=== PATIENT | female | born 1985 | race Caucasian/White ===

== ENCOUNTER → 2016-04-29 | Outpatient (RCR) | payer BC ==
--- OUTSIDE RECORDS SUMMARY | 2016-01-30 08:51 | XMS REPORT | Continuity of Care Document ---
Author Author [facility] Organization [facility] Address Unknown Phone Unavailable Care Team Providers Care L[employer] Kil[employer] Operator Name Role Phone Viki Flores PCP [phone] Source Comments Some departments are not documenting in the electronic medical record. If you do not see the information that you expected, contact Release of Information in the Health Information Management department at [phone] for further assistance in locating additional records.[facility] Active Allergies and Adverse Reactions Allergen Noted Date Severity Reactions Comments Bactrim 10/14/2014 Low NAUSEA AND VOMITING Current Medications Prescription Sig. Disp. Refills Start End Date Status Date vitamins, w/iron Take 1 Tab by mouth Active & folate () daily. 28-0.8 mg tablet HYDROcodone/acetaminophen Take 1-2 Tabs by mouth 30 Tab 0 10/17/19 Active (NORCO; VICODIN) 5-325 mg every 4 hours as needed 15 tablet for Pain Earliest Fill Date: 10/16/14 senna/docusate Take 1 Tab by mouth twice 60 Tab 1 10/24/19 Active (SENOKOT-S) 8.6/50 mg daily. 15 tablet levETIRAcetam (KEPPRA) Take 1 Tab by mouth twice 30 Tab 1 10/24/19 Active 500 mg tablet daily. 15 dexamethasone (DECADRON) Please take 2 tablets 52 Tab 0 10/24/19 Active 2 mg tablet every 8 hours for 4 days. 15 Then take 2 tablets every 12 hours for 4 days. Then take 1 tablet every 12 hours for 4 days. Finally, take 1/2 a tablet every 12 hours for 4 days before stopping. 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 She had the numbness for awhile but as mother of 5 she did not think much of it. She had GTR here by Dr. Gloria. I have discussed her pathology with Dr. Prince. 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 We will treat aggressively with concurrent temodar and xrt followed by at least a year of temodar. She lives in [place] so I have contacted Dr. Oh office and they will contact her with an appointment manju. We discussed the toxicities of the treatment, the natural history and epidemiology of the disease, etiology. 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522 kg (120 lb 3.2 oz) 11/02/2014 3:25 PM CDT Body Mass Index 21.98 11/02/2014 3:25 PM CDT Oxygen Saturation 98% 11/02/2014 3:25 PM CDT Plan of Care Health Maintenance Due Date Last Done Comments Physical (Comprehensive) 1992 Exam Pertussis Vaccine 1996 Tetanus Vaccine 2002 Cervical Cancer Screening 2006 Influenza Vaccine 12/13/2015 Results from Last 3 Months Not on file
[2016-01-30 09:13] LABS: BASOPHILS % (AUTO) 0 % (0-10); EOSINOPHILS # (AUTO) 0.1 10^3/uL (0.0-0.3); EOSINOPHILS % (AUTO) 1 % (0-10); LYMPHOCYTES # (AUTO) 0.9 X 10^3 (1.0-4.0); LYMPHOCYTES % (AUTO) 20 % (12-44); MEAN CORPUSCULAR HEMOGLOBIN 33 PG (25-34); MEAN CORPUSCULAR HGB CONC 34 G/DL (32-36); MEAN CORPUSCULAR VOLUME 97 FL (80-99); MEAN PLATELET VOLUME 8.5 FL (7.4-10.4); MONOCYTES # (AUTO) 0.4 X 10^3 (0.0-1.0); MONOCYTES % (AUTO) 9 % (0-12); NEUTROPHILS # (AUTO) 3.2 X 10^3 (1.8-7.8); NEUTROPHILS % (AUTO) 69 % (42-75); PLATELET COUNT 161 10^3/uL (130-400); RED BLOOD COUNT 4.06 10^6/uL (4.35-5.85); RED CELL DISTRIBUTION WIDTH 12.8 % (10.0-14.5); WHITE BLOOD COUNT 4.6 10^3/uL (4.3-11.0)
[2016-01-30 09:55] LABS: ALANINE AMINOTRANSFERASE 21 U/L (0-55); ALBUMIN 4.5 G/DL (3.2-4.5); ANION GAP 4 MMOL/L (5-14); ASPARTATE AMINO TRANSFERASE 25 U/L (5-34); BILIRUBIN,TOTAL 0.4 MG/DL (0.1-1.0); BLOOD UREA NITROGEN 18 MG/DL (7-18); BUN/CREATININE RATIO 29; CALCIUM 8.9 MG/DL (8.5-10.1); CARBON DIOXIDE 25 MMOL/L (21-32); CHLORIDE 111 MMOL/L (98-107); CREATININE SERUM 0.63 MG/DL (0.60-1.30); GFR ESTIMATED > 60; GLUCOSE 91 MG/DL (70-105); POTASSIUM 3.6 MMOL/L (3.6-5.0); SODIUM 140 MMOL/L (135-145); TOTAL PROTEIN 6.8 G/DL (6.4-8.2)
[~2016-04-29] MED LIST: FRS325T PO; IBP800T PO; Ibuprofen PO; OXYC-12 PO; PREN1TAB39 PO
[2016-04-29 10:27] LABS: BASOPHILS % (AUTO) 0 % (0-10); EOSINOPHILS # (AUTO) 0.1 10^3/uL (0.0-0.3); EOSINOPHILS % (AUTO) 1 % (0-10); LYMPHOCYTES % (AUTO) 20 % (12-44); MEAN CORPUSCULAR HEMOGLOBIN 33 PG (25-34); MEAN CORPUSCULAR HGB CONC 34 G/DL (32-36); MEAN CORPUSCULAR VOLUME 97 FL (80-99); MEAN PLATELET VOLUME 8.4 FL (7.4-10.4); MONOCYTES # (AUTO) 0.7 X 10^3 (0.0-1.0); MONOCYTES % (AUTO) 13 % (0-12); NEUTROPHILS # (AUTO) 3.4 X 10^3 (1.8-7.8); NEUTROPHILS % (AUTO) 66 % (42-75); PLATELET COUNT 124 10^3/uL (130-400); RED BLOOD COUNT 4.31 10^6/uL (4.35-5.85); RED CELL DISTRIBUTION WIDTH 13.4 % (10.0-14.5); WHITE BLOOD COUNT 5.2 10^3/uL (4.3-11.0)
[2016-04-29 11:01] LABS: ALANINE AMINOTRANSFERASE 15 U/L (0-55); ALBUMIN 4.7 G/DL (3.2-4.5); ANION GAP 9 MMOL/L (5-14); ASPARTATE AMINO TRANSFERASE 17 U/L (5-34); BILIRUBIN,TOTAL 0.4 MG/DL (0.1-1.0); BLOOD UREA NITROGEN 16 MG/DL (7-18); BUN/CREATININE RATIO 23; CALCIUM 8.9 MG/DL (8.5-10.1); CARBON DIOXIDE 23 MMOL/L (21-32); CHLORIDE 110 MMOL/L (98-107); CREATININE SERUM 0.71 MG/DL (0.60-1.30); GFR ESTIMATED > 60; GLUCOSE 89 MG/DL (70-105); POTASSIUM 3.7 MMOL/L (3.6-5.0); SODIUM 142 MMOL/L (135-145); TOTAL PROTEIN 7.1 G/DL (6.4-8.2)
== END | disposition home or self-care (01) ==
LOC: ONC 01-30 08:48
PROVIDERS: ATTEND Internal Medicine Hematology & Oncology
DX: C71.3 Malignant neoplasm of parietal lobe (principal); Z79.899 Other long term (current) drug therapy
CPT/HCPCS: 36415; 80053; 85025; 99213

== ENCOUNTER → 2016-07-22 | Outpatient (CLI) | payer BC ==
[~2016-07-22] MED LIST changes: +GADOBUTROL 7.5 MMOL/7.5 ML (GADAVIST) VIAL IV ONE
--- NOTE | 2016-07-22 11:22 | Diagnostic Imaging Report ---
PROCEDURE: MR imaging of the brain with and without contrast. TECHNIQUE: Multiplanar, multisequence MR imaging of the brain was performed with and without contrast. INDICATION: History of oligodendroglioma. Resection performed in October 2015. 5 mL of Gadavist is administered intravenously. COMPARISON: MRI from 01/22/2016 is reviewed. FINDINGS: There is no diffusion restriction to suggest an acute infarct or other diffusion abnormality. There is a T2 hyperintense abnormality again seen in the brain parenchyma around the resection site in the right parietal region probably related to gliosis with stable appearance and no associated mass effect. There is no associated postcontrast enhancement. There is no hydrocephalus. The brainstem and the cerebellum appear unremarkable. The central vascular flow-voids appear unremarkable. The pituitary gland is normal in size. No hypothalamic or pineal region mass. There is thick mucosal thickening in the right maxillary sinus developed since the prior exam. Mild mucosal thickening in the ethmoidal air cells is also seen. IMPRESSION: 1. Stable right parietal resection cavity with no new mass effect or enhancing lesion identified. 2. Prominent right maxillary sinus mucosal thickening. Correlate for possible underlying sinusitis. Dictated by: Dictated on workstation # [id number]
== END ==
LOC: RAD 09:20
PROVIDERS: ATTEND Nurse Practitioner Adult Health
DX: C71.3 Malignant neoplasm of parietal lobe (principal)
CPT/HCPCS: 70553

== ENCOUNTER 2016-10-20 09:40 | Outpatient (RCR) | payer BC ==
[2016-07-28 11:30] LABS: BASOPHILS % (AUTO) 0 % (0-10); EOSINOPHILS # (AUTO) 0.1 10^3/uL (0.0-0.3); EOSINOPHILS % (AUTO) 1 % (0-10); LYMPHOCYTES # (AUTO) 1.2 X 10^3 (1.0-4.0); LYMPHOCYTES % (AUTO) 16 % (12-44); MEAN CORPUSCULAR HEMOGLOBIN 32 PG (25-34); MEAN CORPUSCULAR HGB CONC 33 G/DL (32-36); MEAN CORPUSCULAR VOLUME 97 FL (80-99); MEAN PLATELET VOLUME 8.4 FL (7.4-10.4); MONOCYTES # (AUTO) 0.5 X 10^3 (0.0-1.0); MONOCYTES % (AUTO) 6 % (0-12); NEUTROPHILS # (AUTO) 5.8 X 10^3 (1.8-7.8); NEUTROPHILS % (AUTO) 77 % (42-75); PLATELET COUNT 183 10^3/uL (130-400); RED BLOOD COUNT 4.12 10^6/uL (4.35-5.85); RED CELL DISTRIBUTION WIDTH 13.2 % (10.0-14.5); WHITE BLOOD COUNT 7.5 10^3/uL (4.3-11.0)
[2016-07-28 12:35] LABS: ALANINE AMINOTRANSFERASE 11 U/L (0-55); ALBUMIN 4.4 G/DL (3.2-4.5); ANION GAP 7 MMOL/L (5-14); ASPARTATE AMINO TRANSFERASE 17 U/L (5-34); BILIRUBIN,TOTAL 0.3 MG/DL (0.1-1.0); BLOOD UREA NITROGEN 16 MG/DL (7-18); BUN/CREATININE RATIO 23; CALCIUM 8.9 MG/DL (8.5-10.1); CARBON DIOXIDE 25 MMOL/L (21-32); CHLORIDE 108 MMOL/L (98-107); CREATININE SERUM 0.69 MG/DL (0.60-1.30); GFR ESTIMATED > 60; GLUCOSE 99 MG/DL (70-105); POTASSIUM 3.9 MMOL/L (3.6-5.0); SODIUM 140 MMOL/L (135-145); TOTAL PROTEIN 6.8 G/DL (6.4-8.2)
[~2016-10-20 09:40] MED LIST changes: -GADOBUTROL 7.5 MMOL/7.5 ML (GADAVIST) VIAL IV ONE
[2016-10-20 10:04] LABS: BASOPHILS % (AUTO) 0 % (0-10); EOSINOPHILS # (AUTO) 0.1 10^3/uL (0.0-0.3); EOSINOPHILS % (AUTO) 1 % (0-10); LYMPHOCYTES # (AUTO) 0.8 X 10^3 (1.0-4.0); LYMPHOCYTES % (AUTO) 21 % (12-44); MEAN CORPUSCULAR HEMOGLOBIN 33 PG (25-34); MEAN CORPUSCULAR HGB CONC 34 G/DL (32-36); MEAN CORPUSCULAR VOLUME 97 FL (80-99); MEAN PLATELET VOLUME 8.8 FL (7.4-10.4); MONOCYTES # (AUTO) 0.4 X 10^3 (0.0-1.0); MONOCYTES % (AUTO) 9 % (0-12); NEUTROPHILS # (AUTO) 2.7 X 10^3 (1.8-7.8); NEUTROPHILS % (AUTO) 68 % (42-75); PLATELET COUNT 131 10^3/uL (130-400); RED BLOOD COUNT 4.12 10^6/uL (4.35-5.85); RED CELL DISTRIBUTION WIDTH 13.2 % (10.0-14.5)
[2016-10-20 10:34] LABS: ALANINE AMINOTRANSFERASE 10 U/L (0-55); ALBUMIN 4.4 GM/DL (3.2-4.5); ANION GAP 7 MMOL/L (5-14); ASPARTATE AMINO TRANSFERASE 14 U/L (5-34); BILIRUBIN,TOTAL 0.5 MG/DL (0.1-1.0); BLOOD UREA NITROGEN 16 MG/DL (7-18); BUN/CREATININE RATIO 23; CARBON DIOXIDE 23 MMOL/L (21-32); CHLORIDE 110 MMOL/L (98-107); CREATININE SERUM 0.69 MG/DL (0.60-1.30); GFR ESTIMATED > 60; GLUCOSE 86 MG/DL (70-105); POTASSIUM 4.1 MMOL/L (3.6-5.0); SODIUM 140 MMOL/L (135-145); TOTAL PROTEIN 6.9 GM/DL (6.4-8.2)
== END 2016-10-26 | disposition home or self-care (01) ==
LOC: ONC 09:40
PROVIDERS: ATTEND Internal Medicine Hematology & Oncology
DX: C71.3 Malignant neoplasm of parietal lobe (principal); Z79.899 Other long term (current) drug therapy
CPT/HCPCS: 36415; 80053; 85025; 99213

== ENCOUNTER → 2017-01-06 | Outpatient (CLI) | payer BC ==
[~2017-01-06] MED LIST changes: +GADOBUTROL 7.5 MMOL/7.5 ML (GADAVIST) VIAL IV ONE
--- NOTE | 2017-01-06 11:15 | Diagnostic Imaging Report ---
PROCEDURE: MR imaging of the brain with and without contrast. TECHNIQUE: Multiplanar, multisequence MR imaging of the brain was performed with and without contrast. INDICATION: History of oligodendroglioma. 5 mL of Gadovist is administered intravenously. COMPARISON: 07/22/2016. FINDINGS: There is no diffusion restriction to suggest an acute infarct or other diffusion abnormality noted. There is a resection cavity seen in the right parietal region measuring 4.3 x 3.3 x 3.8 cm without change from the prior exam. Heterogeneous T2 and FLAIR signal abnormality in the brain parenchyma is seen. This is similar to 07/22/2016, exam. There is no enhancing nodular component seen. No hydrocephalus. The pituitary gland is normal in size. No hypothalamic or pineal region mass. The central vascular flow-voids appear grossly unremarkable. The internal auditory canals and inner ear structures appear unremarkable. There is generally clear appearance of the paranasal sinuses seen with resolution of previously seen mucosal thickening in the right maxillary sinus. IMPRESSION: Stable resection cavity in the right parietal region with adjacent parenchymal changes as described. No significant change or enhancing nodule seen to suggest tumor recurrence. Dictated by: Dictated on workstation # [id number]
== END ==
LOC: RAD 09:26
PROVIDERS: ATTEND Internal Medicine Hematology & Oncology
DX: C71.3 Malignant neoplasm of parietal lobe (principal); Z98.890 Other specified postprocedural states
CPT/HCPCS: 70553

== ENCOUNTER 2017-01-12 10:22 | Outpatient (RCR) | payer BC ==
[~2017-01-12 10:22] MED LIST changes: -GADOBUTROL 7.5 MMOL/7.5 ML (GADAVIST) VIAL IV ONE
[2017-01-12 10:33] LABS: BASOPHILS % (AUTO) 0 % (0-10); EOSINOPHILS # (AUTO) 0.1 10^3/uL (0.0-0.3); EOSINOPHILS % (AUTO) 1 % (0-10); HEMATOCRIT 39 % (35-52); LYMPHOCYTES # (AUTO) 1.4 X 10^3 (1.0-4.0); LYMPHOCYTES % (AUTO) 24 % (12-44); MEAN CORPUSCULAR HEMOGLOBIN 33 PG (25-34); MEAN CORPUSCULAR HGB CONC 33 G/DL (32-36); MEAN CORPUSCULAR VOLUME 99 FL (80-99); MEAN PLATELET VOLUME 8.9 FL (7.4-10.4); MONOCYTES # (AUTO) 0.3 X 10^3 (0.0-1.0); MONOCYTES % (AUTO) 6 % (0-12); NEUTROPHILS # (AUTO) 3.9 X 10^3 (1.8-7.8); NEUTROPHILS % (AUTO) 69 % (42-75); PLATELET COUNT 158 10^3/uL (130-400); RED BLOOD COUNT 3.95 10^6/uL (4.35-5.85); WHITE BLOOD COUNT 5.6 10^3/uL (4.3-11.0)
[2017-01-12 10:55] LABS: ALANINE AMINOTRANSFERASE 15 U/L (0-55); ALBUMIN 4.3 GM/DL (3.2-4.5); ALKALINE PHOSPHATASE 69 U/L (40-136); BILIRUBIN,TOTAL 0.3 MG/DL (0.1-1.0); BUN/CREATININE RATIO 17; CALCIUM 9.3 MG/DL (8.5-10.1); CARBON DIOXIDE 23 MMOL/L (21-32); CHLORIDE 108 MMOL/L (98-107); CREATININE SERUM 0.69 MG/DL (0.60-1.30); GFR ESTIMATED > 60; GLUCOSE 107 MG/DL (70-105); SODIUM 140 MMOL/L (135-145)
== END 2017-04-12 | disposition home or self-care (01) ==
LOC: ONC 10:22
PROVIDERS: ATTEND Internal Medicine Hematology & Oncology
DX: C71.3 Malignant neoplasm of parietal lobe (principal); Z79.899 Other long term (current) drug therapy
CPT/HCPCS: 36415; 80053; 85025; 99213

== ENCOUNTER 2017-04-21 08:56 | Outpatient (RCR) | payer BC ==
[2017-04-21 09:14] LABS: BASOPHILS % (AUTO) 0 % (0-10); EOSINOPHILS # (AUTO) 0.1 10^3/uL (0.0-0.3); EOSINOPHILS % (AUTO) 1 % (0-10); HEMATOCRIT 42 % (35-52); HEMOGLOBIN 14.5 G/DL (11.5-16.0); LYMPHOCYTES # (AUTO) 1.3 X 10^3 (1.0-4.0); LYMPHOCYTES % (AUTO) 20 % (12-44); MEAN CORPUSCULAR HEMOGLOBIN 33 PG (25-34); MEAN CORPUSCULAR HGB CONC 35 G/DL (32-36); MEAN CORPUSCULAR VOLUME 96 FL (80-99); MEAN PLATELET VOLUME 8.8 FL (7.4-10.4); MONOCYTES # (AUTO) 0.4 X 10^3 (0.0-1.0); MONOCYTES % (AUTO) 5 % (0-12); NEUTROPHILS # (AUTO) 4.9 X 10^3 (1.8-7.8); NEUTROPHILS % (AUTO) 74 % (42-75); PLATELET COUNT 174 10^3/uL (130-400); RED BLOOD COUNT 4.36 10^6/uL (4.35-5.85); RED CELL DISTRIBUTION WIDTH 12.4 % (10.0-14.5); WHITE BLOOD COUNT 6.6 10^3/uL (4.3-11.0)
[2017-04-21 09:31] LABS: ALANINE AMINOTRANSFERASE 18 U/L (0-55); ALBUMIN 4.7 GM/DL (3.2-4.5); ALKALINE PHOSPHATASE 67 U/L (40-136); BILIRUBIN,TOTAL 0.6 MG/DL (0.1-1.0); BUN/CREATININE RATIO 19; CALCIUM 9.5 MG/DL (8.5-10.1); CARBON DIOXIDE 26 MMOL/L (21-32); CHLORIDE 106 MMOL/L (98-107); GFR ESTIMATED > 60; GLUCOSE 129 MG/DL (70-105); POTASSIUM 3.6 MMOL/L (3.6-5.0); SODIUM 141 MMOL/L (135-145); TOTAL PROTEIN 7.5 GM/DL (6.4-8.2)
== END 2017-07-20 | disposition home or self-care (01) ==
LOC: ONC 08:56
PROVIDERS: ATTEND Internal Medicine Hematology & Oncology
DX: C71.3 Malignant neoplasm of parietal lobe (principal); R11.0 Nausea; Z79.899 Other long term (current) drug therapy
CPT/HCPCS: 36415; 80053; 85025; 99213

== ENCOUNTER → 2017-07-13 | Outpatient (CLI) | payer BC ==
[~2017-07-13] MED LIST changes: +GADOBUTROL 7.5 MMOL/7.5 ML (GADAVIST) VIAL IV ONE
--- NOTE | 2017-07-13 13:23 | Diagnostic Imaging Report ---
PROCEDURE: MR imaging of the brain with and without contrast. TECHNIQUE: Multiplanar, multisequence MR imaging of the brain was performed with and without contrast. INDICATION: Oligodendroglioma. COMPARISON: Comparison made with prior examination from 01/06/2017. FINDINGS: There is an unchanged fluid-filled resection cavity in the right parietal region. There is no surrounding contrast enhancement. There is no hydrocephalus. There is no midline shift. There is no hemorrhage. There is no extra-axial fluid collection. There are no areas of diffusion restriction appreciated to suggest an acute CVA. There are no other abnormal areas of contrast enhancement. The sinuses and mastoid air cells are clear. Globes and intraorbital structures are unremarkable. There is some minimal gliosis about the resection cavity, which is unchanged. IMPRESSION: Stable fluid-filled resection cavity in the right parietal region with some adjacent gliosis which is also unchanged. There is no evidence of enhancement to suggest tumor recurrence. Otherwise, unremarkable MRI brain. Dictated by: Dictated on workstation # [id number]
== END ==
LOC: RAD 10:09
PROVIDERS: ATTEND Nurse Practitioner Adult Health
DX: Z08 Encounter for follow-up examination after completed treatment for malignant neoplasm (principal); Z85.841 Personal history of malignant neoplasm of brain
CPT/HCPCS: 70553

== ENCOUNTER → 2017-10-20 | Outpatient (RCR) | payer BC ==
[2017-07-22 08:59] LABS: BASOPHILS % (AUTO) 0 % (0-10); EOSINOPHILS # (AUTO) 0.1 10^3/uL (0.0-0.3); EOSINOPHILS % (AUTO) 2 % (0-10); HEMATOCRIT 44 % (35-52); LYMPHOCYTES # (AUTO) 1.2 X 10^3 (1.0-4.0); LYMPHOCYTES % (AUTO) 23 % (12-44); MEAN CORPUSCULAR HEMOGLOBIN 33 PG (25-34); MEAN CORPUSCULAR HGB CONC 34 G/DL (32-36); MEAN CORPUSCULAR VOLUME 97 FL (80-99); MEAN PLATELET VOLUME 8.6 FL (7.4-10.4); MONOCYTES # (AUTO) 0.5 X 10^3 (0.0-1.0); MONOCYTES % (AUTO) 9 % (0-12); NEUTROPHILS # (AUTO) 3.4 X 10^3 (1.8-7.8); NEUTROPHILS % (AUTO) 66 % (42-75); PLATELET COUNT 152 10^3/uL (130-400); RED CELL DISTRIBUTION WIDTH 12.9 % (10.0-14.5); WHITE BLOOD COUNT 5.2 10^3/uL (4.3-11.0)
[2017-07-22 09:17] LABS: ALANINE AMINOTRANSFERASE 17 U/L (0-55); ALBUMIN 4.8 GM/DL (3.2-4.5); ALKALINE PHOSPHATASE 66 U/L (40-136); BILIRUBIN,TOTAL 0.6 MG/DL (0.1-1.0); BUN/CREATININE RATIO 25; CALCIUM 9.5 MG/DL (8.5-10.1); CARBON DIOXIDE 23 MMOL/L (21-32); CHLORIDE 107 MMOL/L (98-107); CREATININE SERUM 0.73 MG/DL (0.60-1.30); GFR ESTIMATED > 60; GLUCOSE 90 MG/DL (70-105); POTASSIUM 4.7 MMOL/L (3.6-5.0); SODIUM 140 MMOL/L (135-145); TOTAL PROTEIN 7.6 GM/DL (6.4-8.2)
[~2017-10-20] MED LIST changes: -GADOBUTROL 7.5 MMOL/7.5 ML (GADAVIST) VIAL IV ONE
[2017-10-20 09:17] LABS: BASOPHILS % (AUTO) 0 % (0-10); EOSINOPHILS # (AUTO) 0.1 10^3/uL (0.0-0.3); EOSINOPHILS % (AUTO) 2 % (0-10); HEMATOCRIT 41 % (35-52); HEMOGLOBIN 14.1 G/DL (11.5-16.0); LYMPHOCYTES # (AUTO) 1.4 X 10^3 (1.0-4.0); LYMPHOCYTES % (AUTO) 31 % (12-44); MEAN CORPUSCULAR HEMOGLOBIN 34 PG (25-34); MEAN CORPUSCULAR HGB CONC 35 G/DL (32-36); MEAN CORPUSCULAR VOLUME 97 FL (80-99); MEAN PLATELET VOLUME 8.8 FL (7.4-10.4); MONOCYTES # (AUTO) 0.4 X 10^3 (0.0-1.0); MONOCYTES % (AUTO) 8 % (0-12); NEUTROPHILS # (AUTO) 2.6 X 10^3 (1.8-7.8); NEUTROPHILS % (AUTO) 59 % (42-75); PLATELET COUNT 138 10^3/uL (130-400); RED BLOOD COUNT 4.19 10^6/uL (4.35-5.85); RED CELL DISTRIBUTION WIDTH 13.4 % (10.0-14.5); WHITE BLOOD COUNT 4.5 10^3/uL (4.3-11.0)
[2017-10-20 09:33] LABS: ALANINE AMINOTRANSFERASE 11 U/L (0-55); ALBUMIN 4.9 GM/DL (3.2-4.5); ALKALINE PHOSPHATASE 58 U/L (40-136); BILIRUBIN,TOTAL 0.5 MG/DL (0.1-1.0); BUN/CREATININE RATIO 18; CALCIUM 9.6 MG/DL (8.5-10.1); CARBON DIOXIDE 23 MMOL/L (21-32); CHLORIDE 111 MMOL/L (98-107); CREATININE SERUM 0.77 MG/DL (0.60-1.30); GFR ESTIMATED > 60; GLUCOSE 103 MG/DL (70-105); POTASSIUM 4.1 MMOL/L (3.6-5.0); SODIUM 140 MMOL/L (135-145); TOTAL PROTEIN 7.5 GM/DL (6.4-8.2)
== END | disposition home or self-care (01) ==
LOC: ONC 07-22 08:46
PROVIDERS: ATTEND Internal Medicine Hematology & Oncology
DX: Z08 Encounter for follow-up examination after completed treatment for malignant neoplasm (principal); Z85.841 Personal history of malignant neoplasm of brain
CPT/HCPCS: 36415; 80053; 85025; 99213

== ENCOUNTER 2020-11-20 23:43 | Emergency (ER) | payer SELFPAY ==
[~2020-11-20] VITALS: Ht 157.5 cm; Wt 49.9 kg
--- NOTE | 2020-11-21 00:10 | ED Abdominal Pain ---
General Chief Complaint: Abdominal/GI Problems Stated Complaint: UPPER ABD PAIN Source of Information: Patient Exam Limitations: No Limitations History of Present Illness Date Seen by Provider: Nov 21, 2020 Time Seen by Provider: 00:05 Initial Comments Patient is a 35-year-old female who presents to the emergency department today with a chief complaint of epigastric and right upper quadrant abdominal pain. Onset of pain about 2 weeks ago has happened sporadically since that time. She states it seems to be worse in the evenings and especially after she eats. Patient rated the pain at "11" last night after she tried to eat some pizza. She currently rates it at a "6". She states she has had some nausea and vo miting with the pain. No prior abdominal surgeries. Still has her gallbladder. Denies any fevers or chills. She has had intermittent diarrhea and constipation. No urinary complaints. Patient has a Mirena in place and does not believe she could be . Denies any abnormal vaginal discharge. All other review of systems reviewed and negative except as stated. Timing/Duration: Getting Worse, Intermittent Severity/Quality: Aching, Cramping Location: RUQ, Epigastric Radiation: Shoulder Modifying Factors: Improves With Analgesics; Worsens With Eating Associated Symptoms: Nausea/Vomiting Allergies and Home Medications Allergies Coded Allergies: sulfamethoxazole (Verified Allergy, Unknown, 10/17/06) trimethoprim (Verified Allergy, Unknown, 10/17/06) Home Medications Dicyclomine HCl 10 Mg Capsule, 10 MG PO Q6H PRN for abdominal pain Prescribed by: MYLA WATERS on 11/21/2027 Ondansetron 4 Mg Tab.rapdis, 4 MG PO Q8H PRN for nausea Prescribed by: MYLA WATERS on 11/21/2027 Patient Home Medication List Home Medication List Reviewed: Yes Review of Systems Review of Systems Constitutional: see HPI EENTM: No Symptoms Reported Respiratory: No Symptoms Reported Cardiovascular: No Symptoms Reported Gastrointestinal: Abdominal Pain, Constipated, Diarrhea, Nausea, Vomiting Genitourinary: No Symptoms Reported Musculoskeletal: no symptoms reported Skin: no symptoms reported Psychiatric/Neurological: No Symptoms Reported All Other Systems Reviewed Negative Unless Noted: Yes Past [id number]-Spukfz Hx Patient Social History Tobacco Use?: Yes Tobacco type used: Cigarettes Smoking Status: Current Everyday Smoker Substance use?: No Alcohol Use?: No Pt feels they are or have been: No Immunizations Up To Date Tetanus Booster (TDap): Less than 5yrs PED Vaccines UTD: Yes Past Medical History Surgery/Hospitalization HX: brain tumor removed. Reproductive Disorders: No Adverse Reaction/Blood Tranf: No Family Medical History Alcoholism 19 FATHER, Onset:20's - Drug abuse G8 BROTHER, Onset:'s - Hypercholesterolemia 19 FATHER, Onset:40's - 50 Hypertension 19 FATHER, Onset:40's - 50 No Family History of: AIDS Abdominal aortic aneurysm Long's disease Alzheimer's disease Aphasia Arthritis Asthma Cancer of mouth Cardiovascular disease Cataracts Colon cancer Completed stroke Congenital disease Congenital heart disease Coronary thrombosis Cystic fibrosis Deafness or hearing loss Dementia Diabetes mellitus Dysphasia Fibrocystic disease of breast Gastroenteritis Glaucoma Headache disorder Infertility Kidney disease Myocardial infarction Neoplasm Not obtainable due to adoption Osteoporosis Parkinson's disease Prostate cancer Psychosocial problem Respiratory disorder Seizure disorder Severe allergy Thyroid disease Tuberculosis Visual disorder Physical Exam Vital Signs Vital Signs - First Documented 11/20/20 23:50 Temp 36.2 Pulse 89 Resp 18 B/P (MAP) 128/92 (104) Pulse Ox 99 O2 Delivery Room Air Capillary Refill : Height/Weight/BMI Height: 5'5.00" Weight: 130lbs. oz. 58.073916iq; BMI Method: General Appearance: WD/WN, no apparent distress Respiratory: lungs clear, normal breath sounds, no respiratory distress, no accessory muscle use Cardiovascular: regular rate, rhythm Gastrointestinal: soft, abnormal bowel sounds (hyperactive), tenderness (mild epigastric tenderness and RUQ tenderness) Extremities: normal range of motion, non-tender, normal inspection Back: normal inspection Neurologic/Psychiatric: no motor/sensory deficits, alert, normal mood/affect, oriented x 3 Skin: normal color, warm/dry Progress/Results/Core Measures Results/Orders Lab Results Laboratory Tests Test 11/21/20 00:30 Range/Units White Blood Count 7.2 4.3-11.0 10^3/uL Red Blood Count 4.30 3.80-5.11 10^6/uL Hemoglobin 14.1 11.5-16.0 g/dL Hematocrit 42 35-52 % Mean Corpuscular Volume 97 80-99 fL Mean Corpuscular Hemoglobin 33 25-34 pg Mean Corpuscular Hemoglobin Concent 34 32-36 g/dL Red Cell Distribution Width 12.7 10.0-14.5 % Platelet Count 174 130-400 10^3/uL Mean Platelet Volume 8.9 L 9.0-12.2 fL Immature Granulocyte % (Auto) 0 % Neutrophils (%) (Auto) 66 42-75 % Lymphocytes (%) (Auto) 25 12-44 % Monocytes (%) (Auto) 6 0-12 % Eosinophils (%) (Auto) 2 0-10 % Basophils (%) (Auto) 0 0-10 % Neutrophils # (Auto) 4.8 1.8-7.8 10^3/uL Lymphocytes # (Auto) 1.8 1.0-4.0 10^3/uL Monocytes # (Auto) 0.5 0.0-1.0 10^3/uL Eosinophils # (Auto) 0.2 0.0-0.3 10^3/uL Basophils # (Auto) 0.0 0.0-0.1 10^3/uL Immature Granulocyte # (Auto) 0.0 0.0-0.1 10^3/uL Sodium Level 143 135-145 MMOL/L Potassium Level 3.2 L 3.6-5.0 MMOL/L Chloride Level 107 98-107 MMOL/L Carbon Dioxide Level 24 21-32 MMOL/L Anion Gap 12 5-14 MMOL/L Blood Urea Nitrogen 12 7-18 MG/DL Creatinine 0.80 0.60-1.30 MG/DL Estimat Glomerular Filtration Rate 82 BUN/Creatinine Ratio 15 Glucose Level 117 H 70-105 MG/DL Calcium Level 9.4 8.5-10.1 MG/DL Corrected Calcium 9.1 8.5-10.1 MG/DL Total Bilirubin 0.4 0.1-1.0 MG/DL Aspartate Amino Transf (AST/SGOT) 18 5-34 U/L Alanine Aminotransferase (ALT/SGPT) 15 0-55 U/L Alkaline Phosphatase 69 40-136 U/L Total Protein 7.3 6.4-8.2 GM/DL Albumin 4.4 3.2-4.5 GM/DL Lipase 18 8-78 U/L My Orders Orders - MYLA WATERS MD Ed Iv/Invasive Line Start (11/21/20 00:25) Cbc With Automated Diff (11/21/20 00:25) Comprehensive Metabolic Panel (11/21/20 00:25) Lipase (8/11/21 00:25) Urine Bedside (11/21/20 00:25) Ondansetron Injection (Zofran Injectio (11/21/20 00:30) Dicyclomine Injection (Bentyl Injection) (11/21/20 00:25) Medications Given in ED Current Medications Medications Dose Ordered Sig/Yanet Route Start Time Stop Time Status Last Admin Dose Admin Ondansetron HCl 4 mg ONCE ONCE IVP 11/21/20 00:30 11/21/20 00:31 DC 11/21/20 00:41 4 MG Vital Signs/I&O 11/20/20 23:50 Temp 36.2 Pulse 89 Resp 18 B/P (MAP) 128/92 (104) Pulse Ox 99 O2 Delivery Room Air Progress Progress Note : Time: 01:07 Progress Note Patient's labs have been reviewed and are all within normal limits. No elevated white blood cell count no abnormal liver function test. Patient is treated in the emergency department with Zofran, Bentyl and fluids. She will be sent home with an outpatient order for gallbladder ultrasound. Results to Dr. Soriano. Patient also recommended to follow-up with her primary care physician. She is given Bentyl as a prescription for home as well as nausea medication. Return precautions were given. All questions were sought and answered. Patient is stable for discharge. Departure Impression Primary Impression: Abdominal pain Qualified Codes: R10.13 - Epigastric pain Disposition: 01 HOME, SELF-CARE Condition: Stable Departure-Patient Inst. Decision time for Depature: 00:26 Referrals: [facility] [place] (PCP/Family) Primary Care Physician MONI SORIANO MD Patient Instructions: Gallbladder Diet Add. Discharge Instructions: Make sure that you follow a low-fat diet. Eating fatty foods such as hamburgers, pizza and fried foods may make your belly hurt worse. I have sent you with an outpatient order for gallbladder ultrasound. Please call first thing in the morning at 830 to schedule this for tomorrow. If you develop a fever, worse pain, vomiting please come back to the emergency department. I have given you follow-up information for Dr. Soriano who is the general surgeon on-call who takes care of gallbladders. You should also follow-up with your primary care doctor. Scripts Ondansetron (Ondansetron Odt) 4 Mg Tab.rapdis 4 MG PO Q8H PRN for nausea, #15 TAB Prov: MYLA WATERS MD 11/21/20 Dicyclomine HCl (Dicyclomine HCl) 10 Mg Capsule 10 MG PO Q6H PRN for abdominal pain, #30 CAP Prov: MYLA WATERS MD 11/21/20 MYLA WATERS MD Nov 21, 2020 00:09
[2020-11-21] MEDS ORDERED: DICYCLOMINE 10 MG/ML (BENTYL) 2 ML AMP IM STA (00:25)
[2020-11-21] MEDS ORDERED: DICY10CA12 PO (00:28)
[2020-11-21] MEDS ORDERED: ONDA4TAB11 PO (00:28)
[2020-11-21] MEDS ORDERED: ONDANSETRON 4 MG/2 ML (SDV) Z0FRAN IVP ONE (00:30)
[2020-11-21 00:46] LABS: BASOPHILS % (AUTO) 0 % (0-10); EOSINOPHILS # (AUTO) 0.2 10^3/uL (0.0-0.3); EOSINOPHILS % (AUTO) 2 % (0-10); HEMATOCRIT 42 % (35-52); HEMOGLOBIN 14.1 g/dL (11.5-16.0); LYMPHOCYTES # (AUTO) 1.8 10^3/uL (1.0-4.0); LYMPHOCYTES % (AUTO) 25 % (12-44); MEAN CORPUSCULAR HEMOGLOBIN 33 pg (25-34); MEAN CORPUSCULAR HGB CONC 34 g/dL (32-36); MEAN CORPUSCULAR VOLUME 97 fL (80-99); MEAN PLATELET VOLUME 8.9 fL (9.0-12.2); MONOCYTES # (AUTO) 0.5 10^3/uL (0.0-1.0); MONOCYTES % (AUTO) 6 % (0-12); NEUTROPHILS # (AUTO) 4.8 10^3/uL (1.8-7.8); NEUTROPHILS % (AUTO) 66 % (42-75); PLATELET COUNT 174 10^3/uL (130-400); WHITE BLOOD COUNT 7.2 10^3/uL (4.3-11.0)
[2020-11-21 00:57] LABS: ALBUMIN 4.4 GM/DL (3.2-4.5)
[2020-11-21 00:58] LABS: POTASSIUM 3.2 MMOL/L (3.6-5.0)
[2020-11-21 00:59] LABS: CALCIUM 9.4 MG/DL (8.5-10.1)
[2020-11-21 01:00] LABS: TOTAL PROTEIN 7.3 GM/DL (6.4-8.2)
[2020-11-21 01:02] LABS: BILIRUBIN,TOTAL 0.4 MG/DL (0.1-1.0)
[2020-11-21 01:04] LABS: CREATININE SERUM 0.8 MG/DL (0.60-1.30)
[2020-11-21 01:21] VITALS: BP 108/73
[2020-11-22] MEDS ORDERED: METR500T PO (10:05)
[2020-11-22] MEDS ORDERED: CIPR500T5 PO (10:05)
[2020-11-22] MEDS ORDERED: ACHD5005 PO (10:05)
== END 2020-11-21 01:26 | disposition home or self-care (01) ==
LOC: EDUNIT# 23:43 → ER 23:48
DX: R10.13 Epigastric pain (principal); R10.11 Right upper quadrant pain; F17.210 Nicotine dependence, cigarettes, uncomplicated; Z97.5 Presence of (intrauterine) contraceptive device
CPT/HCPCS: 36415; 80053; 83690; 84703; 85025

== ENCOUNTER → 2020-11-22 | Outpatient (CLI) | payer SELFPAY ==
[~2020-11-22] MED LIST changes: +ACHD5005 PO; +CIPR500T5 PO; +DICY10CA12 PO; +METR500T PO; +ONDA4TAB11 PO
--- NOTE | 2020-11-22 09:32 | Diagnostic Imaging Report ---
PROCEDURE: US Gallbladder. TECHNIQUE: Multiple real-time grayscale images were obtained over the right upper quadrant in various projections. INDICATION: Right upper quadrant abdominal pain COMPARISON: None. FINDINGS: The gallbladder is contracted and contains a large gallstone. There is a trace fluid in the pericholecystic region. Gallbladder wall thickening is present. This could represent acute cholecystitis with cholelithiasis. Recommend CT with contrast for further evaluation. Liver size and echogenicity is otherwise normal. Common bile duct is normal at 4 mm. Portal venous flow is normal. The visualized pancreas, aorta, IVC and right kidney normal. IMPRESSION: Cholelithiasis with features concerning for cholecystitis. CT with contrast recommended. Dictated by: Dictated on workstation # [id number]
== END ==
LOC: RAD 09:00
DX: K80.20 Calculus of gallbladder without cholecystitis without obstruction (principal)
CPT/HCPCS: 76705

== ENCOUNTER 2020-11-27 05:48 | Outpatient (CLI) | payer OTHER ==
[~2020-11-27] VITALS: Ht 157 cm; Wt 52.2 kg
== END 2020-11-27 10:48 | disposition home or self-care (01) ==
LOC: PREOP 05:48
PROVIDERS: ATTEND Surgery
DX: Z01.818 Encounter for other preprocedural examination (principal)

== ENCOUNTER 2020-11-29 12:03 | Day surgery (SDC) | payer OTHER ==
[~2020-11-29] VITALS: Ht 157 cm; Wt 52.2 kg
[2020-11-29] VITALS (9 sets, daily range): BP systolic 114–134; BP diastolic 72–88
[~2020-11-29 12:03] MED LIST changes: +ceFAZolin INJECTION 1,000 MG in WATER (STERILE) FOR INJECTION 10 ML IV ONE
--- NOTE | 2020-11-29 12:23 | Progress Note-Pre Operative ---
Pre-Operative Progress Note H&P Reviewed The H&P was reviewed, patient examined and no changes noted. Date Seen by Provider: Nov 29, 2020 Time Seen by Provider: 12:00 Date H&P Reviewed: Nov 29, 2020 Time H&P Reviewed: 12:00 Pre-Operative Diagnosis: chronic calculous cholecystitis MONI SORIANO MD Nov 29, 2020 12:23
[2020-11-29] MEDS ORDERED: HYDR-3817 PO (12:25)
--- NOTE | 2020-11-29 12:26 | Discharge Inst-Surgical ---
D/C Lap Instructions-BO New, Converted, or Re-Newed RX: RX on Chart Follow Up Appt in 2 weeks Activity as tolerated No driving for 24 hours No driving while on pain medications Incentive Spirometry use every 2 hours while awake Regular Diet Symptoms to Report: Fever over 101 degree F, Nausea/Vomiting Infection Signs and Symptoms to report: Increased redness, Foul odor of wound, Increased drainage Bathing instructions: May shower Operative Area Clean/Dry; Keep incision clean/dry If any problems/questions: Contact your physician or go to Emergency Room MONI SORIANO MD Nov 29, 2020 12:26
[2020-11-29] MEDS ORDERED: morphine INJ 10 MG/ML 1ML (SYR OR VIAL) IVP PRN ×2 (12:30)
[2020-11-29] MEDS ORDERED: ACETAMINOPHEN 325 MG TABLET PO PRN (12:30)
[2020-11-29] MEDS ORDERED: ONDANSETRON 4 MG/2 ML (SDV) Z0FRAN IVP PRN ×3 (12:30→16:00)
[2020-11-29] MEDS ORDERED: HYDROcodone/APAP 5 MG/325 MG (LORTAB) TAB PO ONE (12:30)
[2020-11-29] MEDS ORDERED: LIDOCAINE PF 2% 5 ML (XYLOCAINE) VIAL ONE ×2 (13:17→14:31)
[2020-11-29] MEDS ORDERED: proPOfol 200 MG/20 ML (DIPRIVAN) VIAL IV ONE ×2 (13:17→14:31)
[2020-11-29] MEDS ORDERED: SEVOFLURANE (ULTANE) 15 ML INHAL SOLN ONE ×2 (13:17→15:47)
[2020-11-29] MEDS ORDERED: ROCURONIUM 10 MG/ML 5 ML SYRINGE IV ONE ×2 (13:17→14:31)
[2020-11-29] MEDS ORDERED: LIDOCAINE/EPI 1%-1:200,000 (XYLOCAINE) 30 ML VIAL ONE (14:23)
[2020-11-29] MEDS ORDERED: ceFAZolin INJECTION 1,000 MG ONE (14:29)
[2020-11-29] MEDS ORDERED: WATER (STERILE) FOR INJECTION 10 ML ONE (14:29)
[2020-11-29] MEDS ORDERED: ONDANSETRON 4 MG/2 ML (SDV) Z0FRAN ONE ×2 (14:31→15:42)
[2020-11-29] MEDS ORDERED: fentaNYL INJ 100 MCG/2 ML AMP ONE (14:32)
[2020-11-29] MEDS ORDERED: MIDAZOLAM 2 MG/2 ML (VERSED) VIAL ONE (14:32)
[2020-11-29] MEDS: LACTATED RINGERS 1,000 ML IV PRN ×2 (15:00→17:15)
[2020-11-29] MEDS ORDERED: NEOSTIGMINE 3 MG/3 ML VIAL ONE (15:20)
[2020-11-29] MEDS ORDERED: GLYCOPYRROLATE 0.2 MG/ML (ROBINUL) 2 ML VIAL ONE (15:20)
--- NOTE | 2020-11-29 15:38 | Progress Note-Post Operative ---
Post-Operative Progess Note Surgeon (s)/Trackwalker (s) Surgeon MONI SORIANO MD Trackwalker: tristin donato DIE CUTTER APPRENTICE Pre-Operative Diagnosis CHRONIC CALCULOUS CHOLECYSTITIS Post-Operative Diagnosis same Procedure & Operative Findings Date of Procedure 11/29/20 Procedure Performed/Findings laparoscopic cholecystectomy Anesthesia Type get Estimated Blood Loss Estimated blood loss (mL): minimal Specimens/Packing Specimens Removed gallbladder MONI SORIANO MD Nov 29, 2020 15:38
[2020-11-29] MEDS ORDERED: MEPERIDINE (DEMEROL) INJ 50 MG/ML ONE (15:42)
[2020-11-29] MEDS ORDERED: MEPERIDINE (DEMEROL) INJ 50 MG/ML IVP ONE ×2 (16:00)
[2020-11-29] MEDS ORDERED: morphine INJ 10 MG/ML 1ML (SYR OR VIAL) IVP ONE (16:00)
[2020-11-29] MEDS ORDERED: HYDROcodone/APAP 5 MG/325 MG (LORTAB) TAB ONE ×2 (16:56→17:50)
[2020-11-29] MEDS ORDERED: ONDANSETRON 4 MG/2 ML (SDV) Z0FRAN IVP ONE (17:15)
--- NOTE | 2020-11-29 21:47 | OPERATIVE REPORT ---
DATE OF SERVICE: 11/29/2020 ATTENDING VARIETY SAW OPERATOR: [facility]. PREOPERATIVE DIAGNOSIS: Symptomatic chronic calculous cholecystitis. POSTOPERATIVE DIAGNOSIS: Symptomatic chronic calculous cholecystitis. PROCEDURE: Laparoscopic cholecystectomy. SURGEON: Moni Soriano MD ANESTHESIA: General endotracheal. ESTIMATED BLOOD LOSS: Minimal. FINDINGS: Large solitary gallstone. Gallbladder wall thickening. DISPOSITION: The patient tolerated the procedure well. INDICATIONS: The patient is a 35-year-old female who presented to the Emergency Department with a 2-day history of pain in the right upper abdominal quadrant with associated nausea and vomiting. She had reported that she first initially noted this one month prior. She did undergo an ultrasound, which did show gallstones. Upon further questioning, she reports that heavy or greasy foods tend to initiate worsening symptomatology. DESCRIPTION OF PROCEDURE: The patient was brought to the operating room, laid supine on the table. After adequate IV pain and sedative medications and general endotracheal intubation, the abdomen was prepped and draped in standard surgical fashion. A 0.5% Marcaine with epinephrine was used to anesthetize the overlying skin in the left upper abdominal quadrant and a transverse skin incision made using a 15 blade. An 0 silk suture was applied to the medial aspect incision for retraction and Veress needle inserted with low opening pressure of 0 mmHg and the abdomen was then insufflated to 15 mmHg pressure. The Veress needle removed and a 5 mm XL trocar placed followed by a 5 mm 45-degree angle laparoscope visualizing the peritoneal cavity. A 4-quadrant abdominal exploration was performed. There was a distended gallbladder with gallbladder wall thickening. Under direct visualization, we then proceeded to place a supraumbilical 10 mm port after the skin and peritoneal lining were anesthetized using 0.5% Marcaine with epinephrine and a transverse skin incision made using a 15 blade. In a similar manner, right upper abdominal quadrant 5 mm port was placed. The fundus of the gallbladder was then retracted anteriorly and superiorly. The hepatoduodenal ligament was then opened using blunt dissection as well as electrocautery on the hook instrument as well as a [place] dissector. The entire critical view of safety was identified including the triangle of Calot as well as the cystic duct and artery as only two structures going to gallbladder as well as the cystic plate behind the proximal gallbladder. A timeout was then taken, and the cystic duct and artery were then clipped proximally and distally and cut with EndoShears. The gallbladder was then dissected off the liver bed using electrocautery on hook instrument with visualization of good hemostasis as well as no leaking ducts of Luschka. The gallbladder was removed through the 10 mm port site using an EndoCatch bag. The fascia and peritoneum to the 10 mm port were then closed under direct visualization using a Trung-Cal device and 0 Vicryl suture. The abdomen was then desufflated and the remaining ports removed. All skin incisions were closed using 4-0 Monocryl running subcuticular sutures. Wounds were then cleaned and covered with Dermabond. The patient tolerated the procedure well. We will start IV normal pain medication as well as a clear liquid diet. When she is tolerating clears, has good pain control with oral pain medications, ambulating well, we will discharge her home and she will be instructed to do no heavy lifting or exertion for the next two weeks. Job ID: [id number] DocumentID: [id number] Dictated Date: 11/29/2020 15:26:26 Poultry Pathologist Date: 11/29/2020 21:46:54 Dictated By: MONI SORIANO MD
--- NOTE | 2020-11-29 23:42 | Anesthesia-General Post-Op ---
General Patient Condition Mental Status/LOC: Same as Preop Cardiovascular: Satisfactory Nausea/Vomiting: Absent Respiratory: Satisfactory Pain: Controlled Complications: Absent Post Op Complications Complications None Follow Up Care/Instructions Patient Instructions None needed. Anesthesia/Patient Condition Patient Condition Patient is doing well, no complaints, stable vital signs, no apparent adverse anesthesia problems. No complications reported per nursing. ARIK MEIER CRNA Nov 29, 2020 23:42
== END 2020-11-29 18:35 | disposition home or self-care (01) ==
LOC: SDC 12:03
PROVIDERS: ATTEND Surgery
DX: K80.12 Calculus of gallbladder with acute and chronic cholecystitis without obstruction (principal); F17.210 Nicotine dependence, cigarettes, uncomplicated; Z79.899 Other long term (current) drug therapy; Z79.891 Long term (current) use of opiate analgesic; Z82.49 Family history of ischemic heart disease and other diseases of the circulatory system; Z80.0 Family history of malignant neoplasm of digestive organs
CPT/HCPCS: 84703; 87081; 88304

== ENCOUNTER 2022-08-19 11:26 | Emergency (ER) | payer OTHER ==
[~2022-08-19] VITALS: Ht 157 cm; Wt 50.0 kg
[~2022-08-19 11:26] MED LIST changes: +HYDR-3817 PO; -ceFAZolin INJECTION 1,000 MG in WATER (STERILE) FOR INJECTION 10 ML IV ONE
--- NOTE | 2022-08-19 11:54 | ED Neurological Problem ---
General Chief Complaint: Neurological Problems Stated Complaint: LT SIDE WEAKNESS Nursing Triage Note: PT ARRIVED PER EMS FROM [facility], PT CO OF TINGLING ON L SIDE AND L LEG HAS BEEN GOING ON FOR APPROX 48 HOURS. PT HAS SL IN R AC #[id number] BY [facility]. PT STATES IS A LITTLE NERVOUS AND SCARED. PT HAS HX OF BRAIN TUMOR THAT WAS REMOVED IN 2014. PT STATES HAVING GAIT DISTURBANCES FROM NUMBNESS IN L LOWER EXT. PT DENEIS PAIN Source: patient, family (mother) Exam Limitations: no limitations History of Present Illness Date Seen by Provider: August 19, 2022 Time Seen by Provider: 11:44 Initial Comments Patient is a 37-year-old female who presents to the emergency room with a chief complaint of tingling/decreased sensation in her left arm and left leg going on for the last 4 weeks. She had told her mother only the last couple of days. Patient states she has been dropping things, unaware that she is holding them in her left hand. She has had several falls secondary to not feeling her left foot on the floor or being aware of her she was on. She has had mild headache. No visual disturbance or speech difficulty. Patient's medical history positive for diagnisis of brain tumor that was resected and treated with radiation and chemotherapy. She states that she was advised she was cancer free in 2017. Her lost medical insurance about that time and she was lost to follow-up. Patient denies any recent illnesses. At this time she has no significant complaints other than left arm and left leg paresthesia. Timing/Duration: other (2 weeks) Severity: moderate Associated Symptoms: numbness in legs/feet (Left side) Allergies and Home Medications Allergies Coded Allergies: sulfamethoxazole (Verified Allergy, Unknown, 11/27/20) trimethoprim (Verified Allergy, Unknown, 11/27/20) Patient Home Medication List Home Medication List Reviewed: Yes Ciprofloxacin HCl (Ciprofloxacin HCl) 500 Mg Tablet, 500 MG PO BID Prescribed by: SHARITA LAY on 11/22/20 1005 Dicyclomine HCl (Dicyclomine HCl) 10 Mg Capsule, 10 MG PO Q6H PRN for abdominal pain Prescribed by: MYLA WATERS on 11/21/20 0028 Hydrocodone Bit/Acetaminophen (HYDROcodone/APAP 5 MG/325 MG TAB) 1 Tab Tab, 1 TAB PO Q6H Prescribed by: SHARITA LAY on 11/22/20 1006 Hydrocodone/Acetaminophen (Hydrocodone-Acetamin 7.5-325) 1 Each Tablet, 1 EACH PO Q4H Prescribed by: MONI SORIANO on 11/29/20 1225 Metronidazole (Flagyl) 500 Mg Tablet, 500 MG PO BID Prescribed by: SHARITA LAY on 11/22/20 1005 Ondansetron (Ondansetron Odt) 4 Mg Tab.rapdis, 4 MG PO Q8H PRN for nausea Prescribed by: MYLA WATERS on 11/21/20 0028 Review of Systems Review of Systems Constitutional: see HPI Eyes: No Symptoms Reported Ears, Nose, Mouth, Throat: no symptoms reported Cardiovascular: no symptoms reported Gastrointestinal: no symptoms reported Genitourinary: no symptoms reported Musculoskeletal: no symptoms reported, joint pain Psychiatric/Neurological: Headache, Numbness (Left arm left leg) All Other Systems Reviewed Negative Unless Noted: Yes Past Niyhsmf-Hxsasq-Lqqaey Hx Patient Social History Tobacco Use?: Yes Tobacco type used: Cigarettes Smoking Status: Current Everyday Smoker Substance use?: No Alcohol Use?: No Pt feels they are or have been: No Immunizations Up To Date Tetanus Booster (TDap): Less than 5yrs PED Vaccines UTD: Yes Influenza Vaccine Up-to-Date: No; Not Current First/Initial COVID19 Vaccinat: PT REFUSED Second COVID19 Vaccination Armando: PT REFUSED Third COVID19 Vaccination Date: PT REFUSED Seasonal Allergies Seasonal Allergies: Yes Past Medical History Surgery/Hospitalization HX: brain tumor removed. GALL BLADDER Surgeries: Yes ([facility]U FOR A BRAIN TUMOR) Respiratory: No Cardiac: No Neurological: No (2014 BRAIN TUMOR REMOVED) Brain Tumor Reproductive Disorders: No Genitourinary: No Gastrointestinal: No Musculoskeletal: No Endocrine: No HEENT: No Cancer: Yes (2014, TUMOR WAS POSS FOR CANCER) Brain Did You Recieve Any Treatments: Yes What Type of Treatment Did You: Chemotherapy, Radiation, Surgical Intervention Psychosocial: No Integumentary: No Blood Disorders: No Adverse Reaction/Blood Tranf: No Family Medical History Alcoholism 19 FATHER, Onset:20's - Drug abuse G8 BROTHER, Onset:20's - Hypercholesterolemia 19 FATHER, Onset:40's - 50 Hypertension 19 FATHER, Onset:40's - 50 No Family History of: AIDS Abdominal aortic aneurysm Long's disease Alzheimer's disease Aphasia Arthritis Asthma Cancer of mouth Cardiovascular disease Cataracts Colon cancer Completed stroke Congenital disease Congenital heart disease Coronary thrombosis Cystic fibrosis Deafness or hearing loss Dementia Diabetes mellitus Dysphasia Fibrocystic disease of breast Gastroenteritis Glaucoma Headache disorder Infertility Kidney disease Myocardial infarction Neoplasm Not obtainable due to adoption Osteoporosis Parkinson's disease Prostate cancer Psychosocial problem Respiratory disorder Seizure disorder Severe allergy Thyroid disease Tuberculosis Visual disorder Physical Exam Vital Signs Vital Signs - First Documented 08/19/22 08/19/22 11:29 16:57 Temp 37.0 Pulse 85 Resp 14 B/P (MAP) 102/71 Pulse Ox 100 Capillary Refill : Less Than 3 Seconds Height, Weight, BMI Height: 5'5.00" Weight: 130lbs. oz. 58.649933jl; 20.00 BMI Method: General Appearance: WD/WN, no apparent distress, thin HEENT: PERRL/EOMI, normal ENT inspection, TMs normal, pharynx normal Neck: non-tender, full range of motion, normal inspection Respiratory: lungs clear, normal breath sounds, no respiratory distress, no accessory muscle use Cardiovascular: regular rate, rhythm Gastrointestinal: normal bowel sounds, non tender, soft Back: normal inspection Extremities: normal range of motion, normal inspection, no pedal edema Neurologic/Psychiatric: alert, normal mood/affect, oriented x 3 Crainal Nerves: normal hearing, normal speech, PERRL; No abnormal eye position, No abnormal pupil position, No abnormal speech, No facial asymmetry, No facial paresthesias, No facial weakness, No gaze palsy, No tongue deviation to R, No tongue deviation to L; other (?left arm drift? mild) Coordination/Gait: normal finger to nose Motor/Sensory: no motor deficit, sensory deficit (LUE and LLE) Skin: normal color, warm/dry Progress/Results/Core Measures Results/Orders Lab Results Laboratory Tests Test 08/19/22 11:30 Range/Units White Blood Count 6.2 4.3-11.0 10^3/uL Red Blood Count 4.15 3.80-5.11 10^6/uL Hemoglobin 13.8 11.5-16.0 g/dL Hematocrit 40 35-52 % Mean Corpuscular Volume 96 80-99 fL Mean Corpuscular Hemoglobin 33 25-34 pg Mean Corpuscular Hemoglobin Concent 35 32-36 g/dL Red Cell Distribution Width 12.7 10.0-14.5 % Platelet Count 146 130-400 10^3/uL Mean Platelet Volume 9.3 9.0-12.2 fL Immature Granulocyte % (Auto) 0 % Neutrophils (%) (Auto) 60 42-75 % Lymphocytes (%) (Auto) 31 12-44 % Monocytes (%) (Auto) 6 0-12 % Eosinophils (%) (Auto) 2 0-10 % Basophils (%) (Auto) 0 0-10 % Neutrophils # (Auto) 3.8 1.8-7.8 10^3/uL Lymphocytes # (Auto) 2.0 1.0-4.0 10^3/uL Monocytes # (Auto) 0.4 0.0-1.0 10^3/uL Eosinophils # (Auto) 0.1 0.0-0.3 10^3/uL Basophils # (Auto) 0.0 0.0-0.1 10^3/uL Immature Granulocyte # (Auto) 0.0 0.0-0.1 10^3/uL Sodium Level 140 135-145 MMOL/L Potassium Level 3.4 L 3.6-5.0 MMOL/L Chloride Level 110 H 98-107 MMOL/L Carbon Dioxide Level 24 21-32 MMOL/L Anion Gap 6 5-14 MMOL/L Blood Urea Nitrogen 15 7-18 MG/DL Creatinine 0.68 0.60-1.30 MG/DL Estimat Glomerular Filtration Rate 115 BUN/Creatinine Ratio 22 Glucose Level 95 70-105 MG/DL Calcium Level 8.7 8.5-10.1 MG/DL My Orders Orders - MYLA WATERS MD Ed Iv/Invasive Line Start (08/19/22 11:54) Cbc With Automated Diff (08/19/22 11:54) Basic Metabolic Panel (08/19/22 11:54) Ct Head W Wo (08/19/22 12:01) Iohexol Injection (Omnipaque 350 Mg/Ml 1 (08/19/22 13:00) Received Contrast (Hold Metformin- Contr (08/19/22 13:00) Ns (Ivpb) (Sodium Chloride 0.9% Ivpb Bag (08/19/22 13:00) Dexamethasone Injection (Decadron Injec (08/19/22 13:45) Nicotine Patch (Nicoderm Patch) (08/19/22 17:00) Nicotine Patch (Nicoderm Patch) (08/19/22 17:02) Vital Signs/I&O 08/19/22 08/19/22 11:29 16:57 Temp 37.0 Pulse 85 75 Resp 14 16 B/P (MAP) 102/71 Pulse Ox 100 99 Progress Progress Note : Progress Note Patient seen and evaluated by me. Evaluation today includes physical exam, CBC, basic metabolic panel and CT head with IV contrast. Patient's physical exam is pertinent for thin appearing however well-developed well-nourished female in no acute distress. She has some alopecia noted on the right side of her scalp secondary to prior craniotomy. She is awake, alert and oriented. Vital signs are stable. Heart is regular, lungs are clear, she is afebrile. Room air sats 99%. Abdomen is benign, no lower extremity edema. Neurologically the patient has no cerebellar findings, normal strength in all extremities. Subjective decrease sensation in the left arm and left leg. Gait is not tested. Differential diagnosis based on history and physical exam brain tumor recurrence. Labs reviewed and interpreted by me, CBC is completely within normal limits. Chemistry shows a sodium of 140, potassium of 3.4 chloride of 110 CO2 of 24 BUN of 15, creatinine of 0.68 serum glucose of 95. CT head with IV contrast shows a large mass just adjacent to prior craniotomy site. Significant midline shift leftward of 11 mm. Radiologist concern for an "impending herniation". Patient was treated in the emergency department with 8 mg of Decadron IV. I discussed findings with the patient and her mother who is at the bedside. Recommend transfer to for further evaluation and management of her recurrence. Patient is agreeable. Diagnostic Imaging Diagonstic Imaging: CT Comments [facility], [place] NAME: MELYSSAANTONIOZORA Tigre MED REC#: [id number] PT STATUS: REG ER : 1985 PHYSICIAN: MYLA WATERS MD ADMIT DATE: 08/19/22/ER Signed Date of Exam:08/19/22 CT HEAD W WO PROCEDURE: CT head with and without contrast. TECHNIQUE: Multiple contiguous axial images were obtained through the brain before and after the administration of intravenous contrast. Auto Exposure Controls were utilized during the CT exam to meet ALARA standards for radiation dose reduction. INDICATION: Gauge disturbance with left weakness. COMPARISON: 10/14/2014 FINDINGS: There has been right frontal parietal craniotomy with resection of the previously identified densely calcified peripheral right cerebral mass. At the site of previous mass, there is an approximately 4 x 3 cm peripheral cystic structure which likely represents the operative bed. Just deep to this region, however, there is an approximately 4.1 x 3.1 x 3.9 cm heterogeneous solid ring enhancing mass with extensive surrounding vasogenic edema. This results in approximately 1.3 cm leftward shift of midline and possible impending subtentorial herniation with uncal protrusion at the tentorium as well. There is no territorial infarct or evidence of hemorrhage outside this lesion. IMPRESSION: Development of solid heterogeneous hyperdense mass with predominantly peripheral enhancement which exhibits large amount of mass effect and vasogenic edema with possible impending herniation. Findings are most compatible with recurrent neoplasm just deep to previous operative bed. These findings were telephoned directly to the emergency room provider prior to dictation. Dictated by: Dictated on workstation # [id number] Dict: 08/19/22 1248 Trans: 08/19/22 1547 [id number] Interpreted by: JENNIFER SANTANA MD Electronically signed by: JENNIFER SANTANA MD 08/19/22 1547 Departure Impression Primary Impression: Brain tumor Disposition: 02 XFER SHT-TRM HOSP Condition: Stable Transfer Transfer Reason: Exceeds level of care Time Spoke to Accepting Phy: 14:31 Transfer Progress Notes Accepted throught the transfer line by Dr Riggs Transfer Time: 17:30 Transfer Facility: Method of Transfer: Air (fixed wing) Departure-Patient Inst. Referrals: [facility] (PCP/Family) Primary Care Physician MYLA WATERS MD August 19, 2022 11:54
[2022-08-19 11:59] LABS: BASOPHILS % (AUTO) 0 % (0-10); EOSINOPHILS # (AUTO) 0.1 10^3/uL (0.0-0.3); EOSINOPHILS % (AUTO) 2 % (0-10); HEMATOCRIT 40 % (35-52); HEMOGLOBIN 13.8 g/dL (11.5-16.0); LYMPHOCYTES % (AUTO) 31 % (12-44); MEAN CORPUSCULAR HEMOGLOBIN 33 pg (25-34); MEAN CORPUSCULAR HGB CONC 35 g/dL (32-36); MEAN CORPUSCULAR VOLUME 96 fL (80-99); MEAN PLATELET VOLUME 9.3 fL (9.0-12.2); MONOCYTES # (AUTO) 0.4 10^3/uL (0.0-1.0); MONOCYTES % (AUTO) 6 % (0-12); NEUTROPHILS # (AUTO) 3.8 10^3/uL (1.8-7.8); NEUTROPHILS % (AUTO) 60 % (42-75); PLATELET COUNT 146 10^3/uL (130-400); WHITE BLOOD COUNT 6.2 10^3/uL (4.3-11.0)
[2022-08-19 12:09] LABS: CALCIUM 8.7 MG/DL (8.5-10.1); CREATININE SERUM 0.68 MG/DL (0.60-1.30); POTASSIUM 3.4 MMOL/L (3.6-5.0)
[2022-08-19] MEDS ORDERED: HOLD METFORMIN - RECEIVED CONTRAST 20 ML VIAL IV SCH (13:00)
[2022-08-19] MEDS ORDERED: NS 100 ML (IVPB) BAG IV ONE (13:00)
[2022-08-19] MEDS ORDERED: IOHEXOL 350 MG/ML 100 ML (OMNIPAQUE 350) VIAL IV ONE (13:00)
--- NOTE | 2022-08-19 13:06 | Diagnostic Imaging Report ---
PROCEDURE: CT head with and without contrast. TECHNIQUE: Multiple contiguous axial images were obtained through the brain before and after the administration of intravenous contrast. Auto Exposure Controls were utilized during the CT exam to meet ALARA standards for radiation dose reduction. INDICATION: Gauge disturbance with left weakness. COMPARISON: 10/14/2014 FINDINGS: There has been right frontal parietal craniotomy with resection of the previously identified densely calcified peripheral right cerebral mass. At the site of previous mass, there is an approximately 4 x 3 cm peripheral cystic structure which likely represents the operative bed. Just deep to this region, however, there is an approximately 4.1 x 3.1 x 3.9 cm heterogeneous solid ring enhancing mass with extensive surrounding vasogenic edema. This results in approximately 1.3 cm leftward shift of midline and possible impending subtentorial herniation with uncal protrusion at the tentorium as well. There is no territorial infarct or evidence of hemorrhage outside this lesion. IMPRESSION: Development of solid heterogeneous hyperdense mass with predominantly peripheral enhancement which exhibits large amount of mass effect and vasogenic edema with possible impending herniation. Findings are most compatible with recurrent neoplasm just deep to previous operative bed. These findings were telephoned directly to the emergency room provider prior to dictation. Dictated by: Dictated on workstation # [id number]
[2022-08-19 16:57] VITALS: BP 102/71
[2022-08-19] MEDS ORDERED: NICOTINE 14 MG (NICODERM) PATCH TD ONE (17:00)
[2022-08-19] MEDS ORDERED: NICOTINE 21 MG (NICODERM) PATCH ONE (17:02)
[2022-09-04] MEDS ORDERED: LEVE500T6 PO (08:10)
[2022-09-04] MEDS ORDERED: DEXA4TAB PO (08:10)
== END 2022-08-19 17:46 | disposition short-term general hospital (02) ==
LOC: EDUNIT# 11:26 → ER 11:27
DX: D49.6 Neoplasm of unspecified behavior of brain (principal); F17.210 Nicotine dependence, cigarettes, uncomplicated; Z28.310 Unvaccinated for COVID-19; Z92.21 Personal history of antineoplastic chemotherapy; Z92.3 Personal history of irradiation
CPT/HCPCS: 36415; 70470; 80048; 85025; 96374

== ENCOUNTER 2022-08-29 08:33 | Inpatient (IN) | payer OTHER ==
[~2022-08-29] VITALS: Ht 157.5 cm; Wt 52.0 kg
[2022-08-29] MEDS ORDERED: SENN-259 PO (10:53)
[2022-08-29] MEDS ORDERED: NICO-587 TD (10:53)
[2022-08-29] MEDS ORDERED: DEXA2TAB PO (10:53)
[2022-08-29] MEDS ORDERED: ACET325T38 PO (10:53)
[2022-08-29] MEDS ORDERED: HEPA500055 SQ (10:53)
[2022-08-29] MEDS ORDERED: OXYC5TAB PO (10:53)
[2022-08-29] MEDS ORDERED: LEVE500T6 PO (10:53)
[2022-08-29] MEDS ORDERED: FAMO20TA5 PO (10:53)
[2022-08-29] MEDS ORDERED: PHEN20SP2 MM (10:53)
[2022-08-29] MEDS ORDERED: LOPERAMIDE 2 MG (IMODIUM) TABLET PO PRN (12:00)
[2022-08-29] MEDS ORDERED: FLEET ENEMA ADULT 1 EA BTL PR PRN (12:00)
[2022-08-29] MEDS ORDERED: ACETAMINOPHEN 325 MG TABLET PO PRN (12:00)
[2022-08-29] MEDS ORDERED: DOCUSATE SODIUM 100 MG (COLACE) CAP PO PRN (12:00)
[2022-08-29] MEDS ORDERED: MELATONIN 3 MG TABLET PO PRN (12:00)
[2022-08-29] MEDS ORDERED: BISACODYL 10 MG SUPP (DULCOLAX) PR PRN (12:00)
[2022-08-29] MEDS ORDERED: diphenhydrAMINE 25 MG TAB (BENADRYL) PO PRN (12:00)
[2022-08-29] MEDS ORDERED: ONDANSETRON 4 MG (ZOFRAN) ORAL DISSOLVE TAB PO PRN (12:00)
[2022-08-29] MEDS ORDERED: guaiFENesin/CODEINE (ROBITUSSIN AC) 10ML UDC PO PRN (12:00)
[2022-08-29] MEDS ORDERED: LACTULOSE SYRUP 10GM/15ML (ENULOSE) 30ML UDC PO PRN (12:00)
[2022-08-29] MEDS ORDERED: ALPRAZolam 0.25 MG (XANAX) TAB PO PRN (12:00)
[2022-08-29] MEDS ORDERED: CALCIUM CARBONATE 500 MG (TUMS) TAB.CHEW PO PRN (12:00)
--- NOTE | 2022-08-29 12:03 | PM&R Post Admission Assessment ---
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 She has no difficulty with swallowing and her bowels are moving well. Left sided weakness noted. Family at bedside. I have reviewed records. Past Nrrcvdp-Opcqfq-Ydhwtb Hx Past Med/Social Hx: Reviewed Nursing Past Med/Soc Hx, Reviewed and Corrections made Patient Social History Marrital Status: single Employed/Student: unemployed Alcohol Use: Denies Use Alcohol Beverage of Choice: Wine Smoking Status: Former Smoker Type Used: Cigarettes 2nd Hand Smoke Exposure: Yes Recent Hopitalizations: No Immunizations Up To Date Tetanus Booster (TDap): Less than 5yrs Pediatric: Yes Date of Influenza Vaccine: Mar 13, 2020 Seasonal Allergies Seasonal Allergies: Yes Past Medical History brain Neurological: Brain Tumor Reproductive: No Cancer: Brain Did You Recieve Any Treatments: Yes What Type of Treatment Did You: Chemotherapy, Radiation, Surgical Intervention History of Blood Disorders: No Adverse Reaction to Blood Martinez: No Family History Alcoholism 19 FATHER, Onset:20's - 25 Drug abuse G8 BROTHER, Onset:20's - 25 Hypercholesterolemia 19 FATHER, Onset:40's - 50 Hypertension 19 FATHER, Onset:40's - 50 No Family History of: AIDS Abdominal aortic aneurysm Long's disease Alzheimer's disease Aphasia Arthritis Asthma Cancer of mouth Cardiovascular disease Cataracts Colon cancer Completed stroke Congenital disease Congenital heart disease Coronary thrombosis Cystic fibrosis Deafness or hearing loss Dementia Diabetes mellitus Dysphasia Fibrocystic disease of breast Gastroenteritis Glaucoma Headache disorder Infertility Kidney disease Myocardial infarction Neoplasm Not obtainable due to adoption Osteoporosis Parkinson's disease Prostate cancer Psychosocial problem Respiratory disorder Seizure disorder Severe allergy Thyroid disease Tuberculosis Visual disorder PM&R Allergy/Meds/Data Review Allergies Coded Allergies: sulfamethoxazole (Verified Allergy, Unknown, 11/27/20) trimethoprim (Verified Allergy, Unknown, 11/27/20) Home Medications Scheduled Dexamethasone (Dexamethasone), 0 PO UD, (Reported) Heparin Sodium,Porcine/Pf (Heparin Sod 5,000 Unit/0.5 ml), 0.5 ML SQ Q8H, (Reported) Levetiracetam (Levetiracetam), 500 MG PO BID, (Reported) Nicotine (Nicotine Patch), 14 MG TD DAILY, (Reported) Sennosides/Docusate Sodium (Senna Plus 8.6-50 mg Tablet), 1 EACH PO BID, ( Reported) Scheduled PRN Acetaminophen (Tylenol), 650 MG PO Q4H PRN for PAIN-MILD (1-4), (Reported) Famotidine (Famotidine), 20 MG PO BID PRN for HEARTBURN, (Reported) Oxycodone HCl (Oxycodone HCl), 5-10 MG PO Q4H PRN for PAIN-SEVERE (8-10), (Reported) Phenol (Chloraseptic), 2 SPRAYS MM UD PRN for SORE THROAT, (Reported) Discontinued Medications Ciprofloxacin HCl (Ciprofloxacin HCl), 500 MG PO BID Discontinued Reason: No Longer Taking Dicyclomine HCl (Dicyclomine HCl), 10 MG PO Q6H PRN for abdominal pain Discontinued Reason: No Longer Taking Hydrocodone Bit/Acetaminophen (HYDROcodone/APAP 5 MG/325 MG TAB), 1 TAB PO Q6H Discontinued Reason: No Longer Taking Hydrocodone/Acetaminophen (Hydrocodone-Acetamin 7.5-325), 1 EACH PO Q4H Discontinued Reason: No Longer Taking Metronidazole (Flagyl), 500 MG PO BID Discontinued Reason: No Longer Taking Ondansetron (Ondansetron Odt), 4 MG PO Q8H PRN for nausea Discontinued Reason: No Longer Taking Current Medications Current Medications Reviewed Review of Systems Constitutional: see HPI, malaise, weakness EENTM: no symptoms reported Respiratory: no symptoms reported Cardiovascular: no symptoms reported Gastrointestinal: no symptoms reported Genitourinary: no symptoms reported Musculoskeletal: no symptoms reported Skin: no symptoms reported Psychiatric/Neurological: Anxiety, Depressed, Numbness, Tremors, Weakness Physical Exam Physical Exam Vital Signs Capillary Refill : Height, Weight, BMI Height: 5'5.00" Weight: 130lbs. oz. 58.502039et; 20.00 BMI Method: General Appearance: No Apparent Distress, WD/WN, Chronically ill, Thin Eyes: Bilateral Eye Normal Inspection, Bilateral Eye PERRL HEENT: PERRL/EOMI, Normal ENT Inspection, Pharynx Normal, Other (right sided skull deficit) Neck: Full Range of Motion, Normal Inspection, Non Tender, Supple, Carotid Bruit Respiratory: Chest Non Tender, Lungs Clear, Normal Breath Sounds, No Accessory Muscle Use, No Respiratory Distress Cardiovascular: Regular Rate, Rhythm, No Edema, No Gallop, No JVD, No Murmur, Normal Peripheral Pulses Gastrointestinal: Normal Bowel Sounds, No Organomegaly, No Pulsatile Mass, Non Tender, Soft Back: Normal Inspection, No CVA Tenderness, No Vertebral Tenderness Extremity: Normal Capillary Refill, Normal Inspection, Normal Range of Motion, Non Tender, No Calf Tenderness, No Pedal Edema Neurologic/Psychiatric: Alert, Oriented x3, Normal Mood/Affect, boxer operator II-XII Norm as Tested, Abnormal Gait, Depressed Affect, Motor Weakness (left sided weakness) Skin: Normal Color, Warm/Dry Lymphatic: No Adenopathy PM&R Medical Assessment & Plan REHAB/MEDICAL ASSESSMENT AND PLAN: REHAB IMPAIRMENT GROUP: 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 ETIOLOGIC DIAGNOSIS: 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 The comorbidities that impact the patients function and/or functional outcome by: left sided weakness, recurrent benign brain tumor, hyponatremia, thin habitus REHAB PLAN: The patient is being admitted to our comprehensive inpatient rehabilitation facility and can tolerate the intensity of service consisting of at least: 180 minutes of therapy a day, 5 out of 7 days a week Rehab treatment will consist of: PT OT will focus on regaining function with use of AD in order to regain independence in ADL's in order to return to her family The patient/family has a good understanding of our discharge process and will benefit from an interdisciplinary inpatient rehabilitation program. The patient has potential to make improvement and is in need of at least two of the following multidisciplinary therapies including but not limited to physical, occupational, speech, and prosthetics and orthotics. Additionally the patient will need services from respiratory, nutritional services, wound care, psychology, etc. (Customize this to each patient). Given the patients complex condition and risk of further medical complications, rehabilitation services cannot be safely or effectively provided at a lower level of care such as a jail facility. BARRIERS TO DISCHARGE: Left sided weakness ESTIMATED LOS: 7 days DISPOSITION: Home RELEVANT CHANGES SINCE PREADMISSION SCREENING: I have compared the patients medical and functional status at the time of the preadmission screening and there are: no changes PROGNOSIS: Fair REHABILITATION GOALS: 1. PT OT will focus on regaining function with use of AD in order to regain independence in ADL's in order to return to her family All the above goals were reviewed with the patient and he/she is in agreement. By signing this document, I acknowledge that I have personally performed a full physical examination on this patient within 24 hours of admission to this inpatient rehabilitation facility and have determined the patient to be able to tolerate the above course of treatment at an intensive level for a reasonable period of time. I will be completing a detailed individualized Plan of Care for this patient by day #4 of the patients stay based upon the Preadmission Screen, the Post-Admission Evaluation, and the therapy evaluations. Admission Dx/Comorbidities: (1) Brain tumor Status: Acute ICD Codes: D49.6 - Neoplasm of unspecified behavior of brain Assessment/Plan Assessment and Plan Assess & Plan/Chief Complaint Assessment: Craniotomy due to brain tumor Hyponatremia Frail status Plan: Monitor closely PT OT Fall risk ISMAEL NGUYEN DO August 29, 2022 12:03
[2022-08-29 13:30] VITALS: BP 111/76
--- OUTSIDE RECORDS SUMMARY | 2022-08-29 13:53 | XMS REPORT | Encounter Summary ---
Author Author [facility] Organization [facility] Address Unknown Phone Unavailable Care Team Providers Care Senior Net Architect Name Role Phone Viki Flores DO PCP Saumya Veliz RN Unavailable Unavailable Corrie Kraft RN Unavailable Unavailable Nida Patel FIRST SAMPLER-INDUSTRIAL ENGINEERING DIRECTOR Unavailable Self, Referral Unavailable Unavailable Erika Wang MD Unavailable Unavailable Tammy Ruiz MD Unavailable Kevin Gloria MD Unavailable Encounter Details Care Team Description Date Type Department Jimmy Torres MD [address] [place] [address] 08/29/2022 Documentation Oncology: [address] [place] [address] Social History Date Tobacco Use Types Packs/Day Years Used Smoking Tobacco: Every Cigarettes 0.5 10 Day Comments Alcohol Use Standard Drinks/Week No 0 (1 standard drink = 0.6 o z pure alcohol) Date Recorded Alcohol Use Answer Alcohol Use No Male: 9+ ounces (15+ Standard Drinks) per week Not o n file Threshold Female: 4.8+ ounces (8+ Standard Drinks) per week No t on file Threshold Date Recorded Sex and Gender Information Value Sex Assigned at Not on file Gender Identity Not on file Sexual Orientation Not on file documented as of this encounter Functional Status Date of Assessment Functional Status Response 08/20/2022 Does the patient have a hearing impairment: No 10/23/2014 Does the patient have a visual impairment: No 10/23/2014 Does the patient have impaired ambulation: No 10/23/2014 Does the patient have an activity of daily living No (ADL) impairment: 10/23/2014 Does the patient have an instrumental activity of No daily living (IADL) impairment: Date of Assessment Cognitive Status Response 10/23/2014 Does the patient have a cognitive impairment: No documented as of this encounter Plan of Treatment Not on filedocumented as of this encounter Goals Goal Patient Associated Recent Progress Patient-Stat Aut hor Goal Type Problems ed? GOAL General On track (08/20/2022 Yes Eyal Srinivasan, 11:22 AM CDT) RN Note: Quit smoking documented as of this encounter Visit Diagnoses Not on filedocumented in this encounter Additional Health Concerns Noted Time Assessment 08/29/2022 8:00 AM CDT A fall risk assessment has been complet ed for the patient documented as of this encounter Care Teams Start Date End Date Senior Net Architect Relationship Specialty 10/14/14 Viki Flores DO PCP - General Family Medicine [address] [place] [address] 10/14/14 Saumya Veliz, [place] 11/01/14 Corrie Kraft, [place] 11/02/14 Nida Patel APRN-INDUSTRIAL ENGINEERING DIRECTOR Neurological Surgery [address] [facility] [address] [place] [address] 11/02/14 Self, Referral 11/02/14 Erika Wang MD Hematology & Oncology RETIRED 11/10/2016 11/03/14 Tammy Ruiz MD Hematology & Oncology RETIRED 11/10/2016 11/20/14 Kevin Gloria MD Neurological Surgery [address] [facility] [address] [place] [address] documented as of this encounter
--- OUTSIDE RECORDS SUMMARY | 2022-08-29 13:53 | XMS REPORT | Encounter Summary ---
Author Author [facility] Organization [facility] Address Unknown Phone Unavailable Care Team Providers Care Burning Plant Operator Name Role Phone Viki Flores PCP Saumya Veliz RN Unavailable Unavailable Corrie Kraft RN Unavailable Unavailable Nida Patel PHARMACEUTICAL ENGINEER-TECHNICAL SALES SUPPORT SPECIALIST Unavailable Self, Referral Unavailable Unavailable Erika Wang MD Unavailable Unavailable Tammy Ruiz MD Unavailable Kevin Gloria MD Unavailable Reason for Referral * Consult, Test & Treat (Discharge Pending) - Pending Review Diagnoses / Procedures Referred By Contact Referred To [facility] Specialty Procedures APPOINTMENT REQUEST: [facility] Kevin Gloria MD [address] [facility] [place] [address] [facility] [address] [place] [address] Oncology Referral ID Status Reason Start Date Expiration Visits Vi sits Date Requested Authorized [id number] Pending 08/27/2022 08/27/2023 1 1 Review * Consult, Test & Treat (Discharge Pending) - Pending Review Diagnoses / Procedures Referred By Contact Referred To [facility] Specialty Procedures APPOINTMENT REQUEST: NEUROSURGERY Kevin Gloria MD [address] [facility] [address] [place] [address] [facility] [address] [place] [address] Neurosurgery Referral ID Status Reason Start Date Expiration Visits Vi sits Date Requested Authorized [id number] Pending 08/21/2022 08/21/2023 1 1 Review Reason for Visit * Auth/Cert (Routine) Diagnoses / Procedures Referred By Contact Referred To [facility] Specialty Diagnoses Brain mass Brain Mass Referral ID Status Reason Start Date Expiration Visits Vi sits Date Requested Authorized [id number] 1 1 Encounter Details Care Team Description Date Type Department Tej Riggs MD [address] [place] [address] Kevin Gloria MD [address] [facility] [address] [place] [address] Brain mass Discharge Disposition: Rehab Facility (Not [facility]) 08/19/2022 Hospital Intensive Care Unit CA5: 8:11 PM Encounter [facility] CDT - [address] [facility] 08/29/2022 Level 5 9:40 AM [place], [place] CDT [id number] Social History Date Tobacco Use Types Packs/Day [...] on file documented as of this encounter Last Filed Vital Signs Reading Time Taken Comments Vital Sign 111/76 08/29/2022 8:00 AM CDT Blood Pressure 67 08/29/2022 8:00 AM CDT Pulse 36.9 C (98.4 F) 08/29/2022 8:00 AM CDT Temperature - - Respiratory Rate 100% 08/29/2022 8:00 AM CDT Oxygen Saturation - - Inhaled Oxygen Concentration 50.1 kg (110 lb 7.2 oz) 08/22/2022 9:33 AM CDT Weight 157.5 cm (5' 2") 08/19/2022 8:14 PM CDT Height 20.2 08/19/2022 8:14 PM CDT Body Mass Index documented in this encounter Functional Status Date of Assessment [...] impairment: No documented as of this encounter Discharge Summaries * Yolande Mcnamara - 08/29/2022 9:26 AM CDT FIELD SERVICE COORDINATOR Note: Faxed d/c orders to [facility] per request of DESTINY Kowalski. Yolande Mcnamara Oracle Database Manager For additional assistance please contact DESTINY * Janine Aguilar LMSW - 08/29/2022 8:38 AM CDT Case Management Progress Note NAME:Joan Trevino :1985 AGE: 37 y.o. ADMISSION DATE: 08/19/2022 DAYS ADMITTED: LOS: 10 days Today's Date: 08/29/2022 PLAN: Pt will dc to [facility] today around 10am via [employer]. Expected Discharge Date: 08/29/2022 12:00 PM Is Patient Medically Stable: Yes Are there Barriers to Discharge? no INTERVENTION/DISPOSITION: Discharge Planning SW confirmed with provider pt can leave for rehab. Will try leaving around 1 0am this morning. DEMIAN notified provider [place] of dc today at 10am SW notified bedside nurse of dc today at 10am and provided number for report. sw delivered transfer packet to bedside late yesterday afternon. SW tasked FIELD SERVICE COORDINATOR to fax dc orders once entered. REPORT [phone] Transportation Will the Patient Use Family Transport?: Yes Transportation Name, Phone and Availability #1: pt's mother will transport Support Info or Referral Positive SDOH Domains and Potential Barriers Medication Needs Financial Legal Other Discharge Disposition Selected Continued Care - Admitted Since 08/19/2022 No services have been selected for the patient. JC Kowalski LMSW Social Work Case Management Available on [employer] * Janine Aguilar LMSW - 08/28/2022 4:14 PM CDT Case Management Progress Note NAME:Joan Trevino :1985 AGE: 37 y.o. ADMISSION DATE: 08/19/2022 DAYS ADMITTED: LOS: 9 days Today's Date: 08/28/2022 PLAN: Anticipate dc to [facility] Thursday around 10am via transport. Expected Discharge Date: 08/29/2022 12:00 PM Is Patient Medically Stable: Yes Are there Barriers to Discharge? no INTERVENTION/DISPOSITION: Discharge Planning DEMIAN emailed [employer] to see if the Medicaid application had been submitted. They were trying to get confirmation of employment and dates of employment. It appears this was all obtained today and the worker will send SW the medicaid laquita lication. DEMIAN met with pt and at bedside and let them know pt should be able to go to rehab tomorrow. Waiting on the medicaid application to be able to send to [facility] facility. is okay with transporting pt to the facility. DEMIAN received the medicaid application from [facility] and forwarded it to [facility]. Plan on family leaving around 10am tomorrow. SW delivered transfer packet to pt bedside. Notified pt they should be able to leave tomorrow morning around 10am. Transportation Will the Patient Use Family Transport?: Yes Transportation Name, Phone and Availability #1: pt's mother will transport Support Info or Referral Positive SDOH Domains and Potential Barriers Medication Needs Financial Legal Other Discharge Disposition Selected Continued Care - Admitted Since 08/19/2022 No services have been selected for the patient. Janine Aguilar LMSW Social Work Case Management Available on [employer] * Lilly Topete RN - 08/28/2022 8:27 AM CDT Notified by Janine Burns (DEMIAN) that the patient is would prefer to stay at 's IP re hab unit. Per SW, patient will have consistent support from her spouse and 2 chi ldren. Rehab will add for review and await SW to clarify NATY in order to allo w f/u re; bed availability. 0835 - Per Janine (DEMIAN), patietn would really prefer to get closer to home and SW is checking with [facility] facility [place] to see if they will acept Medicaid pending patient. DEMIAN to provide update to Rehab admission liaisons re: altern ate perferred facility acceptance. Jocelyn, Inpatient Admissions Nurse/Rehab. (office# [phone] or voalte# [phone]). * Janine Aguilar LMSW - 08/28/2022 7:49 AM CDT Case Management Progress Note NAME:Joan Trevino :1985 AGE: 37 y.o. ADMISSION DATE: 08/19/2022 DAYS ADMITTED: LOS: 9 days Today's Date: 08/28/2022 PLAN: Anticipate dc to IPR setting pending medical stability and facility accept ance. Expected Discharge Date: 08/28/2022 12:00 PM Is Patient Medically Stable: Yes Are there Barriers to Discharge? no INTERVENTION/DISPOSITION: Discharge Planning DEMIAN reviewed EMR. Pt will be medicaid pending and may only be able to go to [facility] for rehab. DEMIAN sent a referral to [facility] to review. SW left a message for [facility] to see if they ever take medicaid pending or any type of navjot rehab. July with [facility] said they do consider these at times since pt lives the re. She will need a copy of the completed medicaid application once it is done . DEMIAN emailed [employer] worker to see if they could send SW the completed Medicaid ap plication once it was done. Transportation Will the Patient Use Family Transport?: Yes Transportation Name, Phone and Availability #1: pt's mother will transport Support Info or Referral Positive SDOH Domains and Potential Barriers Medication Needs Financial Legal Other Discharge Disposition Selected Continued Care - Admitted Since 08/19/2022 No services have been selected for the patient. JC Kowalski LMSW Social Work Case Management Available on [employer] * Janine Aguilar LMSW - 08/27/2022 2:40 PM CDT Case Management Progress Note NAME:Joan Trevino :1985 AGE: 37 y.o. ADMISSION DATE: 08/19/2022 DAYS ADMITTED: LOS: 8 days Today's Date: 08/27/2022 PLAN: Anticipate dc to [facility] pending medical stability, facility accepta nce and insurance auth. Expected Discharge Date: 08/28/2022 12:00 PM Is Patient Medically Stable: No, Please explain: post op day 1 possibly ready vs Thursday Are there Barriers to Discharge? no INTERVENTION/DISPOSITION: Discharge Planning SW reviewed EMR and pt has inpatient setting recs. DEMIAN talked with pt's Roxana and they would like to do rehab as close to h ome as possible so she can see her kids. DEMIAN will send a referral to [facility] [place]. Sent a referral to [facility]. Transportation Will the Patient Use Family Transport?: Yes Transportation Name, Phone and Availability #1: pt's mother will transport Support Info or Referral Positive SDOH Domains and Potential Barriers Medication Needs Financial Legal Other Discharge Disposition Selected Continued Care - Admitted Since 08/19/2022 No services have been selected for the patient. JC Kowalski LMSW Social Work Case Management Available on [employer] * Janine Aguilar LMSW - 08/21/2022 8:29 AM CDT Case Management Admission Assessment NAME:Joan Trevino : [birth year] AGE: 37 y.o. ADMISSION DATE: 08/19/2022 DAYS ADMITTED: LOS: 2 days Todays Date: 08/21/2022 Source of Information: Patient Plan Plan: Case Management Assessment, Psychosocial Assessment, Assist PRN with /[facility] Services Patient Address/Phone [address] [place] [phone] (home) Emergency Contact Extended Emergency Contact Information Primary Emergency Contact: Roxana Trevino [facility] Mobile Relation: Spouse Secondary Emergency Contact: Loida Solano [facility] RFIDeas Relation: Mother Healthcare Directive Healthcare Directive: No, patient does not have a healthcare directive Would patient like to fill out a (a new) Healthcare Directive?: No, patient decl ined Psych Advance Directive (Psych unit only): No, patient does not have a Psych Adv ance Directive Transportation Will the Patient Use Family Transport?: Yes Transportation Name, Phone and Availability #1: pt's mother will transport Expected Discharge Date 08/27/2022 Living Situation Prior to Admission Living Arrangements Type of Residence: (P) Home, independent Living Arrangements: (P) Spouse/significant other, Children (lives with and 5 kids ages 18, 16, 13, 11 and 9) Bathroom Shower / Tub: Tub/Shower Unit How many levels in the residence?: 2 Can patient live on one level if needed?: Yes Does residence have entry and/or inside stairs?: Yes (3-4 SABINA) Assistance needed prior to admit or anticipated on discharge: Yes Who provides assistance or could if needed?: pt's , and older 2 kids can assist Are they in good health?: Yes Can support system provide 24/7 care if needed?: Maybe Level of Function Prior level of function: Independent Cognitive Abilities Cognitive Abilities: Alert and Oriented, Engages in problem solving and planning , Participates in decision making Financial Resources Coverage Primary Insurance: No insurance Source of Income Source Of Income: Unemployed Financial Assistance Needed? Referral to [facility] to apply for Medicaid and disability. Psychosocial Needs Mental Health Mental Health History: No Substance Use History Substance Use History Screen: No Other NA Current/Previous Services PCP Viki Flores, , Pharmacy [facility] [address] [place] [address] [address] [id number] [facility] [address] [address] Durable Medical Equipment Durable Medical Equipment at home: None Home Health Receiving home health: No Hemodialysis or Peritoneal Dialysis Undergoing hemodialysis or peritoneal dialysis: No Tube/Enteral Feeds Receive tube/enteral feeds: No Infusion Receive infusions: No Private Duty Private duty help used: No Home and Community Based Services Home and community based services: No [place] White: N/A Hospice Hospice: No Outpatient Therapy PT: In the past OT: No TAILOR HELPER: No Mcfp Facility/Fci SNF: No NH: No Inpatient Rehab IPR: No Long-Term Acute [facility] Hospital LTACH: No Acute Hospital Stay Acute Hospital Stay: No Janine Aguilar LMSW Social Work Case Management Available on [employer] documented in this encounter Discharge Instructions * Discharge Instr - Diet* Theresa Greenberg RD - 08/27/2022 3:25 PM CDT Please don't hesitate to contact a registered dietitian if needed: Contact information: Theresa Greenberg, MS, RD, LD, CNSC [email or web address] While on steroids, consider 1000 units Vit D3 if approved by doctor/PCP * Additional Instructions* Erika Kaiser RN - 08/28/2022 9:17 AM CDT Joan Trevino Right Parietal Craniotomy for Resection of Brain Tumor on 08/26/2022 with Kevin Gloria MD Neurosurgery Discharge Instructions Contact information: Call the Neurosurgery clinic if you have questions or are experiencing problems at [phone]. After 5 PM, weekends, holidays please call [phone] to reach Neurosurgery workers compensation consultant. Post-operative wound care: Your incision has sutures/dissolving sutures in place. Your incision may be ope n to air. Keep your incision dry for 5 days. Shower neck down until 08/30/22. Starting use non-medicated soap to wash incision daily, pat dry and leave open to air. Avoid heavy water pressure over incision site. Only touch your incision with clean hands. Do not apply lotion, cream, or ointme nts to incision. Do not submerge (pool/tub) incision under water at all for 4 weeks. Have someone look at your incision every day. It should look the same or better each day. Activity restrictions: Avoid pushing, pulling, or lifting more than 10 pounds (about a gallon of milk). If you hold children, they should be placed in your lap or crawl into lap if old enough. Do NOT drive until you are cleared by your physician. Avoid bearing down or straining to have bowel movements. You must be off all pain medication before driving restriction is released. Post-operative pain and medications: Please use your pain medications and muscle relaxers as prescribed. Do not take NSAIDS (Ibuprofen, Advil, Aleve, Motrin, Naproxen) until Doctor appr humza. Pain medications can make you constipated. Please take stool softeners to aid t his process. Tylenol is approved for pain control. This is available over the counter. Follow up appointment: 09/09/2022 Rehab Physician to remove sutures. Please call [phone] with wou nd concerns. Future Appointments Date Time Provider Department Center 09/09/2022 12:30 PM Sofia Gonzalez APRN-NP [facility] Neuro[facility] 09/29/2022 1:00 PM Kevin Gloria MD [facility] Reasons to call the Neurosurgery Clinic ([phone]): Concerning lethargy (sleepiness), decreased level of consciousness, new confusio n. Worsening vision, facial weakness, tongue weakness, new hearing, or balance diff iculties. Fever 101 or greater. Redness or swelling of incision. Continuous oozing or persistent clear fluid coming from incision. Headaches increasing in severity and occurrences. A noticeable and increasing fluid collection developing under the skin, around y our incision. Intense pain that is getting worse or unrelieved by pain medications or muscle r elaxers. documented in this encounter Medications at Time of Discharge Start Date End Date Medication Sig Dispensed Refills 08/29/2022 acetaminophen (TYLENOL) Take two 0 325 mg tablet tablets by mouth every 4 hours as needed. 08/29/2022 dexAMETHasone (DECADRON) Taper 0 4 mg tablet schedule: 4 mg every 8 hours for 2 days, then 4 mg every 12 hours for 2 days, then 2 mg every 12 hours for 2 days, then 2 mg every day for 2 days, then stop Take with food. 08/29/2022 famotidine (PEPCID) 20 mg Take one 180 tablet 0 tablet tablet by mouth twice daily as needed. 08/29/2022 heparin (porcine) PF Inject 0.5 mL 0 5,000units/0.5mL under the injection syringe skin every 8 hours. Dvt ppx 08/29/2022 09/10/2022 levETIRAcetam (KEPPRA) Take one 180 tablet 0 500 mg tablet tablet by mouth twice daily for 12 days. 08/30/2022 nicotine (NICODERM CQ) 14 Apply one 28 patch 0 mg/day patchIndications: patch to top smoking cessation of skin as directed daily. Rotate patch location. Indications: stop smoking 08/29/2022 oxyCODONE (ROXICODONE) 5 Take one 0 mg tablet tablet to two tablets by mouth every 4 hours as needed. 08/29/2022 phenoL (CHLORASEPTIC) 1.4 Take two 180 mL 0 % mouth spray sprays by mouth or throat as directed as Needed. 08/29/2022 senna/docusate Take one 90 tablet 0 (SENOKOT-S) 8.6/50 mg tablet by tablet mouth twice daily. documented as of this encounter Ordered Prescriptions Start Date End Date Prescription Sig Dispensed Refills 08/29/2022 senna/docusate Take one 90 tablet 0 (SENOKOT-S) 8.6/50 mg tablet by tablet mouth twice daily. 08/29/2022 phenoL (CHLORASEPTIC) 1.4 Take two 180 mL 0 % mouth spray sprays by mouth or throat as directed as Needed. 08/29/2022 oxyCODONE (ROXICODONE) 5 Take one 0 mg tablet tablet to two tablets by mouth every 4 hours as needed. 08/30/2022 nicotine (NICODERM CQ) 14 Apply one 28 patch 0 mg/day patchIndications: patch to top smoking cessation of skin as directed daily. Rotate patch location. Indications: stop smoking 08/29/2022 09/10/2022 levETIRAcetam (KEPPRA) Take one 180 tablet 0 500 mg tablet tablet by mouth twice daily for 12 days. 08/29/2022 heparin (porcine) PF Inject 0.5 mL 0 5,000units/0.5mL under the injection syringe skin every 8 hours. Dvt ppx 08/29/2022 famotidine (PEPCID) 20 mg Take one 180 tablet 0 tablet tablet by mouth twice daily as needed. 08/29/2022 dexAMETHasone (DECADRON) Taper 0 4 mg tablet schedule: 4 mg every 8 hours for 2 days, then 4 mg every 12 hours for 2 days, then 2 mg every 12 hours for 2 days, then 2 mg every day for 2 days, then stop Take with food. 08/29/2022 acetaminophen (TYLENOL) Take two 0 325 mg tablet tablets by mouth every 4 hours as needed. documented in this encounter Discharge Disposition Code Departure Means Destination Disposition Wheelchair Rehab Facility (Not [facility]) documented in this encounter Progress Notes * Bernie Tejada, KAMALA-TECHNICAL SALES SUPPORT SPECIALIST - 08/29/2022 9:27 AM CDT Neurosurgery Progress Note Admission Date: 08/19/2022 LOS: 10 days S: Ready for Rehab, family at bedside getting packed up. No new concerns. O: Vital Signs: 24 Hour Range BP: (105-125)/(71-90) Temp: [36.3 C (97.4 F)-37 C (98.6 F)] Pulse: [67-82] Respirations: [16 PER MINUTE-18 PER MINUTE] SpO2: [95 %-100 %] O2 Device: None (Room air) Physical Exam: Alert and engaged in exam Oriented x4; appropriate conversation Face symmetric SIMON, follows commands Incision C/D/I noted there are a few nylon suture at end closest to ear/forrehea d, rest closed with Rapide. A/P: 37 y.o. female Principal Problem: Brain mass Active Problems: Vasogenic brain edema (HCC) Brain compression (HCC) Steroid-induced hyperglycemia Hemiparesis of left nondominant side (HCC) Impaired proprioception Hyponatremia OR 08/27/22 Right parietal craniotomy for resection of brain tumor Med/surg Neurologically stable- Continue Dexamethasone 4 mg every 8 hours, plan to taper to off on discharge. Neuro onc consult completed 08/25-planning outpatient follow up, [facility] appointme nt requested. Regular diet Labs every other day: 08/27 Na 134 noted hyponatremia,stable to improved 135 . PRN pain control, ice packs PRN PT/OT--Left hemiparesis, and decrease proprioception, current recommendations fo r home/prior living situation. Functional ability worse after OR, Rehab recommen ded, Rehab consult completed, SW assisting family with placement-hopeful for [facility] [place] closer to home. Medically ready for discharge. Prophylaxis: A) GI: H2 bello B) Lines: No C) Urinary Catheter: No D) Antibiotic Usage: No E) VTE: Mechanical prophylaxis; Sequential compression device ; sq heparin F) Restraints: Patient assessed for need for restraints. Please page [phone] with any questions. ANETA Pratt Voalte ma * Kathleen Anderson RN - 08/29/2022 9:05 AM CDT 0906: Report called to CHARLOTTE Sheriff at [facility]. 0936: Discharge instructions reviewed with the patient and her family, who are a t bedside. Both the patient and her family express understanding regarding these instructions. IV access removed. All belonging returned to the patient at this time. Patient assisted by aide to her personal vehicle for transfer to [facility]. * Janeen Sorto PT - 08/28/2022 1:52 PM CDT PHYSICAL THERAPY PROGRESS NOTE Name: Joan Trevino : 1985 Age: 37 y.o. Admission Date: 08/19/2022 LOS: 9 days Date of Service: 08/28/2022 Mobility Patient Turn/Position: Self;Weight shifted (Bed) Progressive Mobility Level: Walk laps Distance Walked (feet): 620 ft Level of Assistance: Assist X1 Assistive Device: None Activity Limited By: No limitations Subjective Significant hospital events: 37 y.o. 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 She represented to [facility] with complaints of decreased left-side sensation, inco ordination and headaches. HCT demonstrated reoccurrence of the oligodendroglioma and she presents to [facility] s/p repeat right parietal craniotomy 08/26 Mental / Cognitive Status: Alert;Cooperative;Follows Commands Persons Present: Family Pain: Patient has no complaint of pain Ambulation Assist: Independent Mobility in Community without Device Patient Owned Equipment: None Home Situation: Lives with Family Type of Home: House Entry Stairs: 3-5 Stairs;Rail on 1 Side In-Home Stairs: 1-2 Flights of Stairs;Rail on 1 Side Comments: Patient lives in a house with spouse and 5 kids 8-18yo, 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 Endorses no baseline d eficits from recent resection in 2015. Can stay on main level upon entry but has basement with laundry. Talking with spouse about adding 2nd railing to all step s. Bed Mobility/Transfer Bed Mobility: Supine to Sit: Minimal Assist;Assist with Trunk;Bed Flat;No Rail Bed Mobility: Sit to Supine: Standby Assist Transfer Type: Sit to/from Stand Transfer: Assistance Level: To/From;Bed;Toilet;Standby Assist Transfer: Assistive Device: None Transfers: Type Of Assistance: For Balance;For Safety Considerations End Of Activity Status: In Bed;Nursing Notified;Instructed Patient to Request As sist with Mobility;Instructed Patient to Use Call Light (bed alarm activated) Balance Functional Gait Assessment: Assessed Gait level surface: Normal Change in gait speed: Normal Gait with horizontal head turns: Normal Gait with vertical head turns: Mild Impairment Gait and pivot turn: Mild Impairment Step over obstacle: Moderate Impairment Gait with narrow base of support: Severe Impairment Gait with eyes closed: Moderate Impairment Ambulating backwards: Mild Impairment Steps: Mild Impairment Functional Gait Assessment Score:: 19/30 For adults less than 65 years of age, a score less than or equal to 22/30, were found to be at a higher risk of falling. Gait Gait Distance: 1200 feet Gait: Assistance Level: Minimal Assist Gait: Assistive Device: None Gait: Descriptors: Pace: Normal;Normal step length;Loss of balance (cues require d to attend to left environment) Stairs: Number Climbed: 3 Stairs: Descriptors: Ascend;Descend Stairs: Assistance Level: Standby Assist Stairs: Assistive Device: One Rail Education Persons Educated: Patient Patient Barriers To Learning: None Noted Teaching Methods: Verbal Instruction Patient Response: Verbalized Understanding Topics: Plan/Goals of PT Interventions;Mobility Progression;Importance of Increa sing Activity;Recommend Continued Therapy Assessment/Progress Impaired Mobility Due To: Impaired Balance;Medical Status Limitation;Post Surgic al Changes Assessment/Progress: Should Improve w/ Continued PT AM-PAC 6 Clicks Basic Mobility Inpatient Turning from your back to your side while in a flat bed without using bed rails: None Moving from lying on your back to sitting on the side of a flat bed without usin g bedrails : A Little Moving to and from a bed to a chair (including a wheelchair): A Little Standing up from a chair using your arms (e.g. wheelchair, or bedside chair): A Little To walk in hospital room: A Little Climbing 3-5 steps with a railing: A Little Basic Mobility Inpatient Raw Score: 19 Standardized (T-scale) Score: 42.48 Goals Goal Formulation: With Patient/Family Time For Goal Achievement: 5 days, To, 7 days Patient Will Go Supine To/From Sit: w/ Stand By Assist Patient Will Transfer Sit to Stand: w/ Stand By Assist Patient Will Ambulate: 151-200 Feet, w/ No Device, w/ Stand By Assist Patient Will Go Up / Down Stairs: 1-2 Flights, w/ Stand By Assist Plan Treatment Interventions: Balance Activities;Neuromuscular Reeducation;Mobility T raining;Coordination Training Plan Frequency: 5-7 Days per Week PT Plan for Next Visit: Work on dynamic standing balance. Attention to left. PT Discharge Recommendations Recommendation: Inpatient setting;Recommend rehab medicine consult Therapist: Janeen Sorto, PT Date: 08/28/2022 T * Bernie Tejada APRN-TECHNICAL SALES SUPPORT SPECIALIST - 08/28/2022 11:06 AM CDT Neurosurgery Progress Note Admission Date: 08/19/2022 LOS: 9 days S: Discussed plan for rehab, she is anxious to get to the next level of care and then get home. Overall doing better today, pain controlled. No new concerns. Se en with Dr. Gloria. O: Vital Signs: 24 Hour Range BP: (92-127)/(60-84) Temp: [36.7 C (98.1 F)-36.8 C (98.2 F)] Pulse: [52-75] Respirations: [12 PER MINUTE-24 PER MINUTE] SpO2: [96 %-98 %] O2 Device: None (Room air) Physical Exam: Alert and engaged in exam Oriented x4; appropriate conversation Face symmetric SIMON, follows commands Dressing removed this AM, incision C/D/I noted there are a few nylon suture at e nd closest to ear/forrehead, rest closed with Rapide. A/P: 37 y.o. female Principal Problem: Brain mass Active Problems: Vasogenic brain edema (HCC) Brain compression (HCC) Steroid-induced hyperglycemia Hemiparesis of left nondominant side (HCC) Impaired proprioception Hyponatremia OR 08/27/22 Right parietal craniotomy for resection of brain tumor Med/surg Neurologically stable- Continue Dexamethasone 4 mg every 6 hours, plan to taper to off on discharge. Neuro onc consult completed 08/25-planning outpatient follow up, [facility] appointme nt requested. Regular diet Labs every other day: 08/27 Na 134 noted hyponatremia, BMP pending. . PRN pain control, ice packs PRN PT/OT--Left hemiparesis, and decrease proprioception, current recommendations fo r home/prior living situation. Functional ability worse after OR, Rehab recommen ded, Rehab consult completed, SW assisting family with placement-hopeful for [facility] [place] closer to home. Medically ready for discharge. Prophylaxis: A) GI: H2 bello B) Lines: No C) Urinary Catheter: No D) Antibiotic Usage: No E) VTE: Mechanical prophylaxis; Sequential compression device ; sq heparin F) Restraints: Patient assessed for need for restraints. Please page [phone] with any questions. ANETA Pratt Voalte me * Capri Harrington OT - 08/28/2022 9:43 AM CDT OCCUPATIONAL THERAPY PROGRESS NOTE Name: Joan Trevino : 1985 Age: 37 y.o. Admission Date: 08/19/2022 LOS: 9 days Date of Service: 08/28/2022 Mobility Patient Turn/Position: Supine Progressive Mobility Level: Walk in hallway Distance Walked (feet): 400 ft Level of Assistance: Assist X1 Assistive Device: None Activity Limited By: Fatigue Subjective Pertinent Dx per Physician: 37 y.o. 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 s/p R parietal crani for mass resection 08/26. Precautions: Falls (SBP < 150) Pain / Complaints: Patient agrees to participate in therapy;Patient demonstrates nonverbal signs of pain Pain Location: Head Pain Level Current: (does not rate) Comments: Patient supine in bed upon OT arrival. Agreeable to therapy session. R eports feeling much better today. Objective Psychosocial Status: Willing and Cooperative to Participate Persons Present: Mother;Son;Spouse Home Living Type of Home: House Bathroom Shower / Tub: Tub/Shower Unit Prior Function Level Of Scurry: Independent with ADLs and functional transfers;Independen t with homemaking w/ ambulation Lives With: Family Receives Help From: None Needed Other Function Comments: pt lives with spouse and 5 children. very active and in dependent Vision Ocular Range Of Motion: Within Normal Limits Head Position: Head Turned (to R) Tracking: Within Functional Limits Visual Moreau: Difficulty Detecting Stimulus in Left Upper Quadrant;Difficulty D etecting Stimulus in Left Lateral Quadrant;Difficulty Detecting Stimulus in Left Lower Quadrant (Increased time) Visual Screen Results: Left Sided Emeterio-Inattention Comment: R gaze preference with head turned toward R. Improved visual attention L; continues with decreased attention to L side of body. ADL's Where Assessed: In Bathroom;Standing at Sink;Edge of Bed Eating Assist: Stand By Assist Eating Deficits: Setup;Increased Time to Complete Grooming Assist: Minimal Assist Grooming Deficits: Steadying;Verbal Cueing;Wash/Dry Hands (min A for balance, im proved attention to L) Toileting Assist: Minimal Assist Toileting Deficits: Steadying;Verbal Cueing;Increased Time To Complete Comment: Able to grasp toilet paper with L hand this date. Min cueing to attend to L hand once holding toilet paper as patient with 2 episodes of near-dropping toilet paper prior to hygiene. ADL Mobility Bed Mobility: Supine to Sit: Standby assist (to L side of bed) Transfer Type: Sit to/from stand Transfer: Assistance Level: To/from;Bed;Toilet;Minimal assist Transfer: Assistive Device: None Transfer: Type of Assistance: For balance;For safety considerations;For strength deficit End of Activity Status: In bed;Instructed patient to request assist with mobilit y;Instructed patient to use call light;Nursing notified (bed alarm activated) Transfer Comments: Verbal cueing for placement of LUE/LLE with transfers due to inattention Sitting Balance: Static sitting balance;No UE support;Standby assist Standing Balance: Dynamic standing balance;No UE support;Minimal assist Gait Distance: 400 feet Gait: Assistance Level: Minimal assist Gait: Assistive Device: None Gait Comments: Min A for balance throughout. Continues with inattention to L of body with mobility, but improved visual attention to L. One episode of nearly ru nning into an object in the hallway; able to maneuver with cueing from OT. Kunal cast see note for 4-item DGI. Balance Gait Level Surface 2: Mild Impairment -Walks 20', uses assistive devices, slowe r speed, mild gait deviations Change in Gait Speed 1: Moderate Impairment -Makes minor adjustments to walking speed, or accomplishes change in speed with significant gait deviations, or kathy nges speed but loses balance but can recover and continue walking Gait with Horizontal Head Turns 1: Moderate Impairment: Performs head turns wit h moderate change in gait velocity, slows down, staggers but recovers, can bing nue to walk Gait with Vertical Head Turns 1: Moderate Impairment: Performs head turns with moderate change in gait velocity, slows down, staggers but recovers, can continu e to walk 4 Dynamic Gait Index Total 5 out of 12 Score of less than 10 indicates patient is at an increased risk of falls. Activity Tolerance Endurance: 3/5 Tolerates 25-30 Minutes Exercise w/Multiple Rests Comment: Limited by headache Cognition Comprehension: (Increased time) Expression: Distractable Social Interaction: Interacts in a Spontaneous,Cooperative Manner Problem Solving: Decreased Judgment/Safety;Cueing to Sequence Task Memory: WFL Adequate to Recall Day to Day Activities Orientation: Alert & Oriented x4 Attention: Awake/Alert ROM R UE ROM: WFL R UE ROM Method: Active L UE ROM: WFL L UE ROM Method: Active Thumb/Finger ROM: WFL Coordination: Severe Delay (LUE) Grasp: L Weakened ROM Comments: see note from 08/27 for outcome measures Sensory Comment: Will assess at next visit; reports sensation is "better" UE Strength / Tone Strength Position Assessed: Seated R UE Strength: WFL L UE Strength: WFL (generalized weakness, grossly 3/5) Education Persons Educated: Patient/Family Barriers To Learning: Cognitive Deficits Interventions: Repetition of Instructions Teaching Methods: Verbal Instruction Patient Response: Verbalized Understanding;More Instruction Required Topics: Role of OT, Goals for Therapy Goal Formulation: With Patient/Family Assessment Assessment: Decreased ADL Status;Decreased UE Strength;Decreased Safe/Judg durin g ADL;Decreased Cognition;Decreased Endurance;Decreased Sensation;Visual Deficit ;Decreased Fine Motor Coordination;Decreased Self-Care Trans Prognosis: Good;w/Cont OT s/p Acute Discharge Goal Formulation: Pt/family Comments: Patient has demonstrated improvements in ADLs and functional mobility; however, patient continues to present with decreased LUE strength, impaired sta nding balance, decreased LUE coordination, R gaze preference and L inattention. Patient will continue to benefit from skilled OT to maximize independence and re duce caregiver burden at discharge. AM-PAC 6 Clicks Daily Activity Inpatient Putting on and taking off regular lower body clothes: A Lot Bathing (Including washing, rinsing, drying): A Lot Toileting, which includes using toilet, bedpan, or urinal: A Little Putting on and taking off regular upper body clothing: A Little Taking care of personal grooming such as brushing teeth: A Little Eating meals: A Little Daily Activity Raw Score: 16 Standardized (T-scale) Score: 35.96 Plan OT Frequency: 5x/week OT Plan for Next Visit: sensation, vision, 9HPT (if time), ADLs standing at sink ADL Goals Patient Will Perform Grooming: w/ Stand By Assist Patient Will Perform Toileting: w/ Stand By Assist Functional Transfer Goals Pt Will Perform All Functional Transfers: w/ Stand By Assist Vision Goals Pt Will Attend To L Of Body / Environment: 100% of the time, w/ Minimal Cues OT Discharge Recommendations Recommendation: Inpatient setting;Recommend rehab medicine consult Patient Currently Requires Physical Assist With: All personal care ADLs;All mobi lity;All home functioning ADLs Therapist: QIANA Christian, MARLON/Ember, CSRS [id number] Date: 08/28/2022 * Vickie Mcgarry, RT - 08/27/2022 1:58 PM CDT RT Adult Assessment Note NAME:Joan Trevino :1985 AGE: 37 y.o. ADMISSION DATE: 08/19/2022 DAYS ADMITTED: LOS: 8 days RT Treatment Plan: Criteria Not Met Additional Comments: Impressions of the patient: pt resting in bed, NAD Intervention(s)/outcome(s): RT assessment Patient education that was completed: none Recommendations to the care team: none Vital Signs: Pulse: 54 RR: 24 PER MINUTE SpO2: O2 Device: None (Room air) Liter Flow: O2%: Breath Sounds: Respiratory Effort: * Bernie Tejada APRN-TECHNICAL SALES SUPPORT SPECIALIST - 08/27/2022 10:08 AM CDT Neurosurgery Progress Note Admission Date: 08/19/2022 LOS: 8 days S: Having incisional pain this AM, discussed pain control measures. Patient thin ks the sensation to her left side is a little better this AM. Discussed plan for the day, seen again later with Dr. Gloria. O: Vital Signs: 24 Hour Range BP: (94-128)/(52-89) ABP: (155)/(75) Temp: [36.7 C (98 F)-37.3 C (99.2 F)] Pulse: [52-80] Respirations: [12 PER MINUTE-18 PER MINUTE] SpO2: [93 %-98 %] O2 Device: None (Room air) Physical Exam: Alert and engaged in exam Oriented x4; appropriate conversation Face symmetric SIMON, follows commands A/P: 37 y.o. female Principal Problem: Brain mass Active Problems: Vasogenic brain edema (HCC) Brain compression (HCC) Steroid-induced hyperglycemia Hemiparesis of left nondominant side (HCC) Impaired proprioception OR 08/27/22 Right parietal craniotomy for resection of brain tumor Progress to Med/surg Neurologically stable- Continue Dexamethasone 4 mg every 6 hours, plan to taper to off on discharge. Neuro onc consult completed 08/25-planning outpatient follow up, [facility] appointme nt requested. Regular diet Labs every other day: 08/27 Na 134 noted hyponatremia, anticipate related to NPO status for OR, monitor on next lab. PRN pain control, ice packs PRN PT/OT--Left hemiparesis, and decrease proprioception, current recommendations fo r home/prior living situation. Will re-eval postoperative- await evals anticipat e home reqs. Discharge planning ongoing--should be discharge ready in the next day or two. Prophylaxis: A) GI: H2 bello B) Lines: No C) Urinary Catheter: No D) Antibiotic Usage: No E) VTE: Mechanical prophylaxis; Sequential compression device ; No anticoagulat ion until 48 hours post operative; contraindication due to bleeding risk F) Restraints: Patient assessed for need for restraints. Please page [phone] with any questions. ANETA Pratt Voalte me * Capri Harrington OT - 08/27/2022 9:58 AM CDT OCCUPATIONAL THERAPY ASSESSMENT NOTE Name: Joan Trevino : 1985 Age: 37 y.o. Admission Date: 08/19/2022 LOS: 8 days Date of Service: 08/27/2022 Mobility Progressive Mobility Level: Walk in hallway Distance Walked (feet): 200 ft Level of Assistance: Assist X1 Assistive Device: Hand Held Activity Limited By: Dizziness;Fatigue Subjective Pertinent Dx per Physician: 37 y.o. 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 s/p R parietal crani for mass resection 08/26. Precautions: Falls (SBP < 150) Pain / Complaints: Patient agrees to participate in therapy;Patient demonstrates nonverbal signs of pain Pain Location: Head Pain Level Current: 6 Severe pain Comments: Patient supine in bed upon OT/PT arrival. Agreeable to therapy evaluat ions, asking to use the bathroom. Objective Psychosocial Status: Willing and Cooperative to Participate Persons Present: Mother;Son;Spouse;Physical Therapist Home Living Type of Home: House Bathroom Shower / Tub: Tub/Shower Unit Prior Function Level Of Scurry: Independent with ADLs and functional transfers;Independen t with homemaking w/ ambulation Lives With: Family Receives Help From: None Needed Other Function Comments: pt lives with spouse and 5 children. very active and in dependent Vision Ocular Range Of Motion: Within Normal Limits Head Position: Head Turned (to R) Tracking: Within Functional Limits Visual Moreau: Difficulty Detecting Stimulus in Left Upper Quadrant;Difficulty D etecting Stimulus in Left Lateral Quadrant;Difficulty Detecting Stimulus in Left Lower Quadrant (Increased time) Visual Screen Results: Left Sided Emeterio-Inattention Comment: R gaze preference with head turned toward R. Max cueing to attend to L. Multiple instances of near-running into objects/people on L. ADL's Where Assessed: In Bathroom;Standing at Sink Grooming Assist: Minimal Assist Grooming Deficits: Steadying;Verbal Cueing;Wash/Dry Hands (max verbal cueing to locate papertowels to L) Toileting Assist: Minimal Assist Toileting Deficits: Steadying;Verbal Cueing;Increased Time To Complete Comment: Increased assist required to grasp/tear toilet paper as patient repeate dly attempting to grab with L hand but then losing grasp and dropping toilet pap er onto floor. Poor attention to L throughout task. ADL Mobility Bed Mobility: Supine to Sit: Minimal assist (for LLE) Bed Mobility: Sit to Supine: Standby assist Transfer Type: Sit to/from stand Transfer: Assistance Level: From;Bed;Minimal assist;of 1st person;Standby assist ;of 2nd person Transfer: Assistive Device: Hand hold assist Transfer: Type of Assistance: For balance;For safety considerations;For strength deficit Other Transfer Type: Sit to/from stand Other Transfer: Assistance Level: To/from;Toilet;Minimal assist Other Transfer: Assistive Device: Hand hold assist Other Transfer: Type of Assistance: For balance;For safety considerations;For st rength deficit End of Activity Status: In bed;Instructed patient to request assist with mobilit y;Instructed patient to use call light;Nursing notified (bed alarm activated) Transfer Comments: Verbal cueing for placement of LUE/LLE with transfers due to inattention Sitting Balance: Static sitting balance;No UE support;Standby assist (on toilet) Standing Balance: Dynamic standing balance;No UE support;Minimal assist Gait Distance: 200 feet Gait: Assistance Level: Moderate assist;of 1st person;Standby assist;of 2nd pers on Gait: Assistive Device: Hand hold assist;None Gait Comments: Hand hold on L wiht moderate assist for balance. Poor L attention and multiple episodes of near running into people/objects on L despite max cuei ng. Numerous LOB requiring mod A to correct. Activity Tolerance Endurance: 3/5 Tolerates 25-30 Minutes Exercise w/Multiple Rests Comment: Limited by headache Cognition Comprehension: (Increased time) Expression: Distractable Social Interaction: Interacts in a Spontaneous,Cooperative Manner Problem Solving: Decreased Judgment/Safety;Cueing to Sequence Task Memory: WFL Adequate to Recall Day to Day Activities Orientation: Alert & Oriented x4 Attention: Awake/Alert ROM R UE ROM: WFL R UE ROM Method: Active L UE ROM: WFL L UE ROM Method: Active Thumb/Finger ROM: WFL Coordination: Severe Delay (LUE) Grasp: L Weakened ROM Comments: see note from 08/27 for outcome measures Dynamometer Type Soldering Machine Tender Assessment: 3 Trial Average L Hand (lbs) R Hand (lbs) Trial 1 15 75 Trial 2 25 74 Trial 3 29 60 Average 23 69.7 Type Soldering Machine Tender Assessment norms according to age grouping: Female: 35-39 R AV.1; SD: 10.8 -- L AV.3; SD: 11.7 Type Soldering Machine Tender strength testing is the one of the most sensitive assessments of the upper extremity and can be a good prognostic factor for recovery in acute stroke. Sensory Comment: Will assess at next visit; reports sensation is "better" UE Strength / Tone R UE Strength: WFL L UE Strength: WFL (generalized weakness, grossly 3/5) Education Persons Educated: Patient/Family Barriers To Learning: Cognitive Deficits Interventions: Repetition of Instructions Teaching Methods: Verbal Instruction Patient Response: Verbalized Understanding;More Instruction Required Topics: Role of OT, Goals for Therapy Goal Formulation: With Patient/Family Assessment Assessment: Decreased ADL Status;Decreased UE Strength;Decreased Safe/Judg durin g ADL;Decreased Cognition;Decreased Endurance;Decreased Sensation;Visual Deficit ;Decreased Fine Motor Coordination;Decreased Self-Care Trans Prognosis: Good;w/Cont OT s/p Acute Discharge Goal Formulation: Pt/family AM-PAC 6 Clicks Daily Activity Inpatient Putting on and taking off regular lower body clothes: A Lot Bathing (Including washing, rinsing, drying): A Lot Toileting, which includes using toilet, bedpan, or urinal: A Lot Putting on and taking off regular upper body clothing: A Little Taking care of personal grooming such as brushing teeth: A Little Eating meals: A Little Daily Activity Raw Score: 15 Standardized (T-scale) Score: 34.69 Plan OT Frequency: 5x/week OT Plan for Next Visit: sensation, vision, 9HPT (if time), ADLs standing at sink ADL Goals Patient Will Perform Grooming: w/ Stand By Assist Patient Will Perform Toileting: w/ Stand By Assist Functional Transfer Goals Pt Will Perform All Functional Transfers: w/ Stand By Assist Vision Goals Pt Will Attend To L Of Body / Environment: 100% of the time, w/ Minimal Cues OT Discharge Recommendations Recommendation: Inpatient setting;Recommend rehab medicine consult Patient Currently Requires Physical Assist With: All personal care ADLs;All mobi lity;All home functioning ADLs Therapist: QIANA Christian OTR/Ember, CSRS [id number] Date: 08/27/2022 * Siobhan Avila, PT - 08/27/2022 9:30 AM CDT PHYSICAL THERAPY RE-ASSESSMENT Name: Joan Trevino : 1985 Age: 37 y.o. Admission Date: 08/19/2022 LOS: 8 days Date of Service: 08/27/2022 Mobility Progressive Mobility Level: Walk in hallway Distance Walked (feet): 200 ft Level of Assistance: Assist X1 Assistive Device: Hand Held Activity Limited By: Dizziness;Fatigue Subjective Significant hospital events: 37 y.o. 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 She represented to [facility] with complaints of decreased left-side sensation, inco ordination and headaches. HCT demonstrated reoccurrence of the oligodendroglioma and she presents to [facility] s/p repeat right parietal craniotomy 08/26 Mental / Cognitive Status: Lethargic;Arousable;Cooperative;Follows Commands Persons Present: Mother;Son;Spouse Pain: Patient complains of pain;Patient does not rate pain Pain Location: Headache;Post-surgical Pain Description: Aching Pain Interventions: Patient pre-medicated;Patient agrees to participate in thera py Ambulation Assist: Independent Mobility in Community without Device Patient Owned Equipment: None Home Situation: Lives with Family Type of Home: House Entry Stairs: 3-5 Stairs;Rail on 1 Side In-Home Stairs: 1-2 Flights of Stairs;Rail on 1 Side Comments: Patient lives in a house with spouse and 5 kids 8-18yo, 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 Endorses no baseline d eficits from recent resection in 2014. Can stay on main level upon entry but has basement with laundry. Talking with spouse about adding 2nd railing to all step s. ROM R LE ROM: WFL L LE ROM: WFL Strength R LE Strength: WFL L LE Strength: Not WFL (Strength grossly 4/5 but unable to formally test due to inattention) Posture/Neurological Head Control: Independent Posture: No postural deviations Bed Mobility/Transfer Bed Mobility: Supine to Sit: Minimal Assist;Assist with L LE (for safety) Bed Mobility: Sit to Supine: Standby Assist Transfer Type: Sit to Stand Transfer: Assistance Level: To/From;Bed;Minimal Assist;of 1st person;Standby Ass ist;of 2nd person Transfer: Assistive Device: Hand Hold Assist Transfers: Type Of Assistance: For Balance;For Strength Deficit;For Safety Consi derations Other Transfer Type: Sit to Stand Other Transfer: Assistance Level: To/From;Toilet;Minimal Assist (cues to take L hand off grab bar) Other Transfer: Assistive Device: Hand Hold Assist End Of Activity Status: In Bed;Nursing Notified;Instructed Patient to Request As sist with Mobility;Instructed Patient to Use Call Light (bed alarm activated) Comments: Verbal and tactile cues for placement on L UE and LE for transfers Balance Sitting Balance: Static Sitting Balance;Dynamic Sitting Balance;1 UE Support;Sta ndby Assist Standing Balance: Static Standing Balance;Dynamic Standing Balance;1 UE support; Minimal Assist 4 Item Dynamic Gait Index: Assessed Gait Level Surface: 1 - Moderate Impairment: Walks 20', slow speed, abnormal gai l pattern, evidence for imbalance Change in Gait Speed: 1 - Moderate Impairment: Makes minor adjustments to walkin g speed, or accomplishes change in speed with significant gait deviations, or ch anges speed but significant gait deviations, or changes speed but loses balance can recover and continue walking. Gait with Horizontal Head Turns: 0 - Severe Impairment: Performs task with sever e disruption of gait, ie., staggers outside a 15 inch path, loses balance, stops , reaches for wall. Gait with Vertical Head Turns: 0 - Severe Impairment: Performs task with severe disruption of gait, ie., staggers outside a 15 inch path, loses balance, stops, reaches for wall. 4 Dynamic Gait Index Total : 2 out of 12 4 Dynamic Gait Index Fall Risk: Less than 10 - Increased Risk for Falls Gait Gait Distance: 200 feet Gait: Assistance Level: Moderate Assist;of 1st person;Standby Assist;of 2nd pers on Gait: Assistive Device: Hand Hold Assist Gait: Descriptors: Pace: Normal;Decreased knee extension in stance phase LLE;Dec reased heel strike LLE Comments: Patient ambulated 200 feet with hand hold on left and moderate assist. L inattention and impaired proprioception L LE. Cues for L head turns and L knee extension in stance phase. Multiple losses of balance that required assist to correct Activity Limited By: Complaint of Fatigue;Weakness Education Persons Educated: Patient Patient Barriers To Learning: None Noted Teaching Methods: Verbal Instruction Patient Response: Verbalized Understanding Topics: Plan/Goals of PT Interventions;Mobility Progression;Importance of Increa sing Activity;Recommend Continued Therapy Assessment/Progress Impaired Mobility Due To: Impaired Balance;Medical Status Limitation;Post Surgic al Changes Assessment/Progress: Should Improve w/ Continued PT AM-PAC 6 Clicks Basic Mobility Inpatient Turning from your back to your side while in a flat bed without using bed rails: A Little Moving from lying on your back to sitting on the side of a flat bed without usin g bedrails : A Little Moving to and from a bed to a chair (including a wheelchair): A Little Standing up from a chair using your arms (e.g. wheelchair, or bedside chair): A Lot To walk in hospital room: A Lot Climbing 3-5 steps with a railing: A Lot Basic Mobility Inpatient Raw Score: 15 Standardized (T-scale) Score: 36.97 Goals Goal Formulation: With Patient Time For Goal Achievement: 5 days, To, 7 days Patient Will Go Supine To/From Sit: w/ Stand By Assist Patient Will Transfer Sit to Stand: w/ Stand By Assist Patient Will Ambulate: 151-200 Feet, w/ No Device, w/ Stand By Assist Patient Will Go Up / Down Stairs: 1-2 Flights, w/ Stand By Assist Plan Treatment Interventions: Balance Activities;Neuromuscular Reeducation;Mobility T raining;Coordination Training Plan Frequency: 5-7 Days per Week PT Plan for Next Visit: Work on static and dynamic standing balance. Increase am bulation distance. Step taps L LE PT Discharge Recommendations Recommendation: Inpatient setting;Recommend rehab medicine consult Patient Currently Requires Physical Assist With: Ambulation;Stairs Therapist Siobhan Avila, PT Date 08/27/2022 * Stefania Beavers, DO - 08/27/2022 9:10 AM CDT Neuro Critical Care Progress Joan Trevino Admission Date: 08/19/2022 LOS: 8 days Full Code ASSESSMENT/PLAN Patient Active Problem List Diagnosis Date Noted Vasogenic brain edema (HCC) 08/20/2022 Brain compression (HCC) 08/20/2022 Steroid-induced hyperglycemia 08/20/2022 Hemiparesis of left nondominant side (HCC) 08/20/2022 Impaired proprioception 08/20/2022 Brain mass 08/19/2022 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 She had the numbness for awhile bu t as mother of 5 she did not think much of it. She had GTR here by Dr. Gloria. I have discussed her pathology with Dr. Prince. She has a grade III oligodendrog lioma. She has 1p deletion but Dr. 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 We will treat aggressively with c oncurrent temodar and xrt followed by at least a year of temodar. She lives in [facility] so I have contacted Dr. Oh office and they will contact her with an appointment manju. We discussed the toxicities of the treatment, the natural h istory and epidemiology of the disease, etiology. 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 Seizure (HCC) 10/20/2014 Joan Trevino is a 37 y.o. 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 She represe nted to [facility] with complaints of decreased left-side sensation, incoordinati on and headaches. HCT demonstrated reoccurrence of the oligodendroglioma and she presents to [facility] s/p repeat right parietal craniotomy. Hospital and ICU course: 08/26: Admitted to NEICU 08/27: Transfer out of ICU Neuro: S/P Repeat Right Parietal Craniotomy Right Parietal Grade 3 Oligodendroglioma s/p Right Parietal Craniotomy (2014) - Keppra for secondary seizure prevention > was d/c on last post-operative stay, but stopped taking in 2020? D/t drowsiness > no seizure history - Ancef x 3 doses - MRI w w/o - Dexamethazone Sedation/Pain Management: - PRN fentanyl, oxycodone, and tylenol - Assess for delirium daily Cardiac: - SBP goal: <150 - MAP goal > 65 - PRN labetalol and hydralazine available Respiratory: Tobacco Abuse Sating well on room air - PaO2 goal >100, Spo2 goal >95% GI: - Feeding: regular diet - pepcid - continue while on steroids - neurosurgery bowel regimen, ensure daily BM Heme: Hgb: 14.1 Plt: 167 No acute issues - Daily CBC - assess for coagulopathy, maintain platelets above 100k, INR <1.5 ID: Leukocytosis (likely 2/2 steroids) WBC: 25.5 - Tmax afebrile - aim for normothermia, Temp <38.3 celsius, normothermia protocol if febrile Renal: BUN: 18 Creat: 0.56 - maintain strict I&O monitoring - Daily BMP - Aim for normovolemia Intake/Output Summary (Last 24 hours) at 08/27/2022 0910 Last data filed at 08/27/2022 0600 Gross per 24 hour Intake 1330 ml Output 1230 ml Net 100 ml Endocrine: SB - monitor glucose on chemistry - Blood glucose goal 100-180mg/dl FEN: - IVF: SL - electrolyte replacement protocol in place - Magnesium goal >2.0, i-Tye goal > 1.0, Potassium goal >4.0 mEq/L Prophylaxis Review: A)GI: H2 Bello B) Lines: Yes; Arterial Line; Indication: Continuous BP monitoring; Location: Radial C) Urinary Catheter: Yes; Retain [place] due to: Need for accurate Intake and Ou tput D) Antibiotic Usage: Yes; Infection present or suspected: post op ancef E) VTE: Pharmacological prophylaxis; Contraindication: Bleeding risk; Greater than usual risk associated with surgery and Mechanical prophylaxis; Sequential c ompression device F) Isolation: Not indicated. G)Seizures: Keppra I) Restraints: Patient assessed for need for restraints. Disposition/Family: Transfer to the floor Primary service: [facility] Consults: [facility] SUBJECTIVE Chief Complaint: S/P Craniotomy History of Present Illness: Joan Trevino is a 37 y.o. 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 She represe nted to [facility] with complaints of decreased left-side sensation, incoordinati on and headaches. HCT demonstrated reoccurrence of the oligodendroglioma and she presents to [facility] s/p repeat right parietal craniotomy. 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 Code Status: Full Code Decision Maker: Roxanaantoinette Trevino - Spouse Immunizations (includes history and patient reported): Immunization History Administered Date(s) Administered Pneumococcal Vaccine (23-Veronique Adult) 10/15/2014 Allergies: Bactrim [sulfamethoxazole-trimethoprim] No medications prior to admission. Review of Systems: A 14 point review of systems was negative except for: Neurological: positive for headaches OBJECTIVE Vital Signs: Last Filed Vital Signs: 24 Hour Ra nge BP: 106/81 (08/27 699) ABP: 155/75 (08/27 1999) Temp: 37.3 C (99.1 F) (08/28 799) Pulse: 68 (08/27 699) Respirations: 15 PER MINUTE (08/27 699) SpO2: 96 % (08/27 699) O2 Device: None (Room air) (08/27 599) BP: (94-128)/(52-89) ABP: (155)/(75) Temp: [36.7 C (98 F)-37.3 C (99.2 F)] Pulse: [52-80] Respirations: [12 PER MINUTE-18 PER MINUTE] SpO2: [93 %-98 %] O2 Device: None (Room air) Intensity Pain Scale (Self Report): (not recorded) Vitals: 08/20/22 0636 08/21/22 0137 08/22/22 0933 Weight: 49.8 kg (109 lb 12.8 oz) 50.7 kg (111 lb 12.4 oz) 50.1 kg (110 lb 7.2 oz ) Lines: Peripheral Line Drains: None Intake/Output Summary: (Last 24 hours) Intake/Output Summary (Last 24 hours) at 08/27/2022 0910 Last data filed at 08/27/2022 0600 Gross per 24 hour Intake 1330 ml Output 1230 ml Net 100 ml Stool Occurrence: 1 Physical Exam: Blood pressure 106/81, pulse 68, temperature 37.3 C (99.1 F), height 157.5 c m (5' 2"), weight 50.1 kg (110 lb 7.2 oz), SpO2 96 %. Michael coma score: 14 E: 4 - Opens eyes on own M: 6 - Follows simple motor commands V: 4 - Seems confused, disoriented Neuro: Exam completed with Dr. Bartholomew and Dr. Martinez at bedside. Expected exam findings include: decreased sensation on the left upper and lower as it was pres ent pre-operatively and slow to move her left side. Mental Status: Drowsy Cranial Nerves: Cranial nerves 2-12 INTACT by inspection. - Pupil exam: Size: 3 Reactivity: Brisk - EOM: Intact by inspection. Motor: RUE/LE: 4/5 Follows commands briskly LUE: Strength: 4/5 LLE: 4/5 Sensory: decreased sensation on the LUE/LLE (was present pre-op) Coordination: ataxia, left (present pre-op) Lungs: clear to auscultation bilaterally Pulmonary: Respiratory status: Stable Heart: regular rate and rhythm, S1, S2 normal, no murmur, click, rub or gallop Abdomen: soft, non-tender. Bowel sounds normal. No masses, no organomegaly Extremities: extremities normal, atraumatic, no cyanosis or edema Skin: Skin color, texture, turgor normal. No rashes or lesions Glucose: (!) 108 (08/27/22223) POC Glucose (Download): (!) 124 (08/26/222123) Lab Review: Pertinent labs reviewed Radiology and Other Diagnostic Procedures Review: Pertinent radiologic and diag nostic procedures reviewed. Stefania Beavers, Date: 08/27/[phone] Associated attestation - Sarmad Ferrell MD - 08/27/2022 9:56 AM CDT ATTESTATION I have seen, personally fully evaluated, and discussed patient with the ICU team . I reviewed the chart for all pertinent data, including labs, radiology, vital signs, nursing notes, and individual pension consultant notes. [facility] above information. I agree with the objective findings and a gree with the plan of care as documented by the resident (Dr. Stefania Beavers) wit h the exceptions noted. Brief Patient Summary: 37 yo F with tobacco abuse, previous right parietal crani otomy for grade III oligodendroglioma who was found to have recurrance of the ol igodendroglioma after she experienced decreased left sided sensation, incoordina tion, and headaches. Now s/p right parietal craniotomy for resection of recurren t oligodendroglioma with Dr. Gloria on 08/26/22. Assessment & Plan: Neuro: Keppra prophylaxis, q1h NC checks overnight, q4h neurochecks today. Damion garcia, MRI overnight. Multimodal pain control with fentanyl, oxycodone, tyle nol. CV: SBP <150, MAP > 65 Pulmonary: On room air, IS/pulm hygiene Renal: Daily BMP, Cr 0.6 ID: WBC 25.5 likely stress response/steroid, periop ABX with ancef GI: ADAT, bowel reg Heme: Daily CBC, Hgb stable at 14, Plts 167 Endo: glucose checks Staff name: Sarmad Ferrell MD Date: 08/27/2022 * Joaquin Angeles SRNA - 08/27/2022 8:38 AM CDT Anesthesia Follow-Up Evaluation: Post-Procedure Day One Name: Joan Trevino : 1985 Age: 37 y.o. Se x: female Procedure Date: 08/26/2022 Procedure: Procedure(s) with comments: Right parietal craniotomy for resection of brain tumor - Navigation, 4 hours, cristina sellers, cortical and subcortical mapping. STEREOTACTIC COMPUTER-ASSISTED CRANIAL PROCEDURE - INTRADURAL FUNCTIONAL CORTICAL AND SUBCORTICAL MAPPING BY STIMULATION AND/ OR RECORDING OF ELECTRODES ON BRAIN SURFACE TO IDENTIFY VITAL BRAIN STRUCTURES - INITIAL HOUR Physical Assessment Height: 157.5 cm (5' 2") Weight: 50.1 kg (110 lb 7.2 oz) Vital Signs (Last Filed in 24 hours) BP: 106/81 (08/27 0700) Temp: 37.3 C (99.1 F) (08/27 0800) Pulse: 68 (08/27 0600) Respirations: 15 PER MINUTE (08/27 0600) SpO2: 96 % (05/17 0700) O2 Device: None (Room air) (08/27 0600) Patient History Allergies Allergies Allergen Reactions Bactrim [Sulfamethoxazole-Trimethoprim] NAUSEA AND VOMITING Medications Scheduled Meds:dexAMETHasone (DECADRON) tablet 4 mg, 4 mg, Oral, Q6H docusate (COLACE) capsule 100 mg, 100 mg, Oral, BID levETIRAcetam (KEPPRA) tablet 500 mg, 500 mg, Oral, BID nicotine (NICODERM CQ) 14 mg/day patch 1 patch, 1 patch, Transdermal, QDAY senna/docusate (SENOKOT-S) tablet 1 tablet, 1 tablet, Oral, BID Continuous Infusions: PRN and Respiratory Meds:acetaminophen Q4H PRN, famotidine BID PRN, milk of magn esium QDAY PRN, ondansetron (ZOFRAN) IV Q6H PRN, oxyCODONE Q4H PRN Diagnostic Tests Hematology: Lab Results Component Value Date HGB 14.1 08/27/2022 HCT 41.9 08/27/2022 PLTCT 167 08/27/2022 WBC 25.5 08/27/2022 NEUT 89 08/27/2022 ANC 22.70 08/27/2022 ALC 0.79 08/27/2022 ORTIZ 8 08/27/2022 AMC 1.96 08/27/2022 EOSA 0 08/27/2022 ABC 0.06 08/27/2022 MCV 96.3 08/27/2022 MCH 32.4 08/27/2022 MCHC 33.6 08/27/2022 MPV 7.1 08/27/2022 RDW 13.8 08/27/2022 General Chemistry: Lab Results Component Value Date NA 134 08/27/2022 K 4.3 08/27/2022 CL 99 08/27/2022 CO2 26 08/27/2022 GAP 9 08/27/2022 BUN 18 08/27/2022 CR 0.56 08/27/2022 GLU 108 08/27/2022 CA 8.8 08/27/2022 ALBUMIN 4.6 08/19/2022 OBSCA 1.13 08/27/2022 MG 2.0 08/27/2022 TOTBILI 0.5 08/19/2022 PO4 5.7 08/27/2022 Coagulation: Lab Results Component Value Date PT 12.6 08/19/2022 PTT 32.1 08/19/2022 INR 1.1 08/19/2022 Follow-Up Assessment Patient location during evaluation: ICU Anesthetic Complications: Anesthetic complications: The patient did not experience any anesthestic complic ations. Pain: Score: 3 Management:adequate Level of Consciousness: awake and alert Hydration:acceptable Airway Patency: patent Respiratory Status: acceptable Cardiovascular Status:acceptable Regional/Neuroaxial: * Isabel Evans, PHARMACEUTICAL ENGINEER-TECHNICAL SALES SUPPORT SPECIALIST - 08/26/2022 10:25 AM CDT Neurosurgery Progress Note Admission Date: 08/19/2022 LOS: 7 days S: Seen this morning. Family at bedside. Patient is aware of surgery plans for t robby and ready to proceed. Denies new questions or concerns. O: Vital Signs: 24 Hour Range BP: (92-110)/(45-74) Temp: [36.6 C (97.8 F)-37.2 C (98.9 F)] Pulse: [68-77] Respirations: [16 PER MINUTE-18 PER MINUTE] SpO2: [96 %-100 %] O2 Device: None (Room air) Physical Exam: Alert and engaged in exam Oriented x4; appropriate conversation Face symmetric SIMON, follows commands Decrease sensation to light touch throughout left side A/P: 37 y.o. female Principal Problem: Brain mass Active Problems: Vasogenic brain edema (HCC) Brain compression (HCC) Steroid-induced hyperglycemia Hemiparesis of left nondominant side (HCC) Impaired proprioception Neurologically stable- >MRI head reviewed, noted re-current brain mass, vasogenic edema and compression >OR today, 08/26 Right parietal crani for brain tumor [id number] >Continue Dexamethasone 4 mg every 6 hours. Neuro onc consult completed 08/25 NPO for OR Labs every other day, next due 08/27 PRN pain control PT/OT--Left hemiparesis, and decrease proprioception, current recommendations fo r home/prior living situation. Will re-eval postoperative and update recs as ind icated Discharge planning ongoing--CM/SW following for assistance with discharge needs. Prophylaxis: A) GI: H2 bello B) Lines: No C) Urinary Catheter: No D) Antibiotic Usage: No E) VTE: Mechanical prophylaxis; Sequential compression device ; No anticoagulat ion until 48 hours post operative; contraindication due to bleeding risk F) Restraints: Patient assessed for need for restraints. Please page [phone] with any questions. ANETA Freeman Voalte me * Bernie Tejada APRN-NP - 08/25/2022 8:52 AM CDT Neurosurgery Progress Note Admission Date: 08/19/2022 LOS: 6 days S: Seen with Dr. Gloria, patient feels ready as she can be for surgery tomorrow . Family at bedside. No new concerns. O: Vital Signs: 24 Hour Range BP: (106-125)/(61-82) Temp: [36.3 C (97.4 F)-37.4 C (99.3 F)] Pulse: [58-74] Respirations: [14 PER MINUTE-18 PER MINUTE] SpO2: [96 %-99 %] O2 Device: None (Room air) Physical Exam: Alert and engaged in exam Oriented x 4 Face symmetric SIMON, follows commands Strength at bed level full Decrease sensation to light touch throughout left side A/P: 37 y.o. female Principal Problem: Brain mass Active Problems: Vasogenic brain edema (HCC) Brain compression (HCC) Steroid-induced hyperglycemia Hemiparesis of left nondominant side (HCC) Impaired proprioception MRI head reviewed, noted re-current brain mass, vasogenic edema and compression OR 08/26 Right parietal crani for brain tumor [id number] Continue Dexamethasone 4 mg every 6 hours. Noted hyperglycemia, blood glucose [phone] induced hyerpglycemia PT/OTl, Left hemiparesis, and decrease proprioception. Assist of 1. Patient with good insight of need for assist with mobility. Labs planned every other day-Na 135 Sq heparin hold after 2200 dose Prophylaxis: A) GI: H2 bello B) Lines: No C) Urinary Catheter: No D) Antibiotic Usage: No E) VTE: Mechanical prophylaxis; Sequential compression device sq heparin F) Restraints: Patient assessed for need for restraints. Please page [phone] with any questions. ANETA Pratt Voalte me * Carole Dhillon MD - 08/24/2022 8:14 AM CDT Neurosurgery Progress Note Admission Date: 08/19/2022 LOS: 5 days S: Doing well. She is happy O: Vital Signs: 24 Hour Range BP: (93-121)/(43-84) Temp: [36.7 C (98 F)-37.1 C (98.7 F)] Pulse: [54-71] Respirations: [17 PER MINUTE-18 PER MINUTE] SpO2: [98 %-100 %] O2 Device: None (Room air) Physical Exam: Alert and engaged in exam Oriented x 4 Face symmetric SIMON, follows commands Strength at bed level full Decrease sensation to light touch throughout left side A/P: 37 y.o. female Principal Problem: Brain mass Active Problems: Vasogenic brain edema (HCC) Brain compression (HCC) Steroid-induced hyperglycemia Hemiparesis of left nondominant side (HCC) Impaired proprioception MRI head reviewed, noted re-current brain mass, vasogenic edema and compression Plan for OR 08/26 Right parietal crani for brain tumor resection Continue Dexamethasone 4 mg every 6 hours. Noted hyperglycemia, blood glucose [phone] induced hyerpglycemia PT/OTl, Left hemiparesis, and decrease proprioception. Assist of 1. Patient with good insight of need for assist with mobility. Labs planned qod Sq heparin. Prophylaxis: A) GI: H2 bello B) Lines: No C) Urinary Catheter: No D) Antibiotic Usage: No E) VTE: Mechanical prophylaxis; Sequential compression device sq heparin F) Restraints: Patient assessed for need for restraints. Please page [phone] with any questions. Carole Dhillon MD Voalte me * Carole Dhillon MD - 08/23/2022 7:21 AM CDT Neurosurgery Progress Note Admission Date: 08/19/2022 LOS: 4 days S: Doing well. She is happy O: Vital Signs: 24 Hour Range BP: (100-112)/(56-75) Temp: [36.6 C (97.9 F)-36.8 C (98.3 F)] Pulse: [54-65] Respirations: [16 PER MINUTE-18 PER MINUTE] SpO2: [96 %-100 %] O2 Device: None (Room air) Physical Exam: Alert and engaged in exam Oriented x 4 Face symmetric SIMON, follows commands Strength at bed level full Decrease sensation to light touch throughout left side A/P: 37 y.o. female Principal Problem: Brain mass Active Problems: Vasogenic brain edema (HCC) Brain compression (HCC) Steroid-induced hyperglycemia Hemiparesis of left nondominant side (HCC) Impaired proprioception MRI head reviewed, noted re-current brain mass, vasogenic edema and compression Plan for OR 08/26 Right parietal crani for brain tumor resection Continue Dexamethasone 4 mg every 6 hours. Noted hyperglycemia, blood glucose [phone] induced hyerpglycemia PT/OTl, Left hemiparesis, and decrease proprioception. Assist of 1. Patient with good insight of need for assist with mobility. Labs planned qod Sq heparin. Prophylaxis: A) GI: H2 bello B) Lines: No C) Urinary Catheter: No D) Antibiotic Usage: No E) VTE: Mechanical prophylaxis; Sequential compression device sq heparin F) Restraints: Patient assessed for need for restraints. Please page [phone] with any questions. Carole Dhillon MD Voalte me * Bernie Tejada APRN-TECHNICAL SALES SUPPORT SPECIALIST - 08/22/2022 10:21 AM CDT Neurosurgery Progress Note Admission Date: 08/19/2022 LOS: 3 days S: Without new complaints today, appreciated getting to work with PT/OT yesterda y. Enjoying her breakfast at time of visit. O: Vital Signs: 24 Hour Range BP: (99-113)/(52-82) Temp: [36.6 C (97.8 F)-36.7 C (98.1 F)] Pulse: [50-75] Respirations: [16 PER MINUTE-18 PER MINUTE] SpO2: [95 %-100 %] O2 Device: None (Room air) Physical Exam: Alert and engaged in exam Oriented x 4 Face symmetric SIMON, follows commands Strength at bed level full Decrease sensation to light touch throughout left side A/P: 37 y.o. female Principal Problem: Brain mass Active Problems: Vasogenic brain edema (HCC) Brain compression (HCC) Steroid-induced hyperglycemia Hemiparesis of left nondominant side (HCC) Impaired proprioception MRI head reviewed, noted re-current brain mass, vasogenic edema and compression Plan for OR 08/26 Right parietal crani for brain tumor resection Continue Dexamethasone 4 mg every 6 hours. Noted hyperglycemia, blood glucose [phone] induced hyerpglycemia PT/OTl, Left hemiparesis, and decrease proprioception. Assist of 1. Patient with good insight of need for assist with mobility. Labs planned qod Sq heparin. Prophylaxis: A) GI: H2 bello B) Lines: No C) Urinary Catheter: No D) Antibiotic Usage: No E) VTE: Mechanical prophylaxis; Sequential compression device sq heparin F) Restraints: Patient assessed for need for restraints. Please page [phone] with any questions. ANETA Pratt Voalte me * Suzette Godoy OT - 08/21/2022 11:12 AM CDT OCCUPATIONAL THERAPY ASSESSMENT NOTE Name: Joan Trevino : 1985 Age: 37 y.o. Admission Date: 08/19/2022 LOS: 2 days Date of Service: 08/21/2022 Mobility Progressive Mobility Level: Walk laps Distance Walked (feet): 1200 ft Level of Assistance: Assist X1 Assistive Device: None Activity Limited By: No limitations Subjective Pertinent Dx per Physician: 37 y.o. female with pmhx of R parietal crani with Dr Wei Gloria in 2014 who presents in transfer for evaluation of possible recurrent grade 3 oligodendroglioma Precautions: Falls Pain / Complaints: Patient agrees to participate in therapy Objective Psychosocial Status: Willing and Cooperative to Participate Home Living Type of Home: House Bathroom Shower / Tub: Tub/Shower Unit Prior Function Level Of Scurry: Independent with ADLs and functional transfers;Independen t with homemaking w/ ambulation Lives With: Family Receives Help From: None Needed Other Function Comments: pt lives with spouse and 5 children. very active and in dependent ADL's Toileting Assist: Stand By Assist Toileting Deficits: Supervision/Safety Comment: toileting in bathroom with SBA ADL Mobility Transfer Type: Sit to/from stand Transfer: Assistance Level: From;Bed;Toilet;Standby assist Transfer: Assistive Device: None End of Activity Status: In bed;Instructed patient to request assist with mobilit y;Instructed patient to use call light;Nursing notified Gait Distance: 2500 feet Gait: Assistance Level: Standby assist Gait: Assistive Device: None Gait Comments: pt received from PT after ambulating 2 laps, ambulates an additio nal 2 laps with OT with SBA. no losses of balance, mild pathway deviations Activity Tolerance Endurance: 5/5 Endurance Does Not Limit Participation in Activity ROM L UE ROM: WFL Coordination: Adequate to Complete ADLs Grasp: Bilateral Grasp Functional for Activity ROM Comments: pt endorses some lingering numbness in L pinky. reports global LUE numbness that has improved since starting steroids Education Persons Educated: Patient Teaching Methods: Verbal Instruction Patient Response: Verbalized Understanding Topics: Role of OT, Goals for Therapy Goal Formulation: With Patient Assessment Comments: pt is currently completing ADL and functional mobility without assista nce. will benefit from continued therapy follow up after planned surgery. will u pdate recommendations as appropriate at this time AM-PAC 6 Clicks Daily Activity Inpatient Putting on and taking off regular lower body clothes: None Bathing (Including washing, rinsing, drying): None Toileting, which includes using toilet, bedpan, or urinal: None Putting on and taking off regular upper body clothing: None Taking care of personal grooming such as brushing teeth: None Eating meals: None Daily Activity Raw Score: 24 Standardized (T-scale) Score: 57.54 Plan OT Frequency: Monitor Status OT Plan for Next Visit: f/u for re evaluation post ope ADL Goals Patient Will Perform All ADL's: Independently Functional Transfer Goals Pt Will Perform All Functional Transfers: Independent OT Discharge Recommendations Recommendation: Home/prior living situation (will update after surgery) Therapist: MARLON Casillas/Ember [id number] Date: 08/21/2022 * Flori Lira, PT - 08/21/2022 10:46 AM CDT PHYSICAL THERAPY ASSESSMENT Name: Joan Trevino : 1985 Age: 37 y.o. Admission Date: 08/19/2022 LOS: 2 days Date of Service: 08/21/2022 Mobility Progressive Mobility Level: Walk laps Distance Walked (feet): 1200 ft + additional laps following session with OT Level of Assistance: Assist X1 Assistive Device: None Activity Limited By: No limitations Subjective Significant hospital events: 37 y.o. 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 OSH CTH w/wo 08/19 demonstrates a ring-enhancing mass in the area of the prior R parietal surgical site with surrounding edema. Plan f or OR 08/26 for resection. 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 Endorses no baseline d eficits from recent resection in 2014. Can stay on main level upon entry but has basement with laundry. Talking with spouse about adding 2nd railing to all step s. ROM ROM Position Assessed: Seated R UE ROM: WFL L UE ROM: WFL R LE ROM: WFL L LE ROM: WFL ROM Comments: pt endorses some lingering numbness in L pinky. reports global LUE numbness that has improved since starting steroids Strength Strength Position Assessed: Seated R Hip Flexion: 5 R Knee Flexion: 5 R Knee Extension: 5 R Ankle Dorsiflexion: 5 L Hip Flexion: 5 L Knee Flexion: 5 L Knee Extension: 5 L Ankle Dorsiflexion: 5 Strength Comments: strength 5/5, deficits largely in coordination Posture/Neurological Clonus L Ankle: None Clonus R Ankle: None LUE Sensation/Proprioception: Impaired Light Touch (able to feel accurately but diminshed compared to right side) LLE Sensation/Proprioception: Impaired Light Touch;Impaired Proprioception (able to feel accurately but diminshed compared to right side) Coordination: Apraxia of LLE;Apraxia of RLE;Intact Heel to Moran LLE;Intact Heel to Moran RLE;Impaired Rapid Alternating Movement LLE;Intact Rapid Alternating Mov ement RLE Bed Mobility/Transfer Bed Mobility: Supine to Sit: Independent Bed Mobility: Sit to Supine: Independent Transfer Type: Sit to/from Stand Transfer: Assistance Level: To/From;Bed;Standby Assist Transfer: Assistive Device: None Transfers: Type Of Assistance: For Safety Considerations End Of Activity Status: (with OT) Balance Orr Balance Scale: Assessed Sit to Stand: Able to stand without using hands and stabilize independently Standing Unsupported: Able to stand safely for 2 minutes Sitting w/o Back Support, Feet Supported: Able to sit safely and securely 2 min utes Stand to Sit: Sits safely with minimal use of hands Transfers: Able to transfer safely with minor use of hands Standing Unsupported Eyes Closed: Able to stand 10 seconds with supervision Standing Unsupported Feet Together: Able to place feet together independently an d stand 1 minute with supervision Reaching Forward While Standing: Can reach forward 12 cm (5 inches) [employer] Object From Floor While Standing: Able to seed cone picker slipper but needs supe rvision Standing, Looking Over L/R Shoulders: Looks behind one side only other side show s less weight shift Turn 360 Degrees: Able to turn 360 degrees safely but slowly Alternate Foot on Step, Standing Unsuppo: Able to stand independently and comple te 8 steps in >20 seconds Tandem Standing: Able to place foot ahead independently and hold 30 seconds Single Leg Stance: Able to lift leg independently and hold 5-10 seconds Orr Balance Score: 46 out of 56 Orr Fall Risk: Low Risk of Falls 5x Sit to Stand Result (seconds): 13.46 5X Sit to Stand Comment:: Close standby assist without use of UEs, patient does not classify as fall risk with time < 15 seconds. Gait Gait Distance: 1200 feet Gait: Assistance Level: Standby Assist Gait: Assistive Device: None Gait: Descriptors: Pathway deviations;Decreased heel strike RLE;Decreased heel s trike LLE;Decreased knee flexion in pre-swing LLE (left inattention) Education Persons Educated: Patient Topics: Plan/Goals of PT Interventions;Mobility Progression;Importance of Increa sing Activity;Recommend Continued Therapy Assessment/Progress Impaired Mobility Due To: Impaired Balance;Medical Status Limitation Assessment/Progress: Expect Good Progress;Should Improve w/ Continued PT Comments: Patient currently ambulating community distances with little physical assist. Does not classify as a fall risk on orr balance assessment or 5 times s it to stand. Patient primarily with deficits in coordination and sensation. Will benefit from skilled therapy to maximize neuro recovery and attention to left s ided deficits. Will continue to monitor leading up to surgery and reassess follo wing planned resection. clinical technician to assist with ongoing mobilization, ADLs and/or exerc ise per instructions of licensed therapy staff. AM-PAC 6 Clicks Basic Mobility Inpatient Turning from your back to your side while in a flat bed without using bed rails: None Moving from lying on your back to sitting on the side of a flat bed without usin g bedrails : None Moving to and from a bed to a chair (including a wheelchair): None Standing up from a chair using your arms (e.g. wheelchair, or bedside chair): No ne To walk in hospital room: A Little Climbing 3-5 steps with a railing: A Little Basic Mobility Inpatient Raw Score: 22 Standardized (T-scale) Score: 47.4 Goals Goal Formulation: With Patient Time For Goal Achievement: 6 days Patient Will Transfer Sit to Stand: Independently Patient Will Ambulate: Greater than 200 Feet, w/ No Device, Independently Patient Will Go Up / Down Stairs: 1-2 Flights, Independently Plan Treatment Interventions: Balance Activities;Neuromuscular Reeducation Plan Frequency: 1-2 Days per Week PT Plan for Next Visit: Re-assess post-op PT Discharge Recommendations Recommendation: Home/prior living situation (will update recommendations if annie cated post-operatively) Therapist Flori Lira, PT, DPT [id number] Date 08/21/2022 * Bernie Tejada APRN-TECHNICAL SALES SUPPORT SPECIALIST - 08/21/2022 10:29 AM CDT Neurosurgery Progress Note Admission Date: 08/19/2022 LOS: 2 days S: Seen with Dr. Gloria. Family at bedside. All in agreement with plan for OR . No new complaints today, anxious to work with PT/OT. O: Vital Signs: 24 Hour Range BP: (94-126)/(54-70) Temp: [36.6 C (97.8 F)-36.8 C (98.3 F)] Pulse: [52-78] Respirations: [16 PER MINUTE-18 PER MINUTE] SpO2: [96 %-99 %] O2 Device: None (Room air) Physical Exam: Alert and engaged in exam Oriented x 4 Face symmetric SIMON, follows commands Strength at bed level full Decrease sensation to light touch A/P: 37 y.o. female Principal Problem: Brain mass Active Problems: Vasogenic brain edema (HCC) Brain compression (HCC) Steroid-induced hyperglycemia Hemiparesis of left nondominant side (HCC) Impaired proprioception MRI head reviewed, noted re-current brain mass, vasogenic edema and compression Plan for OR 08/26 Right parietal crani for brain tumor resection Continue Dexamethasone 4 mg every 6 hours. Noted hyperglycemia, blood glucose [phone] induced hyerpglycemia PT/OT to eval, Left hemiparesis, and decrease proprioception. Ordered Na 140 Labs planned qod Sq heparin. Prophylaxis: A) GI: H2 bello B) Lines: No C) Urinary Catheter: No D) Antibiotic Usage: No E) VTE: Mechanical prophylaxis; Sequential compression device F) Restraints: Patient assessed for need for restraints. Please page [phone] with any questions. ANETA Pratt Voalte me * Bernie Tejada APRN-NP - 08/20/2022 7:45 AM CDT Neurosurgery Progress Note Admission Date: 08/19/2022 LOS: 1 day S: Seen with Dr. Gloria. Patient updated to MRI findings, and recommendation fo r resection, she is in agreement. Discussed that unfortunately the sensory major es will not improve, and with surgery this is risk of weakness to the left side, but without surgery the left sided strength will be affected next. Discussed cristina scott will need to be followed by Chemotherapy, unsure if she will be able to german ve further Radiation. She was encouraged to contact the Oncologist she worked wi th closer to home last time, and update them and arrange follow up. O: Vital Signs: 24 Hour Range BP: (101-117)/(59-84) Temp: [36.4 C (97.5 F)-36.7 C (98.1 F)] Pulse: [69-85] Respirations: [16 PER MINUTE-19 PER MINUTE] SpO2: [96 %-100 %] O2 Device: None (Room air) Physical Exam: Alert and engaged in exam Oriented x 4 Face symmetric SIMON, follows commands Strength at bed level full Decrease sensation to light touch A/P: 37 y.o. female Principal Problem: Brain mass Active Problems: Vasogenic brain edema (HCC) Brain compression (HCC) Steroid-induced hyperglycemia Hemiparesis of left nondominant side (HCC) Impaired proprioception MRI head reviewed, noted re-current brain mass, vasogenic edema and compression Plan for OR 08/26 Right parietal crani for brain tumor resection Patient encouraged to notify her Oncologist of surgery plan, and establish follo w up Dexamethasone 4 mg every 6 hours. Noted hyperglycemia, blood glucose [phone] induced hyerpglycemia PT/OT to eval, Left hemiparesis, and decrease proprioception. Ordered Na 138 Sq heparin added. Prophylaxis: A) GI: H2 bello B) Lines: No C) Urinary Catheter: No D) Antibiotic Usage: No E) VTE: Mechanical prophylaxis; Sequential compression device F) Restraints: Patient assessed for need for restraints. Please page [phone] with any questions. ANETA Pratt Voalte me * Solange Marcum, RT - 08/19/2022 10:09 PM CDT RT Adult Assessment Note NAME:Joan Trevino :1985 AGE: 37 y.o. ADMISSION DATE: 08/19/2022 DAYS ADMITTED: LOS: 0 days RT Treatment Plan: Criteria not met Additional Comments: Impressions of the patient: Patient in no respiratory distress, able to answer a ll questions, very pleasant. Intervention(s)/outcome(s): Criteria not met Patient education that was completed: None Recommendations to the care team: None Vital Signs: Pulse: 78 RR: 16 PER MINUTE SpO2: 98 % O2 Device: None (Room air) Liter Flow: O2%: Breath Sounds: Clear (Implies normal) Respiratory Effort: Non-Labored * Honey Moses RN - 08/19/2022 8:43 PM CDT Patient arrived on unit via cart accompanied by transport. Patient transferred t o the bed with assistance. Assessment completed, refer to flowsheet for details. Orders released, reviewed, and implemented as appropriate. Oriented to surround ings, call light within reach. Plan of care reviewed. Will continue to monitor and assess. documented in this encounter H&P Notes * Kevin Gloria MD - 08/19/2022 6:14 PM CDT Neurosurgery History and Physical Examination Joan Trevino Admission Date: (Not on file) Assessment/Plan: Joan Trevino is a 37 y.o. female with pmhx of R parietal crani with Dr. 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 Pt states that she was doing well in the interval until she started to develop decreased sensation and incoordination in the L arm and L leg over the past few weeks. This continued to progress which prompted further eval uation. She states that over the past few days she has also noticed worsening he adache. She notes some difficulty with walking due to decreased sensation in the left leg/foot. She denies any other new neurologic sx. She denies any seizures and states that she stopped taking her keppra approximately 2 years ago as she f elt groggy. No FAMILY SUPPORT WORKER AC/AP agents. On exam, pt has decreased sensation to light touch in the LUE/LLE but otherwise does not have any focal neurologic deficits. OSH CTH w/wo 08/19 demonstrates a ring-enhancing mass in the area of the prior R p arietal surgical site with surrounding edema. - MRI w/wo tumor protocol - dex for cerebral edema - PRNs available for pain/nausea - regular diet - admission labs __ Chief Complaint: ?recurrent R parietal glioma History of Present Illness: Joan Trevino is a 37 y.o. female with pmhx of R parietal crani with Dr. 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 Pt states that she was doing well in the interval until she started to develop decreased sensation and incoordination in the L arm and L leg over the past few weeks. This continued to progress which prompted further eval uation. She states that over the past few days she has also noticed worsening he adache. She notes some difficulty with walking due to decreased sensation in the left leg/foot. She denies any other new neurologic sx. She denies any seizures and states that she stopped taking her keppra approximately 2 years ago as she f elt groggy. 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 Seizure disorder (HCC) 10/2014 Smoking 1/2 pack a day or less [id number] On and off for the past 10 years Past Surgical History: Surgical History: Procedure Laterality Date HX CRANIOTOMY Social History: Social History Tobacco Use Smoking status: Every Day Packs/day: 0.50 Years: 10.00 Pack years: 5.00 Types: Cigarettes Substance Use Topics Alcohol use: No Alcohol/week: 0.0 standard drinks Drug use: Yes Comment: pot, drug screen positive Family History: Family History Problem Relation Age of Onset Cancer Mother Cancer Father Hypertension Father Allergies: Bactrim [sulfamethoxazole-trimethoprim] Medications: No medications prior to admission. Review of Systems: Full 10 point review of systems negative except for HPI Physical Exam: Vital Signs: Last Filed In 24 Hours Vital Signs: 24 Hour Range BP: ()/() ABP: ()/() General appearance: No acute distress Neurologic Exam: Mental Status: Awake, alert and oriented x 3, fluent speech, normal cognition, 3 /3 5 min recall Pupils: Pupils equal round and reactive to light Cranial Nerves: CN II-XII individually tested and found to be intact, gag not te sted Motor: AA EF EE WF WE FF FE FA G HF KF KE DF PF EHL Left 5 5 5 5 5 5 Right 5 5 5 5 5 5 Normal muscle bulk and tone No pronator drift Sensation: Sensation intact to light touch decreased in the LUE and LLE. WNL els ewhere. Deep Tendon Reflexes: Tr Bi Br Pa Ac Left 2 Right 2 Plantar responses toes downgoing bilaterally No clonus bilaterally Lab Tests: Hematology: Lab Results Component Value Date HGB 12.1 10/21/2014 HCT 35.9 10/21/2014 PLTCT 197 10/21/2014 WBC 16.5 10/21/2014 NEUT 90 10/21/2014 ANC 15.00 10/21/2014 ALC 0.80 10/21/2014 ORTIZ 3 10/21/2014 AMC 0.50 10/21/2014 ABC 0.10 10/21/2014 MCV 92.1 10/21/2014 MCHC 33.8 10/21/2014 MPV 8.1 10/21/2014 RDW 13.0 10/21/2014 General Chemistry: Lab Results Component Value Date NA 141 10/21/2014 K 3.8 10/21/2014 CL 114 10/21/2014 CO2 21 10/21/2014 BUN 10 10/21/2014 CR 0.44 10/21/2014 GLU 135 10/21/2014 CA 8.3 10/21/2014 MG 1.6 10/21/2014 PO4 2.6 10/21/2014 General Chemistry: Lab Results Component Value Date GAP 6 10/21/2014 Radiology and other Diagnostics Review: Pertinent imaging reviewed. Cecily Bartholomew MD ATTESTATION I personally performed the foreman portions of the E/M visit, discussed case with re sident and concur with resident documentation of history, physical exam, assessm ent, and treatment plan unless otherwise noted. Patient examined. Imaging reviewed including old MRIs and current CT scan and MRI Patient has recurrent glioma. At this point, imaging is suspicious for Glioblast darrell I discussed the condition with the patient I recommend surgery Risks and benefits of surgery clearly discussed Staff name: Kevin Gloria MD Date: 08/21/2022 documented in this encounter Procedure Notes * Cecily Bartholomew MD - 08/26/2022 7:56 PM CDT Brief Operative Note Name: Joan Trevino is a 37 y.o. female : 1985 MRN#: [id number] DATE OF OPERATION: 08/26/2022 Date: 08/26/2022 Preoperative Dx: Recurrent brain tumor (HCC) [D49.6] Post-op Diagnosis * Recurrent brain tumor (HCC) [D49.6] Procedure(s) (LRB): Right parietal craniotomy for resection of brain tumor (Right) STEREOTACTIC COMPUTER-ASSISTED CRANIAL PROCEDURE - INTRADURAL (Right) FUNCTIONAL CORTICAL AND SUBCORTICAL MAPPING BY STIMULATION AND/ OR RECORDING OF ELECTRODES ON BRAIN SURFACE TO IDENTIFY VITAL BRAIN STRUCTURES - INITIAL HOUR (R ight) Surgeon(s) and Role: * Kevin Gloria MD - Primary * Jaime Martinez MD - Resident - Assisting * Cecily Bartholomew MD - Resident - Assisting Findings: Resection of recurrent R parietal tumor Estimated Blood Loss: 100 ml Specimen(s) Removed/Disposition: ID Type Source Tests Collected by Time Destination 1 : brain tumor Tissue Brain SURGICAL PATHOLOGY Kevin Gloria MD [id number] Complications: None Implants: Implant Name Serial No. Piping Design Specialist Lot No. LRB No. Used Action SCREWS N/A N/A Right 13 Explanted LISETTE HOLE COVER N/A N/A Right 3 Explanted SUBSTITUTE TISSUE 5X4IN LYOPLANT DURA ONLAY ABSORBABLE - [id number] [employer]ap[employer] [id number] Right 1 Implanted 4MM SCREW [id number] 10 Implanted LISETTE HOLE COVER PLATE [id number] Implanted Drains: None Disposition: ICU - stable Cecily Bartholomew MD Pager * Jose L Watson MD - 08/26/2022 5:24 PM CDT Neurology intra-Operating Monitoring report (IOM) Date of procedure: 08/26/22 Diagnosis: Brain tumor Procedure: Resection of brain tumor Surgeon: Faizan Adams acquisition time: 5:14 pm Monitoring start time: 5:14 pm Incision time: 5:27 pm Closing started at: Closing had not started when monitoring was stopped. Monitoring stop time: 6:20 pm TcMEP: Trancranial Motor Evoked Potential: Post induction baseline transcranial motor evoked potentials from left trapezius , deltoid, biceps, flexor carpi radialis, extensor digitorum communis, triceps, abductor digiti minimi, abductor pollicis brevis, biceps femoris, vastus lateral is, tibialis anterior, gastrocnemius, tibialis anterior, extensor digitorum brev is, abductor hallucis; and right abductor digiti minimi, abductor pollicis brevi s, gastrocnemius, tibialis anterior, extensor digitorum brevis, abductor halluci s muscles and were reproducible with normal latencies and morphology. The compou nd muscle action potential data showed no evidence to suggest change in the late ral cortico-spinal pathways as a consequence of this surgery. Facial MEP: Post induction baseline facial nerve motor evoked potentials from left orbicular is elsie, and mentalis muscles and were reproducible with normal latencies and mo rphology. The compound muscle action potential data showed no evidence to sugges t change in the lateral cortico-spinal pathways as a consequence of this surgery . SSEP: Somatosensory Evoked Potentials: Post induction baseline somatosensory evoked potentials from bilateral median an d posterior tibial nerves were obtained and were reproducible with normal latenc ies and morphology. The data from neurophysiological monitoring of somatosensory evoked potentials showed no evidence to suggest change in the posterior column- medial lemniscus cortical pathways as a consequence of this surgery. EMG: Electromyography: EMG from left trapezius, deltoid, biceps, flexor carpi radialis, extensor digito rum communis, triceps, abductor digiti minimi, abductor pollicis brevis, biceps femoris, vastus lateralis, tibialis anterior, gastrocnemius, tibialis anterior, extensor digitorum brevis, abductor hallucis; and right abductor digiti minimi, abductor pollicis brevis, gastrocnemius, tibialis anterior, extensor digitorum b yuan, abductor hallucis muscles were obtained and monitored throughout the proc edure. There was no sustained baseline EMG activity. Repetitive Nerve Stimulation: TO4 (train of 4) was frequently run throughout the procedure to monitor for neur omuscular blockade. A nerve was repetitively stimulation and the compound motor action potentials (CMAPs) recorded from a distal motor group. TO4 was assessed d uring critical periods of surgery and demonstrated that neuromuscular blockade w as not present while monitoring EMGs and TcMEP. Electrocorticography and Brain Mapping: Electrocorticography was monitored continuously from 1X6 strip placed at right m esial frontoparietal region in AP fashion with contact #1 being posterior lobe t o tailor the resection. The preresection recording showed no spike wave discharg es. There was no seizrue or afterdischarge induced by the stimulation. Motor cor tical and subcortical mapping was performed. Findings were communicated to the s urgeon instantly to tailor the resection. I personally monitored and supervised this case I remotely monitored and supervised this case in real-time, online via a secure HIPAA-compliant network between 5:20 pm and 5:53 pm and in the OR between 5:53 p m and 6:21 pm. Jose L Watson MD Supervisor Of Guidance And Testing [facility] Department of Neurology documented in this encounter Consult Notes * Tanvir Lane MD - 08/27/2022 12:59 PM CDTAssociated Order(s): CONSULT REHABILITATION MEDICINE PHYSICIAN Physical Medicine & Rehabilitation Consult Service Name: Joan Trevino : 1985 Age: 37 y.o. Admission Date: 08/19/2022 LOS: 8 days Date of Service: 08/27/2022 Date of Service: 08/27/2022 Financial Class: Payor: / Referring Physician: Kevin Gloria MD Reason for Consult: evaluate for Post-Acute Rehab/Placement Precautions: Fall, seizure Weight Bearing Precautions: WBAT Assessment & Plan: Principal Problem: Brain mass Active Problems: Vasogenic brain edema (HCC) Brain compression (HCC) Steroid-induced hyperglycemia Hemiparesis of left nondominant side (HCC) Impaired proprioception Hyponatremia Gait abnormality Impaired mobility/ADLs Impaired transfers Cognitive Deficits Joan Trevino is a 37 y.o. year old female admitted to [facility] on 08/19/2022 with the following issues: non-traumatic brain injury - s/p right parietal craniotomy (2014) for a grade 3 oligodendroglioma, recurrence s/p right parietal craniotomy 08/26 Impairments: loss of coordination, pain, poor activity tolerance and weakness Activity Limitations: bathing, dressing - upper, dressing - lower, toileting, t ransfers, ambulation, stairs and problem solving Participation Restrictions: unable to return home safely Family / Patient Dispositional Goals: return home to previous level of function Overall Functional Goals Gait and mobility SBA Transfers SBA Upper body dressing SBA Lower body dressing SBA Toileting SBA Bathing SBA Cognition / Communication Speech therapy will evaluate and treat cognition and c ommunication deficits and assess for safe swallow Recommendations: Post-acute care rehabilitation needs: - Based on the patient's current functional status and the patient's previous le nikos of function, there are certainly therapeutic goals and rehabilitation needs for acute IPR. Additionally, the patient does have appropriate medical complexit y that warrants physician oversight and the patient seems to be tolerating thera pies appropriately and anticipate reasonable endurance to the intensity of acute IPR, however prior to IPR admission the following barriers must be addressed an d the patient must be medically optimized with appropriate pain control, transit ion of IV medications to oral equivalents and medical stable w/o symptoms that i nterfer with therapy and endurance. Barriers/Facilitators: Barriers: Multi-level home Facilitators: good family / social support, patient motivation, improving streng th / endurance and improving medical condition Rehabilitation Prognosis: Fair Tolerance for three hours of therapy a day: Fair Prior to the inpatient rehabilitation admission complete the following: *Antibiotics The patient will need a plan/endpoint/follow-up delineated for IV a ntibiotics and surgical drains, and potential plans for ongoing antibiotics afte r discharge. *Endurance The patient will need to be clearly able to or reasonably expected to be able to endure 3 hours of constructive therapy per day. This will need to b e determined prior to considering admission to acute inpatient rehabilitation. *Therapeutic goals The patient will need to have clear therapeutic goals with at least 2 out of 3 therapeutic disciplines, including PT, OT, and TAILOR HELPER. This will need to be determined prior to considering admission to acute inpatient rehabil itation. Impaired gait/mobility/transfers: The patient will benefit from continued work with PT to address mobility deficit s Impaired ADLs: The patient will benefit from ongoing OT to address functional deficits Thank you for this consultation. Please call our consult pager with questions o r concerns. Keven Varela MD Resident Physician [facility] History of Present Illness: 37-year-old female admitted on 08/26/2022 for a chief complaint of decreased left -sided sensation, incoordination, weakness, frequent headaches. Patient present ed to the [facility] and diagnostic imaging of the head revea led a oligodendroglioma. 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 She is now status post right parietal craniotomy on 08/26 . She does has a past medical history of tobacco abuse, previous oligodendrogli darrell and seizure disorder. Hospitalization has been complicated by leukocytosis, hyponatremia, hyperglycemia. Along her hospitalization the patient has been working with physical therapy and Occupational Therapy to address functional mob ility deficits. 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 Patient/family member reports that They can leave on up on 1 level, there is a basement with laundry. Prior level of functi on was independent. Current level of function is ambulatory 200 feet moderate a ssistance with physical therapy. Demonstrated left inattention and impaired pro prioception. Appropriate endurance, good participation. Physical medicine and h e rehabitation physician consulted for postacute care recommendations. 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 Family History Problem Relation Age of Onset Cancer Mother Cancer Father Hypertension Father Scheduled Meds:dexAMETHasone (DECADRON) tablet 4 mg, 4 mg, Oral, Q6H docusate (COLACE) capsule 100 mg, 100 mg, Oral, BID levETIRAcetam (KEPPRA) tablet 500 mg, 500 mg, Oral, BID nicotine (NICODERM CQ) 14 mg/day patch 1 patch, 1 patch, Transdermal, QDAY senna/docusate (SENOKOT-S) tablet 1 tablet, 1 tablet, Oral, BID Continuous Infusions: PRN and Respiratory Meds:acetaminophen Q4H PRN, famotidine BID PRN, milk of magn esium QDAY PRN, ondansetron (ZOFRAN) IV Q6H PRN, oxyCODONE Q4H PRN Allergies Allergen Reactions Bactrim [Sulfamethoxazole-Trimethoprim] NAUSEA AND VOMITING Prior Level of Function: Comments: Patient lives in a house with spouse and 5 kids 8-18yo, works at a [employer] stocking [employer], 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 Endorses no baseline d eficits from recent resection in 2014. Can stay on main level upon entry but has basement with laundry. Talking with spouse about adding 2nd railing to all step s. (08/27/2022 10:11 AM) Home Environment: Home Situation: Lives with Family (08/27/2022 10:11 AM) Patient Owned Equipment: None (08/27/2022 10:11 AM) Type of Home: House (08/27/2022 1:38 PM) Entry Stairs: 3-5 Stairs; Rail on 1 Side (08/27/2022 10:11 AM) In-Home Stairs: 1-2 Flights of Stairs; Rail on 1 Side (08/27/2022 10:11 AM) No data recorded Current Level Of Function: PT Gait:Gait Distance: 200 feet Gait: Assistance Level: Moderate Assist, of 1st person, Standby Assist, of 2nd person Gait: Assistive Device: Hand Hold Assist Bed Mobility/Transfers Bed Mobility: Supine to Sit: Minimal Assist, Assist with L LE (for safety) Bed Mobility: Sit to Supine: Standby Assist Transfer Type: Sit to Stand Transfer: Assistance Level: To/From, Bed, Minimal Assist, of 1st person, Standby Assist, of 2nd person Transfer: Assistive Device: Hand Hold Assist Transfers: Type Of Assistance: For Balance, For Strength Deficit, For Safety Con siderations Other Transfer Type: Sit to Stand Other Transfer: Assistance Level: To/From, Toilet, Minimal Assist (cues to take L hand off grab bar) Other Transfer: Assistive Device: Hand Hold Assist End Of Activity Status: In Bed, Nursing Notified, Instructed Patient to Request Assist with Mobility, Instructed Patient to Use Call Light (bed alarm activated) Comments: Verbal and tactile cues for placement on L UE and LE for transfers OT ADL's Where Assessed: In Bathroom, Standing at Sink Grooming Assist: Minimal Assist Grooming Deficits: Steadying, Verbal Cueing, Wash/Dry Hands (max verbal cueing t o locate papertowels to L) Toileting Assist: Minimal Assist Toileting Deficits: Steadying, Verbal Cueing, Increased Time To Complete Comment: Increased assist required to grasp/tear toilet paper as patient repeate dly attempting to grab with L hand but then losing grasp and dropping toilet pap er onto floor. Poor attention to L throughout task. TAILOR HELPER COGNITIVE EVALUATION SUMMARY PRAGMATICS: BEHAVIOR: AUDITORY COMPREHENSION: ORIENTATION: AUDITORY ATTENTION/WORKING MEMORY: AUDITORY MEMORY/SUSTAINED ATTENTION: NEW LEARNING: SEQUENCING/ORGANIZATION: PROBLEM SOLVING: REASONING: MATH/MONEY SKILLS: VISUAL PERCEPTUAL: SWALLOW EVALUATION SUMMARY Review of Systems: A 14 point review of systems was negative except for: that noted in the HPI Physical Exam: BP: 130/70 (08/27 0800) Temp: 37.3 C (99.1 F) (08/27 0800) Pulse: 54 (08/27 134) Respirations: 24 PER MINUTE (08/27 1341) SpO2: 98 % (08/27 08) O2 Device: None (Room air) (08/27 1341) Body mass index is 20.2 kg/m. Gen: No acute distress, cooperative. Sleepy, lethargic. HEENT: Normocephalic, hearing grossly intact. +NC O2 Neck: Supple Lungs: No use of accessory muscles of respiration. No labored breathing observed . Abdomen: Not distended. Ext: Purposeful movements Skin: Sry Psych: mood and affect congruent. NMS Exam: Gait: not assessed. Mental status: alert, oriented , follow commands Cranial Nerves: left visual special neglect noted, midline tongue, able to raise eyebrow and shoulders bilaterally Motor: no pronator drift, no tremors noted. UE and LE bilateral MMT symmetricall y with at least antigravity strength. Sensation: not tested Coordination: LUE dysmetria with impaired coordination Intake/Output Summary (Last 24 hours) at 08/27/2022 1437 Last data filed at 08/27/2022 1000 Gross per 24 hour Intake 1330 ml Output 1680 ml Net -350 ml Hematology: Lab Results Component Value Date HGB 14.1 08/27/2022 HCT 41.9 08/27/2022 PLTCT 167 08/27/2022 WBC 25.5 08/27/2022 NEUT 89 08/27/2022 ANC 22.70 08/27/2022 ALC 0.79 08/27/2022 ORTIZ 8 08/27/2022 AMC 1.96 08/27/2022 ABC 0.06 08/27/2022 MCV 96.3 08/27/2022 MCHC 33.6 08/27/2022 MPV 7.1 08/27/2022 RDW 13.8 08/27/2022 , Coagulation: Lab Results Component Value Date PT 12.6 08/19/2022 PTT 32.1 08/19/2022 INR 1.1 08/19/2022 and General Chemistry: Lab Results Component Value Date NA 134 08/27/2022 K 4.3 08/27/2022 CL 99 08/27/2022 GAP 9 08/27/2022 BUN 18 08/27/2022 CR 0.56 08/27/2022 GLU 108 08/27/2022 CA 8.8 08/27/2022 ALBUMIN 4.6 08/19/2022 OBSCA 1.13 08/27/2022 MG 2.0 08/27/2022 TOTBILI 0.5 08/19/2022 Radiology: MRI HEAD WO/W CONTRAST Result Date: 08/27/2022 EXAM: MRI BRAIN HISTORY: , s/p repeat R parietal crani for resection of recurren t tumor, TECHNIQUE: Multiplanar and multisequence MR imaging of the head was per formed. This was done both before and after the administration of MultiHancecont rast. COMPARISON: MRI brain 08/20/2022 FINDINGS: Prior right craniotomy and inter veronique repeat partial mass resection with expected mild postprocedural blood produc ts and pneumocephalus. Residual masslike FLAIR hyperintensity and small amorphou s enhancing lesional element are noted superior and medial to the resection cavi ty margin within the right paracentral lobule. Subtle residual enhancing lesiona l rind elements are also noted at the anterior and medial resection cavity joan ns within the herrera radiata, knees right parietal region, and right callosal sp lenium. Additional persistent areas of masslike FLAIR hyperintensity are noted w ithin the posterior corpus callosum, bilateral posterior cingulate, and bilatera l precuneus parietal regions and vertex right superior frontal gyrus. Persistent superimposed right cerebral vasogenic edema. Ventricles remain nondistended. Th ere is similar mild leftward midline shift without descending herniation. The va scular flow-voids are unremarkable. Diffusion weighted imaging is not indicative of acute or recent infarct. 1. Interval repeat partial right cerebral mass resection without obvious postpr ocedural complication. 2. Residual enhancing right cerebral tumor elements and residual infiltrative nonenhancing bilateral posterior cerebral and callosal nevaeh or elements (as detailed above). 3. Similar mild leftward midline shift. Final ized by Joseph Hewitt M.D. on 08/27/2022 7:19 AM. Dictated by Joseph Hewitt M.D. on 08/27/2022 7:10 AM. MRI HEAD WO/W CONTRAST Result Date: 08/20/2022 EXAM: MRI BRAIN HISTORY: History of anaplastic oligodendroglioma temporal lobe, brain mass status post prior resection, seizure disorder. TECHNIQUE: Multiplanar and multisequence MR imaging of the head was performed. This was done both befo re and after the administration of MultiHancecontrast. COMPARISON: External head CT 08/19/2022. FINDINGS: Previous right parietotemporal craniotomy and periroland ic-parietal mass resection. Redemonstration of a large cyst subjacent to the scrap hooker niotomy defect, previously demonstrating incomplete thin marginal anterior calci fication on external head CT, with curvilinear enhancement along the deep inferi or cyst margin (series 22, image 69). Redemonstration of an irregular, mixed paramjit trally cystic-hemorrhagic parenchymal mass with heterogeneous marginal enhanceme nt centered within the posterior-superior periatrial and perirolandic white gary er and posterior right callosal-pericallosal region with the dominant enhancing element measuring up to approximately 4.9 x 3.9 x 3.2 cm (series 21, image 107 a nd series 22, image 55). There are areas of marginal masslike FLAIR hyperintensi ty involving the inferior margin in the periatrial white matter, the posterior r ight frontal vertex, medial perirolandic vertex-paracentral lobule, posterior ri ght centrum semiovale and capsular white matter, and right greater than left pos terior callosal isthmus with areas of superimposed amorphous enhancement at the perirolandic vertex and paracentral lobule. Additional ill-defined infiltrative FLAIR hyperintensity is present in the posterior left periatrial-pericallosal re gion and posterior cingulate regions. Persistent surrounding hypodense posterior right cerebral vasogenic edema and associated intracranial mass effect with up to 0.9 cm of leftward midline shift, though, no overt descending herniation at t his time. The supratentorial ventricles are normal in size, part from mild asymm etric prominence of the right temporal horn which may be partially entrapped. Th ere are additional scattered right posterior cerebral susceptibility foci, likel y treatment-related microhemorrhage. Diffusion-weighted imaging is not indicativ e of acute or recent infarct. Major central intracranial arterial flow voids are preserved. 1. Prior right parietotemporal craniotomy and lateral perirolandic-parietal mas s resection with redemonstration of a hemorrhagic right perirolandic callosal-pe ricallosal necrotic enhancing mass, consistent with recurrent disease. 2. Joan nal masslike-infiltrative tumoral elements are present within the posterior righ t frontal-perirolandic vertex, right periatrial region, posterior corpus callosu m-pericallosal regions, and cingulate gyri with superimposed amorphous enhancing elements in the right paracentral lobule. 3. Redemonstration of a large, minim ally complex cyst subjacent to the craniotomy defect, deep margin of which is in timately associated with the aforementioned necrotic enhancing lesion. 4. Persi stent surrounding right posterior cerebral vasogenic edema and intracranial mass effect without a 0.9 cm of leftward midline shift. 5. Slight asymmetric disten tion-entrapment of the right temporal horn with otherwise normal supratentorial ventricular size. Finalized by Ashish Cooper DO on 08/20/2022 8:17 AM. Dictated by Ashish Cooper DO on 08/20/2022 7:53 AM. Associated attestation - Josh Evans MD - 08/27/2022 9:29 PM CDT Rehabilitation Medicine Attending Physician Attestation: I personally performed foreman portions of the history and exam. I discussed the tati e with the resident and agree with the resident's documentation of history, phys ical assessment and treatment plan unless otherwise noted. Thank you for allowing us to participate in the care of this patient. 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 She had the numbness for awhile bu t as mother of 5 she did not think much of it. She had GTR here by Dr. Gloria. I have discussed her pathology with Dr. Prince. She has a grade III oligodendrog lioma. She has 1p deletion but Dr. 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 We will treat aggressively with c oncurrent temodar and xrt followed by at least a year of temodar. She lives in [facility] so I have contacted Dr. Oh office and they will contact her with an appointment manju. We discussed the toxicities of the treatment, the natural h istory and epidemiology of the disease, etiology. 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 Seizure (HCC) 10/20/2014 Joan Trevino is a 37 y.o. 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 She represe nted to [facility] with complaints of decreased left-side sensation, incoordinati on and headaches. HCT demonstrated reoccurrence of the oligodendroglioma and she presents to [facility] s/p repeat right parietal craniotomy. Hospital and ICU course: 08/26: Admitted to [facility] Neuro: S/P Repeat Right Parietal Craniotomy Right Parietal Grade 3 Oligodendroglioma s/p Right Parietal Craniotomy (2014) - Keppra for secondary seizure prevention > was d/c on last post-operative stay, but stopped taking in 2020? D/t drowsiness > no seizure history - Ancef x 3 doses - MRI w w/o in the morning - Dexamethazone - Neuro-ICU monitoring, neurochecks q 1 hrs Sedation/Pain Management: - No sedation - PRN fentanyl, oxycodone, and tylenol - Assess for delirium daily Cardiac: - SBP goal: <150 - MAP goal > 65 - PRN labetalol and hydralazine available Respiratory: Tobacco Abuse Sating well on room air - PaO2 goal >100, Spo2 goal >95% GI: - Feeding: regular diet - pepcid - continue while on steroids - neurosurgery bowel regimen, ensure daily BM Heme: Hgb: 14 Plt: 175 (08/25/22) No acute issues - Daily CBC - assess for coagulopathy, maintain platelets above 100k, INR <1.5 ID: Leukocytosis (likely 2/2 steroids) WBC: 15.1 (08/25/22) - Tmax afebrile - aim for normothermia, Temp <38.3 celsius, normothermia protocol if febrile Renal: BUN: 17 Creat: 0.56 - maintain strict I&O monitoring - Daily BMP - Aim for normovolemia Intake/Output Summary (Last 24 hours) at 08/26/20222040 Last data filed at 08/26/20221999 Gross per 24 hour Intake 950 ml Output 475 ml Net 475 ml Endocrine: SB - monitor glucose on chemistry - Blood glucose goal 100-180mg/dl FEN: - IVF: SL - electrolyte replacement protocol in place - Magnesium goal >2.0, i-Tye goal > 1.0, Potassium goal >4.0 mEq/L Prophylaxis Review: A)GI: H2 Bello B) Lines: Yes; Arterial Line; Indication: Continuous BP monitoring; Location: Radial C) Urinary Catheter: Yes; Retain winchester due to: Need for accurate Intake and Ou tput D) Antibiotic Usage: Yes; Infection present or suspected: post op ancef E) VTE: Pharmacological prophylaxis; Contraindication: Bleeding risk; Greater than usual risk associated with surgery and Mechanical prophylaxis; Sequential c ompression device F) Isolation: Not indicated. G)Seizures: Keppra I) Restraints: Patient assessed for need for restraints. Disposition/Family: ICU Primary service: [facility] Consults: [facility] SUBJECTIVE Chief Complaint: S/P Craniotomy History of Present Illness: Joan Trevino is a 37 y.o. 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 She represe nted to [facility] with complaints of decreased left-side sensation, incoordinati on and headaches. HCT demonstrated reoccurrence of the oligodendroglioma and she presents to [facility] s/p repeat right parietal craniotomy. 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 Code Status: Full Code Decision Maker: Roxana Trevino - Spouse Immunizations (includes history and patient reported): Immunization History Administered Date(s) Administered Pneumococcal Vaccine (23-Veronique Adult) 10/15/2014 Allergies: Bactrim [sulfamethoxazole-trimethoprim] No medications prior to admission. Review of Systems: Review of systems not obtained from patient due to patient factors. OBJECTIVE Vital Signs: Last Filed Vital Signs: 24 Hour Ra nge BP: 108/73 (08/27 1999) ABP: 155/75 (08/27 1999) Temp: 36.7 C (98.1 F) (08/27 1999) Pulse: 71 (08/27 1999) Respirations: 15 PER MINUTE (08/27 1999) SpO2: 97 % (08/27 1999) O2 Device: None (Room air) (08/27 1999) SpO2 Pulse: 72 (08/26 0256) BP: (92-114)/(45-89) ABP: (155)/(75) Temp: [36.6 C (97.8 F)-36.8 C (98.2 F)] Pulse: [63-80] Respirations: [14 PER MINUTE-18 PER MINUTE] SpO2: [96 %-100 %] O2 Device: None (Room air) Intensity Pain Scale (Self Report): 5 (08/26/221999) Vitals: 08/20/22 0636 08/21/22 0137 08/22/22 0933 Weight: 49.8 kg (109 lb 12.8 oz) 50.7 kg (111 lb 12.4 oz) 50.1 kg (110 lb 7.2 oz ) Lines: Arterial Line and Peripheral Line Drains: [place] Intake/Output Summary: (Last 24 hours) Intake/Output Summary (Last 24 hours) at 08/26/20222040 Last data filed at 08/26/20221999 Gross per 24 hour Intake 950 ml Output 475 ml Net 475 ml Stool Occurrence: 1 Physical Exam: Blood pressure 108/73, pulse 71, temperature 36.7 C (98.1 F), height 157.5 c m (5' 2"), weight 50.1 kg (110 lb 7.2 oz), SpO2 97 %. Michael coma score: 14 E: 4 - Opens eyes on own M: 6 - Follows simple motor commands V: 4 - Seems confused, disoriented Neuro: Exam completed with Dr. Bartholomew and Dr. Martinez at bedside. Expected exam findings include: decreased sensation on the left upper and lower as it was pres ent pre-operatively and slow to move her left side. Mental Status: Drowsy Cranial Nerves: Cranial nerves 2-12 INTACT by inspection. - Pupil exam: Size: 3 Reactivity: Brisk - EOM: Intact by inspection. - Grimace/facial movement: present - Cough: present Motor: RUE/LE: 4/5 Follows commands briskly LUE: Strength: 3+/5 lifts arm to command, does not give thumbs up or m ove fingers LLE: 3/5 wiggles toes, not antigravity Sensory: decreased sensation on the LUE/LLE (was present pre-op) Coordination: ataxia, left (present pre-op) Lungs: clear to auscultation bilaterally Pulmonary: Respiratory status: Stable Heart: regular rate and rhythm, S1, S2 normal, no murmur, click, rub or gallop Abdomen: soft, non-tender. Bowel sounds normal. No masses, no organomegaly Extremities: extremities normal, atraumatic, no cyanosis or edema Skin: Skin color, texture, turgor normal. No rashes or lesions Lab Review: Pertinent labs reviewed Radiology and Other Diagnostic Procedures Review: Pertinent radiologic and diag nostic procedures reviewed. I spent 55 minutes managing the care of this patient. Ms. Trevino requires crit ical care monitoring s/p craniotomy. Cares included: detailed neurologic and sys tems exam, medication review, laboratory data review and interpretation, electro lyte management, review of available imaging, DVT/PE prophylaxis review, diet re view, activity review and coordination of care with consulted teams. ANETA Alas Date: 08/26/[phone] * Jimmy Torres MD - 08/25/2022 9:46 AM CDTAssociated Order(s): CONSULT NEURO ONCOLOGY PROVIDER Images from the original note were not included. Initial Consult Note Name: Joan Trevino Admission Date: 08/19/2022 Reason for consult: Potential recurrent grade 3 oligodendroglioma HISTORY OF PRESENT ILLNESS: A very pleasant 37-year-old female with a past medical history of right parietal craniotomy with Dr. Gloria back in 2014, comes in with potentially recurrent g rade 3 oligodendroglioma. She was doing well in the interval until she started to develop it with decreased sensation and incoordination of the left arm and le g over the past few weeks. This progressed which prompted further evaluation. She denies any ICP symptoms or seizure activity. She has stopped taking her Kep pra 2 years ago as she felt relatively groggy. She has seen initially Dr. Willi lopez in the outpatient setting who ordered an MRI with tumor protocol. The MRI on 08/20/2022 revealed a hemorrhagic right perirolandic callosal-pericallosal necro tic enhancing mass consistent with recurrent disease. There is marginal masslik e infiltrative tumoral elements present within the posterior right frontal-perir olandic cortex right periatrial region posterior corpus callosum and cingulate g yri. There is a large cyst like structure which is associated with the necrotic enhancing lesion. Midline shift leftward of 0.9 cm was also noted. The patient is planned to be taken the OR tomorrow for question of recurrence/fu rther anaplastic transformation. Cancer Staging No matching staging information was found for the patient. History of Present Illness Review of Systems No current outpatient medications on file. Vitals: 08/25/22 0230 08/25/22 0753 08/25/22 1138 08/25/22 151 BP: 107/70 110/75 103/64 95/74 BP Source: Arm, Left Upper Arm, Left Upper Arm, Left Upper Arm, Left Upper Pulse: 58 64 70 73 Temp: 36.4 C (97.5 F) 36.9 C (98.5 F) 37.2 C (98.9 F) 36.7 C (98.1 F) SpO2: 98% 96% 96% 100% O2 Device: None (Room air) None (Room air) None (Room air) None (Room air) Weight: Height: Body mass index is 20.2 kg/m. 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 Seizure disorder (HCC) 10/2014 Smoking 1/2 pack a day or less [id number] On and off for the past 10 years PSH: Surgical History: Procedure Laterality Date HX CRANIOTOMY SOCIAL HISTORY: Social History Socioeconomic History Marital status: Tobacco Use Smoking status: Every Day Packs/day: 0.50 Years: 10.00 Pack years: 5.00 Types: Cigarettes Vaping Use Vaping Use: Never used Substance and Sexual Activity Alcohol use: No Alcohol/week: 0.0 standard drinks of alcohol Drug use: Yes Comment: donnell drug screen positive Social History Narrative 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 FAMILY HISTORY: Family History Problem Relation Age of Onset Cancer Mother Cancer Father Hypertension Father IMMUNIZATIONS: Immunization History Administered Date(s) Administered Pneumococcal Vaccine (23-Veronique Adult) 10/15/2014 ALLERGIES: Bactrim [sulfamethoxazole-trimethoprim] HOME MEDICATIONS: No medications prior to admission. Pain Addressed: Patient declines intervention Patient Evaluated for a Clinical Trial: Patient not eligible for a treatment tri al (including not needing treatment, needs palliative care, in remission). Eastern Cooperative Oncology Group performance status is 1, Restricted in physic ally strenuous activity but ambulatory and able to carry out work of a light or sedentary nature, e.g., light house work, office work. PHYSICAL EXAM: Vital Signs: Last Filed In 24 Hours BP: 95/74 (08/25 1512) Temp: 36.7 C (98.1 F) (08/25 1512) Pulse: 73 (08/25 1512) Respirations: 16 PER MINUTE (08/25 1512) SpO2: 100 % (08/25 1512) O2 Device: None (Room air) (08/25 1512) This is an age-appropriate with a KPS of % 80 VSS are stable and as above. AAO x 3.HEENT: Cranial nerves are intact. PERRLA. EOMI. TML. Transoral exam within no rmal limits. Physical Exam: Alert and engaged in exam Oriented x 4 Face symmetric SIMON, follows commands Stre ngth at bed level full Decrease sensation to light touch throughout left side. PSYCH: Pleasant, coopera tive. LABS: Recent CBC Recent Labs 08/23/2233008/25/22228 WBC 9.7 15.1* HGB 14.0 14.0 HCT 39.2 41.7 PLTCT 168 175 MCV 95.8 96.4 Recent CMP Recent Labs 08/23/2233008/25/22228 NA 137 135* K 4.0 4.3 CL 104 103 CO2 25 23 GAP 8 9 CR 0.64 0.56 GLU 117* 126* CA 9.0 9.1 TSH No results found for: TSH PATHOLOGICAL DATA: No results found for requested labs within last 365 days. RADIOLOGICAL DATA: IMPRESSION 1. Prior right parietotemporal craniotomy and lateral perirolandic-parietal mass resection with redemonstration of a hemorrhagic right perirolandic callosal-pericallosal necrotic enhancing mass, consistent with recurrent disease. 2. Marginal masslike-infiltrative tumoral elements are present within the posterior right frontal-perirolandic vertex, right periatrial region, posterior corpus callosum-pericallosal regions, and cingulate gyri with superimposed amorphous enhancing elements in the right paracentral lobule. 3. Redemonstration of a large, minimally complex cyst subjacent to the craniotomy defect, deep margin of which is intimately associated with the aforementioned necrotic enhancing lesion. 4. Persistent surrounding right posterior cerebral vasogenic edema and intracranial mass effect without a 0.9 cm of leftward midline shift. 5. Slight asymmetric distention-entrapment of the right temporal horn with otherwise normal supratentorial ventricular size. Finalized by Ashish Cooper DO on 08/20/2022 8:17 AM. Dictated by Ashish Cooper DO on 08/20/2022 7:53 AM. IMPRESSION/RECOMMENDATION: Joan Trevino is a 37 y.o. female with a very distant history of a gross total resection with Dr. Gloria back in October 2014. At that point, she had a grade 3 oligodendroglioma with 1P deletion. She was at that point seen by Dr. Erika leon. She was treated aggressively with concurrent p.o. temozolomide and radiat ion followed by at least a year of p.o. temozolomide. At that point, she has no t been seen over the years as she was treated in the outside setting. After years, the patient now comes back with decreased sensation and incoordinat ion of the left arm and leg over the past few weeks prior to admission. This is progressed. She was seen in the outpatient setting. Overall picture is consis tent with recurrent/transformation to a high-grade glioma possibly a glioblastom a. An STR ( subtotal resection) will be attempted with Dr. Gloria tomorrow on 08/26/2022. We will then proceed with further adjuvant treatment depending on the pathology. The case has been extensively discussed with the patient who verbalized understa nding, questions were answered and a total of 30 minutes was spent discussing ab out the diagnosis,prognosis, treatment options and toxicity profile as well as l jude-term outcomes. Jimmy Torres MD Neuro-Oncology/Medical Oncology documented in this encounter Nursing Notes * Erika Kaiser RN - 08/28/2022 10:46 AM CDT Joan Trevino Right Parietal Craniotomy for Resection of Brain Tumor on 08/26/2022 with Kevin Gloria MD Neurosurgery Discharge Instructions Contact information: Call the Neurosurgery clinic if you have questions or are experiencing probl ems at [phone]. After 5 PM, weekends, holidays please call [phone] to reach Neurosurger y workers compensation consultant. Post-operative wound care: Your incision has sutures/dissolving sutures in place. Your incision may be open to air. Keep your incision dry for 5 days. Shower neck down until 08/30/22. Startin g 08/31/22 use non-medicated soap to wash incision daily, pat dry and leave open to air. Avoid heavy water pressure over incision site. Only touch your incision with clean hands. Do not apply lotion, cream, or oi ntments to incision. Do not submerge (pool/tub) incision under water at all for 4 weeks. Have someone look at your incision every day. It should look the same or bet ter each day. Activity restrictions: Avoid pushing, pulling, or lifting more than 10 pounds (about a gallon of mi lk). If you hold children, they should be placed in your lap or crawl into lap i f old enough. Do NOT drive until you are cleared by your physician. Avoid bearing down or straining to have bowel movements. You must be off all pain medication before driving restriction is released. Post-operative pain and medications: Please use your pain medications and muscle relaxers as prescribed. Do not take NSAIDS (Ibuprofen, Advil, Aleve, Motrin, Naproxen) until Doctor approved. Pain medications can make you constipated. Please take stool softeners to a id this process. Tylenol is approved for pain control. This is available over the counter. Follow up appointment: 09/09/2022 Rehab Physician to remove sutures. Please call [phone] with dwight moss concerns. Future Appointments Date Time Provider Department Center 09/09/2022 12:30 PM Sofia Gonzalez APRN-NP [facility] 09/29/2022 1:00 PM Kevin Gloria MD [facility] Reasons to call the Neurosurgery Clinic ([phone]): Concerning lethargy (sleepiness), decreased level of consciousness, new conf usion. Worsening vision, facial weakness, tongue weakness, new hearing, or balance difficulties. Fever 101 or greater. Redness or swelling of incision. Continuous oozing or persistent clear fluid coming from incision. Headaches increasing in severity and occurrences. A noticeable and increasing fluid collection developing under the skin, arou nd your incision. Intense pain that is getting worse or unrelieved by pain medications or musc le relaxers. Education document reviewed at bedside with patient/family. Incision with sutur es/intact/dry/WOOD FINISHER. Advised prescribed medications for treatment/pain control, a ctivity restrictions for goals of recovery. All questions answered, appointment s confirmed. Encouraged to call with any changes/needs/concerns. Erika Kaiser RN Clinical Nurse Coordinator Neurosurgery Available via Voalte documented in this encounter OR Notes * Operative Report (Direct Entry) - Kevin Gloria MD - 08/26/2022 5:27 PM CDT OPERATIVE REPORT Name: Joan Trevino is a 37 y.o. female : 1985 MRN#: [id number] DATE OF OPERATION: 08/26/2022 Surgeon(s) and Role: * Kevin Gloria MD - Primary * Jaime Martinez MD - Resident - Assisting * Cecily Bartholomew MD - Resident - Assisting Preoperative Diagnosis: Recurrent brain tumor (HCC) [D49.6] Post-op Diagnosis * Recurrent brain tumor (HCC) [D49.6] Procedure(s) (LRB): Right parietal craniotomy for resection of brain tumor (Right) STEREOTACTIC COMPUTER-ASSISTED CRANIAL PROCEDURE - INTRADURAL (Right) FUNCTIONAL CORTICAL AND SUBCORTICAL MAPPING BY STIMULATION AND/ OR RECORDING OF ELECTRODES ON BRAIN SURFACE TO IDENTIFY VITAL BRAIN STRUCTURES - INITIAL HOUR (R ight) Indications: This is a 37-year-old female with a history of grade 3 oligodendrog lioma s/p resection in October 2014 who presents in transfer from outside hospital for probable recurrent glioma. We recommended surgical intervention for patholo gic diagnosis and cytoreduction. Risk, benefits, alternatives to surgical inter vention were discussed with the patient, who elected to proceed with surgery. Description and Findings of Operative Procedure: After obtaining informed consen t the patient was taken to the operating room and general endotracheal anesthesi a was induced. The patient was maintained supine on the operative table and all pressure points were padded. The head was placed in the [place] head of academic technology a nd secured to the table. The patient was registered to the preoperative MRI for use of Brain[facility] neuro navigation. Neuro monitoring was begun and baseline sign als were obtained. The prior right sided incision was prepped with clippers, ch lorhexidine scrub, alcohol, DuraPrep. The patient was draped in the usual fashi on and a formal timeout was performed for confirmation of patient and procedural details. The prior incision was sharply opened and a myocutaneous flap reflect ed inferiorly. The previous cranial fixation hardware was removed and the crani otome attachment was used to release several areas of bridging bone. The cranio slade flap was raised. There were significant adhesions to the underlying brain. The prior resection cavity was immediately visible. Navigation was used to ma p the area of tumor. We then proceeded with cortical motor mapping at 10 mA to identify the bladder cortex. The motor cortex was identified just anterior to t he tumor itself. We then began tumor resection with bipolar cautery and suction . Several pieces of tumor were sent for permanent pathology. We began resectio n posteriorly and inferiorly working from inside the tumor to the edge until we encountered relatively normal-appearing white matter. We repeated this process at the superior margin. We then turned our attention towards the anterior media l area. We then proceeded with subcortical motor mapping ranging from 5 to 10 m A to identify the motor fibers. We encountered facial motor activation around 7 -8 mA correlating to 7-8 mm in distance. Given that there was facial motor acti vation which is represented bilaterally we continued resection anteriorly. We t hen again proceeded with subcortical motor mapping and found facial motor activa tion at a shorter distance. At this point we felt we had achieved a near total resection of the enhancing elements and moved towards closure. The resection ca vity was irrigated and hemostasis ensured. The total time for stimulation was a pproximately 45 minutes. The cavity was lined with Surgicel and the dura was lorena pproximated with 4-0 Nurolon. A Lyoplant onlay was used in a gasket seal fashio n. The bone flap was reaffixed with the [employer] cranial plating system. The wo und was irrigated with Ancef irrigation. Galea was closed with inverted interru pted 2-0 Vicryl followed by simple running 4-0 Vicryl Rapide for skin. At the a nterior superior corner we have placed several interrupted vertical mattress sut ures to reinforce the closure. The wound was cleansed and dressed. The patient was returned supine to the waiting stretcher and extubated without incident. S he was taken to the ICU in stable condition. All sharp and sponge counts were c onfirmed correct x2 at the end of procedure. All neuromonitoring signals remain ed at baseline throughout the case. Estimated Blood Loss: 100 ml Specimen(s) Removed/Disposition: ID Type Source Tests Collected by Time Destination 1 : brain tumor Tissue Brain SURGICAL PATHOLOGY Kevin Gloria MD 1821 Complications: None Implants: Implant Name Serial No. Piping Design Specialist Lot No. LRB No. Used Action SCREWS N/A N/A Right 13 Explanted LISETTE HOLE COVER N/A N/A Right 3 Explanted SUBSTITUTE TISSUE 5X4IN LYOPLANT DURA ONLAY ABSORBABLE - [id number] [employer] [id number] Right 1 Implanted 4MM SCREW [id number] 10 Implanted LISETTE HOLE COVER PLATE [id number] Implanted Drains: [place] Catheter: - mL Disposition: ICU - stable Jaime Martinez MD Pager ATTESTATION I performed this surgery with assistance from the residents Staff name: Kevin Gloria MD Date: 08/27/2022 documented in this encounter Miscellaneous Notes * Care Plan - Kailee Magana - 08/25/2022 12:49 PM CDT [employer] CONSULTATION ASSESSMENT/RECOMMENDATIONS Patient was referred for [employer] consultation Tobacco Use Treatment Practical Counseling was provided in hospital (including r ecognizing danger situations, developing coping skills and providing basic infor mation about quitting). MEDICATION RECOMMENDATIONS TO QUIT TOBACCO: In-patient quit-tobacco medication: If medically acceptable, please provide Ozzy alyce patch (21 mg), Nicotine lozenge (2 mg) Discharge medication options: If medically acceptable, please provide Nicotine p atch (21 mg), Nicotine lozenge (2 mg) Post discharge support referral: Accepted State Tobacco Quitline [employer]an[employer]uit Educational Material: Accepted Materials can also be accessed by mario matta on our website [email or web address] [email or web address] for this consult which was completed during soc ial distancing. History of Present Illness Reports using 10-15 cigarettes per day. Reports using tobacco within 31-60 minutes minutes of waking. E-Cigarette or vape use: Never Other tobacco use: None Years used: 22 Withdrawal: Moderate nicotine withdrawal based upon the patients rating on th e Nicotine Withdrawal Behavior Rating Scale. Patient lives with other smokers or vapers, we discussed home smoking restrictio ns and sharing her goals and resources with her . Plan about smoking after patient leaves the hospital: I plan to try to quit when I leave the hospital Interest in quitting: High Set a quit date: No Pt reported high interest in quitting but somewhat lower c onfidence since she lives with a smoker and does not have past experience with q uitting. Contact Information If I can be of further assistance, please call [employer]suite [phone] * Care Plan - Ruthie Olmedo RN - 08/20/2022 4:16 PM CDT Problem: Discharge Planning Goal: Participation in plan of care Outcome: Goal Ongoing Flowsheets (Taken 08/20/2022 1615) Participation in Plan of Care: Involve patient/caregiver in care planning decisi on making Goal: Knowledge regarding plan of care Outcome: Goal Ongoing Flowsheets (Taken 08/20/2022 1615) Knowledge regarding plan of care: Provide procedural and treatment education Provide infection prevention education Provide VTE signs and symptoms education Provide plan of care education Provide fall prevention education Provide medication management education Goal: Prepared for discharge Outcome: Goal Ongoing Flowsheets (Taken 08/20/2022 1615) Prepared for discharge: Complete ADL ability assessment Provide safe use medical equipment education Provide diet and oral health education Problem: High Fall Risk Goal: High Fall Risk Outcome: Goal Ongoing Flowsheets (Taken 08/20/2022 1615) High Fall Risk: All patients will receive: High fall risk sign, yellow wristband, yellow socks, gait belt, and shower shoes Engage bed alarm - middle setting Engage chair alarm Stay with the patient while toileting/showering PT/OT consult for fall prevention assessment if scoring in Unsteady Gait or Vis ual or Auditory impairment Move patient near RN station if confused (if possible) Remove excess equipment/supplies Educate patient to use call-light if tethered Use shower shoes Maximize bed functionality (optimize bed height, firm/flat surface) Use safe patient handling equipment as appropriate Assess need for bedside commode with drop arm to be available in room Problem: Tobacco Use Goal: Knowledge of tobacco-use cessation methods Outcome: Goal Ongoing Problem: Pain Goal: Management of pain Outcome: Goal Ongoing Flowsheets (Taken 08/20/2022 1615) Management of pain: Complete pain assessment scale according to age, condition and ability to under stand. In the patient who can fully report pain, assess pain characteristics. Manage pain. Assess opioid analgesia side-effects. Assess pain control barriers. Goal: Knowledge of pain management Outcome: Goal Ongoing Flowsheets (Taken 08/20/2022 1615) Knowledge of pain management: Provide pain scale education Provide pharmacological pain management education Provide pain management methods education Goal: Progress Toward Pain Management Goals Outcome: Goal Ongoing Flowsheets (Taken 08/20/2022 1615) Progress toward pain management goals: Progress toward pain management goals Assess progress toward pain management goals Problem: VTE, Risk of Goal: Absence of venous thrombosis Outcome: Goal Ongoing Flowsheets (Taken 08/20/2022 1615) Absence of venous thrombosis: Utilize prevent measures Assess peripheral circulation Assess for signs and symptoms of venous thrombosis documented in this encounter Plan of Treatment Date/Time Name Type Priority Associated Diag noses 08/26/2022 6:21 PM CDT SURGICAL PATHOLOGY Pathology Routine Recurrent b rain tumor (HCC) Order Schedule Name Type Priority Associated Diag noses Release Upon Ordering for 1 Occurrences starting 08/26/2022 SURGICAL PATHOLOGY Pathology Routine Recurrent b rain tumor (HCC) documented as of this encounter Goals Goal Patient Associated Recent Progress Patient-Stat Aut hor Goal Type Problems ed? GOAL General On track (08/20/2022 Yes Eyal Srinivasan, 11:22 AM CDT) RN Note: Quit smoking documented as of this encounter Procedures Comments Procedure Name Priority Date/Time Associated Diag nosis PHOSPHORUS Routine 08/29/2022 3:55 AM CDT MAGNESIUM Routine 08/29/2022 3:55 AM CDT HC BASIC METABOLIC PANEL Routine 08/28/2022 12:30 PM CDT HC PHOSPHOROUS, SERUM Routine 08/28/2022 2:35 AM CDT HC MAGNESIUM Routine 08/28/2022 2:35 AM CDT HC CBC W/ AUTOMATED DIFF Routine 08/27/2022 2:24 AM CDT HC PHOSPHOROUS, SERUM Routine 08/27/2022 2:24 AM CDT HC MAGNESIUM Routine 08/27/2022 2:24 AM CDT HC CALCIUM IONIZED Routine 08/27/2022 2:24 AM CDT HC BASIC METABOLIC PANEL Routine 08/27/2022 2:24 AM CDT MRI HEAD WO/W CONTRAST MANJU 08/26/2022 11:51 PM CDT POC GLUCOSE 08/26/2022 9:24 PM CDT FUNCTIONAL CORTICAL AND 08/26/2022 Recurrent bra in tumor SUBCORTICAL MAPPING BY 4:38 PM CDT ([facility]) STIMULATION AND/ OR RECORDING OF ELECTRODES ON BRAIN SURFACE/ DEPTH ELECTRODES TO PROVOKE SEIZURES/ IDENTIFY VITAL BRAIN STRUCTURES - INITIAL HOUR STEREOTACTIC 08/26/2022 Recurrent brain nevaeh or COMPUTER-ASSISTED CRANIAL 4:38 PM CDT ([facility]) PROCEDURE - INTRADURAL CRANIECTOMY/ BONE FLAP 08/26/2022 Recurrent brai n tumor CRANIOTOMY EXCISION 4:38 PM CDT ([facility]) SUPRATENTORIAL BRAIN TUMOR TYPE & CROSSMATCH Routine 08/25/2022 7:30 AM CDT HC CBC W/ AUTOMATED DIFF Routine 08/25/2022 2:29 AM CDT HC BASIC METABOLIC PANEL Routine 08/25/2022 2:29 AM CDT HC CBC W/ AUTOMATED DIFF Routine 08/23/2022 3:31 AM CDT HC BASIC METABOLIC PANEL Routine 08/23/2022 3:31 AM CDT HC CBC W/ AUTOMATED DIFF Routine 08/21/2022 4:57 AM CDT HC BASIC METABOLIC PANEL Routine 08/21/2022 4:57 AM CDT MRI HEAD WO/W CONTRAST MANJU 08/20/2022 6:38 AM CDT HC CBC W/ AUTOMATED DIFF Routine 08/20/2022 5:23 AM CDT HC BASIC METABOLIC PANEL Routine 08/20/2022 5:23 AM CDT HC CBC W/ AUTOMATED DIFF 08/19/2022 9:24 PM CDT HC TEST-URINE Routine 08/19/2022 8:45 PM CDT HC PTT(APTT) STAT 08/19/2022 8:34 PM CDT HC PT(INR) STAT 08/19/2022 8:34 PM CDT HC COMPREHENSIVE STAT 08/19/2022 METABOLIC PANEL 8:34 PM CDT documented in this encounter Results * PHOSPHORUS (08/29/2022 3:55 AM CDT) Pathologist Signature Component Value Ref Test Method Analysis Performed A t Range Time Phosphorus 2.7 2.0 - 08/29/2022 [facility] DEPT PAT H AND 4.5 4:37 AM LAB MEDICINE MG/DL CDT Anatomical Location / Laterality Collection Method / Volume Isra ection Time Received Time Specimen (Source) BLOOD / Unknown 08/29/2022 3:55 AM CDT 08/30/19 4:04 AM CDT Elissa Carvalho LABORATORY ORDERABLES PHARMACEUTICAL ENGINEER-TECHNICAL SALES SUPPORT SPECIALIST City/State/ZIP Code Phone Number Performing [place] [address] [employer] DEPT PATH AND [address] [facility]. LAB MEDICINE * MAGNESIUM (08/29/2022 3:55 AM CDT) Pathologist Signature Component Value Ref Test Method Analysis Performed A t Range Time Magnesium 2.2 1.6 - 08/29/2022 [facility] DEPT PAT H AND 2.6 4:37 AM LAB MEDICINE mg/dL CDT Anatomical Location / Laterality Collection Method / Volume Isra ection Time Received Time Specimen (Source) BLOOD / Unknown 08/29/2022 3:55 AM CDT 08/30/19 23 4:04 AM CDT Elissa Carvalho LABORATORY ORDERABLES PHARMACEUTICAL ENGINEER-TECHNICAL SALES SUPPORT SPECIALIST City/State/ZIP Code Phone Number Performing [place] [address] [facility] DEPT PATH AND [address] LAB MEDICINE * (ABNORMAL) BASIC METABOLIC PANEL (08/28/2022 12:30 PM CDT) Pathologist Signature Component Value Ref Test Method Analysis Performed A t Range Time Sodium 135 (L) 137 - 08/28/2022 [facility] DEPT PAT H AND 147 4:56 PM LAB MEDICINE MMOL/L CDT Potassium 4.3 3.5 - 08/28/2022 [facility] DEPT PAT H AND 5.1 4:56 PM LAB MEDICINE MMOL/L CDT Chloride 99 98 - 110 08/28/2022 [facility] DEPT PAT H AND MMOL/L 4:56 PM LAB MEDICINE CDT CO2 29 21 - 30 08/28/2022 [facility] DEPT PAT H AND MMOL/L 4:56 PM LAB MEDICINE CDT Anion Gap 7 3 - 12 08/28/2022 [facility] DEPT PAT H AND 4:56 PM LAB MEDICINE CDT Glucose 98 70 - 100 08/28/2022 [facility] DEPT PAT H AND MG/DL 4:56 PM LAB MEDICINE CDT Blood Urea Nitrogen 23 7 - 25 08/28/2022 [facility] DEPT PATH AND MG/DL 4:56 PM LAB MEDICINE CDT Creatinine 0.61 0.4 - 08/28/2022 [facility] DEPT PAT H AND 1.00 4:56 PM LAB MEDICINE MG/DL CDT Calcium 9.1 8.5 - 08/28/2022 [facility] DEPT PAT H AND 10.6 4:56 PM LAB MEDICINE MG/DL CDT eGFR >60 >60 08/28/2022 [facility] DEPT PAT H AND mL/min 4:56 PM LAB MEDICINE CDT Comment: eGFR calculated using the CKD-EPIcr_R equation Anatomical Location / Laterality Collection Method / Volume Isra ection Time Received Time Specimen (Source) BLOOD / Unknown 08/28/2022 12:30 PM CDT 08/29/19 23 12:53 PM CDT Bernie Tejada LABORATORY ORDERABLES PHARMACEUTICAL ENGINEER-[facility]/ZIP Code Phone Number Performing [place] [address] [employer] [facility] AND [address] [facility] * PHOSPHORUS (08/28/2022 2:35 AM CDT) Pathologist Signature Component Value Ref Test Method Analysis Performed A t Range Time Phosphorus 3.9 2.0 - 08/28/2022 [facility] DEPT PAT H AND 4.5 3:28 AM LAB MEDICINE MG/DL CDT Anatomical Location / Laterality Collection Method / Volume Isra ection Time Received Time Specimen (Source) BLOOD / Unknown 08/28/2022 2:35 AM CDT 08/29/19 23 2:45 AM CDT Elissa Carvalho LABORATORY ORDERABLES PHARMACEUTICAL ENGINEER-[facility]/ZIP Code Phone Number Performing Address Organization [address] [place] [address] * MAGNESIUM (08/28/2022 2:35 AM CDT) Pathologist Signature Component Value Ref Test Method Analysis Performed A t Range Time Magnesium 2.2 1.6 - 08/28/2022 [facility] DEPT PAT H AND 2.6 3:28 AM LAB MEDICINE mg/dL CDT Anatomical Location / Laterality Collection Method / Volume Isra ection Time Received Time Specimen (Source) BLOOD / Unknown 08/28/2022 2:35 AM CDT 08/29/19 23 2:45 AM CDT Elissa Carvalho LABORATORY ORDERABLES PHARMACEUTICAL ENGINEER-[facility]/ZIP Code Phone Number Performing [place] [address] [employer] [facility] PATH AND [address] [place] [address] * (ABNORMAL) PHOSPHORUS (08/27/2022 2:24 AM CDT) Pathologist Signature Component Value Ref Test Method Analysis Performed A t Range Time Phosphorus 5.7 (H) 2.0 - 08/27/2022 [facility] DEPT PAT H AND 4.5 3:08 AM LAB MEDICINE MG/DL CDT Anatomical Location / Laterality Collection Method / Volume Isra ection Time Received Time Specimen (Source) BLOOD / Unknown 08/27/2022 2:24 AM CDT 08/28/19 23 2:34 AM CDT Elissa Carvalho LABORATORY ORDERABLES PHARMACEUTICAL ENGINEER-[facility]/ZIP Code Phone Number [place]forming [place] [address] [facility] AND [address] [facility] LAB MEDICINE * MAGNESIUM (08/27/2022 2:24 AM CDT) Pathologist Signature Component Value Ref Test Method Analysis Performed A t Range Time Magnesium 2.0 1.6 - 08/27/2022 [facility] DEPT PAT H AND 2.6 3:08 AM LAB MEDICINE mg/dL CDT Anatomical Location / Laterality Collection Method / Volume Isra ection Time Received Time Specimen (Source) BLOOD / Unknown 08/27/2022 2:24 AM CDT 08/28/19 23 2:34 AM CDT Elissa Carvalho LABORATORY ORDERABLES [facility]/ZIP Code Phone Number Performing [place] [address] [facility] AND [address] [facility] LAB MEDICINE * IONIZED CALCIUM (08/27/2022 2:24 AM CDT) Pathologist Signature Component Value Ref Test Method Analysis Performed A t Range Time Ionized Calcium 1.13 1.0 - 08/27/2022 [facility] DEPT PATH AND 1.3 3:16 AM LAB MEDICINE MMOL/L CDT Anatomical Location / Laterality Collection Method / Volume Isra ection Time Received Time Specimen (Source) BLOOD / Unknown 08/27/2022 2:24 AM CDT 08/28/19 23 2:31 AM CDT Elissa Carvalho LABORATORY ORDERABLES PHARM[facility]UTICAL [facility]/ZIP Code Phone Number Performing [place] [address] [facility] AND [address] [facility] LAB MEDICINE * (ABNORMAL) CBC AND DIFF (08/27/2022 2:24 AM CDT) Pathologist Signature Component Value Ref Test Method Analysis Performed A t Range Time White Blood Cells 25.5 (H) 4.5 - 08/27/2022 [facility] PT PATH AND 11.0 2:44 AM LAB MEDICINE K/UL CDT RBC 4.35 4.0 - 08/27/2022 [facility] DEPT PAT H AND 5.0 M/UL 2:44 AM LAB MEDICINE CDT Hemoglobin 14.1 12.0 - 08/27/2022 [facility] DEPT PAT H AND 15.0 2:44 AM LAB MEDICINE GM/DL CDT Hematocrit 41.9 36 - 45 08/27/2022 [facility] DEPT PAT H AND % 2:44 AM LAB MEDICINE CDT MCV 96.3 80 - 100 08/27/2022 [facility] DEPT PAT H AND FL 2:44 AM LAB MEDICINE CDT MCH 32.4 26 - 34 08/27/2022 [facility] DEPT PAT H AND PG 2:44 AM LAB MEDICINE CDT MCHC 33.6 32.0 - 08/27/2022 [facility] DEPT PAT H AND 36.0 2:44 AM LAB MEDICINE G/DL CDT RDW 13.8 11 - 15 08/27/2022 [facility] DEPT PAT H AND % 2:44 AM LAB MEDICINE CDT Platelet Count 167 150 - 08/27/2022 [facility] DEPT PATH AND 400 K/UL 2:44 AM LAB MEDICINE CDT MPV 7.1 7 - 11 08/27/2022 [facility] DEPT PAT H AND FL 2:44 AM LAB MEDICINE CDT Neutrophils 89 (H) 41 - 77 08/27/2022 [facility] DEPT PAT H AND % 3:29 AM LAB MEDICINE CDT Lymphocytes 3 (L) 24 - 44 08/27/2022 [facility] DEPT PAT H AND % 3:29 AM LAB MEDICINE CDT Monocytes 8 4 - 12 % 08/27/2022 [facility] DEPT PAT H AND 3:29 AM LAB MEDICINE CDT Eosinophils 0 0 - 5 % 08/27/2022 [facility] DEPT PAT H AND 3:29 AM LAB MEDICINE CDT Basophils 0 0 - 2 % 08/27/2022 [facility] DEPT PAT H AND 3:29 AM LAB MEDICINE CDT Absolute Neutrophil 22.70 (H) 1.8 - 08/27/2022 [facility] DEPT PATH AND Count 7.0 K/UL 3:29 AM LAB MEDICINE CDT Absolute Lymph Count 0.79 (L) 1.0 - 08/27/2022 [facility] DEPT PATH AND 4.8 K/UL 3:29 AM LAB MEDICINE CDT Absolute Monocyte 1.96 (H) 0 - 0.80 08/27/2022 [facility] DE PT PATH AND Count K/UL 3:29 AM LAB MEDICINE CDT Absolute Eosinophil 0.02 0 - 0.45 08/27/2022 [facility] DEPT PATH AND Count K/UL 3:29 AM LAB MEDICINE CDT Absolute Basophil 0.06 0 - 0.20 08/27/2022 [facility] DE PT PATH AND Count K/UL 3:29 AM LAB MEDICINE CDT Anatomical Location / Laterality Collection Method / Volume Isra ection Time Received Time Specimen (Source) BLOOD / Unknown 08/27/2022 2:24 AM CDT 08/28/19 2:34 AM CDT Bernie Tejada LABORATORY ORDERABLES PHARMACEUTICAL ENGINEER-TECHNICAL SALES SUPPORT SPECIALIST City/State/ZIP Code Phone Number Performing [place] [address] [facility] DEPT PATH AND [address] LAB MEDICINE * (ABNORMAL) BASIC METABOLIC PANEL (08/27/2022 2:24 AM CDT) Pathologist Signature Component Value Ref Test Method Analysis Performed A t Range Time Sodium 134 (L) 137 - 08/27/2022 [facility] DEPT PAT H AND 147 3:08 AM LAB MEDICINE MMOL/L CDT Potassium 4.3 3.5 - 08/27/2022 [facility] DEPT PAT H AND 5.1 3:08 AM LAB MEDICINE MMOL/L CDT Chloride 99 98 - 110 08/27/2022 [facility] DEPT PAT H AND MMOL/L 3:08 AM LAB MEDICINE CDT CO2 26 21 - 30 08/27/2022 [facility] DEPT PAT H AND MMOL/L 3:08 AM LAB MEDICINE CDT Anion Gap 9 3 - 12 08/27/2022 [facility] DEPT PAT H AND 3:08 AM LAB MEDICINE CDT Glucose 108 (H) 70 - 100 08/27/2022 [facility] DEPT PAT H AND MG/DL 3:08 AM LAB MEDICINE CDT Blood Urea Nitrogen 18 7 - 25 08/27/2022 [facility] DEPT PATH AND MG/DL 3:08 AM LAB MEDICINE CDT Creatinine 0.56 0.4 - 08/27/2022 [facility] DEPT PAT H AND 1.00 3:08 AM LAB MEDICINE MG/DL CDT Calcium 8.8 8.5 - 08/27/2022 [facility] DEPT PAT H AND 10.6 3:08 AM LAB MEDICINE MG/DL CDT eGFR >60 >60 08/27/2022 [facility] DEPT PAT H AND mL/min 3:08 AM LAB MEDICINE CDT Comment: eGFR calculated using the CKD-EPIcr_R equation Anatomical Location / Laterality Collection Method / Volume Isra ection Time Received Time Specimen (Source) BLOOD / Unknown 08/27/2022 2:24 AM CDT 08/28/19 2:34 AM CDT Bernie Tejada LABORATORY ORDERABLES PHARMACEUTICAL ENGINEER-TECHNICAL SALES SUPPORT SPECIALIST City/State/ZIP Code Phone Number Performing [place] [address] [facility] DEPT PATH AND [address] [facility] LAB MEDICINE * MRI HEAD WO/W CONTRAST (08/26/2022 11:51 PM CDT) Modality Anatomical Region Laterality Magnetic Resonance Head Anatomical Location / Laterality Collection Method / Volume Isra ection Time Received Time Specimen (Source) 08/27/2022 7:10 AM CDT Impressions 08/27/2022 7:19 AM CDT 1. Interval repeat partial right cereb ral mass resection without obvious postprocedural complication. 2. Residual enhancing right cerebral t umor elements and residual infiltrative nonenhancing bilateral posterior cerebral and callosal tumor elements (as detailed above). 3. Similar mild leftward midline shift . Finalized by Joseph Hewitt M.D. on 08/27/2022 7:19 AM. Dictated by Joseph Hewitt M.D. on 08/27/2022 7:10 AM. 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 This was done both before and after the administration of MultiHancecontrast. COMPARISON: MRI brain 08/20/2022 FINDINGS: Prior right craniotomy and interval repeat partial mass resection with expected mild postprocedural blood products and pneumocephalus. Residual masslike FLAIR hyperintensity and small amorphous enhancing lesional element are noted superior and medial to the resection cavity margin within the right paracentral lobule. Subtle residual enhancing lesional rind elements are also noted at the anterior and medial resection cavity margins within the herrera radiata, knees right parietal region, and right callosal splenium. Additional persistent areas of masslike FLAIR hyperintensity are noted within the posterior corpus callosum, bilateral posterior cingulate, and bilateral precuneus parietal regions and vertex right superior frontal gyrus. Persistent superimposed right cerebral vasogenic edema. Ventricles remain nondistended. There is similar mild leftward midline shift without descending herniation. The vascular flow-voids are unremarkable. Diffusion weighted imaging is not indicative of acute or recent infarct. 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 This was done both before and after the administration of MultiHancecontrast. COMPARISON: MRI brain 08/20/2022 FINDINGS: Prior right craniotomy and interval repeat partial mass resection with expected mild postprocedural blood products and pneumocephalus. Residual masslike FLAIR hyperintensity and small amorphous enhancing lesional element are noted superior and medial to the resection cavity margin within the right paracentral lobule. Subtle residual enhancing lesional rind elements are also noted at the anterior and medial resection cavity margins within the herrera radiata, knees right parietal region, and right callosal splenium. Additional persistent areas of masslike FLAIR hyperintensity are noted within the posterior corpus callosum, bilateral posterior cingulate, and bilateral precuneus parietal regions and vertex right superior frontal gyrus. Persistent superimposed right cerebral vasogenic edema. Ventricles remain nondistended. There is similar mild leftward midline shift without descending herniation. The vascular flow-voids are unremarkable. Diffusion weighted imaging is not indicative of acute or recent infarct. IMPRESSION 1. Interval repeat partial right cerebr al mass resection without obvious postprocedural complication. 2. Residual enhancing right cerebral tu mor elements and residual infiltrative nonenhancing bilateral posterior cerebral and callosal tumor elements (as detailed above). 3. Similar mild leftward midline shift. Finalized by Joseph Hewitt M.D. on 08/27/2022 7:19 AM. Dictated by Joseph Hewitt M.D. on 08/27/2022 7:10 AM. Kevin Gloria MD MR ORDERABLES * (ABNORMAL) POC GLUCOSE (08/26/2022 9:24 PM CDT) Pathologist Signature Component Value Ref Test Method Analysis Performed A t Range Time Glucose, POC 124 (H) 70 - 100 08/26/2022 [facility] BELCHERRID GE MG/DL 9:25 PM TOWER A CDT Anatomical Location / Laterality Collection Method / Volume Isra ection Time Received Time Specimen (Source) 08/26/2022 9:24 PM CDT 08/27/19 9:25 PM CDT Kevin Gloria MD OTHER LABORATORY City/State/ZIP Code Phone Number Performing Address Organization [address] [facility] TOWER A * TYPE & CROSSMATCH (08/25/2022 7:30 AM CDT) Pathologist Signature Component Value Ref Test Method Analysis Performed A t Range Time Units Ordered 2 08/25/2022 [facility] DEPT PATH AND 7:53 AM LAB MEDICINE CDT Crossmatch Expires 08/28/2022,2 08/25/2022 [facility] DEPT PATH AND 359 8:39 AM LAB MEDICINE CDT Record Check FOUND 08/25/2022 [facility] DE[facility] PATH AND 7:53 AM LAB MEDICINE CDT ABO/RH(D) A POS 08/25/2022 [facility] DE[facility] PATH AND 8:39 AM LAB MEDICINE CDT Antibody Screen NEG 08/25/2022 [facility] DEPT PAT H AND 8:39 AM LAB MEDICINE CDT Electronic YES 08/25/2022 [facility] DEPT PATH AND Crossmatch 8:39 AM LAB MEDICINE CDT Anatomical Location / Laterality Collection Method / Volume Isra ection Time Received Time Specimen (Source) BLOOD / Unknown 08/25/2022 7:30 AM CDT 08/26/19 7:52 AM CDT Kevin Gloria MD BLOOD BANK ORDERABLES City/State/ZIP Code Phone Number [place] [address] [facility] DEPT PATH AND [address] LAB MEDICINE * (ABNORMAL) CBC AND DIFF (08/25/2022 2:29 AM CDT) Pathologist Signature Component Value Ref Test Method Analysis Performed A t Range Time White Blood Cells 15.1 (H) 4.5 - 08/25/2022 [facility] PT PATH AND 11.0 2:51 AM LAB MEDICINE K/UL CDT RBC 4.33 4.0 - 08/25/2022 [facility] DEPT PAT H AND 5.0 M/UL 2:51 AM LAB MEDICINE CDT Hemoglobin 14.0 12.0 - 08/25/2022 [facility] DEPT PAT H AND 15.0 2:51 AM LAB MEDICINE GM/DL CDT Hematocrit 41.7 36 - 45 08/25/2022 [facility]PT PAT H AND % 2:51 AM LAB MEDICINE CDT MCV 96.4 80 - 100 08/25/2022 [facility] DEPT PAT H AND FL 2:51 AM LAB MEDICINE CDT MCH 32.2 26 - 34 08/25/2022 [facility] DEPT PAT H AND PG 2:51 AM LAB MEDICINE CDT MCHC 33.5 32.0 - 08/25/2022 [facility] DEPT PAT H AND 36.0 2:51 AM LAB MEDICINE G/DL CDT RDW 13.5 11 - 15 08/25/2022 [facility] DEPT PAT H AND % 2:51 AM LAB MEDICINE CDT Platelet Count 175 150 - 08/25/2022 [facility] DEPT PATH AND 400 K/UL 2:51 AM LAB MEDICINE CDT MPV 7.6 7 - 11 08/25/2022 [facility] DEPT PAT H AND FL 2:51 AM LAB MEDICINE CDT Neutrophils 86 (H) 41 - 77 08/25/2022 [facility] DEPT PAT H AND % 3:28 AM LAB MEDICINE CDT Lymphocytes 8 (L) 24 - 44 08/25/2022 [facility] DEPT PAT H AND % 3:28 AM LAB MEDICINE CDT Monocytes 6 4 - 12 % 08/25/2022 [facility] DEPT PAT H AND 3:28 AM LAB MEDICINE CDT Eosinophils 0 0 - 5 % 08/25/2022 [facility] PAT H AND 3:28 AM LAB MEDICINE CDT Basophils 0 0 - 2 % 08/25/2022 [facility] PAT H AND 3:28 AM LAB MEDICINE CDT Absolute Neutrophil 12.90 (H) 1.8 - 08/25/2022 [facility] DEPT PATH AND Count 7.0 K/UL 3:28 AM LAB MEDICINE CDT Absolute Lymph Count 1.21 1.0 - 08/25/2022 [facility] DEPT PATH AND 4.8 K/UL 3:28 AM LAB MEDICINE CDT Absolute Monocyte 0.96 (H) 0 - 0.80 08/25/2022 [facility] DE PT PATH AND Count K/UL 3:28 AM LAB MEDICINE CDT Absolute Eosinophil 0.01 0 - 0.45 08/25/2022 [facility] DEPT PATH AND Count K/UL 3:28 AM LAB MEDICINE CDT Absolute Basophil 0.04 0 - 0.20 08/25/2022 [facility] DE PT PATH AND Count K/UL 3:28 AM LAB MEDICINE CDT Anatomical Location / Laterality Collection Method / Volume Isra ection Time Received Time Specimen (Source) BLOOD / Unknown 08/25/2022 2:29 AM CDT 08/26/19 2:43 AM CDT Bernie Tejada LABORATORY ORDERABLES PHARMACEUTICAL ENGINEER-TECHNICAL SALES SUPPORT SPECIALIST City/State/ZIP Code Phone Number Performing [place] [address] [facility] DEPT PATH AND [address] [facility] LAB MEDICINE * (ABNORMAL) BASIC METABOLIC PANEL (08/25/2022 2:29 AM CDT) Pathologist Signature Component Value Ref Test Method Analysis Performed A t Range Time Sodium 135 (L) 137 - 08/25/2022 [facility] DEPT PAT H AND 147 3:17 AM LAB MEDICINE MMOL/L CDT Potassium 4.3 3.5 - 08/25/2022 [facility] DEPT PAT H AND 5.1 3:17 AM LAB MEDICINE MMOL/L CDT Chloride 103 98 - 110 08/25/2022 [facility] DEPT PAT H AND MMOL/L 3:17 AM LAB MEDICINE CDT CO2 23 21 - 30 08/25/2022 [facility] DEPT PAT H AND MMOL/L 3:17 AM LAB MEDICINE CDT Anion Gap 9 3 - 12 08/25/2022 [facility] DEPT PAT H AND 3:17 AM LAB MEDICINE CDT Glucose 126 (H) 70 - 100 08/25/2022 [facility] DEPT PAT H AND MG/DL 3:17 AM LAB MEDICINE CDT Blood Urea Nitrogen 17 7 - 25 08/25/2022 [facility] DEPT PATH AND MG/DL 3:17 AM LAB MEDICINE CDT Creatinine 0.56 0.4 - 08/25/2022 [facility] DEPT PAT H AND 1.00 3:17 AM LAB MEDICINE MG/DL CDT Calcium 9.1 8.5 - 08/25/2022 [facility] DEPT PAT H AND 10.6 3:17 AM LAB MEDICINE MG/DL CDT eGFR >60 >60 08/25/2022 [facility] DEPT PAT H AND mL/min 3:17 AM LAB MEDICINE CDT Comment: eGFR calculated using the CKD-EPIcr_R equation Anatomical Location / Laterality Collection Method / Volume Isra ection Time Received Time Specimen (Source) BLOOD / Unknown 08/25/2022 2:29 AM CDT 08/26/19 2:43 AM CDT Bernie Tejada LABORATORY ORDERABLES PHARMACEUTICAL ENGINEER-TECHNICAL SALES SUPPORT SPECIALIST City/State/ZIP Code Phone Number [place] [address] [facility] DEPT PATH AND [address] [facility]. LAB MEDICINE * (ABNORMAL) CBC AND DIFF (08/23/2022 3:31 AM CDT) Pathologist Signature Component Value Ref Test Method Analysis Performed A t Range Time White Blood Cells 9.7 4.5 - 08/23/2022 [facility] DE PT PATH AND 11.0 3:55 AM LAB MEDICINE K/UL CDT RBC 4.09 4.0 - 08/23/2022 [facility]PT PAT H AND 5.0 M/UL 3:55 AM LAB MEDICINE CDT Hemoglobin 14.0 12.0 - 08/23/2022 [facility]PT PAT H AND 15.0 3:55 AM LAB MEDICINE GM/DL CDT Hematocrit 39.2 36 - 45 08/23/2022 [facility] DEPT PAT H AND % 3:55 AM LAB MEDICINE CDT MCV 95.8 80 - 100 08/23/2022 [facility] DEPT PAT H AND FL 3:55 AM LAB MEDICINE CDT MCH 34.1 (H) 26 - 34 08/23/2022 [facility] DEPT PAT H AND PG 3:55 AM LAB MEDICINE CDT MCHC 35.6 32.0 - 08/23/2022 [facility] PAT H AND 36.0 3:55 AM LAB MEDICINE G/DL CDT RDW 13.5 11 - 15 08/23/2022 [facility] PAT H AND % 3:55 AM LAB MEDICINE CDT Platelet Count 168 150 - 08/23/2022 [facility] DEPT PATH AND 400 K/UL 3:55 AM LAB MEDICINE CDT MPV 7.9 7 - 11 08/23/2022 [facility] DEPT PAT H AND FL 3:55 AM LAB MEDICINE CDT Neutrophils 82 (H) 41 - 77 08/23/2022 [facility] DEPT PAT H AND % 3:55 AM LAB MEDICINE CDT Lymphocytes 10 (L) 24 - 44 08/23/2022 [facility] DEPT PAT H AND % 3:55 AM LAB MEDICINE CDT Monocytes 8 4 - 12 % 08/23/2022 [facility] DEPT PAT H AND 3:55 AM LAB MEDICINE CDT Eosinophils 0 0 - 5 % 08/23/2022 [facility] DEPT PAT H AND 3:55 AM LAB MEDICINE CDT Basophils 0 0 - 2 % 08/23/2022 [facility] DEPT PAT H AND 3:55 AM LAB MEDICINE CDT Absolute Neutrophil 7.96 (H) 1.8 - 08/23/2022 [facility] DEPT PATH AND Count 7.0 K/UL 3:55 AM LAB MEDICINE CDT Absolute Lymph Count 0.96 (L) 1.0 - 08/23/2022 [facility] DEPT PATH AND 4.8 K/UL 3:55 AM LAB MEDICINE CDT Absolute Monocyte 0.76 0 - 0.80 08/23/2022 [facility] DE PT PATH AND Count K/UL 3:55 AM LAB MEDICINE CDT Absolute Eosinophil 0.01 0 - 0.45 08/23/2022 [facility] DEPT PATH AND Count K/UL 3:55 AM LAB MEDICINE CDT Absolute Basophil 0.03 0 - 0.20 08/23/2022 [facility] DE PT PATH AND Count K/UL 3:55 AM LAB MEDICINE CDT Anatomical Location / Laterality Collection Method / Volume Isra ection Time Received Time Specimen (Source) BLOOD / Unknown 08/23/2022 3:31 AM CDT 08/24/19 3:32 AM CDT Bernie Tejada LABORATORY ORDERABLES PHARMACEUTICAL ENGINEER-TECHNICAL SALES SUPPORT SPECIALIST City/State/ZIP Code Phone Number Per[place] [address] [facility] DEPT PATH AND [address] [facility] LAB MEDICINE * (ABNORMAL) BASIC METABOLIC PANEL (08/23/2022 3:31 AM CDT) Pathologist Signature Component Value Ref Test Method Analysis Performed A t Range Time Sodium 137 137 - 08/23/2022 [facility] DEPT PAT H AND 147 4:19 AM LAB MEDICINE MMOL/L CDT Potassium 4.0 3.5 - 08/23/2022 [facility] DEPT PAT H AND 5.1 4:19 AM LAB MEDICINE MMOL/L CDT Chloride 104 98 - 110 08/23/2022 [facility] DEPT PAT H AND MMOL/L 4:19 AM LAB MEDICINE CDT CO2 25 21 - 30 08/23/2022 [facility] DEPT PAT H AND MMOL/L 4:19 AM LAB MEDICINE CDT Anion Gap 8 3 - 12 08/23/2022 [facility] DEPT PAT H AND 4:19 AM LAB MEDICINE CDT Glucose 117 (H) 70 - 100 08/23/2022 [facility]PT PAT H AND MG/DL 4:19 AM LAB MEDICINE CDT Blood Urea Nitrogen 21 7 - 25 08/23/2022 [facility] DEPT PATH AND MG/DL 4:19 AM LAB MEDICINE CDT Creatinine 0.64 0.4 - 08/23/2022 [facility] PAT H AND 1.00 4:19 AM LAB MEDICINE MG/DL CDT Calcium 9.0 8.5 - 08/23/2022 [facility] PAT H AND 10.6 4:19 AM LAB MEDICINE MG/DL CDT eGFR >60 >60 08/23/2022 [facility]PT PAT H AND mL/min 4:19 AM LAB MEDICINE CDT Comment: eGFR calculated using the CKD-EPIcr_R equation Anatomical Location / Laterality Collection Method / Volume Isra ection Time Received Time Specimen (Source) BLOOD / Unknown 08/23/2022 3:31 AM CDT 08/24/19 3:32 AM CDT Bernie Tejada LABORATORY ORDERABLES PHARMACEUTICAL ENGINEER-TECHNICAL SALES SUPPORT SPECIALIST City/State/ZIP Code Phone Number Performing [place] [address] [facility] DEPT PATH AND [address] [facility] LAB MEDICINE * (ABNORMAL) BASIC METABOLIC PANEL (08/21/2022 4:57 AM CDT) Pathologist Signature Component Value Ref Test Method Analysis Performed A t Range Time Sodium 140 137 - 08/21/2022 [facility] DEPT PAT H AND 147 6:29 AM LAB MEDICINE MMOL/L CDT Potassium 4.1 3.5 - 08/21/2022 [facility] DEPT PAT H AND 5.1 6:29 AM LAB MEDICINE MMOL/L CDT Chloride 107 98 - 110 08/21/2022 [facility] PAT H AND MMOL/L 6:29 AM LAB MEDICINE CDT CO2 22 21 - 30 08/21/2022 [facility] PAT H AND MMOL/L 6:29 AM LAB MEDICINE CDT Anion Gap 11 3 - 12 08/21/2022 [facility] PAT H AND 6:29 AM LAB MEDICINE CDT Glucose 112 (H) 70 - 100 08/21/2022 [facility]PT PAT H AND MG/DL 6:29 AM LAB MEDICINE CDT Blood Urea Nitrogen 21 7 - 25 08/21/2022 [facility] DEPT PATH AND MG/DL 6:29 AM LAB MEDICINE CDT Creatinine 0.58 0.4 - 08/21/2022 [facility]PT PAT H AND 1.00 6:29 AM LAB MEDICINE MG/DL CDT Calcium 9.3 8.5 - 08/21/2022 [facility] DEPT PAT H AND 10.6 6:29 AM LAB MEDICINE MG/DL CDT eGFR >60 >60 08/21/2022 [facility] DEPT PAT H AND mL/min 6:29 AM LAB MEDICINE CDT Comment: eGFR calculated using the CKD-EPIcr_R equation Anatomical Location / Laterality Collection Method / Volume Isra ection Time Received Time Specimen (Source) BLOOD / Unknown 08/21/2022 4:57 AM CDT 08/22/19 23 4:58 AM CDT Tej Riggs MD LABORATORY ORDERABLES City/State/ZIP Code Phone Number [place] [address] [facility] DEPT PATH AND [address] [facility] LAB MEDICINE * (ABNORMAL) CBC AND DIFF (08/21/2022 4:57 AM CDT) Pathologist Signature Component Value Ref Test Method Analysis Performed A t Range Time White Blood Cells 16.2 (H) 4.5 - 08/21/2022 [facility] DE PT PATH AND 11.0 5:58 AM LAB MEDICINE K/UL CDT RBC 4.10 4.0 - 08/21/2022 [facility] DEPT PAT H AND 5.0 M/UL 5:58 AM LAB MEDICINE CDT Hemoglobin 13.2 12.0 - 08/21/2022 [facility]PT PAT H AND 15.0 5:58 AM LAB MEDICINE GM/DL CDT Hematocrit 39.4 36 - 45 08/21/2022 [facility] PAT H AND % 5:58 AM LAB MEDICINE CDT MCV 96.0 80 - 100 08/21/2022 [facility] DEPT PAT H AND FL 5:58 AM LAB MEDICINE CDT MCH 32.3 26 - 34 08/21/2022 [facility] DEPT PAT H AND PG 5:58 AM LAB MEDICINE CDT MCHC 33.7 32.0 - 08/21/2022 [facility] DEPT PAT H AND 36.0 5:58 AM LAB MEDICINE G/DL CDT RDW 13.6 11 - 15 08/21/2022 [facility] DEPT PAT H AND % 5:58 AM LAB MEDICINE CDT Platelet Count 166 150 - 08/21/2022 [facility] DEPT PATH AND 400 K/UL 5:58 AM LAB MEDICINE CDT MPV 8.2 7 - 11 08/21/2022 [facility] FL 5:58 AM LAB MEDICINE CDT Neutrophils 93 (H) 41 - 77 08/21/2022 [facility] AND % 5:58 AM LAB MEDICINE CDT Lymphocytes 4 (L) 24 - 44 08/21/2022 [facility] AND % 5:58 AM LAB MEDICINE CDT Monocytes 3 (L) 4 - 12 % 08/21/2022 [facility] DEPT PAT H AND 5:58 AM LAB MEDICINE CDT Eosinophils 0 0 - 5 % 08/21/2022 [facility] DEPT PAT H AND 5:58 AM LAB MEDICINE CDT Basophils 0 0 - 2 % 08/21/2022 [facility] AND 5:58 AM LAB MEDICINE CDT Absolute Neutrophil 15.08 (H) 1.8 - 08/21/2022 [facility] DEPT PATH AND Count 7.0 K/UL 5:58 AM LAB MEDICINE CDT Absolute Lymph Count 0.62 (L) 1.0 - 08/21/2022 [facility] DEPT PATH AND 4.8 K/UL 5:58 AM LAB MEDICINE CDT Absolute Monocyte 0.50 0 - 0.80 08/21/2022 [facility] DE PT PATH AND Count K/UL 5:58 AM LAB MEDICINE CDT Absolute Eosinophil 0.00 0 - 0.45 08/21/2022 [facility] [facility] DEPT PATH AND Count K/UL 5:58 AM LAB MEDICINE CDT Absolute Basophil 0.03 0 - 0.20 08/21/2022 [facility] DE PT PATH AND Count K/UL 5:58 AM LAB MEDICINE CDT Anatomical Location / Laterality Collection Method / Volume Isra ection Time Received Time Specimen (Source) BLOOD / Unknown 08/21/2022 4:57 AM CDT 08/22/19 4:58 AM CDT Tej Riggs MD LABORATORY ORDERABLES City/State/ZIP Code Phone Number [place] [address] [facility] DEPT PATH AND [address] [facility]. LAB MEDICINE * MRI HEAD WO/W CONTRAST (08/20/2022 6:38 AM CDT) Modality Anatomical Region Laterality Magnetic Resonance Head Anatomical Location / Laterality Collection Method / Volume Isra ection Time Received Time Specimen (Source) 08/20/2022 7:53 AM CDT Impressions 08/20/2022 8:17 AM CDT 1. Prior right parietotemporal craniot elke and lateral perirolandic-parietal mass resection with redemonstration of a hemorrhagic right perirolandic callosal-pericallosal necrotic enhancing mass, consistent with recurrent disease. 2. Marginal masslike-infiltrative tumo ral elements are present within the posterior right frontal-perirolandic vertex, right periatrial region, posterior corpus callosum-pericallosal regions, and cingulate gyri with superimposed amorphous enhancing elements in the right paracentral lobule. 3. Redemonstration of a large, minimal ly complex cyst subjacent to the craniotomy defect, deep margin of which is intimately associated with the aforementioned necrotic enhancing lesion. 4. Persistent surrounding right heat treater helper ior cerebral vasogenic edema and intracranial mass effect without a 0.9 cm of leftward midline shift. 5. Slight asymmetric distention-entrap ment of the right temporal horn with otherwise normal supratentorial ventricular size. Finalized by Ashish Cooper DO on 08/20/2022 8:17 AM. Dictated by Ashish Cooper DO on 08/20/2022 7:53 AM. Narrative 08/20/2022 8:17 AM CDT EXAM: MRI BRAIN HISTORY: History of anaplastic oligodendroglioma temporal lobe, brain mass status post prior resection, seizure disorder. TECHNIQUE: Multiplanar and multisequence MR imaging of the head was performed. This was done both before and after the administration of MultiHancecontrast. COMPARISON: External head CT 08/19/2022. FINDINGS: Previous right parietotemporal craniotomy and perirolandic-parietal mass resection. Redemonstration of a large cyst subjacent to the craniotomy defect, previously demonstrating incomplete thin marginal anterior calcification on external head CT, with curvilinear enhancement along the deep inferior cyst margin (series 22, image 69). Redemonstration of an irregular, mixed centrally cystic-hemorrhagic parenchymal mass with heterogeneous marginal enhancement centered within the posterior- superior periatrial and perirolandic white matter and posterior right callosal- pericallosal region with the dominant enhancing element measuring up to approximately 4.9 x 3.9 x 3.2 cm (series 21, image 107 and series 22, image 55). There are areas of marginal masslike FLAIR hyperintensity involving the inferior margin in the periatrial white matter, the posterior right frontal vertex, medial perirolandic vertex-paracentral lobule, posterior right centrum semiovale and capsular white matter, and right greater than left posterior callosal isthmus with areas of superimposed amorphous enhancement at the perirolandic vertex and paracentral lobule. Additional ill-defined infiltrative FLAIR hyperintensity is present in the posterior left periatrial-pericallosal region and posterior cingulate regions. Persistent surrounding hypodense posterior right cerebral vasogenic edema and associated intracranial mass effect with up to 0.9 cm of leftward midline shift, though, no overt descending herniation at this time. The supratentorial ventricles are normal in size, part from mild asymmetric prominence of the right temporal horn which may be partially entrapped. There are additional scattered right posterior cerebral susceptibility foci, likely treatment-related microhemorrhage. Diffusion-weighted imaging is not indicative of acute or recent infarct. Major central intracranial arterial flow voids are preserved. Procedure Note Ashish Cooper DO - 08/20/2022 EXAM: MRI BRAIN HISTORY: History of anaplastic oligodendroglioma temporal lobe, brain mass status post prior resection, seizure disorder. TECHNIQUE: Multiplanar and multisequence MR imaging of the head was performed. This was done both before and after the administration of MultiHancecontrast. COMPARISON: External head CT 08/19/2022. FINDINGS: Previous right parietotemporal craniotomy and perirolandic-parietal mass resection. Redemonstration of a large cyst subjacent to the craniotomy defect, previously demonstrating incomplete thin marginal anterior calcification on external head CT, with curvilinear enhancement along the deep inferior cyst margin (series 22, image 69). Redemonstration of an irregular, mixed centrally cystic-hemorrhagic parenchymal mass with heterogeneous marginal enhancement centered within the posterior- superior periatrial and perirolandic white matter and posterior right callosal- pericallosal region with the dominant enhancing element measuring up to approximately 4.9 x 3.9 x 3.2 cm (series 21, image 107 and series 22, image 55). There are areas of marginal masslike FLAIR hyperintensity involving the inferior margin in the periatrial white matter, the posterior right frontal vertex, medial perirolandic vertex-paracentral lobule, posterior right centrum semiovale and capsular white matter, and right greater than left posterior callosal isthmus with areas of superimposed amorphous enhancement at the perirolandic vertex and paracentral lobule. Additional ill-defined infiltrative FLAIR hyperintensity is present in the posterior left periatrial-pericallosal region and posterior cingulate regions. Persistent surrounding hypodense posterior right cerebral vasogenic edema and associated intracranial mass effect with up to 0.9 cm of leftward midline shift, though, no overt descending herniation at this time. The supratentorial ventricles are normal in size, part from mild asymmetric prominence of the right temporal horn which may be partially entrapped. There are additional scattered right posterior cerebral susceptibility foci, likely treatment-related microhemorrhage. Diffusion-weighted imaging is not indicative of acute or recent infarct. Major central intracranial arterial flow voids are preserved. IMPRESSION 1. Prior right parietotemporal cranioto my and lateral perirolandic-parietal mass resection with redemonstration of a hemorrhagic right perirolandic callosal-pericallosal necrotic enhancing mass, consistent with recurrent disease. 2. Marginal masslike-infiltrative tumor al elements are present within the posterior right frontal-perirolandic vertex, right periatrial region, posterior corpus callosum-pericallosal regions, and cingulate gyri with superimposed amorphous enhancing elements in the right paracentral lobule. 3. Redemonstration of a large, minimall y complex cyst subjacent to the craniotomy defect, deep margin of which is intimately associated with the aforementioned necrotic enhancing lesion. 4. Persistent surrounding right posteri or cerebral vasogenic edema and intracranial mass effect without a 0.9 cm of leftward midline shift. 5. Slight asymmetric distention-entrapm ent of the right temporal horn with otherwise normal supratentorial ventricular size. Finalized by Ashish Cooper DO on 08/20/2022 8:17 AM. Dictated by Ashish Cooper DO on 08/20/2022 7:53 AM. Tej Riggs MD MR ORDERABLES * (ABNORMAL) BASIC METABOLIC PANEL (08/20/2022 5:23 AM CDT) Pathologist Signature Component Value Ref Test Method Analysis Performed A t Range Time Sodium 138 137 - 08/20/2022 [facility] DEPT PAT H AND 147 6:25 AM LAB MEDICINE MMOL/L CDT Potassium 4.1 3.5 - 08/20/2022 [facility] DEPT PAT H AND 5.1 6:25 AM LAB MEDICINE MMOL/L CDT Chloride 108 98 - 110 08/20/2022 [facility] DEPT PAT H AND MMOL/L 6:25 AM LAB MEDICINE CDT CO2 22 21 - 30 08/20/2022 [facility] DEPT PAT H AND MMOL/L 6:25 AM LAB MEDICINE CDT Anion Gap 8 3 - 12 08/20/2022 [facility] DEPT PAT H AND 6:25 AM LAB MEDICINE CDT Glucose 116 (H) 70 - 100 08/20/2022 [facility] DEPT PAT H AND MG/DL 6:25 AM LAB MEDICINE CDT Blood Urea Nitrogen 15 7 - 25 08/20/2022 [facility] DEPT PATH AND MG/DL 6:25 AM LAB MEDICINE CDT Creatinine 0.51 0.4 - 08/20/2022 [facility] DEPT PAT H AND 1.00 6:25 AM LAB MEDICINE MG/DL CDT Calcium 9.2 8.5 - 08/20/2022 [facility] DEPT PAT H AND 10.6 6:25 AM LAB MEDICINE MG/DL CDT eGFR >60 >60 08/20/2022 [facility] DEPT PAT H AND mL/min 6:25 AM LAB MEDICINE CDT Comment: eGFR calculated using the CKD-EPIcr_R equation Anatomical Location / Laterality Collection Method / Volume Isra ection Time Received Time Specimen (Source) BLOOD / Unknown 08/20/2022 5:23 AM CDT 08/21/19 5:24 AM CDT Tej Riggs MD LABORATORY ORDERABLES City/State/ZIP Code Phone Number Performing [place] [address] [facility] DEPT PATH AND [address] [facility] LAB MEDICINE * (ABNORMAL) CBC AND DIFF (08/20/2022 5:23 AM CDT) Pathologist Signature Component Value Ref Test Method Analysis Performed A t Range Time White Blood Cells 10.6 4.5 - 08/20/2022 [facility] DE PT PATH AND 11.0 6:04 AM LAB MEDICINE K/UL CDT RBC 4.14 4.0 - 08/20/2022 [facility] DEPT PAT H AND 5.0 M/UL 6:04 AM LAB MEDICINE CDT Hemoglobin 13.6 12.0 - 08/20/2022 [facility] DEPT PAT H AND 15.0 6:04 AM LAB MEDICINE GM/DL CDT Hematocrit 40.3 36 - 45 08/20/2022 [facility] DEPT PAT H AND % 6:04 AM LAB MEDICINE CDT MCV 97.4 80 - 100 08/20/2022 [facility] DEPT PAT H AND FL 6:04 AM LAB MEDICINE CDT MCH 32.8 26 - 34 08/20/2022 [facility] DEPT PAT H AND PG 6:04 AM LAB MEDICINE CDT MCHC 33.7 32.0 - 08/20/2022 [facility] DEPT PAT H AND 36.0 6:04 AM LAB MEDICINE G/DL CDT RDW 13.4 11 - 15 08/20/2022 [facility] DEPT PAT H AND % 6:04 AM LAB MEDICINE CDT Platelet Count 155 150 - 08/20/2022 [facility] DEPT PATH AND 400 K/UL 6:04 AM LAB MEDICINE CDT MPV 7.5 7 - 11 08/20/2022 [facility] DEPT PAT H AND FL 6:04 AM LAB MEDICINE CDT Neutrophils 93 (H) 41 - 77 08/20/2022 [facility] DEPT PAT H AND % 6:04 AM LAB MEDICINE CDT Lymphocytes 5 (L) 24 - 44 08/20/2022 [facility] DEPT PAT H AND % 6:04 AM LAB MEDICINE CDT Monocytes 2 (L) 4 - 12 % 08/20/2022 [facility] DEPT PAT H AND 6:04 AM LAB MEDICINE CDT Eosinophils 0 0 - 5 % 08/20/2022 [facility] DEPT PAT H AND 6:04 AM LAB MEDICINE CDT Basophils 0 0 - 2 % 08/20/2022 [facility] DEPT PAT H AND 6:04 AM LAB MEDICINE CDT Absolute Neutrophil 9.83 (H) 1.8 - 08/20/2022 [facility] DEPT PATH AND Count 7.0 K/UL 6:04 AM LAB MEDICINE CDT Absolute Lymph Count 0.57 (L) 1.0 - 08/20/2022 [facility] DEPT PATH AND 4.8 K/UL 6:04 AM LAB MEDICINE CDT Absolute Monocyte 0.21 0 - 0.80 08/20/2022 [facility] DE PT PATH AND Count K/UL 6:04 AM LAB MEDICINE CDT Absolute Eosinophil 0.00 0 - 0.45 08/20/2022 [facility] DEPT PATH AND Count K/UL 6:04 AM LAB MEDICINE CDT Absolute Basophil 0.00 0 - 0.20 08/20/2022 [facility] DE PT PATH AND Count K/UL 6:04 AM LAB MEDICINE CDT Anatomical Location / Laterality Collection Method / Volume Isra ection Time Received Time Specimen (Source) BLOOD / Unknown 08/20/2022 5:23 AM CDT 08/21/19 5:24 AM CDT Tej Riggs MD LABORATORY ORDERABLES City/State/ZIP Code Phone Number Per[place] [address] [facility] DEPT PATH AND [address] [facility] LAB MEDICINE * (ABNORMAL) CBC AND DIFF (08/19/2022 9:24 PM CDT) Pathologist Signature Component Value Ref Test Method Analysis Performed A t Range Time White Blood Cells 5.8 4.5 - 08/19/2022 [facility] DE PT PATH AND 11.0 10:00 PM LAB MEDICINE K/UL CDT RBC 4.14 4.0 - 08/19/2022 [facility] DEPT PAT H AND 5.0 M/UL 10:00 PM LAB MEDICINE CDT Hemoglobin 13.8 12.0 - 08/19/2022 [facility] DEPT PAT H AND 15.0 10:00 PM LAB MEDICINE GM/DL CDT Hematocrit 39.5 36 - 45 08/19/2022 [facility] DEPT PAT H AND % 10:00 PM LAB MEDICINE CDT MCV 95.3 80 - 100 08/19/2022 [facility] DEPT PAT H AND FL 10:00 PM LAB MEDICINE CDT MCH 33.2 26 - 34 08/19/2022 [facility] DEPT PAT H AND PG 10:00 PM LAB MEDICINE CDT MCHC 34.9 32.0 - 08/19/2022 [facility] DEPT PAT H AND 36.0 10:00 PM LAB MEDICINE G/DL CDT RDW 13.4 11 - 15 08/19/2022 [facility] DEPT PAT H AND % 10:00 PM LAB MEDICINE CDT Platelet Count 157 150 - 08/19/2022 [facility] DEPT PATH AND 400 K/UL 10:00 PM LAB MEDICINE CDT MPV 7.6 7 - 11 08/19/2022 [facility] DEPT PAT H AND FL 10:00 PM LAB MEDICINE CDT Neutrophils 93 (H) 41 - 77 08/19/2022 [facility] DEPT PAT H AND % 10:00 PM LAB MEDICINE CDT Lymphocytes 6 (L) 24 - 44 08/19/2022 [facility] DEPT PAT H AND % 10:00 PM LAB MEDICINE CDT Monocytes 1 (L) 4 - 12 % 08/19/2022 [facility] DEPT PAT H AND 10:00 PM LAB MEDICINE CDT Eosinophils 0 0 - 5 % 08/19/2022 [facility] DEPT PAT H AND 10:00 PM LAB MEDICINE CDT Basophils 0 0 - 2 % 08/19/2022 [facility] DEPT PAT H AND 10:00 PM LAB MEDICINE CDT Absolute Neutrophil 5.39 1.8 - 08/19/2022 [facility] DEPT PATH AND Count 7.0 K/UL 10:00 PM LAB MEDICINE CDT Absolute Lymph Count 0.33 (L) 1.0 - 08/19/2022 [facility] DEPT PATH AND 4.8 K/UL 10:00 PM LAB MEDICINE CDT Absolute Monocyte 0.05 0 - 0.80 08/19/2022 [facility] DE PT PATH AND Count K/UL 10:00 PM LAB MEDICINE CDT Absolute Eosinophil 0.00 0 - 0.45 08/19/2022 [facility] DEPT PATH AND Count K/UL 10:00 PM LAB MEDICINE CDT Absolute Basophil 0.02 0 - 0.20 08/19/2022 [facility] DE PT PATH AND Count K/UL 10:00 PM LAB MEDICINE CDT Anatomical Location / Laterality Collection Method / Volume Isra ection Time Received Time Specimen (Source) 08/19/2022 9:24 PM CDT 08/20/19 23 9:35 PM CDT Cecily Bartholomew MD LABORATORY ORDERABLES City/State/ZIP Code Phone Number [place] [address] [facility] DEPT PATH AND [address] [facility] LAB MEDICINE * TEST-URINE (08/19/2022 8:45 PM CDT) Pathologist Signature Component Value Ref Test Method Analysis Performed A t Range Time Urine-HCG NEG 08/19/2022 [facility] DEPT PATH AND 10:15 PM LAB MEDICINE CDT Specific [place] 1.038 08/19/2022 [facility] DEPT PA TH AND 10:15 PM LAB MEDICINE CDT Anatomical Location / Laterality Collection Method / Volume Isra ection Time Received Time Specimen (Source) URINE SPECIMEN / Unknown 08/19/2022 8:45 PM CDT 08/19/2022 10:00 PM CDT Urine Tej Riggs MD URINE ORDERABLES City/State/ZIP Code Phone Number [place] [address] [facility] DEPT PATH AND [address] [facility] LAB MEDICINE * (ABNORMAL) COMPREHENSIVE METABOLIC PANEL (08/19/2022 8:34 PM CDT) Pathologist Signature Component Value Ref Test Method Analysis Performed A t Range Time Sodium 140 137 - 08/19/2022 [facility] DEPT PAT H AND 147 9:37 PM LAB MEDICINE MMOL/L CDT Potassium 3.5 3.5 - 08/19/2022 [facility] DEPT PAT H AND 5.1 9:37 PM LAB MEDICINE MMOL/L CDT Chloride 106 98 - 110 08/19/2022 [facility] DEPT PAT H AND MMOL/L 9:37 PM LAB MEDICINE CDT Glucose 138 (H) 70 - 100 08/19/2022 [facility] DEPT PAT H AND MG/DL 9:37 PM LAB MEDICINE CDT Blood Urea Nitrogen 14 7 - 25 08/19/2022 [facility] DEPT PATH AND MG/DL 9:37 PM LAB MEDICINE CDT Creatinine 0.59 0.4 - 08/19/2022 [facility] DEPT PAT H AND 1.00 9:37 PM LAB MEDICINE MG/DL CDT Calcium 9.5 8.5 - 08/19/2022 [facility] DEPT PAT H AND 10.6 9:37 PM LAB MEDICINE MG/DL CDT Total Protein 7.2 6.0 - 08/19/2022 [facility] DEPT P ATH AND 8.0 G/DL 9:37 PM LAB MEDICINE CDT Total Bilirubin 0.5 0.3 - 08/19/2022 [facility] DEPT PATH AND 1.2 9:37 PM LAB MEDICINE MG/DL CDT Albumin 4.6 3.5 - 08/19/2022 [facility] DEPT PAT H AND 5.0 G/DL 9:37 PM LAB MEDICINE CDT Alk Phosphatase 67 25 - 110 08/19/2022 [facility] DEPT PATH AND U/L 9:37 PM LAB MEDICINE CDT AST (SGOT) 25 7 - 40 08/19/2022 [facility] DEPT PAT H AND U/L 9:37 PM LAB MEDICINE CDT CO2 23 21 - 30 08/19/2022 [facility] DEPT PAT H AND MMOL/L 9:37 PM LAB MEDICINE CDT ALT (SGPT) 18 7 - 56 08/19/2022 [facility] DEPT PAT H AND U/L 9:37 PM LAB MEDICINE CDT Anion Gap 11 3 - 12 08/19/2022 [facility] DEPT PAT H AND 9:37 PM LAB MEDICINE CDT eGFR >60 >60 08/19/2022 [facility] DEPT PAT H AND mL/min 9:37 PM LAB MEDICINE CDT Comment: eGFR calculated using the CKD-EPIcr_R equation Anatomical Location / Laterality Collection Method / Volume Isra ection Time Received Time Specimen (Source) BLOOD / Unknown 08/19/2022 8:34 PM CDT 08/20/19 9:01 PM CDT Tej Riggs MD LABORATORY ORDERABLES City/State/ZIP Code Phone Number [place] [address] [facility] [facility] [facility] AND [address] [employer] [facility] LAB MEDICINE * PTT (APTT) (08/19/2022 8:34 PM CDT) Pathologist Signature Component Value Ref Test Method Analysis Performed A t Range Time APTT 32.1 24.0 - 08/19/2022 [facility] DEPT PAT H AND 36.5 SEC 9:38 PM LAB MEDICINE CDT Anatomical Location / Laterality Collection Method / Volume Isra ection Time Received Time Specimen (Source) BLOOD / Unknown 08/19/2022 8:34 PM CDT 08/20/19 23 9:01 PM CDT Tej Riggs MD LABORATORY [employer] [facility]/ZIP Code Phone Number Performing [place] [address] [facility] AND [address] [employer] [facility] LAB MEDICINE * PROTIME INR (PT) (08/19/2022 8:34 PM CDT) Pathologist Signature Component Value Ref Test Method Analysis Performed A t Range Time Protime 12.6 9.5 - 08/19/2022 [facility] DEPT PAT H AND 14.2 SEC 9:38 PM LAB MEDICINE CDT INR 1.1 0.8 - 08/19/2022 [facility] DEPT PAT H AND 1.2 9:38 PM LAB MEDICINE CDT Anatomical Location / Laterality Collection Method / Volume Isra ection Time Received Time Specimen (Source) BLOOD / Unknown 08/19/2022 8:34 PM CDT 08/20/19 23 9:01 PM CDT Tej Riggs MD LABORATORY [employer] [facility]/ZIP Code Phone Number [place] [address] [facility] AND [employer] [facility] LAB MEDICINE documented in this encounter Visit Diagnoses Diagnosis Brain mass - Primary Unspecified condition of brain Recurrent brain tumor (HCC) Neoplasm of unspecified nature of brain S/P craniotomy Other postprocedural status Steroid-induced hyperglycemia Other abnormal glucose Tobacco abuse Tobacco use disorder Vasogenic brain edema (HCC) Cerebral edema Brain compression (HCC) Compression of brain 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) Impaired proprioception Hyponatremia Hyposmolality and/or hyponatremia Vasogenic brain edema (HCC) Cerebral edema Brain compression (HCC) Compression of brain Steroid-induced hyperglycemia Other abnormal glucose Hemiparesis of left nondominant side (H CC) Impaired proprioception Hyponatremia Hyposmolality and/or hyponatremia documented in this encounter Admitting Diagnoses Diagnosis Brain mass Unspecified condition of brain documented in this encounter Administered Medications Action Date Dose Rate Site Medication Order MAR Action 08/28/2022 5:19 AM CDT 650 mg acetaminophen (TYLENOL) tablet 650 mg Given 650 mg, Oral, EVERY 4 HOURS PRN, Starting on Thu08/19/22 at 2016, Until Thu08/29/22 at 1152, Temp > ..., Headache, Pain non-opioid: may be used alone or in combination with opioid analgesia, 38.3 C, TOTAL ACETAMINOPHEN DOSE NOT TO EXCEED 4GM DAILY, Admission/Obs/Extended Recovery 650 mg Given 08/27/2022 8:24 AM CDT 650 mg Given 08/27/2022 2:19 AM CDT 650 mg Given 08/26/2022 9:19 PM CDT 08/27/2022 4:19 AM CDT 2 g ceFAZolin (ANCEF) IVP 2 g Given 2 g, Intravenous, EVERY 8 HOURS, 2 doses, First dose on Thu08/26/22 at 2030, Last dose on Thu08/27/22 at 0430, IV PUSH -- RECONSTITUTE each 1 g vial b y adding 10 mLs of STERILE WATER (SW) or SODIUM CHLORIDE (NS), For patients >= 8 0 kg, Admission/Obs/Extended Recovery 2 g Given 08/26/2022 8:12 PM CDT 08/28/2022 5:19 AM CDT 4 mg dexAMETHasone (DECADRON) tablet 4 mg Given 4 mg, Oral, EVERY 6 HOURS, First dose on Thu08/19/22 at 2030, Until Discontinued, Admission/Obs/Extended Recovery 4 mg Given 08/28/2022 12:06 AM CDT 4 mg Given 08/27/2022 6:09 PM CDT 4 mg Given 08/27/2022 1:00 PM CDT 4 mg Given 08/27/2022 8:25 AM CDT 4 mg Given 08/27/2022 2:20 AM CDT 4 mg Given 08/26/2022 8:12 PM CDT 4 mg Given 08/26/2022 9:02 AM CDT 4 mg Given 08/26/2022 2:56 AM CDT 4 mg Given 08/25/2022 9:22 PM CDT 4 mg Given 08/25/2022 3:09 PM CDT 4 mg Given 08/25/2022 8:35 AM CDT 4 mg Given 08/25/2022 2:25 AM CDT 4 mg Given 08/24/2022 8:05 PM CDT 4 mg Given 08/24/2022 3:24 PM CDT 4 mg Given 08/24/2022 9:21 AM CDT 4 mg Given 08/24/2022 2:41 AM CDT 4 mg Given 08/23/2022 9:09 PM CDT 4 mg Given 08/23/2022 4:00 PM CDT 4 mg Given 08/23/2022 9:51 AM CDT 4 mg Given 08/23/2022 2:22 AM CDT 4 mg Given 08/22/2022 9:12 PM CDT 4 mg Given 08/22/2022 2:00 PM CDT 4 mg Given 08/22/2022 9:24 AM CDT 4 mg Given 08/22/2022 2:43 AM CDT 4 mg Given 08/21/2022 9:01 PM CDT 4 mg Given 08/21/2022 1:43 PM CDT 4 mg Given 08/21/2022 8:16 AM CDT 4 mg Given 08/21/2022 1:40 AM CDT 4 mg Given 08/20/2022 8:22 PM CDT 4 mg Given 08/20/2022 2:47 PM CDT 4 mg Given 08/20/2022 8:51 AM CDT 4 mg Given 08/20/2022 2:59 AM CDT 4 mg Given 08/19/2022 8:49 PM CDT 08/29/2022 6:52 AM CDT 4 mg dexAMETHasone (DECADRON) tablet 4 mg Given 4 mg, Oral, EVERY 8 HOURS, First dose (after last modification) on Thu 3 at 1400, Until Discontinued, Admission/Obs/Extended Recovery 4 mg Given 08/28/2022 9:54 PM CDT 4 mg Given 08/28/2022 2:23 PM CDT 08/29/2022 8:32 AM CDT 100 mg docusate (COLACE) capsule 100 mg Given 100 mg, Oral, TWICE DAILY, First dose o n Thu08/19/22 at 2100, Until Discontinued, Hold for loose stools, Admission/Obs/Extended Recovery 100 mg Given 08/28/2022 9:10 AM CDT 100 mg Given 08/27/2022 8:17 PM CDT 100 mg Given 08/27/2022 8:24 AM CDT 100 mg Given 08/24/2022 9:21 AM CDT 100 mg Given 08/23/2022 9:09 PM CDT 100 mg Given 08/23/2022 9:30 AM CDT 100 mg Given 08/22/2022 9:12 PM CDT 100 mg Given 08/22/2022 9:24 AM CDT 100 mg Given 08/21/2022 9:01 PM CDT 100 mg Given 08/21/2022 8:16 AM CDT 100 mg Given 08/20/2022 8:22 PM CDT 100 mg Given 08/20/2022 8:51 AM CDT 08/26/2022 9:19 PM CDT 20 mg famotidine (PEPCID) tablet 20 mg Given 20 mg, Oral, TWICE DAILY PRN, Starting on Thu08/19/22 at 2016, Until Thu 3 at 1152, Indigestion/Heartburn, Admission/Obs/Extended Recovery 08/27/2022 12:01 AM CDT 25 mcg fentaNYL citrate PF (SUBLIMAZE) Given injection 12.5-25 mcg 12.5-25 mcg, Intravenous, EVERY 1 HOUR PRN, Starting on Thu08/26/22 at 1930, Until Thu08/27/22 at 0711, Pain Injectable, Admission/Obs/Extended Recovery 25 mcg Given 08/26/2022 10:55 PM CDT 08/20/2022 6:15 AM CDT 10 mL gadobenate dimeglumine (MULTIHANCE) Given injection 10 mL 10 mL, Intravenous, ONCE, 1 dose, On 08/20/22 at 0630, NOTE: This is a HIGH ALERT Medication. 08/26/2022 11:32 PM CDT 10 mL gadobenate dimeglumine (MULTIHANCE) Given injection 10 mL 10 mL, Intravenous, ONCE, 1 dose, On 08/26/22 at 2345, NOTE: This is a HIGH ALERT Medication. 08/25/2022 9:23 PM CDT 5,000 Units Arm, Lef t heparin (porcine) PF syringe 5,000 Units Given 5,000 Units, Subcutaneous, EVERY 8 HOURS, 17 doses, First dose on 08/20/22 at 1400, Last dose on 08/25/22 at 2200, NOTE: This is a HIGH ALERT Medication. 5,000 Units Arm, Right Given 08/25/2022 3:09 PM CDT 5,000 Units Leg, Upper Right Given 08/25/2022 6:19 AM CDT 5,000 Units Abdominal Tissue Given 08/24/2022 8:05 PM CDT 5,000 Units Abdomen:RLQ Given 08/24/2022 3:26 PM CDT 5,000 Units Arm, Left Given 08/24/2022 6:04 AM CDT 5,000 Units Arm, Right Given 08/23/2022 9:09 PM CDT 5,000 Units Arm, Left Given 08/23/2022 4:00 PM CDT 5,000 Units Arm, Right Given 08/23/2022 5:20 AM CDT 5,000 Units Arm, Left Given 08/22/2022 9:13 PM CDT 5,000 Units Arm, Left Given 08/22/2022 2:00 PM CDT 5,000 Units Arm, Left Given 08/22/2022 5:58 AM CDT 5,000 Units Arm, Right Given 08/21/2022 9:02 PM CDT 5,000 Units Arm, Right Given 08/21/2022 1:42 PM CDT 5,000 Units Abdominal Tissue Given 08/21/2022 6:24 AM CDT 5,000 Units Abdomen:LLQ Given 08/20/2022 10:07 PM CDT 5,000 Units Abdominal Tissue Given 08/20/2022 2:46 PM CDT 08/29/2022 5:56 AM CDT 5,000 Units Hip, Lef t heparin (porcine) PF syringe 5,000 Units Given 5,000 Units, Subcutaneous, EVERY 8 HOURS, First dose on [place] 08/28/22 at 2200, Until Discontinued, NOTE: This is a HIGH ALERT Medication. 5,000 Units Abdomen:RLQ Given 08/28/2022 9:54 PM CDT 08/26/2022 9:19 PM CDT 500 mg levETIRAcetam (KEPPRA) IV push 500 mg Given 500 mg, Intravenous, 5 mL, TWICE DAILY, First dose on Thu08/26/22 at 2100, Unti l Discontinued, IV Push should be administered over 1 minute for every 500mg., Admission/Obs/Extended Recovery 08/29/2022 8:18 AM CDT 500 mg levETIRAcetam (KEPPRA) tablet 500 mg Given 500 mg, Oral, TWICE DAILY, First dose o n Thu08/27/22 at 0900, Until Discontinued 500 mg Given 08/28/2022 8:30 PM CDT 500 mg Given 08/28/2022 9:09 AM CDT 500 mg Given 08/27/2022 8:17 PM CDT 500 mg Given 08/27/2022 8:24 AM CDT 08/22/2022 9:27 AM CDT 30 mL milk of magnesium oral suspension 30 mL Given 30 mL, Oral, DAILY, First dose on Thu08/19/22 at 2030, Until Discontinued, May hold if BM within 24 hours of dose., Admission/Obs/Extended Recovery 30 mL Given 08/21/2022 8:16 AM CDT milk of magnesium oral suspension 30 mL 30 mL, Oral, DAILY PRN, Starting on i 08/22/22 at 1030, Until Thu08/29/22 at 1152, Constipation PO, May hold if BM within 24 hours of dose., Admission/Obs/Extended Recovery 08/29/2022 8:21 AM CDT 1 patch Arm, Rig ht nicotine (NICODERM CQ) 14 mg/day patch 1 Patch/Topic a patch l Applied 1 patch, Transdermal, Administer over 2 4 Hours, DAILY, First dose on Thu08/20/22 at 0900, Until Discontinued 1 patch Arm, Right Patch/Topical Applied 08/28/2022 9:10 AM CDT 1 patch Arm, Left Patch/Topical Applied 08/27/2022 8:25 AM CDT 1 patch Arm, Left Patch/Topical Applied 08/26/2022 9:03 AM CDT 1 patch Arm, Left Patch/Topical Applied 08/25/2022 8:36 AM CDT 1 patch Arm, Right Patch/Topical Applied 08/24/2022 9:22 AM CDT 1 patch Arm, Left Patch/Topical Applied 08/23/2022 9:20 AM CDT 1 patch Arm, Right Patch/Topical Applied 08/22/2022 9:25 AM CDT 1 patch Deltoid, Left Patch/Topical Applied 08/21/2022 8:18 AM CDT 1 patch Arm, Right Patch/Topical Applied 08/20/2022 8:51 AM CDT 08/29/2022 8:18 AM CDT 10 mg oxyCODONE (ROXICODONE) tablet 5-10 mg Given 5-10 mg, Oral, EVERY 4 HOURS PRN, Starting on Thu08/26/22 at 1930, Until Thu08/29/22 at 1152, Pain PO, Other..., Moderate/Severe Pain, Give if patient tolerating PO if Portal not effective., Admission/Obs/Extended Recovery 5 mg Given 08/29/2022 3:59 AM CDT 5 mg Given 08/28/2022 8:30 PM CDT 5 mg Given 08/28/2022 5:37 PM CDT 5 mg Given 08/28/2022 4:30 PM CDT 10 mg Given 08/27/2022 8:17 PM CDT 5 mg Given 08/27/2022 1:00 PM CDT 5 mg Given 08/27/2022 8:24 AM CDT 10 mg Given 08/27/2022 6:11 AM CDT 5 mg Given 08/27/2022 2:20 AM CDT 5 mg Given 08/27/2022 12:01 AM CDT 5 mg Given 08/26/2022 9:19 PM CDT 5 mg Given 08/26/2022 8:12 PM CDT 08/28/2022 9:13 AM CDT 2 sprays phenoL (CHLORASEPTIC) spray 2 spray Given 2 spray, Mouth/Throat, NEEDED, Starting on Thu08/28/22 at 0925, Until Thu08/29/22 at 1152, Mouth/Throat Pain 08/25/2022 9:22 PM CDT 1 tablet senna/docusate (SENOKOT-S) tablet 1 Given tablet 1 tablet, Oral, TWICE DAILY, First dose on Thu08/19/22 at 2100, Until Discontinued, Hold for loose stools, Admission/Obs/Extended Recovery 1 tablet Given 08/25/2022 8:35 AM CDT 1 tablet Given 08/24/2022 9:21 AM CDT 1 tablet Given 08/23/2022 9:09 PM CDT 1 tablet Given 08/23/2022 9:51 AM CDT 1 tablet Given 08/22/2022 9:12 PM CDT 1 tablet Given 08/22/2022 9:24 AM CDT 1 tablet Given 08/21/2022 9:01 PM CDT 1 tablet Given 08/21/2022 8:16 AM CDT 1 tablet Given 08/20/2022 8:22 PM CDT 08/29/2022 8:32 AM CDT 1 tablet senna/docusate (SENOKOT-S) tablet 1 Given tablet 1 tablet, Oral, TWICE DAILY, First dose on Thu08/26/22 at 2100, Until Discontinued, Hold for loose stools. If patient unable to take tablet, give 10 mL of senna/docusate (SENOKOT-S) solution. Send [employer] message to pharmacy., If patient unable to take tablet, give 10 mL of senna/docusate (SENOKOT-S) solution., Admission/Obs/Extended Recovery 1 tablet Given 08/28/2022 9:10 AM CDT 1 tablet Given 08/27/2022 8:17 PM CDT 1 tablet Given 08/27/2022 8:24 AM CDT documented in this encounter Discontinued Medications Start Date End Date Medication Sig Discontinue Reason 10/23/2014 08/21/2022 dexamethasone (DECADRON) Please take Removed from 2 mg tablet 2 tablets FAMILY SUPPORT WORKER Med List every 8 hours for 4 days. Then take 2 tablets every 12 hours for 4 days. Then take 1 tablet every 12 hours for 4 days. Finally, take 1/2 a tablet every 12 hours for 4 days before stopping. 10/16/2014 08/21/2022 HYDROcodone/acetaminophen Take 1-2 Removed from (NORCO; VICODIN) 5-325 mg Tabs by FAMILY SUPPORT WORKER Med List tablet mouth every 4 hours as needed for Pain Earliest Fill Date: 10/16/14 10/23/2014 08/21/2022 levETIRAcetam (KEPPRA) Take 1 Tab Removed from 500 mg tablet by mouth FAMILY SUPPORT WORKER Med List twice daily. 10/23/2014 08/21/2022 senna/docusate Take 1 Tab Removed from (SENOKOT-S) 8.6/50 mg by mouth FAMILY SUPPORT WORKER Med List tablet twice daily. 08/21/2022 vitamins, w/iron Take 1 Tab Removed from & folate () by mouth FAMILY SUPPORT WORKER Med List 28-0.8 mg tablet daily. documented as of this encounter Active and Recently Administered Medications Times are shown in CDT. 08/28/2022 08/29/2022 Medication Order 08/27/2022 ceFAZolin (ANCEF) IVP 2 g (COMPLETED) 0419 (Given - 2 g, Intravenous, EVERY 8 HOURS, 2 Provider: Bianka eth doses, First dose on Thu08/26/22 at [place]) 2030, Last dose on Thu08/27/22 at 0430, IV PUSH -- RECONSTITUTE each 1 g vial b y adding 10 mLs of STERILE WATER (SW) or SODIUM CHLORIDE (NS), For patients >= 8 0 kg, Admission/Obs/Extended Recovery 0006 (Given - Provider: Lilly Main RN)0519 (Given - Provider: Lilly Main RN) dexAMETHasone (DECADRON) tablet 4 mg 0220 (Given - (CANCELED) Provider: Lilly 4 mg, Oral, EVERY 6 HOURS, First dose [place])082 5 on Thu08/19/22 at 2030, Until (Given - Provider: Discontinued, Admission/Obs/Extended Joselo Melendez, mannequin maker)1300 (Given - Provider: Joselo Melendez RN)1809 (Given - Provider: Joselo Melendez RN) 1423 (Given - Provider: Danya Nixon, [place])2154 (Given - Provider: Silverio Chandler, [place]) 0652 (Given - Provider: Silverio Chandler, [place]) dexAMETHasone (DECADRON) tablet 4 mg 4 mg, Oral, EVERY 8 HOURS, First dose (after last modification) on Thu 3 at 1400, Until Discontinued, Admission/Obs/Extended Recovery 0910 (Given - Provider: Danya Nixon RN)203 (Med Not Given - Provider: Silverio Chandler RN - Reason: Loose stools) 0832 (Given - Provider: Rocío Claros RN) docusate (COLACE) capsule 100 mg 0824 (Given - 100 mg, Oral, TWICE DAILY, First dose on Provider: Debbie jackman Thu08/19/22 at 2100, Until Discontinued, Agata Melendez)2016 Hold for loose stools, (Given - Provider: Admission/Obs/Extended Recovery Lilly Main RN) 215 (Given - Provider: Silverio Chandler RN) 0556 (Given - Provider: Silverio Chandler RN) heparin (porcine) PF syringe 5,000 Unit s 5,000 Units, Subcutaneous, EVERY 8 HOURS, First dose on [place] 08/28/22 at 2200, Until Discontinued, NOTE: This is a HIGH ALERT Medication. 09 (Given - Provider: Danya Nixon RN)2029 (Given - Provider: Silverio Chandler RN) 08 (Given - Provider: Rocío Claros, [place]) levETIRAcetam (KEPPRA) tablet 500 mg 0824 (Given - 500 mg, Oral, TWICE DAILY, First dose on Provider: Debbie en Thu08/27/22 at 0900, Until Discontinued Agata Melendez)2016 (Given - Provider: Lilly Main RN) 0909 (Patch/Topical Removed - Provider: Danya Nixon RN)0910 (Patch/Topical Applied - Provider: Danya Nixon RN) 0820 (Patch/Topical Removed - Provider: Rocío Claros, [place])08 (Patch/Topical Applied - Provider: Rocío Claros, [place])0940 (Due: Patch/Topical Removed - Provider: Dennis, Orders Discontinue - Comment: Time automatically adjusted from order being discontinued) nicotine (NICODERM CQ) 14 mg/day patch 1 24 (Patch /Topical patch Removed - Provider: 1 patch, Transdermal, Administer over 24 Joselo elise, Hours, DAILY, First dose on Thu08/20/22 RN)0825 at 0900, Until Discontinued (Patch/Topical Applied - Provider: Joselo Melendez RN) 09 (Given - Provider: Danya Nixon RN)2030 (Med Not Given - Provider: Silverio Chandler RN - Reason: Loose stools) 0832 (Given - Provider: Rocío Claros RN) senna/docusate (SENOKOT-S) tablet 1 0824 (Given - tablet Provider: Joselo 1 tablet, Oral, TWICE DAILY, First dose Agata Melendez)2017 on Thu08/26/22 at 2100, Until (Given - Provider: Discontinued, Hold for loose stools. If Lilly hernandes, [place]) patient unable to take tablet, give 10 mL of senna/docusate (SENOKOT-S) solution. Send [employer] message to pharmacy., If patient unable to take tablet, give 10 mL of senna/docusate (SENOKOT-S) solution., Admission/Obs/Extended Recovery 08/28/2022 08/29/2022 Medication Order 08/27/2022 05 (Given - Provider: Lilly Main, [place]) acetaminophen (TYLENOL) tablet 650 mg 218 (Given - 650 mg, Oral, EVERY 4 HOURS PRN, Provider: Yuko rodarte Starting on Thu08/19/22 at 2016, Until [place] [facility])82308/29/22 at 1152, Temp > ..., (Given - Provider: Headache, Pain non-opioid: may be used Joselo Melendez RN) alone or in combination with opioid analgesia, 38.3 C, TOTAL ACETAMINOPHEN DOSE NOT TO EXCEED 4GM DAILY, Admission/Obs/Extended Recovery famotidine (PEPCID) tablet 20 mg 20 mg, Oral, TWICE DAILY PRN, Starting on Thu08/19/22 at 2016, Until Thu 3 at 1152, Indigestion/Heartburn, Admission/Obs/Extended Recovery fentaNYL citrate PF (SUBLIMAZE) 0001 (Given - injection 12.5-25 mcg (CANCELED) Provider: Lilly 12.5-25 mcg, Intravenous, EVERY 1 HOUR [place]) PRN, Starting on Thu08/26/22 at 1930, Until Thu08/27/22 at 0711, Pain Injectable, Admission/Obs/Extended Recovery milk of magnesium oral suspension 30 mL 30 mL, Oral, DAILY PRN, Starting on i 08/22/22 at 1030, Until Thu08/29/22 at 1152, Constipation PO, May hold if BM within 24 hours of dose., Admission/Obs/Extended Recovery ondansetron (ZOFRAN) injection 4 mg 4 mg, Intravenous, EVERY 6 HOURS PRN, Starting on Thu08/19/22 at 2016, Until Thu08/29/22 at 1152, Nausea/Vomiting Injectable, Admission/Obs/Extended Recovery 1630 (Given - Provider: Danya Nixon, [place])1737 (Given - Provider: Danya Nixon, [place])2030 (Given - Provider: Silverio Chandler RN) 0359 (Given - Provider: Donna lopez RN)0818 (Given - Provider: Rocío Claros RN) oxyCODONE (ROXICODONE) tablet 5-10 mg 0001 (Given - 5-10 mg, Oral, EVERY 4 HOURS PRN, Provider: Luisa mueller Starting on Thu08/26/22 at 1930, Until [place] [facility])022 0 Thu08/29/22 at 1152, Pain PO, Other..., (Given - Pro vider: Moderate/Severe Pain, Give if patient Lilly phillips, tolerating PO if Portal not effective., RN)0611 (Give n - Admission/Obs/Extended Recovery Provider: Lilly Main RN)0824 (Given - Provider: Joselo Melendez RN)1300 (Given - Provider: Joselo Melendez RN)2017 (Given - Provider: Lilly Main RN) 0913 (Given - Provider: Danya Nixon RN) phenoL (CHLORASEPTIC) spray 2 spray 2 spray, Mouth/Throat, NEEDED, Starting on Thu08/28/22 at 0925, Until Thu08/29/22 at 1152, Mouth/Throat Pain documented in this encounter Orders First Ordered Date Medications Ordered That Might Not Have Count Last Ordered Date Been Administered acetaminophen (TYLENOL) tablet 650 mg 1 08/26/2022 bacitracin zinc topical ointment 1 08/26 calcium gluconate 1 g/NS 100 mL infusion 1 08/26/2022 ceFAZolin (ANCEF) 1 g in sodium chloride 1 08/26/2022 irrigation 0.9 % 1,000 mL bottle docusate (COLACE) capsule 100 mg 1 08/26 famotidine (PEPCID) oral suspension 20 1 08/26/2022 mg lidocaine 1%/EPINEPHrine 1:100,000 1 injection magnesium sulfate 1 g/D5W 100 mL IVPB 1 08/26/2022 08/22/2022 milk of magnesium oral suspension 30 mL 2 08/26/2022 08/19/2022 ondansetron (ZOFRAN) injection 4 mg 2 potassium chloride in water IVPB 10 mEq 1 08/26/2022 potassium chloride oral solution 40-60 1 08/26/2022 mEq potassium chloride SR (K-DUR) tablet 1 0 08/26/2022 40-60 mEq SODIUM CHLORIDE 0.9 % IV SOLP (Cabinet 1 08/26/2022 Override) thrombin 5,000 unit topical solution 1 0 08/26/2022 levETIRAcetam (KEPPRA) tablet 500 mg 1 0 08/19/2022 oxyCODONE (ROXICODONE) tablet 5-10 mg 1 08/19/2022 First Ordered Date Lab Orders Without Results Count Last Ordere d Date PREPARE RBC'S 1 08/25/2022 First Ordered Date Diet Count Last Ordered Date DISCHARGE DIET REGULAR 1 08/29/2022 First Ordered Date Nursing Count Last Ordered Date DISCHARGE ACTIVITY NORMAL 1 08/29/2022 DISCHARGE CONTACT 1 08/29/2022 DISCHARGE EDUCATION 1 08/29/2022 DISCHARGE SIGNS/SYMPTOMS 1 08/29/2022 DISCHARGE WOUND CARE 1 08/29/2022 First Ordered Date Consult Count Last Ordered Date CONSULT REHABILITATION MEDICINE 1 2022 PHYSICIAN CONSULT NEURO CRITICAL CARE PHYSICIAN 1 08/26/2022 CONSULT NEURO ONCOLOGY PROVIDER 1 2022 First Ordered Date OT Count Last Ordered Date 08/20/2022 OT CONSULT OCCUPATIONAL THERAPY 2 2022 First Ordered Date PT Count Last Ordered Date 08/20/2022 PT CONSULT PHYSICAL THERAPY 2 08/26/2022 First Ordered Date Admission Count Last Ordered Date ADMIT TO INPATIENT (NO BED REQUEST) 1 First Ordered Date Transfer Count Last Ordered Date TRANSFER PATIENT (BED REQUEST) 1 023 First Ordered Date Discharge Count Last Ordered Date DISCHARGE PATIENT NOW 1 08/29/2022 First Ordered Date Equipment Count Last Ordered Date HEATING, MACHINE AK WITH PAD 1 3 COMPRESSION DEVICE, LEG 2 08/26/2022 PUMP IV CONTROL UNIT W/MODULES 2 023 First Ordered Date Vital Signs Count Last Ordered Date VITAL SIGNS 1 08/27/2022 First Ordered Date Activity Count Last Ordered Date MOBILITY 1 08/26/2022 First Ordered Date SPECIALITY EQUIPMENT Count Last Ordered Date WALKER 4'11"- 5'3" WT < 300 LBS 1 2022 COMMODE STANDARD 300LBS MAX 1 08/19/2022 First Ordered Date Order Set Communication Count Last Ordered D ate VTE DRUG PROPHYLAXIS CONTRAINDICATED 1 0 08/26/2022 First Ordered Date Appointment Request Count Last Ordered Date [facility]POINTMENT RE[facility] 1 08/27/2022 ([place]) APPOINTMENT REQUEST: NEUROSURGERY 1 08/[address] & Maintain Count Last Ordered Date PLACE AND MAINTAIN SCD 1 08/26/2022 First Ordered Date ADT Patient Update Count Last Ordered Date 08/26/2022 CHANGE SERVICE / LEVEL OF CARE (NO BED 2 08/27/2022 REQUEST) documented in this encounter Additional Health Concerns Noted Time Assessment 08/29/2022 8:00 AM CDT A fall risk assessment has been complet ed for the patient documented as of this encounter Care Teams Start Date End Date Burning Plant Operator Relationship Specialty 10/14/14 Viki Flores DO PCP - General Family Medicine [address] [place] [address] 10/14/14 Saumya Veliz, [place] 11/01/14 Corrie Kraft, [place] 11/02/14 Nida Patel APRN-TECHNICAL SALES SUPPORT SPECIALIST Neurological Surgery [address] [facility] [address] [place] [address] 11/02/14 Self, Referral 11/02/14 Erika Wang MD Hematology & Oncology RETIRED 11/10/2016 11/03/14 Tammy Ruiz MD Hematology & Oncology RETIRED 11/10/2016 11/20/14 Kevin Gloria MD Neurological Surgery [address] [facility] [address] [place] [address] documented as of this encounter
--- OUTSIDE RECORDS SUMMARY | 2022-08-29 13:53 | XMS REPORT | Encounter Summary ---
Author Author [facility] Organization [facility] Address Unknown Phone Unavailable Care Team Providers Care Clip Loading Machine Feeder Name Role Phone Viki Flores DO PCP Saumya Veliz RN Unavailable Unavailable Corrie Krfat RN Unavailable Unavailable Nida Patel FIELD IDENTIFICATION SPECIALIST-ENROLLMENT COUNSELOR Unavailable Self, Referral Unavailable Unavailable Erika Wang MD Unavailable Unavailable Tammy Ruiz MD Unavailable Kevin Gloria MD Unavailable Reason for Visit * Auth/Cert (Routine) Diagnoses / Procedures Referred By Contact Referred To Conta ct Specialty Diagnoses Brain mass Brain Mass Referral ID Status Reason Start Date Expiration Visits Vi sits Date Requested Authorized [id number] 1 1 Encounter Details Care Team Description Date Type Department Josh Rai MD [id number] [place] [address] Tona Woodruff RN 08/26/2022 Anesthesia Operating Room: [facility] 4:38 PM Event [place] A CDT [address] [facility] [address] [place] [address] Anesthesia Record Responsible Anesthesiologist Anesthesia Start Time Anesthesi a Stop Time Procedure Name Josh Rai MD 08/26/22 1638 08/26/22 1939 Right parietal craniotomy for resection of brain tumor (Right: Head) Date Time Event Comment 1511 1630 AN Equip Check 1638 Anes Start 1638 An Start Data 1638 In Room 1645 An Induction The patient was ree valuated immediately before moderate or deep sedation use and before anesthesia induction. 1646 An Intubation 1653 IV Placed 1657 Art Line 1701 Anesthesia Ready 1706 Quick Note Pinning 1712 an hector now 1716 Quick Note Bilateral bite bloc ks securely placed between gums 1727 Proc Start 193 An Extubation 1931 an stop data 1933 Transport Pt SV, VSS, follows commands, attached to transport monitor and FIO2 via FM. Transported to neuro icu. Emergenc y equipment and meds avail. Pt tolerated transport with no events. 1938 An Stop I completed my SBAR handoff to the receiving nurse. Meds Name Total fentaNYL PF (SUBLIMAZE) injection 100 mcg lidocaine (2%) 200 mg/10mL Injection 80 mg syringe propofol (DIPRIVAN) 200 mg/ 20 mL 400 mg injection (VIAL) succinylcholine (ANECTINE) injection 40 mg (VIAL) ondansetron (ZOFRAN) injection 4 mg dexamethasone (DECADRON) 4 mg/mL 10 mg injection propofoL (DIPRIVAN) infusion 817.61 mg remifentanyl 1000mcg in NS 20mL 782.46 mcg (50mcg/mL)(OR) artificial tears (dextran 2 drop 70/hypromellose) ophthalmic drops levETIRAcetam (KEPPRA) inj 1,000 mg mannitol 20% 100g/500mL 30 g HYDROmorphone (DILAUDID) 0.5 mg sodium chloride 0.9% (1000mL) 200 mL electrolyte-A (PLASMA-LYTE) 750 mL * Name O2 N2O Inspired * No blood administrations on file. Removal Type Details Placement 08/29/22931 by Kathleen Anderson, energy sales broker With 10/20/14; 1306; Surgical Incision; 01/25 1306 by Measured Temporal, Frontal, RT; Head; 08/29/22; Jayde Courtney RN Drainage 0932 08/29/22 0838 by Rocío Claros RN Peripheral 08/19/22; 2200; L; Posterior; Forearm; 08/19/22 2200 by IV No; 1; 08/29/22; 0838 Honey Moses RN 08/26/22 1930 by Aroldo Davis CRNA ETT 08/26/22; 1646; Ventilated by mask (1); 08/26/22 1646 by Susan, Direct laryngoscopy, Stylet; Aroldo Jimenez CRNA Single-Lumen, Cuffed; ETT Size: 7mm; Mac; Blade Size: 3; Oral; 1-Full view o f the glottis; 1 insertion attempt; Auscultation, ETCO2 Detector; Vol of r in Cuff: 7 mL; Taped at Gums: 19 centimeters; atraumatic; 08/26/22; 1930 08/29/22 0932 by Kathleen Anderson RN Peripheral 08/26/22; 1653; L; Hand; 20 G; 1; 08/11 10/03 1653 by Susan, IV 08/29/22; 0932 Aroldo Jimenez CRNA 08/27/22 0613 by Lilly Main RN Indwelling 08/26/22; 1711; 16 FR; Regular 3 1711 by Nela, Urinary (Two-way); 08/27/22; 0613 [place] Mitchell Catheter 08/29/22 0932 by Kathleen Anderson RN Wounds 08/26/22; 1739; Surgical incision; 1739 by Nela, Right; Head; 08/29/22; 0932 [place] Mitchell 08/26/22 2100 by Lilly Main RN Arterial 08/26/22; 1853 (created via procedure 08/26/22 185 by Susan, Line documentation); 20 G; 08/26/22; 2100 M marilee Jimenez CRNA documented in this encounter Social History Date Tobacco Use Types Packs/Day [...] impairment: No documented as of this encounter OR Notes * Anesthesia Postprocedure Evaluation - Sloan Carpenter MD - 08/26/2022 7:41 PM CDT Post-Anesthesia Evaluation Name: Joan Trevino : 1985 Age: 37 y.o. S ex: female Procedure Information Anesthesia Start Date/Time: 08/26/22 1638 Procedures: Right parietal craniotomy for resection of brain tumor (Right: Head) - Navig ation, 4 hours, supine, cortical and subcortical mapping. STEREOTACTIC COMPUTER-ASSISTED CRANIAL PROCEDURE - INTRADURAL (Right: Head) FUNCTIONAL CORTICAL AND SUBCORTICAL MAPPING BY STIMULATION AND/ OR RECORDING OF ELECTRODES ON BRAIN SURFACE TO IDENTIFY VITAL BRAIN STRUCTURES - INITIAL HOUR (Right: Head) Location: [facility] OR01 / [facility] OR/Periop Surgeons: Kevin Gloria MD Post-Anesthesia Vitals ABP: 155/85 (08/26 1934) Vitals Value Taken Time BP Temp Pulse Respirations SpO2 97 % 08/26/221939 O2 Device ABP 155/85 08/26/221934 ART BP Vitals shown include unvalidated device data. Post Anesthesia Evaluation Note Evaluation location: ICU Patient participation: recovered; patient participated in evaluation Level of consciousness: sleepy but conscious Pain management: adequate Hydration: normovolemia Temperature: 36.0C - 38.4C Airway patency: adequate Perioperative Events Postoperative Status Cardiovascular status: hemodynamically stable Respiratory status: spontaneous ventilation and supplemental oxygen Additional comments: ATTESTATION Post-Anesthesia Evaluation and ICU Transfer Note Attestation: I evaluated the pa tient and the indicated post-anesthesia care is discharge and transfer to the [facility] physician-lead team. Staff name: Sloan Carpenter MD Date: 08/26/2022 ICU Information Blood Products Given-no NSICU information Neuromonitoring:SSEPS ICP lowering technique in OR: mannitol no ICP monitor used anticonvulsants were given Staff involved in transport include: anesthesiologist, WHALE FISHERMAN, OR nurse, surg resi dent and SRNA Perioperative Events There were no known notable events for this encounter. * Anesthesia Procedure Notes - Aroldo Davis CRNA - 08/26/2022 5:58 PM CDT Associated Order(s): A-LINE INSERTION Anesthesia Procedure: Arterial Line Placement A-LINE INSERTION Date/Time: 08/26/2022 6:53 PM Patient location: ICU Indications: multiple ABGs, frequent labs and hemodynamic monitoring Preprocedure checklist performed: 2 patient identifiers, risks & benefits discussed, patient evaluated, timeout performed, consent obtained, patient being monitored and sterile drape Sterile technique: - Proper hand washing - Cap, mask - Sterile gloves - Skin prep for antisepsis Arterial Line Procedure Patient sedated: yes (see MAR) Sedation type: general; Artery prepped with chlorhexidine; skin prep agent completely dried prior to pro cedure. Location: radial artery Laterality: right Technique: palpation Needle gauge: 20 G Number of attempts: 1 Procedure Outcome Catheter secured with adhesive dressing applied Events: no complications noted during insertion and skin intact, warm, and dry Observation: pt tolerated well Performed by: Aroldo Davis CRNA Authorized by: Josh Rai MD Associated attestation - Josh Rai MD - 08/27/2022 7:11 AM CDT ATTESTATION I was present during the entire procedure performed by a JERRY. Staff name: Josh Rai MD Date: 08/27/2022 * Anesthesia Preprocedure Evaluation - Josh Rai MD - 08/26/2022 3:09 PM CDT Anesthesia Pre-Procedure Evaluation Name: Joan Trevino : 1985 Age: 37 y.o. S ex: female Procedure Info: Procedure Information Date/Time: 08/26/22 1505 Procedure: Right parietal craniotomy for resection of brain tumor (Right) - Darrick igation, 4 hours, supine, cortical and subcortical mapping. Location: [facility]3 OR01 / CA3 OR/Periop Surgeons: Kevin Gloria MD Physical Assessment Vital Signs (last filed in past 24 hours): BP: 114/84 (08/26 1400) Temp: 36.8 C (98.2 F) (08/26 1400) Pulse: 64 (08/26 1400) Respirations: 14 PER MINUTE (08/26 1400) SpO2: 97 % (08/26 1400) O2 Device: None (Room air) (08/26 1400) SpO2 Pulse: 72 (08/26 0256) Patient History Allergies Allergen Reactions Bactrim [Sulfamethoxazole-Trimethoprim] NAUSEA AND VOMITING Current Medications Not on File Review of Systems/Medical History Patient summary reviewed Nursing notes reviewed Pertinent labs reviewed PONV Screening: Female sex and Postoperative opioids No history of anesthetic complications No family history of anesthetic complications Airway - negative Pulmonary Current smoker (Remote history of smoking) Cardiovascular - negative Exercise tolerance: >4 METS Beta Shmuel therapy: No GI/Hepatic/Renal - negative Neuro/Psych Seizures, well controlled Weakness (Slight weakness on L U and L Ext.) Sensory deficit (Poor sensation left U and L extremities) Musculoskeletal - negative Endocrine/Other Malignancy (Recurrent oligodendroma): current and treated Physical Exam Airway Findings Mallampati: I TM distance: >3 FB Neck ROM: full Mouth opening: good Airway patency: adequate Dental Findings: Upper dentures and lower dentures Cardiovascular Findings: Rhythm: regular Rate: normal Pulmonary Findings: Breath sounds clear to auscultation. Abdominal Findings: Comments: Deferred Neurological Findings: Alert and oriented x 3 Paralysis (Weakness and sensory loss L Uand L Extrem) Constitutional findings: No acute distress Well-developed Well-nourished Diagnostic Tests Hematology: Lab Results Component Value Date HGB 14.0 08/25/2022 HCT 41.7 08/25/2022 PLTCT 175 08/25/2022 WBC 15.1 08/25/2022 NEUT 86 08/25/2022 ANC 12.90 08/25/2022 ALC 1.21 08/25/2022 ORTIZ 6 08/25/2022 AMC 0.96 08/25/2022 EOSA 0 08/25/2022 ABC 0.04 08/25/2022 MCV 96.4 08/25/2022 MCH 32.2 08/25/2022 MCHC 33.5 08/25/2022 MPV 7.6 08/25/2022 RDW 13.5 08/25/2022 General Chemistry: Lab Results Component Value Date NA 135 08/25/2022 K 4.3 08/25/2022 CL 103 08/25/2022 CO2 23 08/25/2022 GAP 9 08/25/2022 BUN 17 08/25/2022 CR 0.56 08/25/2022 GLU 126 08/25/2022 CA 9.1 08/25/2022 ALBUMIN 4.6 08/19/2022 MG 1.6 10/21/2014 TOTBILI 0.5 08/19/2022 PO4 2.6 10/21/2014 Coagulation: Lab Results Component Value Date PT 12.6 08/19/2022 PTT 32.1 08/19/2022 INR 1.1 08/19/2022 Anesthesia Plan ASA score: 3 Plan: general and invasive monitoring Induction method: intravenous NPO status: acceptable Informed Consent Anesthetic plan and risks discussed with patient. Use of blood products discussed with patient Plan discussed with: resident. documented in this encounter Plan of Treatment Not on filedocumented as of this encounter Goals Goal Patient Associated Recent Progress Patient-Stat Aut hor Goal Type Problems ed? GOAL General On track (08/20/2022 Yes Eyal Srinivasan, 11:22 AM CDT) RN Note: Quit smoking documented as of this encounter Procedures Comments Procedure Name Priority Date/Time Associated Diag nosis ANESTHESIA ARTERIAL LINE Routine 08/26/2022 INSERTION 6:53 PM CDT documented in this encounter Results * ANESTHESIA ARTERIAL LINE INSERTION (08/26/2022 6:53 PM CDT) Narrative Josh Rai MD - 08/26/2022 6:53 PM CDT Aroldo Davis CRNA 08/26/2022 5:59 PM Anesthesia Procedure: Arterial Line Placement A-LINE INSERTION Date/Time: 08/26/2022 6:53 PM Patient location: ICU Indications: multiple ABGs, frequent labs and hemodynamic monitoring Preprocedure checklist performed: 2 patient identifiers, risks & benefits discussed, patient evaluated, timeout performed, consent obtained, patient being monitored and sterile drape Sterile technique: - Proper hand washing - Cap, mask - Sterile gloves - Skin prep for antisepsis Arterial Line Procedure Patient sedated: yes (see MAR) Sedation type: general; Artery prepped with chlorhexidine; skin prep agent completely dried prior to procedure. Location: radial artery Laterality: right Technique: palpation Needle gauge: 20 G Number of attempts: 1 Procedure Outcome Catheter secured with adhesive dressing applied Events: no complications noted during insertion and skin intact, warm, and dry Observation: pt tolerated well Performed by: Aroldo Davis CRNA Authorized by: Josh Rai MD Josh Rai MD ANESTHESIA ORDERABLES documented in this encounter Visit Diagnoses * Addendum Note - Josh Rai MD - 08/27/2022 7:12 AM CDT Addendum created 08/27/22 0712 by Josh Rai MD Cosign clinical note with attestation documented in this encounter Administered Medications Action Date Dose Rate Site Medication Order MAR Action 08/26/2022 4:46 PM CDT 2 drops artificial tears (PF) single dose Given ophthalmic solution Both Eyes, INTRA-PROCEDURE MED, Startin g on Thu08/26/22 at 1646, Until Thu08/26/22 at 194, Anesthesia Intra-op 08/26/2022 5:06 PM CDT 10 mg dexamethasone sodium phosphate Given (DECADRON) injection Intravenous, INTRA-PROCEDURE MED, Starting on Thu08/26/22 at 1706, Until Thu08/26/22 at 194, Anesthesia Intra-o p 08/26/2022 5:01 PM CDT electrolyte-A (PLASMA-LYTE A PH 7.4) Given - New injection Bag Intravenous, INTRA-PROCEDURE MED(CONT), Starting on Thu08/26/22 at 1701, Until Thu08/26/22 at 194, Anesthesia Intra-o p 08/26/2022 6:20 PM CDT 50 mcg fentaNYL citrate PF (SUBLIMAZE) Given injection Intravenous, INTRA-PROCEDURE MED, Starting on Thu08/26/22 at 1645, Until Thu08/26/22 at 194, Anesthesia Intra-o p 50 mcg Given 08/26/2022 4:45 PM CDT 08/26/2022 6:25 PM CDT 0.5 mg HYDROmorphone injection (DILAUDID) Given Intravenous, INTRA-PROCEDURE MED, Starting on Thu08/26/22 at 1825, Until Thu08/26/22 at 194, Anesthesia Intra-o p 08/26/2022 5:12 PM CDT 1,000 mg levETIRAcetam (KEPPRA) IV push Given Intravenous, INTRA-PROCEDURE MED, Starting on Thu08/26/22 at 1712, Until Thu08/26/22 at 194, Anesthesia Intra-o p 08/26/2022 4:45 PM CDT 80 mg lidocaine (PF) injection Given Intravenous, INTRA-PROCEDURE MED, Starting on Thu08/26/22 at 1645, Until Thu08/26/22 at 194, Anesthesia Intra-o p 08/26/2022 5:12 PM CDT 30 g mannitol (OSMITROL) 20 % infusion Given Intravenous, INTRA-PROCEDURE MED, Starting on Thu08/26/22 at 1712, Until Thu08/26/22 at 194, Anesthesia Intra-o p 08/26/2022 6:29 PM CDT 4 mg ondansetron (ZOFRAN) injection Given Intravenous, INTRA-PROCEDURE MED, Starting on Thu08/26/22 at 1829, Until Thu08/26/22 at 194, Anesthesia Intra-o p 08/26/2022 6:44 PM CDT 50 mcg/kg/min 15.03 mL/hr propofoL (DIPRIVAN) infusion Dose/Rate 100 mL, Intravenous, INTRA-PROCEDURE Change MED(CONT), Starting on Thu08/26/22 at 1645, Until Thu08/26/22 at 194, Anesthesia Intra-op 100 mcg/kg/min 30.06 mL/hr Dose/Rate Change 08/26/2022 6:29 PM CDT 10,000 mcg Bolus 08/26/2022 6:18 PM CDT 115 mcg/kg/min 34.569 mL/hr Dose/Rate Change 08/26/2022 5:35 PM CDT 120 mcg/kg/min 36.072 mL/hr Dose/Rate Change 08/26/2022 5:19 PM CDT 150 mcg/kg/min 45.09 mL/hr Dose/Rate Change 08/26/2022 4:52 PM CDT 120 mcg/kg/min 36.072 mL/hr Given - New Bag 08/26/2022 4:45 PM CDT 08/26/2022 6:21 PM CDT 50 mg propofol (DIPRIVAN) injection Given Intravenous, INTRA-PROCEDURE MED, Starting on Thu08/26/22 at 1645, Until Thu08/26/22 at 1940, Anesthesia Intra-o p 100 mg Given 08/26/2022 5:06 PM CDT 50 mg Given 08/26/2022 4:52 PM CDT 50 mg Given 08/26/2022 4:47 PM CDT 50 mg Given 08/26/2022 4:46 PM CDT 100 mg Given 08/26/2022 4:45 PM CDT 08/26/2022 6:44 PM CDT 0.15 mcg/kg/min 9.018 mL/hr remifentanyl 1000mcg in NS 20mL Dose/Rate (50mcg/mL)(OR) Change Intravenous, INTRA-PROCEDURE MED(CONT), Starting on Thu08/26/22 at 1645, Until Thu08/26/22 at 1940, Anesthesia Intra-o p 0.1 mcg/kg/min 6.012 mL/hr Dose/Rate Change 08/26/2022 6:29 PM CDT 50 mcg Bolus 08/26/2022 5:06 PM CDT 0.08 mcg/kg/min 4.81 mL/hr Given - New Bag 08/26/2022 4:45 PM CDT 08/26/2022 4:38 PM CDT sodium chloride 0.9 % infusion Given - New Intravenous, INTRA-PROCEDURE MED(CONT), Bag Starting on Thu08/26/22 at 1638, Until Thu08/26/22 at 1941, Anesthesia Intra-o p 08/26/2022 4:45 PM CDT 40 mg succinylcholine (ANECTINE) injection Given Intravenous, INTRA-PROCEDURE MED, Starting on Thu08/26/22 at 1645, Until Thu08/26/22 at 1941, Anesthesia Intra-o p documented in this encounter Additional Health Concerns Noted Time Assessment 08/26/2022 8:00 PM CDT A fall risk assessment has been complet ed for the patient documented as of this encounter Care Teams Start Date End Date Clip Loading Machine Feeder Relationship Specialty 10/14/14 Viki Flores DO PCP - General Family [facility] [address] [place] [address] 10/14/14 Saumya Veliz, RN 11/01/14 Corrie Kraft, [place] 11/02/14 Nida Patel APRN-ENROLLMENT COUNSELOR Neurological Surgery [address] [facility] [address] [place] [address] 11/02/14 Self, Referral 11/02/14 Erika Wang MD Hematology & Oncology RETIRED 11/10/2016 11/03/14 Tammy Ruiz MD Hematology & Oncology RETIRED 11/10/2016 11/20/14 Kevin Gloria MD Neurological Surgery [address] [facility] [address] [address] [place] [address] documented as of this encounter
--- OUTSIDE RECORDS SUMMARY | 2022-08-29 13:53 | XMS REPORT | Clinical Summary ---
Author Author [facility] Organization [facility] Address Unknown Phone Unavailable Care Team Providers Care Commercial Real Estate Associate Name Role Phone Viki Flores PCP Saumya Veliz RN Unavailable Unavailable Corrie Kraft RN Unavailable Unavailable Nida Patel DICTAPHONE OPERATOR-HYDRAULIC BILLET MAKER Unavailable Self, Referral Unavailable Unavailable Erika Wang MD Unavailable Unavailable Tammy Riuz MD Unavailable Kevin Gloria MD Unavailable Source Comments Some departments are not documenting in the electronic medical record. If you d o not see the information that you expected, contact Release of Information in [facility] Information Management department at [phone] for further assistan ce in locating additional records.[facility] Allergies Comments Active Allergy Reactions Criticality Noted Date Sulfamethoxazole-Trimetho NAUSEA AND Low 07/2014 prim VOMITING Medications End Date Status Medication Sig Dispensed Refills Start Date Active acetaminophen (TYLENOL) Take two 0 325 mg tablet tablets by 3 mouth every 4 hours as needed. Active dexAMETHasone (DECADRON) Taper 0 08/29 4 mg tablet schedule: 4 3 mg every 8 hours for 2 days, then 4 mg every 12 hours for 2 days, then 2 mg every 12 hours for 2 days, then 2 mg every day for 2 days, then stop Take with food. Active famotidine (PEPCID) 20 mg Take one 180 tablet 0 tablet tablet by 3 mouth twice daily as needed. Active heparin (porcine) PF Inject 0.5 mL 0 5,000units/0.5mL under the 3 injection syringe skin every 8 hours. Dvt ppx 09/10/2022 Active levETIRAcetam (KEPPRA) Take one 180 tablet 0 500 mg tablet tablet by 3 mouth twice daily for 12 days. Active nicotine (NICODERM CQ) 14 Apply one 28 patch 0 //202 mg/day patchIndications: patch to top 3 smoking cessation of skin as directed daily. Rotate patch location. Indications: stop smoking Active oxyCODONE (ROXICODONE) 5 Take one 0 08/29 mg tablet tablet to two 3 tablets by mouth every 4 hours as needed. Active phenoL (CHLORASEPTIC) 1.4 Take two 180 mL 0 % mouth spray sprays by 3 mouth or throat as directed as Needed. Active senna/docusate Take one 90 tablet 0 (SENOKOT-S) 8.6/50 mg tablet by 3 tablet mouth twice daily. 08/21/2022 Discontinued (Removed from P [facility] Med List) vitamins, w/iron Take 1 Tab by 0 & folate () mouth daily. 28-0.8 mg tablet 08/21/2022 Discontinued (Removed from P TA Med List) HYDROcodone/acetaminophen Take 1-2 Tabs 30 Tab 0 (NORCO; VICODIN) 5-325 mg by mouth 5 tablet every 4 hours as needed for Pain Earliest Fill Date: 10/16/14 08/21/2022 Discontinued (Removed from P [facility] Med List) senna/docusate Take 1 Tab by 60 Tab 1 (SENOKOT-S) 8.6/50 mg mouth twice 5 tablet daily. 08/21/2022 Discontinued (Removed from P TA Med List) levETIRAcetam (KEPPRA) Take 1 Tab by 30 Tab 1 0 500 mg tablet mouth twice 5 daily. 08/21/2022 Discontinued (Removed from P TA Med List) dexamethasone (DECADRON) Please take 2 52 Tab 0 2 mg tablet tablets every 5 8 hours for 4 days. Then take 2 tablets every 12 hours for 4 days. Then take 1 tablet every 12 hours for 4 days. Finally, take 1/2 a tablet every 12 hours for 4 days before stopping. 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 She had the numbness for awhil e but as mother of 5 she did not think much of it. She had G TR here by Dr. Gloria. I have discussed her pathology with Dr. Prince. 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 W e will treat aggressively with concurrent temodar an d xrt followed by at least a year of temodar. She lives in [facility] so I have contacted Dr. Oh office and they w ill contact her with an appointment manju. We discussed the t oxicities of the treatment, the natural history and epid emiology of the disease, etiology. I advised her she wi ll not be able to continue nursing the baby while on chem otherapy. Seizure 10/20/2014 Resolved Problems Resolved Date Problem Noted Date Diagnosed Date 11/03/2014 Anaplastic oligodendroglioma of temporal lobe 201411/03/2014 Right parietal lobe mass 10/20/2014 Encounters Care Team Description Date Type Department Jimmy Torres MD 08/29/2022 Documentation Oncology: [facility], [facility] [address] [place] [address] Josh Rai MD Fox, Ashli, RN 08/26/2022 Anesthesia Operating Room: [facility] 4:38 PM Event [place] CDT [address] [place] [address] [address] 3 [place] [phone] Kevin Gloria MD Right parietal craniotomy for resection of brain tumor 08/26/2022 Surgery Operating Room: [facility] 3:05 PM [place] [facility] CDT - [address] 08/26/2022 Level 3 6:45 PM [place] CDT [address] Bernie Tejada, DICTAPHONE OPERATOR-HYDRAULIC BILLET MAKER Recurrent brain tumor (HCC) (Primary Dx) 08/20/2022 Prep for Case XDD NEUROSURGERY Tej Riggs MD Chamoun, Roukoz B, MD Brain mass Discharge Disposition: Rehab Facility (Not [facility]) 08/19/2022 Hospital Intensive Care Unit CA5: 8:11 PM Encounter [place] A CDT - [address] 08/29/2022 Level 5 9:40 AM [place] CDT [address] Tej Riggs MD Numbness (/) 08/19/2022 Telephone Neurosurgery: [facility], [address], [address] [place] [phone] from Last 3 Months Immunizations Name Administration Dates Next Due Pneumococcal Vaccine 10/15/2014 (23-Claire Adult) Surgical History Surgery Date Site/Laterality Comments HX CRANIOTOMY CRANIECTOMY 08/26/2022 Head/Right Right parietal craniotomy for resection of brain tumor performed by Kevin Gloria M D at [facility] [place] Medical devices from this surgery are i n the Medical Devices section. Medical History Medical History Date Comments Smoking 1/2 pack a day or less [id number] On and off for the past 10 years Anaplastic oligodendroglioma of 10/2014 temporal lobe (HCC) Seizure disorder (HCC) 10/2014 Family History Medical History Relation Name Comments Cancer Father Hypertension Father Cancer Mother Relation Name Status Comments Father Mother Alive Social History Date Tobacco Use Types Packs/Day [...] on file Sexual Orientation Not on file Obstetrics History Para Term AB IAB SAB Ectopic Multiple Living Live B irths 5 5 5 5 Date GA Total Labor Labor/2nd/3rd Weight Sex Delivery Anes PTL Ana A1 A5 Name Clin Outcome Term Term Term Term Term Last Filed Vital Signs Reading Time Taken [...] 08/19/2022 8:14 PM CDT Body Mass Index Plan of Treatment Health Maintenance Due Date Last Done Comments COVID-19 VACCINE (#1) 1985 HIV SCREENING 2000 DTAP/TDAP VACCINES (1 - 06/17/2003 Tdap) HEPATITIS C SCREENING 06/17/2003 PHYSICAL (COMPREHENSIVE) 06/17/2003 EXAM CERVICAL CANCER SCREENING 2006 PNEUMOCOCCAL VACCINE 0-64 10/16/2015 10/15/2014 YRS (2 - PCV) DEPRESSION SCREENING 04/13/2022 INFLUENZA VACCINE (Season 01/11/2023 Ended) Goals Goal Patient Associated Recent Progress Patient-Stat Aut hor Goal Type Problems ed? GOAL General On track (08/20/2022 Yes Eyal Srinivasan, 11:22 AM CDT) RN Note: Quit smoking Medical Devices Device Identifier Shelf Expiration Date Model / Serial / L ot Implanted Type Area Manufactur er [id number] / [id number] / [id number] [employer] Hole Cover Plate Brain LEELEE Implanted: Qty: 3 on 08/26/2022 by Jaime Mills MD at [facility] Device Identifier Shelf Expiration Date Model / Serial / L ot Explanted Type Area Manufactur er N/A / N/A / N/A [employer] Hole Cover Right: Skull Explanted: Qty: 3 on 08/26/2022 at [facility] Procedures Comments Procedure Name Priority Date/Time Associated Diag nosis PHOSPHORUS Routine 08/29/2022 3:55 AM CDT MAGNESIUM Routine 08/29/2022 3:55 AM CDT HC BASIC METABOLIC PANEL Routine 08/28/2022 12:30 PM CDT HC PHOSPHOROUS, SERUM Routine 08/28/2022 2:35 AM CDT HC MAGNESIUM Routine 08/28/2022 2:35 AM CDT HC PHOSPHOROUS, SERUM Routine 08/27/2022 2:24 AM CDT HC MAGNESIUM Routine 08/27/2022 2:24 AM CDT HC CBC W/ AUTOMATED DIFF Routine 08/27/2022 2:24 AM CDT HC BASIC METABOLIC PANEL Routine 08/27/2022 2:24 AM CDT HC CALCIUM IONIZED Routine 08/27/2022 2:24 AM CDT MRI HEAD WO/W CONTRAST MANJU 08/26/2022 11:51 PM CDT POC GLUCOSE 08/26/2022 9:24 PM CDT ANESTHESIA ARTERIAL LINE Routine 08/26/2022 INSERTION 6:53 PM CDT FUNCTIONAL CORTICAL AND 08/26/2022 Recurrent bra in tumor SUBCORTICAL MAPPING BY 4:38 PM CDT ([facility]) STIMULATION AND/ OR RECORDING OF ELECTRODES ON BRAIN SURFACE/ DEPTH ELECTRODES TO PROVOKE SEIZURES/ IDENTIFY VITAL BRAIN STRUCTURES - INITIAL HOUR STEREOTACTIC 08/26/2022 Recurrent brain nevaeh or COMPUTER-ASSISTED CRANIAL 4:38 PM CDT ([facility]) PROCEDURE - INTRADURAL CRANIECTOMY/ BONE FLAP 08/26/2022 Recurrent brai n tumor CRANIOTOMY EXCISION 4:38 PM CDT ([facility]) SUPRATENTORIAL BRAIN TUMOR TYPE & CROSSMATCH Routine 08/25/2022 7:30 AM CDT HC CBC W/ AUTOMATED DIFF Routine 08/25/2022 2:29 AM CDT HC BASIC METABOLIC PANEL Routine 08/25/2022 2:29 AM CDT HC CBC W/ AUTOMATED DIFF Routine 08/23/2022 3:31 AM CDT HC BASIC METABOLIC PANEL Routine 08/23/2022 3:31 AM CDT HC BASIC METABOLIC PANEL Routine 08/21/2022 4:57 AM CDT HC CBC W/ AUTOMATED DIFF Routine 08/21/2022 4:57 AM CDT MRI HEAD WO/W CONTRAST MANJU 08/20/2022 6:38 AM CDT HC BASIC METABOLIC PANEL Routine 08/20/2022 5:23 AM CDT HC CBC W/ AUTOMATED DIFF Routine 08/20/2022 5:23 AM CDT HC CBC W/ AUTOMATED DIFF 08/19/2022 9:24 PM CDT HC TEST-URINE Routine 08/19/2022 8:45 PM CDT HC COMPREHENSIVE STAT 08/19/2022 METABOLIC PANEL 8:34 PM CDT HC PTT(APTT) STAT 08/19/2022 8:34 PM CDT HC PT(INR) STAT 08/19/2022 8:34 PM CDT from Last 3 Months Results * PHOSPHORUS (08/29/2022 3:55 AM CDT) Only the most recent of 3 results within the time period is included. Pathologist Signature Component Value Ref Test Method Analysis Performed A t Range Time Phosphorus 2.7 2.0 - 08/29/2022 [facility] DEPT PAT H AND 4.5 4:37 AM LAB MEDICINE MG/DL CDT Anatomical Location / Laterality Collection Method / Volume Isra ection Time Received Time Specimen (Source) BLOOD / Unknown 08/29/2022 3:55 AM CDT 08/30/19 4:04 AM CDT Elissa Carvalho LABORATORY ORDERABLES [facility]/ZIP Code Phone Number Performing [place] [address] [employer] DEPT PATH AND [address] LAB MEDICINE * MAGNESIUM (08/29/2022 3:55 AM CDT) Only the most recent of 3 results within the time period is included. Pathologist Signature Component Value Ref Test Method Analysis Performed A t Range Time Magnesium 2.2 1.6 - 08/29/2022 [facility] DEPT PAT H AND 2.6 4:37 AM LAB MEDICINE mg/dL CDT Anatomical Location / Laterality Collection Method / Volume Isra ection Time Received Time Specimen (Source) BLOOD / Unknown 08/29/2022 3:55 AM CDT 08/30/19 4:04 AM CDT Elissacarlotta Carvalho LABORATORY ORDERABLES [facility]/ZIP Code Phone Number Performing [place] [address] [employer] DEPT PATH AND [address] LAB MEDICINE * (ABNORMAL) BASIC METABOLIC PANEL (08/28/2022 12:30 PM CDT) Only the most recent of 6 results within the time period is included. Pathologist Signature Component Value Ref Test Method [...] Urea Nitrogen 23 7 - 25 08/28/2022 [facility] DEPT PATH AND MG/DL 4:56 PM LAB MEDICINE CDT Creatinine 0.61 0.4 - 08/28/2022 [facility] DEPT PAT H AND 1.00 4:56 PM LAB MEDICINE MG/DL CDT Calcium 9.1 8.5 - 08/28/2022 [facility] DEPT PAT H AND 10.6 4:56 PM LAB MEDICINE MG/DL CDT eGFR >60 >60 08/28/2022 [facility] DEPT PAT H AND mL/min 4:56 PM LAB MEDICINE CDT Comment: eGFR calculated using the CKD-EPIcr_R equation Anatomical Location / Laterality Collection Method / Volume Isra ection Time Received Time Specimen (Source) BLOOD / Unknown 08/28/2022 12:30 PM CDT 08/29/19 12:53 PM CDT Bernie Tejada LABORATORY ORDERABLES DICTAPHONE OPERATOR-HYDRAULIC BILLET MAKER City/State/ZIP Code Phone Number Performing [place] [address] [facility] DEPT PATH AND [address] [facility] LAB MEDICINE * (ABNORMAL) CBC AND DIFF (08/27/2022 2:24 AM CDT) Only the most recent of 6 results within the time period is included. Pathologist Signature Component Value Ref Test Method Analysis Performed A t Range Time White Blood Cells 25.5 (H) 4.5 - 08/27/2022 [facility] DE PT PATH AND 11.0 2:44 AM LAB MEDICINE K/UL CDT RBC 4.35 4.0 - 08/27/2022 [facility] DEPT PAT H AND 5.0 M/UL 2:44 AM LAB MEDICINE CDT Hemoglobin 14.1 12.0 - 08/27/2022 [facility] DEPT PAT H AND 15.0 2:44 AM LAB MEDICINE GM/DL CDT Hematocrit 41.9 36 - 45 08/27/2022 [facility] DEPT PAT H AND % 2:44 AM LAB MEDICINE CDT MCV 96.3 80 - 100 08/27/2022 [facility] DEPT PAT H AND FL 2:44 AM LAB MEDICINE CDT MCH 32.4 26 - 34 08/27/2022 [facility] DEPT PAT H AND PG 2:44 AM [...] CDT MPV 7.1 7 - 11 08/27/2022 [facility] DEPT PAT H AND FL 2:44 AM LAB MEDICINE CDT Neutrophils 89 (H) 41 - 77 08/27/2022 [facility] DEPT PAT H AND % 3:29 AM LAB MEDICINE CDT Lymphocytes 3 (L) 24 - 44 08/27/2022 [facility] DEPT PAT H AND % 3:29 AM [...] Absolute Eosinophil 0.02 0 - 0.45 08/27/2022 [facility] DEPT PATH AND Count K/UL 3:29 AM LAB MEDICINE CDT Absolute Basophil 0.06 0 - 0.20 08/27/2022 [facility] DE PT PATH AND Count K/UL 3:29 AM LAB MEDICINE CDT Anatomical Location / Laterality Collection Method / Volume Isra ection Time Received Time Specimen (Source) BLOOD / Unknown 08/27/2022 2:24 AM CDT 08/28/19 2:34 AM CDT Bernie Conte Mallory LABORATORY ORDERABLES DICTAPHONE OPERATOR-HYDRAULIC BILLET MAKER City/State/ZIP Code Phone Number Performing [place] [address] [employer] DEPT PATH AND [address] LAB MEDICINE * IONIZED CALCIUM (08/27/2022 2:24 AM CDT) Pathologist Signature Component Value Ref Test Method Analysis Performed A t Range Time Ionized Calcium 1.13 1.0 - 08/27/2022 [facility] DEPT PATH AND 1.3 3:16 AM LAB MEDICINE MMOL/L CDT Anatomical Location / Laterality Collection Method / Volume Isra ection Time Received Time Specimen (Source) BLOOD / Unknown 08/27/2022 2:24 AM CDT 08/28/19 2:31 AM CDT Elissa Carvalho LABORATORY ORDERABLES DICTAPHONE OPERATOR-HYDRAULIC BILLET MAKER [facility]/State/ZIP Code Phone Number Performing [place] [address] [employer] DEPT PATH AND [address] [facility] LAB MEDICINE * MRI HEAD WO/W CONTRAST (08/26/2022 11:51 PM CDT) Only the most recent of 2 results within the time period is included. Modality Anatomical Region Laterality Magnetic Resonance Head [...] POC 124 (H) 70 - 100 08/26/2022 [facility] GE MG/DL 9:25 PM [facility] A CDT Anatomical Location / Laterality Collection Method / Volume Isra ection Time Received Time Specimen (Source) 08/26/2022 9:24 PM CDT 08/27/19 9:25 PM CDT Kevin Gloria MD OTHER LABORATORY City/State/ZIP Code Phone Number Performing Address Organization [place], [place] [id number] [place] [address] A * ANESTHESIA ARTERIAL LINE INSERTION (08/26/2022 6:53 [...] Rai MD Josh Rai MD ANESTHESIA ORDERABLES * TYPE & CROSSMATCH (08/25/2022 7:30 AM CDT) Pathologist Signature Component Value Ref Test Method Analysis Performed A t Range Time Units Ordered 2 08/25/2022 [facility] DEPT PATH AND 7:53 AM LAB MEDICINE CDT Crossmatch Expires 08/28/2022,2 08/25/2022 [facility] DEPT PATH AND 359 8:39 AM LAB MEDICINE CDT Record Check FOUND 08/25/2022 [facility] DEPT PATH AND 7:53 AM LAB MEDICINE CDT ABO/RH(D) A POS 08/25/2022 [facility] DEPT PATH AND 8:39 AM LAB MEDICINE CDT Antibody Screen NEG 08/25/2022 [facility] DEPT PAT H AND 8:39 AM LAB MEDICINE CDT Electronic YES 08/25/2022 [facility] DEPT PATH AND Crossmatch 8:39 AM LAB MEDICINE CDT Anatomical Location / Laterality Collection Method / Volume Isra ection Time Received Time Specimen (Source) BLOOD / Unknown 08/25/2022 7:30 AM CDT 08/26/19 7:52 AM CDT Kevin Gloria MD BLOOD BANK ORDERABLES City/State/ZIP Code Phone Number Performing [place] [address] [facility] DEPT PATH AND [address] [facility] LAB MEDICINE * TEST-URINE (08/19/2022 8:45 PM CDT) Pathologist Signature Component Value Ref Test Method Analysis Performed A t Range Time Urine-HCG NEG 08/19/2022 [facility] DEPT PATH AND 10:15 PM LAB MEDICINE CDT Specific [place] 1.038 08/19/2022 [facility] DEPT PA TH AND 10:15 PM LAB MEDICINE CDT Anatomical Location / Laterality Collection Method / Volume Isra ection Time Received Time Specimen (Source) URINE SPECIMEN / Unknown 08/19/2022 8:45 PM CDT 08/19/2022 10:00 PM CDT Urine Tej Riggs MD URINE ORDERABLES [facility]/State/ZIP Code Phone Number Performing [place] [address] [facility] DEPT PATH AND [address] [facility] LAB MEDICINE * PTT (APTT) (08/19/2022 8:34 [...] PM CDT Tej Riggs MD LABORATORY ORDERABLES [facility]/ZIP Code Phone Number Performing [place] [address] [facility] [address] [facility] LAB [facility]ICINE * PROTIME INR (PT) (08/19/2022 [...] PM CDT Tej Riggs MD LABORATORY ORDERABLES [facility]/ZIP Code Phone Number Performing [place] [address] [facility] [address] [facility] * (ABNORMAL) COMPREHENSIVE METABOLIC PANEL (08/19/2022 8:34 [...] MG/DL CDT Albumin 4.6 3.5 - 08/19/2022 [facility] DEPT PAT H AND 5.0 G/DL 9:37 [...] Location / Laterality Collection Method / Volume Isar ection Time Received Time Specimen (Source) BLOOD / Unknown 08/19/2022 8:34 PM CDT 08/20/19 23 9:01 PM CDT Tej Riggs MD LABORATORY ORDERABLES City/State/ZIP Code Phone Number Performing [place] [address] [facility] DEPT PATH AND [address] [facility] LAB MEDICINE from Last 3 Months Insurance Type Payer Benefit Subscriber ID Effective Phone Address Plan / Dates Group [place] [id number] 2022-P [address] MEDICAID [id number] [place] [phone] Advance Directives Date Inactivated Comments Code Status Date Activated 08/29/2022 11:57 AM Full Code 08/19/2022 8:16 PM Comments Question Answer Provider has No, discussion not necessar y based on Dx discussed Code Status w/Patient or Family? Date Inactivated Comments Code Status Date Activated 10/23/2014 3:08 PM Full Code 10/20/2014 12:14 PM Comments Question Answer Provider has Yes discussed Code Status w/Patient or Family? 10/16/2014 1:17 PM Full Code 10/14/2014 5:42 PM Comments Question Answer Provider has No, discussion not necessar y based on Dx discussed Code Status w/Patient or Family? Care Teams Start Date End Date Commercial Real Estate Associate Relationship Specialty 10/14/14 Viki Flores DO PCP - General Family Medicine [address] [place] [address] 10/14/14 Saumya Veliz, RN 11/01/14 Corrie Kraft, RN 11/02/14 Nida Patel APRN-HYDRAULIC BILLET MAKER Neurological Surgery [address] Ortho[facility] [address] [place] [address] 11/02/14 Self, Referral 11/02/14 Erika Wang MD Hematology & Oncology RETIRED 11/10/2016 11/03/14 Tammy Ruiz MD Hematology & Oncology RETIRED 11/10/2016 11/20/14 Kevin Gloria MD Neurological Surgery [address] [facility] Ortho[facility] [address] [place] [address]
--- OUTSIDE RECORDS SUMMARY | 2022-08-29 13:53 | XMS REPORT | Encounter Summary ---
Author Author [facility] Organization [facility] Address Unknown Phone Unavailable Care Team Providers Care Section Chief Name Role Phone Viki Flores PCP Saumya Veliz RN Unavailable Unavailable Corrie Kraft RN Unavailable Unavailable Nida Patel LABOUR MARKET ECONOMIST-CHILI POWDER MIXER Unavailable Self, Referral Unavailable Unavailable Erika Wang MD Unavailable Unavailable Tammy Ruiz MD Unavailable Kevin Gloria MD Unavailable Reason for Visit * Auth/Cert (Routine) Diagnoses / Procedures Referred By Contact Referred To Conta ct Specialty Diagnoses Brain mass Brain Mass Referral ID Status Reason Start Date Expiration Visits Vi sits Date Requested Authorized [id number] 1 1 Encounter Details Care Team Description Date Type Department Kevin Gloria MD [address] Ortho[facility] Lvl 2B [place], [place] [id number] Right parietal craniotomy for resection of brain tumor 08/26/2022 Surgery Operating Room: [facility] bridge 3:05 PM [facility] - [address] [facility] 08/26/2022 Level 3 6:[address] [facility] [address] Surgery Details Patient Class Case Class Case Type Trauma Case? Date/Time Status Location OR Service Inpatient Elective - Treating conditio ns that are not life or limb threatening 08/26/22 Posted CA3 OR CA3 OR01 Neurosurge 3:05 PM ry Comments Panel 1 Procedure LRB Anes Op Region Wound Cl ass Navigation, 4 hours, supine, cortical and subcortical mapping. Right parietal craniotomy Right Defer to Head Clean for resection of brain Anesthesia tumor STEREOTACTIC Right Defer to Head Clean COMPUTER-ASSISTED CRANIAL Anesthesia PROCEDURE - INTRADURAL FUNCTIONAL CORTICAL AND Right Defer to Head Cl richard SUBCORTICAL MAPPING BY Anesthesia STIMULATION AND/ OR RECORDING OF ELECTRODES ON BRAIN SURFACE TO IDENTIFY VITAL BRAIN STRUCTURES - INITIAL HOUR Surgeon Role Service Panel Surgeon Primary Neurosurgery 1 Kevin Gloria MD Resident - Assisting Neurosurgery 1 Cecily Bartholomew MD Resident - Assisting Neurosurgery 1 Jaime Martinez MD documented in this encounter Social History Date [...] Signs Reading Time Taken Comments Vital Sign 114/84 08/26/2022 2:00 PM CDT Blood Pressure 64 08/26/2022 2:00 PM CDT Pulse 36.8 C (98.2 F) 08/26/2022 2:00 PM CDT Temperature - - Respiratory Rate 97% 08/26/2022 2:00 PM CDT Oxygen Saturation - - Inhaled Oxygen [...] Yolande Mcnamara - 08/29/2022 9:26 AM CDT PLANT OPERATIONS WORKER Note: Faxed d/c orders to [facility] per request of DESTINY Kowalski. Yolande Mcnamara Hedge Trimmer For additional assistance please contact [facility] * Janine Aguilar LMSW - 08/29/2022 8:38 AM CDT Case Management Progress Note NAME:Joan Trevino :1985 AGE: 37 y.o. ADMISSION DATE: 08/19/2022 DAYS ADMITTED: LOS: 10 days Today's Date: 08/29/2022 PLAN: Pt will dc to [facility] today around 10am via [employer]. Expected Discharge Date: 08/29/2022 12:00 PM Is Patient Medically Stable: Yes Are there Barriers to Discharge? no INTERVENTION/DISPOSITION: Discharge Planning SW confirmed with provider pt can leave for rehab. Will try leaving around 1 0am this morning. SW notified provider [place] of dc today at 10am SW notified bedside nurse of dc today at 10am and provided number for report. sw delivered transfer packet to bedside late yesterday afternon. SW tasked PLANT OPERATIONS WORKER to fax dc orders once entered. REPORT [phone] Transportation Will the Patient Use Family Transport?: Yes Transportation Name, Phone and Availability #1: pt's mother will transport Support Info or Referral Positive SDOH Domains and Potential Barriers Medication Needs Financial Legal Other Discharge Disposition Selected Continued Care - Admitted Since 08/19/2022 No services have been selected for the patient. JC Kowalski LMSW Social Work Case Management Available on [employer] * Janine Aguilar LMSW - 08/28/2022 4:14 PM CDT Case Management Progress Note NAME:Joan Trevino :1985 AGE: 37 y.o. ADMISSION DATE: 08/19/2022 DAYS ADMITTED: LOS: 9 days Today's Date: 08/28/2022 PLAN: Anticipate dc to [facility] Thursday morning around 10am via transport. Expected Discharge Date: 08/29/2022 12:00 PM Is Patient Medically Stable: Yes Are there Barriers to Discharge? no INTERVENTION/DISPOSITION: Discharge Planning SW emailed [facility] to see if the Medicaid application had been submitted. They were trying to get confirmation of employment and dates of employment. It appears this was all obtained today and the worker will send SW the medicaid laquita lication. SW met with pt and at bedside and let them know pt should be able to go to rehab tomorrow. Waiting on the medicaid application to be able to send to [facility]. is okay with transporting pt to the facility. DEMIAN received the medicaid application from [facility] and forwarded it to [facility]. Plan on family leaving around [...] LMSW Social Work Case Management Available on [employer] * Lilly Topete, RN - 08/28/2022 8:27 AM CDT Notified by Janine Burns (DEMIAN) that the patient is would prefer to stay at 's IP re hab unit. Per DEMIAN, patient will have consistent support from her [...] if they will acept Medicaid pending patient. SW to provide update to Rehab admission liaisons re: altern ate perferred facility acceptance. Jocelyn, Inpatient Admissions Nurse/Rehab. (office# [phone] or voalte# [phone]). * Janine Aguilar LMSW - 08/28/2022 7:49 [...] Discharge? no INTERVENTION/DISPOSITION: Discharge Planning SW reviewed EMR. Pt will be medicaid pending and may only be able to go to [facility] for rehab. DEMIAN sent a referral to [facility] to review. SW left a message for [facility] to see if they ever take medicaid pending or any type of navjot rehab. July with [facility] said they do consider these at times since pt lives the re. She will need a copy of the completed medicaid application once it is done . DEMIAN emailed [employer] worker to see if they could send the completed Medicaid ap plication once it [...] LMSW Social Work Case Management Available on [employer] * Janine Aguilar LMSW - 08/27/2022 2:40 PM CDT Case Management Progress Note NAME:Joan Trevino :1985 AGE: 37 y.o. ADMISSION DATE: 08/19/2022 DAYS ADMITTED: LOS: 8 days Today's Date: 08/27/2022 PLAN: Anticipate dc to [facility] pending medical stability, facility accepta [facility] and insurance auth. Expected Discharge Date: 08/28/2022 12:00 PM Is Patient Medically Stable: No, Please explain: post op day 1 possibly ready vs Thursday Are there Barriers to Discharge? no INTERVENTION/DISPOSITION: Discharge Planning SW reviewed EMR and pt has inpatient setting recs. SW talked with pt's Roxana and they would like to do rehab as close to h ome as possible so she can see her kids. SW will send a referral to [facility]. Sent a referral to [facility]. Transportation Will the Patient Use Family Transport?: Yes Transportation Name, Phone and Availability #1: pt's mother will transport Support Info or Referral Positive SDOH Domains and Potential Barriers Medication Needs Financial Legal Other Discharge Disposition Selected Continued Care - Admitted Since 08/19/2022 No services have been selected for the patient. JC Kowalski LMSW Social Work Case Management Available on [employer] * Janine Aguilar LMSW - 08/21/2022 8:29 AM CDT Case Management Admission Assessment NAME:Joan Trevino : [birth year] AGE: 37 y.o. ADMISSION DATE: 08/19/2022 DAYS ADMITTED: LOS: 2 days Todays Date: 08/21/2022 Source of Information: Patient Plan Plan: Case Management Assessment, Psychosocial Assessment, Assist PRN with DEMIAN/ROMA [facility] [facility] Patient Address/Phone [address] [place] [phone] (home) Emergency Contact Extended Emergency Contact Information Primary Emergency Contact: Roxana Trevino [facility] Relation: Spouse Secondary Emergency Contact: Loida Solano [facility] [place] Relation: Mother Healthcare Directive Healthcare Directive: No, [...] Income: Unemployed Financial Assistance Needed? Referral to [employer] to apply for Medicaid and disability. Psychosocial Needs Mental Health Mental Health History: No Substance Use History Substance Use History Screen: No Other NA Current/Previous Services PCP Viki Flores, , Pharmacy [facility] [place] [place] [facility] [address] [facility] [address] [facility] [address] - [address] [facility] [address] [facility] [id number] Durable Medical Equipment Durable Medical Equipment at [...] Therapy PT: In the past OT: No [facility] PROMOTER: No Intermediate Facility/Group Home SNF: No NH: No Inpatient Rehab IPR: No Long-Term Acute [facility] Hospital LTACH: No Acute Hospital Stay Acute Hospital Stay: No Janine Aguilar LMSW Social Work Case Management Available on [employer] documented in this encounter Discharge Instructions * Discharge Instr - Diet* Theresa Greenberg RD - 08/27/2022 3:25 PM CDT Please don't hesitate to contact a registered dietitian if needed: Contact information: Theresa Greenberg, MS, RD, LD, [facility] [email or web address] While on steroids, consider 1000 units Vit D3 if approved by doctor/PCP * Additional Instructions* Erika Kaiser RN - 08/28/2022 9:17 AM CDT Joan Trevino Right Parietal Craniotomy for Resection of Brain Tumor on 08/26/2022 with Kevin Gloria MD Neurosurgery Discharge Instructions Contact information: Call the Neurosurgery clinic if you have questions or are experiencing problems at [phone]. After 5 PM, weekends, holidays please call [phone] to reach Neurosurgery early childhood education specialist. Post-operative wound care: Your incision has sutures/dissolving [...] Rehab Physician to remove sutures. Please call [phone] with dwight moss concerns. Future Appointments Date Time Provider Department Center 09/09/2022 12:30 PM Sofia Gonzalez APRN-HEN[facility] 09/29/2022 1:00 PM Kevin Gloria MD [facility]urg Reasons to call the Neurosurgery Clinic ([phone]): Concerning lethargy (sleepiness), decreased level of consciousness, [...] Means Destination Disposition Wheelchair Rehab Facility (Not [facility]) documented in this encounter Progress Notes * Bernie Tejada APRN-HENNA - 08/29/2022 9:27 AM CDT Neurosurgery Progress [...] onc consult completed 08/25-planning outpatient follow up, [facility] appointme nt requested. Regular diet Labs every [...] assessed for need for restraints. Please page [phone] with any questions. ANETA Pratt Voalte ia * Kathleen Anderson RN - 08/29/2022 9:05 AM CDT 0906: Report called to CHARLOTTE Sheriff at [facility]. 0936: Discharge instructions reviewed with the patient and her family, who are a t bedside. Both the patient and her family express understanding regarding these instructions. IV access removed. All belonging returned to the patient at this time. Patient assisted by aide to her personal vehicle for transfer to [facility]. * Janeen Sorto, PT - 08/28/2022 1:52 PM CDT PHYSICAL [...] a grade 3 oligodendroglioma. She represented to [facility] with complaints of decreased left-side sensation, inco ordination and headaches. 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 Endorses no baseline [...] Sorto, PT Date: 08/28/2022 T * Bernie Tejada, KAMALA-CHILI POWDER MIXER - 08/28/2022 11:06 AM CDT Neurosurgery Progress [...] onc consult completed 08/25-planning outpatient follow up, [facility] appointme nt requested. Regular diet Labs every other day: 08/27 Na 134 noted hyponatremia, BMP pending. . PRN pain control, ice packs PRN PT/OT--Left hemiparesis, and decrease proprioception, current recommendations fo r home/prior living situation. Functional ability worse after OR, Rehab recommen ded, Rehab consult completed, DEMIAN assisting family with placement-hopeful for [facility] ewhere closer to home. Medically ready for discharge. Prophylaxis: A) GI: H2 bello B) Lines: No C) Urinary Catheter: No D) Antibiotic Usage: No E) VTE: Mechanical prophylaxis; Sequential compression device ; sq heparin F) Restraints: Patient assessed for need for restraints. Please page [phone] with any questions. ANETA Pratt Voalte me * Capri Harrington, OT - 08/28/2022 9:43 AM CDT OCCUPATIONAL [...] Tub: Tub/Shower Unit Prior Function Level Of Haakon: Independent with ADLs and functional transfers;Independen t [...] hallway; able to maneuver with cueing from OTWei cast see note for 4-item DGI. Balance [...] functioning ADLs Therapist: QIANA Christian, MARLON/Ember, CSRS [id number] Date: 08/28/2022 * Vickie Mcgarry RT - 08/27/2022 1:58 PM CDT RT [...] Breath Sounds: Respiratory Effort: * Bernie Tejada APRN-NP - 08/27/2022 10:08 AM CDT Neurosurgery Progress [...] onc consult completed 08/25-planning outpatient follow up, [facility] appointme nt requested. Regular diet Labs every [...] assessed for need for restraints. Please page [phone] with any questions. NAETA Pratt Voalte me * Capri Harrington, OT - 08/27/2022 9:58 AM CDT OCCUPATIONAL [...] Tub: Tub/Shower Unit Prior Function Level Of Haakon: Independent with ADLs and functional transfers;Independen t [...] note from 08/27 for outcome measures Dynamometer Senior Financial Analyst Assessment: 3 Trial Average L Hand (lbs) R Hand (lbs) Trial 1 15 75 Trial 2 25 74 Trial 3 29 60 Average 23 69.7 Senior Financial Analyst Assessment norms according to age grouping: Female: 35-39 R AV.1; SD: 10.8 -- L AV.3; SD: 11.7 Senior Financial Analyst strength testing is the one of the [...] functioning ADLs Therapist: QIANA Christian, MARLON/Ember, CSRS [id number] Date: 08/27/2022 * AvilaSiobhan, PT - 08/27/2022 9:30 AM CDT PHYSICAL [...] a grade 3 oligodendroglioma. She represented to [facility] with complaints of decreased left-side sensation, inco ordination and headaches. 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 Endorses no baseline [...] Siobhan Avila, PT Date 08/27/2022 * Stefania Beavers DO - 08/27/2022 9:10 AM CDT Neuro [...] a year of temodar. She lives in [facility] so I have contacted Dr. Oh [...] grade 3 oligodendroglioma. She represe nted to [facility] with complaints of decreased left-side sensation, incoordinati on and headaches. HCT demonstrated reoccurrence of the oligodendroglioma and [facility]/p repeat right parietal craniotomy. Hospital and [...] Disposition/Family: Transfer to the floor Primary service: MIL Consults: LILI SUBJECTIVE Chief Complaint: S/P Craniotomy History of Present Illness: Joan Trevino is a 37 y.o. 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 She represe nted to [facility] with complaints of decreased left-side sensation, incoordinati on and headaches. HCT demonstrated reoccurrence of the oligodendroglioma and she presents to [facility] s/p repeat right parietal craniotomy. 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 Manor coma score: 14 E: 4 - Opens [...] No rashes or lesions Glucose: (!) 108 (08/27/22 0224) POC Glucose (Download): (!) 124 (08/26/222123) Lab Review: Pertinent labs reviewed Radiology and Other Diagnostic Procedures Review: Pertinent radiologic and diag nostic procedures reviewed. Stefania Beavers DO Date: 08/27/[phone] Associated attestation - Sarmad Ferrell MD - 08/27/2022 9:56 AM CDT ATTESTATION I have seen, personally fully evaluated, and discussed patient with the ICU team . I reviewed the chart for all pertinent data, including labs, radiology, vital signs, nursing notes, and oracle financials consultant notes. I formulated a daily plan for this p atient based on the above information. I agree [...] q1h NC checks overnight, q4h neurochecks today. Decad natanael taper, MRI overnight. Multimodal pain control with fentanyl, [...] of brain tumor - Navigation, 4 hours, evans pine, cortical and subcortical mapping. STEREOTACTIC COMPUTER-ASSISTED CRANIAL PROCEDURE - INTRADURAL FUNCTIONAL CORTICAL AND SUBCORTICAL MAPPING BY STIMULATION AND/ OR RECORDING OF ELECTRODES ON BRAIN SURFACE TO IDENTIFY VITAL BRAIN STRUCTURES - INITIAL HOUR Physical Assessment Height: 157.5 cm (5' 2") Weight: 50.1 kg (110 lb 7.2 oz) Vital Signs (Last Filed in 24 hours) BP: 106/81 (08/27 699) Temp: 37.3 C (99.1 F) (08/27 0800) Pulse: 68 (08/27 699) Respirations: 15 PER MINUTE (08/27 699) SpO2: 96 % (08/27 699) O2 Device: None (Room air) (08/27 599) Patient History Allergies Allergies Allergen Reactions Bactrim [...] acceptable Cardiovascular Status:acceptable Regional/Neuroaxial: * Isabel Evans, KAMALA-CHILI POWDER MIXER - 08/26/2022 10:25 AM CDT Neurosurgery Progress [...] 08/26 Right parietal crani for brain tumor [id number] >Continue Dexamethasone 4 mg every 6 hours. [...] assessed for need for restraints. Please page [phone] with any questions. ANETA Freeman Voalte me [...] brain mass, vasogenic edema and compression OR / Right parietal crani for brain tumor [id number] Continue Dexamethasone 4 mg every 6 hours. Noted hyperglycemia, blood glucose [phone] induced hyerpglycemia PT/OTl, Left hemiparesis, and decrease [...] assessed for need for restraints. Please page [phone] with any questions. ANETA Pratt Voalte me [...] every 6 hours. Noted hyperglycemia, blood glucose [id number]-frkqsve induced hyerpglycemia PT/OTl, Left hemiparesis, and decrease proprioception. Assist of 1. Patient with good insight of need for assist with mobility. Labs planned qod Sq heparin. Prophylaxis: A) GI: H2 bello B) Lines: No C) Urinary Catheter: No D) Antibiotic Usage: No E) VTE: Mechanical prophylaxis; Sequential compression device sq heparin F) Restraints: Patient assessed for need for restraints. Please page [phone] with any questions. Carole Dhillon MD Voalte [...] every 6 hours. Noted hyperglycemia, blood glucose [phone] induced hyerpglycemia PT/OTl, Left hemiparesis, and decrease proprioception. Assist of 1. Patient with good insight of need for assist with mobility. Labs planned qod Sq heparin. Prophylaxis: A) GI: H2 bello B) Lines: No C) Urinary Catheter: No D) Antibiotic Usage: No E) VTE: Mechanical prophylaxis; Sequential compression device sq heparin F) Restraints: Patient assessed for need for restraints. Please page [phone] with any questions. Carole Dhillon MD Voalte me * Bernie Tejada APRN-CHILI POWDER MIXER - 08/22/2022 10:21 AM CDT Neurosurgery Progress [...] every 6 hours. Noted hyperglycemia, blood glucose [phone] induced hyerpglycemia PT/OTl, Left hemiparesis, and decrease proprioception. Assist of 1. Patient with good insight of need for assist with mobility. Labs planned qod Sq heparin. Prophylaxis: A) GI: H2 bello B) Lines: No C) Urinary Catheter: No D) Antibiotic Usage: No E) VTE: Mechanical prophylaxis; Sequential compression device sq heparin F) Restraints: Patient assessed for need for restraints. Please page [phone] with any questions. 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 Endorses no baseline [...] pt endorses some lingering numbness in L george. reports global LUE numbness that has improved [...] Can reach forward 12 cm (5 inches) Boiler House Operator Object From Floor While Standing: Able to last picker slipper but needs supe rvision Standing, [...] surgery and reassess follo wing planned resection. heat treat technician to assist with ongoing mobilization, ADLs [...] cated post-operatively) Therapist Flori Lira, PT, DPT [id number] Date 08/21/2022 * Bernie Tejada, LABOUR MARKET ECONOMIST-CHILI POWDER MIXER - 08/21/2022 10:29 AM CDT Neurosurgery Progress [...] every 6 hours. Noted hyperglycemia, blood glucose [phone] induced hyerpglycemia PT/OT to eval, Left hemiparesis, and decrease proprioception. Ordered Na 140 Labs planned qod Sq heparin. Prophylaxis: A) GI: H2 bello B) Lines: No C) Urinary Catheter: No D) Antibiotic Usage: No E) VTE: Mechanical prophylaxis; Sequential compression device F) Restraints: Patient assessed for need for restraints. Please page [phone] with any questions. ANETA Pratt Voalte me [...] sided strength will be affected next. Discussed evans tyler will need to be followed by Chemotherapy, [...] every 6 hours. Noted hyperglycemia, blood glucose [phone] induced hyerpglycemia PT/OT to eval, Left hemiparesis, and decrease proprioception. Ordered Na 138 Sq heparin added. Prophylaxis: A) GI: H2 bello B) Lines: No C) Urinary Catheter: No D) Antibiotic Usage: No E) VTE: Mechanical prophylaxis; Sequential compression device F) Restraints: Patient assessed for need for restraints. Please page [phone] with any questions. ANETA Pratt Voalte me * Solange Marcum RT - 08/19/2022 10:09 PM CDT RT [...] ago as she f elt groggy. No INTERNATIONAL RELATIONS TEACHER AC/AP agents. On exam, pt has decreased [...] Smoking 1/2 pack a day or less [phone] On and off for the past 10 [...] 37 y.o. female : 1985 MRN#: [id number] DATE OF OPERATION: 08/26/2022 Date: 08/26/2022 Preoperative [...] Complications: None Implants: Implant Name Serial No. Jewelry Enameler Lot No. LRB No. Used Action SCREWS N/A N/A Right 13 Explanted LISETTE HOLE COVER N/A N/A Right 3 Explanted SUBSTITUTE TISSUE 5X4IN LYOPLANT DURA ONLAY ABSORBABLE - [id number] [employer] [id number] Right 1 Implanted 4MM SCREW [id number] 10 Implanted LISETTE HOLE COVER PLATE [id number] Implanted Drains: None Disposition: ICU - stable Cecily Bartholomew MD Pager * Jose L Watson MD - 08/26/2022 5:24 PM CDT Neurology intra-Operating Monitoring report (IOM) Date of procedure: 08/26/22 Diagnosis: Brain tumor Procedure: Resection of brain tumor Surgeon: Faizan Baseline acquisition time: 5:14 pm Monitoring start time: [...] performed. Findings were communicated to the [facility] instantly to tailor the resection. I personally monitored and supervised this case I remotely monitored and supervised this case in real-time, online via a secure HIPAA-compliant network between 5:20 pm and 5:53 pm and in the OR between 5:53 p m and 6:21 pm. Jose L Watson MD Imagery [employer] [facility] Department of Neurology documented in this encounter [...] y.o. year old female admitted to [facility] on 08/19/2022 with the following issues: non-traumatic [...] 3 therapeutic disciplines, including PT, OT, and PEER HEALTH PROMOTER. This will need to be determined prior [...] concerns. Keven Varela MD Resident Physician [facility] History of Present Illness: 37-year-old female admitted on 08/26/2022 for a chief complaint of decreased left -sided sensation, incoordination, weakness, frequent headaches. 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 Endorses no baseline [...] floor. Poor attention to L throughout task. PEER HEALTH PROMOTER COGNITIVE EVALUATION SUMMARY PRAGMATICS: BEHAVIOR: AUDITORY COMPREHENSION: ORIENTATION: AUDITORY ATTENTION/WORKING MEMORY: AUDITORY MEMORY/SUSTAINED ATTENTION: NEW LEARNING: SEQUENCING/ORGANIZATION: PROBLEM SOLVING: REASONING: MATH/MONEY SKILLS: VISUAL PERCEPTUAL: SWALLOW EVALUATION SUMMARY Review of Systems: A 14 point review of systems was negative except for: that noted in the HPI Physical Exam: BP: 130/70 (08/27 0800) Temp: 37.3 C (99.1 F) (08/27 0800) Pulse: 54 (08/27 1342) Respirations: 24 PER MINUTE (08/27 1342) SpO2: 98 % (08/27 0800) O2 Device: None (Room air) (08/27 134) Body mass index is 20.2 kg/m. Gen: [...] of a large cyst subjacent to the aircraft systems repairer niotomy defect, previously demonstrating incomplete thin marginal [...] patient. Nikunj Evans MD Rehabilitation Medicine * Deven Elissa P, LABOUR MARKET ECONOMIST-CHILI POWDER MIXER - 08/26/2022 8:22 PM CDTAssociated Order(s): CONSULT [...] a year of temodar. She lives in [facility] so I have contacted Dr. Oh [...] grade 3 oligodendroglioma. She represe nted to [facility] with complaints of decreased left-side sensation, incoordinati on and headaches. HCT demonstrated reoccurrence of the oligodendroglioma and [facility] s/p repeat right parietal craniotomy. Hospital and ICU course: 08/26: [facility] Neuro: S/P Repeat Right Parietal Craniotomy Right [...] need for restraints. Disposition/Family: ICU [place] [facility] [place]ults: NCC SUBJECTIVE Chief Complaint: S/P Craniotomy History of Present Illness: Joan Trevino is a 37 y.o. 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 She represe nted to [facility] with complaints of decreased left-side sensation, incoordinati on and headaches. HCT demonstrated reoccurrence of the oligodendroglioma and she presents to [facility] s/p repeat right parietal craniotomy. 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 Manor coma score: 14 E: 4 - Opens [...] with consulted teams. ANETA Alas Date: 08/26/2022 [id number] * Jimmy Torres MD - 08/25/2022 9:46 [...] 08/25/22 0230 08/25/22 0753 08/25/22 1138 08/25/22 1513 BP: 107/70 110/75 103/64 95/74 BP Source: [...] Smoking 1/2 pack a day or less [id number] On and off for the past 10 [...] otherwise normal supratentorial ventricular size. Finalized by Ashihs Cooper DO on 08/20/2022 8:17 AM. Dictated [...] in this encounter Nursing Notes * Erika Kaiser, RN - 08/28/2022 10:46 AM CDT Joan Spurestrella Right Parietal Craniotomy for Resection of Brain Tumor on 08/26/2022 with Kevin Gloria MD Neurosurgery Discharge Instructions Contact information: Call the Neurosurgery clinic if you have questions or are experiencing probl ems at [phone]. After 5 PM, weekends, holidays please call [phone] to reach Neurosurger y early childhood education specialist. Post-operative wound care: Your incision has sutures/dissolving [...] Rehab Physician to remove sutures. Please call [phone] with wou nd concerns. Future Appointments Date Time Provider Department Center 09/09/2022 12:30 PM Sofia Gonzalez APRN-CHILI POWDER MIXER [facility] 09/29/2022 1:00 PM Kevin Gloria MD [facility]urg Reasons to call the Neurosurgery Clinic ([phone]): Concerning lethargy (sleepiness), decreased level of consciousness, [...] at bedside with patient/family. Incision with sutur es/intact/dry/MILAGROS. Advised prescribed medications for treatment/pain control, a [...] 37 y.o. female : 1985 MRN#: [id number] DATE OF OPERATION: 08/26/2022 Surgeon(s) and Role: [...] padded. The head was placed in the [employer] head setter a nd secured to the table. The patient was registered to the preoperative MRI for use of EGT neuro navigation. Neuro monitoring was begun and [...] The bone flap was reaffixed with the Conway cranial plating system. The wo und was [...] Tissue Brain SURGICAL PATHOLOGY Kevin Gloria MD 0850 Complications: None Implants: Implant Name Serial No. Jewelry Enameler Lot No. LRB No. Used Action SCREWS N/A N/A Right 13 Explanted LISETTE HOLE COVER N/A N/A Right 3 Explanted SUBSTITUTE TISSUE 5X4IN LYOPLANT DURA ONLAY ABSORBABLE - [id number] [employer] [id number] Right 1 Implanted 4MM SCREW [id number] 10 Implanted LISETTE HOLE COVER PLATE [id number] Implanted Drains: [place] Catheter: - mL Disposition: ICU - stable Jaime Martinez MD Pager ATTESTATION I performed this surgery with assistance from the residents Staff name: Kevin Gloria MD Date: 08/27/2022 documented in this encounter Miscellaneous Notes * Care Plan - Kailee Magana - 08/25/2022 12:49 PM CDT [employer] CONSULTATION ASSESSMENT/RECOMMENDATIONS Patient was referred for [facility] consultation Tobacco Use Treatment Practical Counseling was [...] discharge support referral: Accepted State Tobacco Quitline [facility] Educational Material: Accepted Materials can also be accessed by mario matta on our website [email or web address] for this consult which was completed during soc ial distancing. History of Present Illness Reports using 10-15 cigarettes per day. Reports using tobacco within 31-60 minutes minutes of waking. E-Cigarette or vape use: Never Other tobacco use: None Years used: 22 Withdrawal: Moderate nicotine withdrawal based upon the patients rating on e Nicotine Withdrawal Behavior Rating Scale. Patient [...] can be of further assistance, please call [employer] [phone] * Care Plan - Ruthie Olmedo RN - 08/20/2022 4:16 PM CDT Problem: Discharge Planning Goal: Participation in plan of care Outcome: Goal Ongoing Flowsheets (Taken 08/20/2022 1615) Participation in Plan of Care: Involve patient/caregiver in care planning titus on making Goal: Knowledge regarding plan of care Outcome: Goal Ongoing Flowsheets (Taken 08/20/2022 1615) Knowledge regarding plan of care: Provide procedural and treatment education Provide infection prevention education Provide VTE signs and symptoms education Provide plan of care education Provide fall prevention education Provide medication management education Goal: Prepared for discharge Outcome: Goal Ongoing Flowsheets (Taken 08/20/2022 161) Prepared for discharge: Complete ADL ability assessment Provide safe use medical equipment education Provide diet and oral health education Problem: High Fall Risk Goal: High Fall Risk Outcome: Goal Ongoing Flowsheets (Taken 08/20/2022 161) High Fall Risk: All patients will receive: [...] of pain Outcome: Goal Ongoing Flowsheets (Taken 08/20/20221614) Management of pain: Complete pain assessment scale [...] thrombosis Outcome: Goal Ongoing Flowsheets (Taken 08/20/2022 161) Absence of venous thrombosis: Utilize prevent measures [...] tumor SUBCORTICAL MAPPING BY 4:38 PM CDT (HCC) STIMULATION AND/ OR RECORDING OF ELECTRODES ON BRAIN SURFACE/ DEPTH ELECTRODES TO PROVOKE SEIZURES/ IDENTIFY VITAL BRAIN STRUCTURES - INITIAL HOUR STEREOTACTIC 08/26/2022 Recurrent brain nevaeh or COMPUTER-ASSISTED CRANIAL 4:38 PM CDT (HCC) PROCEDURE - INTRADURAL CRANIECTOMY/ BONE FLAP 08/26/2022 Recurrent brai n tumor CRANIOTOMY EXCISION 4:38 PM CDT (HCC) SUPRATENTORIAL BRAIN TUMOR TYPE & CROSSMATCH Routine [...] 4:04 AM CDT Elissa Carvalho LABORATORY ORDERABLES LABOUR MARKET ECONOMIST- City/State/ZIP Code Phone Number Performing Address [place] [address] [facility] AND [address] LAB [...] 4:04 AM CDT Elissa Carvalho LABORATORY ORDERABLES LABOUR MARKET ECONOMIST-[facility]/State/ZIP Code Phone Number Performing Address [place] [address] [employer] DEPT PATH AND [address] LAB MEDICINE * (ABNORMAL) BASIC METABOLIC [...] 12:53 PM CDT Bernie Tejada LABORATORY ORDERABLES LABOUR MARKET ECONOMIST-CHILI POWDER MIXER City/State/ZIP Code Phone Number Performing Address [place] [address] [facility] AND [address] LAB MEDICINE * PHOSPHORUS (08/28/2022 2:35 AM CDT) Pathologist [...] 2:45 AM CDT Elissa Carvalho LABORATORY ORDERABLES LABOUR MARKET ECONOMIST-CHILI POWDER MIXER City/State/ZIP Code Phone Number Performing Address [place] [address] [facility] DE[facility] AND [address] LAB MEDICINE * MAGNESIUM (08/28/2022 2:35 AM CDT) Pathologist [...] 2:45 AM CDT Elissa Carvalho LABORATORY ORDERABLES [facility]/ZIP Code Phone Number Performing Address [place] [address] [employer] DEPT PATH AND [address] [facility] LAB MEDICINE * (ABNORMAL) PHOSPHORUS (08/27/2022 2:24 AM CDT) [...] 2:34 AM CDT Elissa Carvalho LABORATORY ORDERABLES [facility]/ZIP Code Phone Number Performing Address [place] [address] [employer] DEPT PATH AND [address] [facility] LAB MEDICINE * MAGNESIUM (08/27/2022 2:24 AM CDT) Pathologist Signature Component Value Ref Test Method Analysis Performed A t Range Time Magnesium 2.0 1.6 - 08/27/2022 [facility] DEPT PAT H AND 2.6 3:08 AM LAB MEDICINE mg/dL CDT Anatomical Location / Laterality Collection Method / Volume Isra ection Time Received Time Specimen (Source) BLOOD / Unknown 08/27/2022 2:24 AM CDT 08/28/19 23 2:34 AM CDT Elissa Carvalho LABORATORY ORDERABLES LABOUR MARKET ECONOMISTShriners Hospitals for Children/[facility]/ZIP Code Phone Number Performing Address [place] [address] [employer] DEPT PATH AND [address] [facility] LAB MEDICINE * IONIZED CALCIUM (08/27/2022 [...] 2:31 AM CDT Elissa Carvalho LABORATORY ORDERABLES LABOUR MARKET ECONOMIST-CHILI POWDER MIXER City/State/ZIP Code Phone Number Performing Address [place] [address] [facility] DEPT PATH AND [address] [facility] LAB MEDICINE * (ABNORMAL) CBC AND DIFF (08/27/2022 2:24 AM CDT) Pathologist Signature Component Value Ref Test Method Analysis Performed A t Range Time White Blood Cells 25.5 (H) 4.5 - 08/27/2022 [facility] DE PT PATH AND 11.0 2:44 AM LAB MEDICINE K/UL CDT RBC 4.35 4.0 - 08/27/2022 [facility] DEPT PAT H AND 5.0 M/UL 2:44 AM LAB MEDICINE CDT Hemoglobin 14.1 12.0 - 08/27/2022 [facility] DEPT PAT H AND 15.0 2:44 AM LAB MEDICINE GM/DL CDT Hematocrit 41.9 36 - 45 08/27/2022 [facility] DEPT PAT H AND % 2:44 AM LAB MEDICINE CDT MCV 96.3 80 - 100 08/27/2022 [facility] DEPT PAT H AND FL [...] CDT Platelet Count 167 150 - 08/27/2022 [facility] DEPT PATH AND 400 K/UL 2:44 AM LAB MEDICINE CDT MPV 7.1 7 - 11 08/27/2022 [facility] DEPT PAT H AND FL 2:44 AM [...] 2:34 AM CDT Bernie Tejada LABORATORY ORDERABLES LABOUR MARKET ECONOMIST-CHILI POWDER MIXER City/State/ZIP Code Phone Number Performing Address [place] [address] [facility] DEPT PATH AND [address] [facility] LAB MEDICINE * (ABNORMAL) BASIC METABOLIC PANEL (08/27/2022 2:24 AM CDT) Pathologist Signature Component Value Ref Test Method Analysis Performed A t Range Time Sodium 134 (L) 137 - 08/27/2022 [facility] DEPT PAT H AND 147 3:08 AM LAB MEDICINE MMOL/L CDT Potassium 4.3 3.5 - 08/27/2022 [facility] DEPT PAT H AND 5.1 3:08 AM LAB MEDICINE MMOL/L CDT Chloride 99 98 - 110 08/27/2022 [facility] DEPT PAT H AND MMOL/L 3:08 AM LAB MEDICINE CDT CO2 26 21 - 30 08/27/2022 [facility] DEPT PAT H AND MMOL/L 3:08 AM LAB MEDICINE CDT Anion Gap 9 3 - 12 08/27/2022 [facility] DEPT PAT H AND 3:08 AM LAB MEDICINE CDT Glucose 108 (H) 70 - 100 08/27/2022 [facility] DEPT PAT H AND MG/DL 3:08 AM LAB MEDICINE CDT Blood Urea Nitrogen 18 7 - 25 08/27/2022 [facility] DEPT PATH AND MG/DL 3:08 AM LAB MEDICINE CDT Creatinine 0.56 0.4 - 08/27/2022 [facility] DEPT PAT H AND 1.00 3:08 AM LAB MEDICINE MG/DL CDT Calcium 8.8 8.5 - 08/27/2022 [facility] DEPT PAT H AND 10.6 3:08 AM LAB MEDICINE MG/DL CDT eGFR >60 >60 08/27/2022 [facility] DEPT PAT H AND mL/min 3:08 AM LAB MEDICINE CDT Comment: eGFR calculated using the CKD-EPIcr_R equation Anatomical Location / Laterality Collection Method / Volume Isra ection Time Received Time Specimen (Source) BLOOD / Unknown 08/27/2022 2:24 AM CDT 08/28/19 23 2:34 AM CDT Bernie Tejada LABORATORY ORDERABLES LABOUR MARKET ECONOMIST-CHILI POWDER MIXER City/State/ZIP Code Phone Number Performing Address [place] [address] [facility] DEPT PATH AND [address] [facility] LAB MEDICINE * MRI HEAD WO/W [...] 124 (H) 70 - 100 08/26/2022 [facility] MG/DL 9:25 PM TOWER A CDT Anatomical Location / Laterality Collection Method / Volume Isra ection Time Received Time Specimen (Source) 08/26/2022 9:24 PM CDT 08/27/19 9:25 PM CDT Kevin Gloria MD OTHER LABORATORY City/State/ZIP Code Phone Number Performing Address [place] [address] * TYPE & CROSSMATCH (08/25/2022 7:30 AM [...] LAB MEDICINE CDT Antibody Screen NEG 08/25/2022 [facility] DEPT PAT H AND 8:39 AM LAB MEDICINE CDT Electronic YES 08/25/2022 [facility] DEPT PATH AND Crossmatch 8:39 AM LAB MEDICINE CDT Anatomical Location / Laterality Collection Method / Volume Isra ection Time Received Time Specimen (Source) BLOOD / Unknown 08/25/2022 7:30 AM CDT 08/26/19 7:52 AM CDT Kevin Gloria MD BLOOD BANK ORDERABLES City/State/ZIP Code Phone Number Performing Address [place] [address] [facility] DEPT PATH AND [address] [facility] LAB MEDICINE * (ABNORMAL) CBC AND DIFF (08/25/2022 2:29 AM CDT) Pathologist Signature Component Value Ref Test Method Analysis Performed A t Range Time White Blood Cells 15.1 (H) 4.5 - 08/25/2022 [facility] DE PT PATH AND 11.0 2:51 AM LAB MEDICINE K/UL CDT RBC 4.33 4.0 - 08/25/2022 [facility] DEPT PAT H AND 5.0 M/UL 2:51 AM LAB MEDICINE CDT Hemoglobin 14.0 12.0 - 08/25/2022 [facility] DEPT PAT H AND 15.0 2:51 AM LAB MEDICINE GM/DL CDT Hematocrit 41.7 36 - 45 08/25/2022 [facility] DEPT PAT H AND % 2:51 AM LAB MEDICINE CDT MCV 96.4 80 - 100 08/25/2022 [facility] DEPT PAT H AND FL 2:51 AM LAB MEDICINE CDT MCH 32.2 26 - 34 08/25/2022 [facility] DEPT PAT H AND PG 2:51 AM LAB MEDICINE CDT MCHC 33.5 32.0 - 08/25/2022 [facility] DEPT PAT H AND 36.0 2:51 AM LAB MEDICINE G/DL CDT RDW 13.5 11 - 15 08/25/2022 [facility] DEPT PAT H AND % 2:51 AM LAB MEDICINE CDT Platelet Count 175 150 - 08/25/2022 [facility] DEPT PATH AND 400 K/UL 2:51 AM LAB MEDICINE CDT MPV 7.6 7 - 11 08/25/2022 [facility] DEPT PAT H AND FL 2:51 AM LAB MEDICINE CDT Neutrophils 86 (H) 41 - 77 08/25/2022 [facility] DEPT PAT H AND % 3:28 AM LAB MEDICINE CDT Lymphocytes 8 (L) 24 - 44 08/25/2022 [facility] DEPT PAT H AND % 3:28 AM LAB MEDICINE CDT Monocytes 6 4 - 12 % 08/25/2022 [facility] DEPT PAT H AND 3:28 AM LAB MEDICINE CDT Eosinophils 0 0 - 5 % 08/25/2022 [facility] DEPT PAT H AND 3:28 AM LAB MEDICINE CDT Basophils 0 0 - 2 % 08/25/2022 [facility] DEPT PAT H AND 3:28 AM LAB MEDICINE CDT Absolute Neutrophil 12.90 (H) 1.8 - 08/25/2022 [facility] DEPT PATH AND Count 7.0 K/UL 3:28 AM LAB MEDICINE CDT Absolute Lymph Count 1.21 1.0 - 08/25/2022 [facility] DEPT PATH AND 4.8 K/UL 3:28 AM [...] 2:43 AM CDT Bernie Tejada LABORATORY ORDERABLES LABOUR MARKET ECONOMIST-CHILI POWDER MIXER City/State/ZIP Code Phone Number Performing Address [place] [address] [facility] DEPT PATH AND [address] [facility] LAB MEDICINE * (ABNORMAL) BASIC METABOLIC PANEL (08/25/2022 2:29 AM CDT) Pathologist Signature Component Value Ref Test Method Analysis Performed A t Range Time Sodium 135 (L) 137 - 08/25/2022 [facility] DEPT PAT H AND 147 3:17 AM LAB MEDICINE MMOL/L CDT Potassium 4.3 3.5 - 08/25/2022 [facility] DEPT PAT H AND 5.1 3:17 AM LAB MEDICINE MMOL/L CDT Chloride 103 98 - 110 08/25/2022 [facility] DEPT PAT H AND MMOL/L 3:17 AM LAB MEDICINE CDT CO2 23 21 - 30 08/25/2022 [facility] DEPT PAT H AND MMOL/L 3:17 AM LAB MEDICINE CDT Anion Gap 9 3 - 12 08/25/2022 [facility] DEPT PAT H AND 3:17 AM LAB MEDICINE CDT Glucose 126 (H) 70 - 100 08/25/2022 [facility] DEPT PAT H AND MG/DL 3:17 AM LAB MEDICINE CDT Blood Urea Nitrogen 17 7 - 25 08/25/2022 [facility] DEPT PATH AND MG/DL 3:17 AM LAB MEDICINE CDT Creatinine 0.56 0.4 - 08/25/2022 [facility] DEPT PAT H AND 1.00 3:17 AM LAB MEDICINE MG/DL CDT Calcium 9.1 8.5 - 08/25/2022 [facility] DEPT PAT H AND 10.6 3:17 AM LAB MEDICINE MG/DL CDT eGFR >60 >60 08/25/2022 [facility] DEPT PAT H AND mL/min 3:17 AM LAB MEDICINE CDT Comment: eGFR calculated using the CKD-EPIcr_R equation Anatomical Location / Laterality Collection Method / Volume Isra ection Time Received Time Specimen (Source) BLOOD / Unknown 08/25/2022 2:29 AM CDT 08/26/19 2:43 AM CDT Bernie Tejada LABORATORY ORDERABLES LABOUR MARKET ECONOMIST-CHILI POWDER MIXER City/State/ZIP Code Phone Number Performing Address [place] [address] [facility] DEPT PATH AND [address] [facility] LAB MEDICINE * (ABNORMAL) CBC AND DIFF (08/23/2022 3:31 AM CDT) Pathologist Signature Component Value Ref Test Method Analysis Performed A t Range Time White Blood Cells 9.7 4.5 - 08/23/2022 [facility] DE PT PATH AND 11.0 3:55 AM LAB MEDICINE K/UL CDT RBC 4.09 4.0 - 08/23/2022 [facility] DEPT PAT H AND 5.0 M/UL 3:55 AM LAB MEDICINE CDT Hemoglobin 14.0 12.0 - 08/23/2022 [facility] DEPT PAT H AND 15.0 3:55 AM LAB MEDICINE GM/DL CDT Hematocrit 39.2 36 - 45 08/23/2022 [facility] DEPT PAT H AND % 3:55 AM LAB MEDICINE CDT MCV 95.8 80 - 100 08/23/2022 [facility] DEPT PAT H AND FL 3:55 AM LAB MEDICINE CDT MCH 34.1 (H) 26 - 34 08/23/2022 [facility] DEPT PAT H AND PG 3:55 AM LAB MEDICINE CDT MCHC 35.6 32.0 - 08/23/2022 [facility] DEPT PAT H AND 36.0 3:55 AM LAB MEDICINE G/DL CDT RDW 13.5 11 - 15 08/23/2022 [facility] DEPT PAT H AND % 3:55 AM LAB MEDICINE CDT Platelet Count 168 150 - 08/23/2022 [facility] DEPT PATH AND 400 K/UL 3:55 AM LAB MEDICINE CDT MPV 7.9 7 - 11 08/23/2022 [facility] DEPT PAT H AND FL 3:55 AM LAB MEDICINE CDT Neutrophils 82 (H) 41 - 77 08/23/2022 [facility] DEPT PAT H AND % 3:55 AM LAB MEDICINE CDT Lymphocytes 10 (L) 24 - 44 08/23/2022 [facility] DEPT PAT H AND % 3:55 AM LAB MEDICINE CDT Monocytes 8 4 - 12 % 08/23/2022 [facility] DEPT PAT H AND 3:55 AM LAB MEDICINE CDT Eosinophils 0 0 - 5 % 08/23/2022 [facility] DEPT PAT H AND 3:55 AM LAB MEDICINE CDT Basophils 0 0 - 2 % 08/23/2022 [facility] DEPT PAT H AND 3:55 AM LAB MEDICINE CDT Absolute Neutrophil 7.96 (H) 1.8 - 08/23/2022 [facility] DEPT PATH AND Count 7.0 K/UL 3:55 AM LAB MEDICINE CDT Absolute Lymph Count 0.96 (L) 1.0 - 08/23/2022 [facility] DEPT PATH AND 4.8 K/UL 3:55 AM [...] 3:32 AM CDT Bernie Tejada LABORATORY ORDERABLES LABOUR MARKET ECONOMIST-CHILI POWDER MIXER City/State/ZIP Code Phone Number Performing Address [place] [address] [facility] DEPT PATH AND [address] LAB MEDICINE * (ABNORMAL) BASIC METABOLIC [...] Glucose 117 (H) 70 - 100 08/23/2022 [facility] DEPT PAT H AND MG/DL 4:19 AM LAB MEDICINE CDT Blood Urea Nitrogen 21 7 - 25 08/23/2022 [facility] DEPT PATH AND MG/DL 4:19 AM LAB MEDICINE CDT Creatinine 0.64 0.4 - 08/23/2022 [facility] DEPT PAT H AND 1.00 4:19 AM LAB MEDICINE MG/DL CDT Calcium 9.0 8.5 - 08/23/2022 [facility] DEPT PAT H AND 10.6 4:19 AM LAB MEDICINE MG/DL CDT eGFR >60 >60 08/23/2022 [facility] DEPT PAT H AND mL/min 4:19 AM LAB MEDICINE CDT Comment: eGFR calculated using the CKD-EPIcr_R equation Anatomical Location / Laterality Collection Method / Volume Isra ection Time Received Time Specimen (Source) BLOOD / Unknown 08/23/2022 3:31 AM CDT 08/24/19 3:32 AM CDT Bernie Tejada LABORATORY ORDERABLES LABOUR MARKET ECONOMIST-CHILI POWDER MIXER City/State/ZIP Code Phone Number Performing Address [place] [address] [facility] DEPT PATH AND [address] [facility] LAB MEDICINE * (ABNORMAL) BASIC METABOLIC [...] CDT Chloride 107 98 - 110 08/21/2022 [facility] DEPT PAT H AND MMOL/L 6:29 AM LAB MEDICINE CDT CO2 22 21 - 30 08/21/2022 [facility] DEPT PAT H AND MMOL/L 6:29 AM LAB MEDICINE CDT Anion Gap 11 3 - 12 08/21/2022 [facility] DEPT PAT H AND 6:29 AM LAB MEDICINE CDT Glucose 112 (H) 70 - 100 08/21/2022 [facility] DEPT PAT H AND MG/DL 6:29 AM LAB MEDICINE CDT Blood Urea Nitrogen 21 7 - 25 08/21/2022 [facility] DEPT PATH AND MG/DL 6:29 AM LAB MEDICINE CDT Creatinine 0.58 0.4 - 08/21/2022 [facility] DEPT PAT H AND 1.00 6:29 AM LAB MEDICINE MG/DL CDT Calcium 9.3 8.5 - 08/21/2022 [facility] DEPT PAT H AND 10.6 6:29 AM LAB MEDICINE MG/DL CDT eGFR >60 >60 08/21/2022 [facility] DEPT PAT H AND mL/min 6:29 AM LAB MEDICINE CDT Comment: eGFR calculated using the CKD-EPIcr_R equation Anatomical Location / Laterality Collection Method / Volume Isra ection Time Received Time Specimen (Source) BLOOD / Unknown 08/21/2022 4:57 AM CDT 08/22/19 4:58 AM CDT Tej Riggs MD LABORATORY ORDERABLES City/State/ZIP Code Phone Number Performing Address [place] [address] [facility] DEPT PATH AND [address] [facility] LAB MEDICINE * (ABNORMAL) CBC AND DIFF (08/21/2022 4:57 AM CDT) Pathologist Signature Component Value Ref Test Method Analysis Performed A t Range Time White Blood Cells 16.2 (H) 4.5 - 08/21/2022 [facility] DE PT PATH AND 11.0 5:58 AM LAB MEDICINE K/UL CDT RBC 4.10 4.0 - 08/21/2022 [facility] DEPT PAT H AND 5.0 M/UL 5:58 AM LAB MEDICINE CDT Hemoglobin 13.2 12.0 - 08/21/2022 [facility] PAT H AND 15.0 5:58 AM LAB MEDICINE GM/DL CDT Hematocrit 39.4 36 - 45 08/21/2022 [facility] PAT H AND % 5:58 AM LAB MEDICINE CDT MCV 96.0 80 - 100 08/21/2022 [facility] PAT H AND FL 5:58 AM LAB MEDICINE CDT MCH 32.3 26 - 34 08/21/2022 [facility] DEPT PAT H AND PG 5:58 AM LAB MEDICINE CDT MCHC 33.7 32.0 - 08/21/2022 [facility] DEPT PAT H AND 36.0 5:58 AM LAB MEDICINE G/DL CDT RDW 13.6 11 - 15 08/21/2022 [facility] DEPT PAT H AND % 5:58 AM LAB MEDICINE CDT Platelet Count 166 150 - 08/21/2022 [facility] DE[facility] PATH AND 400 K/UL 5:58 AM LAB MEDICINE CDT MPV 8.2 7 - 11 08/21/2022 [facility] DEPT PAT H AND FL 5:58 AM LAB MEDICINE CDT Neutrophils 93 (H) 41 - 77 08/21/2022 [facility] DEPT PAT H AND % 5:58 AM LAB MEDICINE CDT Lymphocytes 4 (L) 24 - 44 08/21/2022 [facility] DEPT PAT H AND % 5:58 AM LAB MEDICINE CDT Monocytes 3 (L) 4 - 12 % 08/21/2022 [facility] DEPT PAT H AND 5:58 AM LAB MEDICINE CDT Eosinophils 0 0 - 5 % 08/21/2022 [facility] DEPT PAT H AND 5:58 AM LAB MEDICINE CDT Basophils 0 0 - 2 % 08/21/2022 [facility] DEPT PAT H AND 5:58 AM LAB MEDICINE CDT Absolute Neutrophil 15.08 (H) 1.8 - 08/21/2022 [facility] DEPT PATH AND Count 7.0 K/UL 5:58 AM LAB MEDICINE CDT Absolute Lymph Count 0.62 (L) 1.0 - 08/21/2022 [facility] DEPT PATH AND 4.8 K/UL 5:58 AM LAB MEDICINE CDT Absolute Monocyte 0.50 0 - 0.80 08/21/2022 [facility] DE PT PATH AND Count K/UL 5:58 AM LAB MEDICINE CDT Absolute Eosinophil 0.00 0 - 0.45 08/21/2022 [facility] DEPT PATH AND Count K/UL 5:58 AM LAB MEDICINE CDT Absolute Basophil 0.03 0 - 0.20 08/21/2022 [facility] DE PT PATH AND Count K/UL 5:58 AM LAB MEDICINE CDT Anatomical Location / Laterality Collection Method / Volume Isra ection Time Received Time Specimen (Source) BLOOD / Unknown 08/21/2022 4:57 AM CDT 08/22/19 4:58 AM CDT Tej Riggs MD LABORATORY ORDERABLES City/State/ZIP Code Phone Number Performing Address [place] [address] [facility] DE[facility] PATH AND [address] [facility] LAB MEDICINE * MRI HEAD WO/W [...] necrotic enhancing lesion. 4. Persistent surrounding right remarketing rep ior cerebral vasogenic edema and intracranial mass [...] Range Time Sodium 138 137 - 08/20/2022 [facility] PAT H AND 147 6:25 AM LAB MEDICINE MMOL/L CDT Potassium 4.1 3.5 - 08/20/2022 [facility] PAT H AND 5.1 6:25 AM LAB MEDICINE MMOL/L CDT Chloride 108 98 - 110 08/20/2022 [facility] PAT H AND MMOL/L 6:25 AM LAB MEDICINE CDT CO2 22 21 - 30 08/20/2022 [facility] PAT H AND MMOL/L 6:25 AM LAB MEDICINE CDT Anion Gap 8 3 - 12 08/20/2022 [facility] DEPT PAT H AND 6:25 AM LAB MEDICINE CDT Glucose 116 (H) 70 - 100 08/20/2022 [facility] PAT H AND MG/DL 6:25 AM LAB MEDICINE CDT Blood Urea Nitrogen 15 7 - 25 08/20/2022 [facility] DE[facility] PATH AND MG/DL 6:25 AM LAB MEDICINE CDT Creatinine 0.51 0.4 - 08/20/2022 [facility] PAT H AND 1.00 6:25 AM LAB MEDICINE MG/DL CDT Calcium 9.2 8.5 - 08/20/2022 [facility] PAT H AND 10.6 6:25 AM LAB MEDICINE MG/DL CDT eGFR >60 >60 08/20/2022 [facility] DEPT PAT H AND mL/min 6:25 AM LAB MEDICINE CDT Comment: eGFR calculated using the CKD-EPIcr_R equation Anatomical Location / Laterality Collection Method / Volume Isra ection Time Received Time Specimen (Source) BLOOD / Unknown 08/20/2022 5:23 AM CDT 08/21/19 5:24 AM CDT Tej Riggs MD LABORATORY ORDERABLES City/State/ZIP Code Phone Number Performing Address [place] [address] [facility] DEPT PATH AND [address] [facility] LAB MEDICINE * (ABNORMAL) CBC AND DIFF (08/20/2022 5:23 AM CDT) Pathologist Signature Component Value Ref Test Method Analysis Performed A t Range Time White Blood Cells 10.6 4.5 - 08/20/2022 [facility] DE PT PATH AND 11.0 6:04 AM LAB MEDICINE K/UL CDT RBC 4.14 4.0 - 08/20/2022 [facility] DEPT PAT H AND 5.0 M/UL 6:04 AM LAB MEDICINE CDT Hemoglobin 13.6 12.0 - 08/20/2022 [facility] DEPT PAT H AND 15.0 6:04 AM [...] CDT Platelet Count 155 150 - 08/20/2022 [facility] DEPT PATH AND 400 K/UL 6:04 AM LAB MEDICINE CDT MPV 7.5 7 - 11 08/20/2022 [facility] DEPT PAT H AND FL 6:04 AM LAB MEDICINE CDT Neutrophils 93 (H) 41 - 77 08/20/2022 [facility] PAT H AND % 6:04 AM [...] Absolute Monocyte 0.21 0 - 0.80 08/20/2022 [facility] DE PT PATH AND Count K/UL 6:04 [...] City/State/ZIP Code Phone Number Performing Address [place] [address] [facility] DEPT PATH AND [address] [facility]. LAB MEDICINE * (ABNORMAL) CBC AND DIFF [...] CDT MCV 95.3 80 - 100 08/19/2022 [facility] DEPT PAT H AND FL 10:00 PM LAB MEDICINE CDT MCH 33.2 26 - 34 08/19/2022 [facility] DEPT PAT H AND PG 10:00 PM LAB MEDICINE CDT MCHC 34.9 32.0 - 08/19/2022 [facility] DEPT PAT H AND 36.0 10:00 PM LAB MEDICINE G/DL CDT RDW 13.4 11 - 15 08/19/2022 [facility] DEPT PAT H AND % 10:00 PM LAB MEDICINE CDT Platelet Count 157 150 - 08/19/2022 [facility] DEPT PATH AND 400 K/UL 10:00 PM LAB MEDICINE CDT MPV 7.6 7 - 11 08/19/2022 [facility] DEPT PAT H AND FL 10:00 PM LAB MEDICINE CDT Neutrophils 93 (H) 41 - 77 08/19/2022 [facility] DEPT PAT H AND % 10:00 PM LAB MEDICINE CDT Lymphocytes 6 (L) 24 - 44 08/19/2022 [facility] DEPT PAT H AND % 10:00 PM LAB MEDICINE CDT Monocytes 1 (L) 4 - 12 % 08/19/2022 [facility] DEPT PAT H AND [...] PM CDT 08/20/19 23 9:35 PM CDT Adip Leonardo Bartholomew MD LABORATORY ORDERABLES City/State/ZIP Code Phone Number Performing Address [place] [address] [facility] [address] [facility] LAB MEDICINE * TEST-URINE (08/19/2022 8:45 PM CDT) Pathologist Signature Component Value Ref Test Method Analysis Performed A t Range Time Urine-HCG NEG 08/19/2022 [facility] DEPT PATH AND 10:15 PM LAB MEDICINE CDT Specific [place] 1.038 08/19/2022 [facility] PA TH AND 10:15 PM LAB MEDICINE CDT Anatomical Location / Laterality Collection Method / Volume Isra ection Time Received Time Specimen (Source) URINE SPECIMEN / Unknown 08/19/2022 8:45 PM CDT 08/19/2022 10:00 PM CDT Urine Tej Riggs MD URINE ORDERABLES City/State/ZIP Code Phone Number Performing Address [place] [address] [facility] DEPT PATH AND [address] [facility]. LAB MEDICINE * (ABNORMAL) COMPREHENSIVE METABOLIC PANEL [...] City/State/ZIP Code Phone Number Performing Address [place] [address] [facility] AND [address] [facility] LAB MEDICINE * PTT (APTT) (08/19/2022 [...] PM CDT Tej Riggs MD LABORATORY ORDERABLES [facility]/State/ZIP Code Phone Number Performing Address [place] [address] [employer] DEPT PATH AND [address] LAB MEDICINE * PROTIME INR (PT) (08/19/2022 8:34 PM CDT) Pathologist Signature Component Value Ref Test Method Analysis Performed A t Range Time Protime 12.6 9.5 - 08/19/2022 [facility] DEPT PAT H AND 14.2 SEC 9:38 PM LAB MEDICINE CDT INR 1.1 0.8 - 08/19/2022 [facility] DEPT PAT H AND 1.2 9:38 PM LAB MEDICINE CDT Anatomical Location / Laterality Collection Method / Volume Isra ection Time Received Time Specimen (Source) BLOOD / Unknown 08/19/2022 8:34 PM CDT 08/20/19 9:01 PM CDT Tej Riggs MD LABORATORY ORDERABLES City/State/ZIP Code Phone Number Performing Address [place] [address] [facility] DEPT PATH AND [address] [facility] LAB MEDICINE documented in this encounter Visit [...] left nondominant side (H CC) Impaired proprioception Recurrent brain tumor (HCC) Neoplasm of unspecified nature of brain documented in this encounter Admitting Diagnoses Diagnosis [...] 650 mg Given 08/26/2022 9:19 PM CDT 08/26/2022 5:36 PM CDT 1 Dose Other bacitracin zinc topical ointment Given INTRA-PROCEDURE MED, Starting on Thu08/26/22 at 1736, Until Thu08/26/22 at 1938, Intra-op 08/26/2022 5:36 PM CDT 1,000 mL Other ceFAZolin (ANCEF) 1 g in sodium chloride Given irrigation 0.9 % 1,000 mL bottle 1,000 mL, INTRA-PROCEDURE MED, Starting on Thu08/26/22 at 1736, Until Thu08/26/22 at 1938, Intra-op 08/29/2022 6:52 AM CDT 4 mg dexAMETHasone [...] Thu 3 at 1152, Indigestion/Heartburn, Admission/Obs/Extended Recovery 08/29/2022 5:56 AM CDT 5,000 Units Hip, Lef t heparin (porcine) PF syringe 5,000 Units Given 5,000 Units, Subcutaneous, EVERY 8 HOURS, First dose on Thu08/28/22 at 2200, Until Discontinued, NOTE: This is a HIGH ALERT Medication. 5,000 Units Abdomen:RLQ Given 08/28/2022 9:54 PM CDT 08/29/2022 8:18 AM CDT 500 mg levETIRAcetam (KEPPRA) tablet 500 mg Given 500 mg, Oral, TWICE DAILY, First dose o n Thu08/27/22 at 0900, Until Discontinued 500 mg Given 08/28/2022 8:30 PM CDT 500 mg Given 08/28/2022 9:09 AM CDT 500 mg Given 08/27/2022 8:17 PM CDT 500 mg Given 08/27/2022 8:24 AM CDT 08/26/2022 5:36 PM CDT 6 mL Other lidocaine 1%/EPINEPHrine 1:100,000 Given injection INTRA-PROCEDURE MED, Starting on Thu08/26/22 at 1736, Until Thu08/26/22 at 1938, Intra-op milk of magnesium oral suspension 30 mL 30 mL, Oral, DAILY PRN, Starting on 08/22/22 at 1030, Until Thu08/29/22 at 1152, [...] Pain, Give if patient tolerating PO if [place] not effective., Admission/Obs/Extended Recovery 5 mg Given [...] 0925, Until Thu08/29/22 at 1152, Mouth/Throat Pain 08/29/2022 8:32 AM CDT 1 tablet senna/docusate (SENOKOT-S) tablet 1 Given tablet 1 tablet, Oral, TWICE DAILY, First dose on Thu08/26/22 at 2100, Until Discontinued, Hold for loose stools. If patient unable to take tablet, give 10 mL of senna/docusate (SENOKOT-S) solution. Send inEl Teatro message to pharmacy., If patient unable to take tablet, give 10 mL of senna/docusate (SENOKOT-S) solution., Admission/Obs/Extended Recovery 1 tablet Given 08/28/2022 9:10 AM CDT 1 tablet Given 08/27/2022 8:17 PM CDT 1 tablet Given 08/27/2022 8:24 AM CDT 08/26/2022 5:36 PM CDT 5,000 Units Other thrombin 5,000 unit topical solution Given INTRA-PROCEDURE MED, Starting on Thu08/26/22 at 1736, Until Thu08/26/22 at 1938, Intra-op documented in this encounter Discontinued Medications Start Date End Date Medication Sig Discontinue Reason 10/23/2014 08/21/2022 dexamethasone (DECADRON) Please take Removed from 2 mg tablet 2 tablets INTERNATIONAL RELATIONS TEACHER Med List every 8 hours for 4 days. Then take 2 tablets every 12 hours for 4 days. Then take 1 tablet every 12 hours for 4 days. Finally, take 1/2 a tablet every 12 hours for 4 days before stopping. 10/16/2014 08/21/2022 HYDROcodone/acetaminophen Take 1-2 Removed from (NORCO; VICODIN) 5-325 mg Tabs by INTERNATIONAL RELATIONS TEACHER Med List tablet mouth every 4 hours as needed for Pain Earliest Fill Date: 10/16/14 10/23/2014 08/21/2022 levETIRAcetam (KEPPRA) Take 1 Tab Removed from 500 mg tablet by mouth INTERNATIONAL RELATIONS TEACHER Med List twice daily. 10/23/2014 08/21/2022 senna/docusate Take 1 Tab Removed from (SENOKOT-S) 8.6/50 mg by mouth INTERNATIONAL RELATIONS TEACHER Med List tablet twice daily. 08/21/2022 vitamins, w/iron Take 1 Tab Removed from & folate () by mouth INTERNATIONAL RELATIONS TEACHER Med List 28-0.8 mg tablet daily. documented as of this encounter Active and Recently Administered Medications Times are shown in CDT. 08/28/2022 08/29/2022 Medication Order 08/27/2022 ceFAZolin (ANCEF) IVP 2 g (COMPLETED) 0419 (Given - 2 g, Intravenous, EVERY 8 HOURS, 2 Provider: Bianka batres doses, First dose on Thu08/26/22 at [place] [...] 2030, Until (Given - Provider: Discontinued, Admission/Obs/Extended Tia Agustin RN)1300 (Given - Provider: Joselo Melendez RN)1809 (Given - Provider: Joselo Melendez RN) 1423 (Given - Provider: Danya Nixon RN)2154 (Given - Provider: Silverio Chandler RN) 0652 (Given - Provider: Silverio Chandler RN) dexAMETHasone (DECADRON) tablet 4 mg 4 mg, [...] - Provider: Admission/Obs/Extended Recovery Lilly Main RN) 2153 (Given - Provider: Silverio Chandler RN) 0556 (Given - Provider: Silverio Chandler RN) heparin (porcine) PF syringe 5,000 Unit s 5,000 Units, Subcutaneous, EVERY 8 HOURS, First dose on Thu08/28/22 at 2200, Until Discontinued, NOTE: This is a HIGH ALERT Medication. 0909 (Given - Provider: Danya Nixon RN)2029 (Given - Provider: Silverio Chandler, RN) 817 (Given - Provider: Rocío Claros, [place]) levETIRAcetam (KEPPRA) tablet 500 mg 0824 (Given - 500 mg, Oral, TWICE DAILY, First dose on Provider: Debbie jackman Thu08/27/22 at 0900, Until Discontinued Agata Melendez)2016 (Given - Provider: Lilly Main RN) 09 (Patch/Topical Removed - Provider: Danya Nixon RN)09 (Patch/Topical Applied - Provider: Danya Nixon RN) 08 (Patch/Topical Removed - Provider: Rocío Claros RN)08 (Patch/Topical Applied - Provider: Rocío Claros RN)09 (Due: Patch/Topical Removed - Provider: Dennis, Orders Discontinue - Comment: Time automatically adjusted from order being discontinued) nicotine (NICODERM CQ) 14 mg/day patch 1 823 (Patch /Topical patch Removed - Provider: 1 patch, Transdermal, Administer over 24 Joselo Brian elise, Hours, DAILY, First dose on Thu08/20/22 RN)0825 at 0900, Until Discontinued (Patch/Topical Applied - Provider: Joselo Melendez RN) 909 (Given - Provider: Danya Nixon RN)2030 (Med Not Given - Provider: Silverio Chandler RN - Reason: Loose stools) 08 (Given - Provider: Rocío Claros RN) senna/docusate (SENOKOT-S) tablet 1 823 (Given - tablet Provider: Joselo 1 tablet, Oral, TWICE DAILY, First dose Agata Melendez)2016 on Thu08/26/22 at 2100, Until (Given - Provider: Discontinued, Hold for loose stools. If Lilly hernandes RN) patient unable to take tablet, give 10 mL of senna/docusate (SENOKOT-S) solution. Send inbasket message to pharmacy., If patient unable to take tablet, give 10 mL of senna/docusate (SENOKOT-S) solution., Admission/Obs/Extended Recovery 08/28/2022 08/29/2022 Medication Order 08/27/2022 0519 (Given - Provider: Lilly Main, [place]) acetaminophen (TYLENOL) tablet 650 mg 0219 (Given - 650 mg, Oral, EVERY 4 HOURS PRN, Provider: Yuko rodarte Starting on Thu08/19/22 at 2015, Until [place] Main)0824 Thu08/29/22 at 1152, Temp > ..., (Given - Provider: Headache, Pain non-opioid: may be used Joselo Melendez RN) alone or in combination with opioid analgesia, 38.3 C, TOTAL ACETAMINOPHEN DOSE NOT TO EXCEED 4GM DAILY, Admission/Obs/Extended Recovery famotidine (PEPCID) tablet 20 mg 20 mg, Oral, TWICE DAILY PRN, Starting on Thu08/19/22 at 2015, Until Thu 3 at 1152, Indigestion/Heartburn, Admission/Obs/Extended Recovery fentaNYL citrate PF (SUBLIMAZE) 0001 (Given - injection 12.5-25 mcg (CANCELED) Provider: Lilly 12.5-25 mcg, Intravenous, EVERY 1 HOUR [place] Main) PRN, Starting on Thu08/26/22 at 1930, Until Thu08/27/22 at 0711, Pain Injectable, Admission/Obs/Extended Recovery milk of magnesium oral suspension 30 mL 30 mL, Oral, DAILY PRN, Starting on 08/22/22 at 1030, Until Thu08/29/22 at 1152, Constipation PO, May hold if BM within 24 hours of dose., Admission/Obs/Extended Recovery ondansetron (ZOFRAN) injection 4 mg 4 mg, Intravenous, EVERY 6 HOURS PRN, Starting on Thu08/19/22 at 2015, Until Thu08/29/22 at 1152, Nausea/Vomiting Injectable, Admission/Obs/Extended Recovery 1630 (Given - Provider: Danya Nixon RN)1737 (Given - Provider: Danya Nixon RN)2030 (Given - Provider: Silverio Chandler RN) 0359 (Given - Provider: Donna lopez RN)0818 (Given - Provider: Rocío Claros RN) oxyCODONE (ROXICODONE) tablet 5-10 mg 0001 (Given - 5-10 mg, Oral, EVERY 4 HOURS PRN, Provider: Luisa ami Starting on 08/26/22 at 1930, Until [place] Main)022 0 Thu08/29/22 at 1152, Pain PO, Other..., (Given - Pro vider: Moderate/Severe Pain, Give if patient Lilly Bhandari y, tolerating PO if [place] not effective., RN)0611 (Give n - Admission/Obs/Extended Recovery Provider: Lilly Main RN)0824 (Given - Provider: Joselo Melendez RN)1300 (Given - Provider: Joselo Melendez RN)2017 (Given - Provider: Lilly Main RN) 0913 (Given - Provider: Danya Nixon RN) phenoL (CHLORASEPTIC) spray 2 spray 2 spray, Mouth/Throat, NEEDED, Starting on [place] 08/28/22 at 0925, Until Thu08/29/22 at 1152, Mouth/Throat Pain documented in this encounter Orders First Ordered Date Medications Ordered That Might Not Have Count Last Ordered Date Been Administered 08/19/2022 dexAMETHasone (DECADRON) tablet 4 mg 2 0 08/28/2022 08/20/2022 heparin (porcine) PF syringe 5,000 Units 2 08/28/2022 phenoL (CHLORASEPTIC) spray 2 spray 1 08/19/2022 levETIRAcetam (KEPPRA) tablet 500 mg 2 0 08/27/2022 08/19/2022 acetaminophen (TYLENOL) tablet 650 mg 2 08/26/2022 calcium gluconate 1 g/NS 100 mL infusion 1 08/26/2022 ceFAZolin (ANCEF) IVP 2 g 1 08/26/2022 08/19/2022 docusate (COLACE) capsule 100 mg 2 08/26 famotidine (PEPCID) oral suspension 20 1 08/26/2022 mg fentaNYL citrate PF (SUBLIMAZE) 1 2022 injection 12.5-25 mcg 08/20/2022 gadobenate dimeglumine (MULTIHANCE) 2 injection 10 mL levETIRAcetam (KEPPRA) IV push 500 mg 1 08/26/2022 magnesium sulfate 1 g/D5W 100 mL IVPB 1 08/26/2022 08/19/2022 milk of magnesium oral suspension 30 mL 3 08/26/2022 08/19/2022 ondansetron (ZOFRAN) injection 4 mg 2 08/19/2022 oxyCODONE (ROXICODONE) tablet 5-10 mg 2 08/26/2022 potassium chloride in water IVPB 10 mEq 1 08/26/2022 potassium chloride oral solution 40-60 1 08/26/2022 mEq potassium chloride SR (K-DUR) tablet 1 0 08/26/2022 40-60 mEq 08/19/2022 senna/docusate (SENOKOT-S) tablet 1 2 tablet SODIUM CHLORIDE 0.9 % IV SOLP (Cabinet 1 08/26/2022 Override) nicotine (NICODERM CQ) 14 mg/day patch 1 1 08/20/2022 patch famotidine (PEPCID) tablet 20 mg 1 08/19 First Ordered Date Lab Orders Without Results [...] Date APPOINTMENT REQUEST: [facility] 1 08/27/2022 ([facility]) APPOINTMENT REQUEST: NEUROSURGERY 1 08/11 First Ordered [...] encounter Care Teams Start Date End Date Section Chief Relationship Specialty 10/14/14 Viki Flores DO PCP - General Family Medicine [address] [place] [address] 10/14/14 Saumya Veliz, [place] 11/01/14 Corrie Kraft, [place] 11/02/14 Nida Patel APRN-CHILI POWDER MIXER Neurological Surgery [address] Ortho/[facility] [address] [place] [address] 11/02/14 Self, Referral 11/02/14 Erika Wang MD Hematology & Oncology RETIRED 11/10/2016 11/03/14 Tammy Ruiz MD Hematology & Oncology RETIRED 11/10/2016 11/20/14 Kevin Gloria MD Neurological Surgery [address] [facility] Ortho/Med Pav[facility] [address] [place] [address] documented as of this encounter
--- OUTSIDE RECORDS SUMMARY | 2022-08-29 13:54 | XMS REPORT | Encounter Summary ---
Author Author [facility] Organization [facility] Address Unknown Phone Unavailable Care Team Providers Care Warehouse Puller Name Role Phone Viki Flores PCP Saumya Veliz RN Unavailable Unavailable Corrie Kraft RN Unavailable Unavailable Nida Patel ELECTRONIC DESIGN ENGINEER-DIRECTOR OF MANUFACTURING Unavailable Self, Referral Unavailable Unavailable Erika Wang MD Unavailable Unavailable Tammy Ruiz MD Unavailable Kevin Gloria MD Unavailable Reason for Visit * Reason Onset Date Comments Numbness 08/19/2022 Encounter Details Care Team Description Date Type Department Tej Riggs MD [address] [place] [address] Numbness (/) 08/19/2022 Telephone Neurosurgery: [facility] [place], [address] [place] [address] Social History Date Tobacco Use Types Packs/Day [...] Status Date of Assessment Functional Status Response 10/23/2014 Does the patient have a hearing impairment: [...] impairment: No documented as of this encounter Miscellaneous Notes * Telephone Encounter - Tej Riggs MD - 08/19/2022 2:25 PM CDT NEUROSURGERY NATIONAL INSURANCE OFFICER PHONE NOTE I spoke to the Transfer Center regarding this 37 y.o. female who presented wi 2 weeks of left sided numbness. 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 Postop MRI colten wed a GTR of the enhancing tumor plus partial resection of the surrounding FLAIR . She was lost to follow up, reportedly d/t loss of insurance. We have no record s regarding any adjuvant treatment she may have pursued. Today, she presented to the ED at [facility] where a CT head w/wo contrast shows the prior resection cavity with a new moderate enhancing mass just medial to the prior ca vity (4.3 x 3.8 x 3 cm) most c/w recurrent tumor. Will accept to NSGY service, m ed/surg. Will obtain MRI, start Dex for symptom control. Will d/w Dr Gloria and either he or I will manage this apparent recurrence. Tej Riggs MD FAANS Senior Security Engineer - Neurosurgery [facility] O: [phone] F: [phone] P: [phone] documented in this encounter Plan of Treatment Not on filedocumented as of this encounter Visit Diagnoses Not on filedocumented in this encounter Additional Health Concerns Noted Time Assessment 08/19/2022 9:00 PM CDT A fall risk assessment has been complet ed for the patient documented as of this encounter Care Teams Start Date End Date Warehouse Puller Relationship Specialty 10/14/14 Viki Flores DO PCP - General Family [facility] [address] [place] [address] 10/14/14 Saumya Veliz, [place] 11/01/14 Corrie Kraft, [place] 11/02/14 Ndia Patel APRN-DIRECTOR OF MANUFACTURING Neurological Surgery [address] Ortho[facility]Med Pav[facility] [address] [place] [address] 11/02/14 Self, Referral 11/02/14 Erika Wang MD Hematology & Oncology RETIRED 11/10/2016 11/03/14 Tammy Ruiz MD Hematology & Oncology RETIRED 11/10/2016 11/20/14 Kevin Gloria MD Neurological Surgery [address] Ortho[facility]Med Pavilion [address] [place] [address] documented as of this encounter
--- OUTSIDE RECORDS SUMMARY | 2022-08-29 13:54 | XMS REPORT | Encounter Summary ---
Author Author [facility] Organization [facility] Address Unknown Phone Unavailable Care Team Providers Care Delivery Room Clerk Name Role Phone Viki Flores PCP Saumya Veliz RN Unavailable Unavailable Corrie Kraft RN Unavailable Unavailable Nida Patel BRINE TANK OPERATOR-PULPER Unavailable Self, Referral Unavailable Unavailable Erika Wang MD Unavailable Unavailable Tammy Ruiz MD Unavailable Kevin Gloria MD Unavailable Encounter Details Care Team Description Date Type Department Bernie Tejada, BRINE TANK OPERATOR-PULPER [address] Ortho/Med [facility] [address] [place] [address] Recurrent brain tumor (HCC) (Primary Dx) 08/20/2022 Prep for Case XDD NEUROSURGERY Social History Date Tobacco Use Types Packs/Day [...] documented as of this encounter Visit Diagnoses Diagnosis Recurrent brain tumor (HCC) - Primary Neoplasm of unspecified nature of brain documented in this encounter Orders First Ordered Date Case Request Count Last Ordered Date CASE REQUEST 1 08/20/2022 documented in this encounter Additional Health Concerns Noted Time Assessment 08/20/2022 11:16 PM CDT A fall risk assessment has been complet ed for the patient documented as of this encounter Care Teams Start Date End Date Delivery Room Clerk Relationship Specialty 10/14/14 Viki Flroes DO PCP - General Family Medicine [address] [place] [address] 10/14/14 Saumya Veliz, [place] 11/01/14 Corrie Kraft, [place] 11/02/14 Nida Patel APRN-PULPER Neurological Surgery [address] [facility] Ortho/Med Pav[facility] [address] [place] [address] 11/02/14 Self, Referral 11/02/14 Erika Wang MD Hematology & Oncology RETIRED 11/10/2016 11/03/14 Tammy Ruiz MD Hematology & Oncology RETIRED 11/10/2016 11/20/14 Kevin Gloria MD Neurological Surgery [address] [facility] Ortho/Med Pav[facility] [address] [place] [address] documented as of this encounter
[2022-08-29] MEDS ORDERED: CHLORASEPTIC SPRAY 177 ML LIQUID MM PRN (14:15)
[2022-08-29] MEDS ORDERED: FAMOTIDINE 20 MG (PEPCID) TABLET PO PRN (14:15)
--- NOTE | 2022-08-29 14:30 | Occupational Therapy Eval ---
OT Evaluation-General/PLF Medical Diagnosis Admission Date August 29, 2022 at 13:30 Medical Diagnosis: s/p craniotomy Onset Date: August 26, 2022 Therapy Diagnosis Therapy Diagnosis: decreased ADL status, decreased functional use of LUE Height/Weight Height (Feet): 5 Height (Inches): 5.00 Weight (Pounds): 130 Precautions Precautions/Isolations: Fall Prevention, Standard Precautions Comments Keep incision dry for 5 days. Shower neck down until 08/30/22. Starting 08/31/22 use non-medicated soap. Avoid heavy water pressure to incision. 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 Current History s/p R parietal craniotomy 08/26/22 Social History Home: Single Level (basement with washer/dryer) Current Living Status: Significant Other Entry Into Home: Stairs With Railing Steps Into Home: 3 (L hand rail) Pt lives with and 5 children ranging 8-18 years old. Single level house with basement. Basement contains washer/dryer but she doesn't have to go down. ADL-Prior Level of Function SCALE: Activities may be completed with or without assistive devices. 6-Fwcrpswqlz-pmrideh completes the activity by him/herself with no assistance from a helper. 5-Set-up or Clean-up Assistance-helper sets up or cleans up; patient completes activity. [place] assists only prior to or following the activity. 4-Supervision or Touching Assistance-helper provides verbal cues and/or touching/steadying and/or contact guard assistance as patient completes activity. Assistance may be provided throughout the activity or intermittently. 3-Partial/Moderate Assistance-helper does LESS THAN HALF the effort. [place] lifts, holds or supports trunk or limbs, but provides less than half the effort. 2-Substantial/Maximal Assistance-helper does MORE THAN HALF the effort. [place] lifts or holds trunk or limbs and provides more than half the effort. 8-Emaxjfkke-ddecls does ALL the effort. Patient does none of the effort to complete the activity. Or, the assistance of 2 or more helpers is required for the patient to complete the activity. If activity was not attempted, code reason: 7-Patient Refused. 9-Not Applicable-not attempted and the patient did not perform the activity before the current illness, exacerbation or injury. 10-Not Attempted due to Environmental Limitations-(lack of equipment, weather restraints, etc.). 88-Not Attempted due to Medical Conditions or Safety Concerns. ADL PLOF Comments Pt reports IND with ADLs and functional mobility at PLOF, no AD. She has a tub/shower combo, no SC or GBs. 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 Self Care: Independent Functional Cognition: Independent DME/Equipment: Tub/Shower DME/Equipment Comments Does not own a walker or cane. OT Current Status Subjective Pt agreeable to OT evaluation followed by cotreatment with PT. Pt reports fatigue from car ride from [place]. Mental Status/Objective Patient Orientation: Person, Place, Time, Situation Current Glasses/Contacts: Yes (does not wear) Hearing Aids: No Dentures/Partials: Yes (f) Hand Dominance: Right Upper Extremity ROM WFL BUEs, shoulder flexion to approx 160 degrees. Upper Extremity Coordination Decreased due to decreased proprioception LUE Upper Extremity Sensation Reports tingling/numbness LUE, "duller" sensation noted. Upper Extremity Strength LUE grossly 3/5, LUE grossly 4/5 ADL-Treatment Eating (QC): 5 (assist to open some containers.) Oral Hygiene (QC): 4 (CGA in stand) Shower/Bathe Self (QC): 4 (CGA in stand) Upper Body Dressing (QC): 5 Lower Body Dressing (QC): 4 (CGA in stand) On/Off Footwear (QC): 5 Toileting Hygiene (QC): 4 (CGA) Other Treatments OT evaluation complete. OT/PT cotreat due to skill of 2 clinicians required which a vocational rehab consultant could not perform in order to coordinate UE/LEs, decrease fall risk, and due to pt's limitations in strength, L side deficits from craniotomy, mobility/transfers, dynamic balance. OT focused on UE placement, cues for sequencing and safety and ADLs, PT focused on LE placement, gross overall movement, transfers/mobility. Pt completed toileting, grooming at sink, and other ADL tasks as outlined above. Pt completed functional mobility and transfers including bed mobility, functional mobility around [facility] common area/2nd floor (no AD), stairs, uneven surface. Pt able to eat lunch, some assistance required with opening containers. Pt educated on HEP using moderate resistance red theraband. Pt completed x10 reps each BUEs, 5/5 exercises. Copy of HEP left with pt, 1 copy placed on pt's white board in her room, and 1 copy placed in pt's paper chart. Pt performed functional mobility to shower area, education provided on tub transfer bench. SBA rolling, SBA sit to/from lying, SBA bed to smita, SBA toilet transfer, CGA car transfer. CGA mobility without AD 150', CGA stairs with 1 HR Education OT Patient Education: Correct positioning, Energy conservation, Modified ADL techniques, Progress toward Goal/Update tx plan, Purpose of tx/functional activities, Rehab process Teaching Recipient: Patient Teaching Methods: Discussion Response to Teaching: Verbalize Understanding BIMS CAM BIMS Expression of Ideas and Wants: Without Difficulty Understanding Verbal Content: Understands Brief Interview/Mental Status: Yes IRF FRAN BIMS: IRF FRAN BIMS Response (Comments) Value Repitition of Three Words Three 3 Recalls Socks Yes, No Cue Required 2 Recalls Blue Yes, No Cue Required 2 Recalls Bed Yes, No Cue Required 2 Year Correct 3 Month Accurate Within 5 Days 2 Day Correct 1 Total 15 Should Staff Asses. Mental St.: No CAM Mental Status Change/Baseline: 0 Inattention: 0 Disorganized thinkin Altered level of consciousness: 0 OT Short Term Goals Short Term Goals Time Frame: September 10, 2022 Shower/bathe self: 5 Lower body dressin OT Retail Merchandising Manager Goals Retail Merchandising Manager Goals Time Frame: Sep 19, 2022 Eating (QC): 6 Oral Hygiene (QC): 6 Toileting Hygiene (QC): 6 Shower/Bathe Self (QC): 6 Upper Body Dressing (QC): 6 Lower Body Dressing (QC): 6 On/Off Footwear (QC): 6 Additional Goals: 1-Demonstrate ADL Tasks, 2-Verbalize Understanding, 3-ImproveStrength/[place] 1=Demonstrate adherence to instructed precautions during ADL tasks. 2=Patient will verbalize/demonstrate understanding of assistive devices/modifications for ADL. 3=Patient will improve strength/tolerance for activity to enable patient to perform ADL's. OT Education/Plan Problem List/Assessment Assessment: Decreased Activ Tolerance, Decreased UE Strength, Impaired Funct Balance, Impaired I ADL's, Impaired Self-Care Skills, Restricted Funct UE ROM Discharge Recommendations Plan/Recommendations: Continue POC Equpiment Recommendations-D/C: Extended Bath Bench Treatment Plan/Plan of Care Patient would benefit from OT for education, treatment and training to promote independence in ADL's, mobility, safety and/or upper extremity function for ADL's. Plan of Care: ADL Retraining, Functional Mobility, Group Exercise/Act as Ind, UE Funct Exercise/Act, UE Neuromus Re-Ed/Coord Treatment Duration: Sep 19, 2022 Frequency: At least 5 of 7 days/Wk (IRF) Estimated Hrs Per Day: 1.5 hours per day Agreement: Yes Rehab Potential: Good Time Start Time: 13:30 (0868-1838 OT evaluation) Stop Time: 15:15 (3537-3624 [place]) DATE: August 29, 2022 Total Time Billed (hr/min): 90 Billed Treatment Time 7849-7877 OT evaluation (15'), [id number] PT eval (not billed), 8587-2328 [place] (75') 1, EVM (15'), ADL 3 (45'), FA 2 (30') TOMASZ SÁNCHEZ OT August 29, 2022 14:30
--- NOTE | 2022-08-29 14:36 | Physical Therapy Evaluation ---
PT Evaluation-General Medical Diagnosis Admission Date August 29, 2022 at 13:30 Medical Diagnosis: s/p craniotomy Onset Date: August 26, 2022 Therapy Diagnosis Therapy Diagnosis: Decreased B LE strength, decreased functional mobility Height/Weight Height (Feet): 5 Height (Inches): 5.00 Weight (Pounds): 130 Precautions Precautions/Isolations: Fall Prevention, Standard Precautions Weight Bear Status Right Lower Extremity: Right Full Weight Bearing Left Lower Extremity: Left Full Weight Bearing Referral Physician: Angie Reason for Referral: Evaluation/Treatment, Strengthening, Gait Medical History Additional Medical History brain mass s/p partial craniotomy in 2014 Current History Stage 3 Oligodendroglioma, recurrent Reviewed History: Yes Social History Home: Single Level Current Living Status: Significant Other (and 5 kids ) Entry Into Home: Stairs With Railing PT Steps Into Home: 4 PT Steps Inside Home: 20 (down to basement, but pt will not need to go to the basement ) Other Obstacles: 2 dogs, and 6 cats Prior Prior Level of Function SCALE: Activities may be completed with or without assistive devices. 6-Ujctryomiv-uaikzow completes the activity by him/herself with no assistance from a helper. 5-Set-up or Clean-up Assistance-helper sets up or cleans up; patient completes activity. [place] assists only prior to or following the activity. 4-Supervision or Touching Assistance-helper provides verbal cues and/or touchi ng/steadying and/or contact guard assistance as patient completes activity. Assistance may be provided throughout the activity or intermittently. 3-Partial/Moderate Assistance-helper does LESS THAN HALF the effort. [place] lifts, holds or supports trunk or limbs, but provides less than half the effort. 2-Substantial/Maximal Assistance-helper does MORE THAN HALF the effort. [place] lifts or holds trunk or limbs and provides more than half the effort. 3-Gdkyjyzri-pmyhku does ALL the effort. Patient does none of the effort to complete the activity. Or, the assistance of 2 or more helpers is required for the patient to complete the activity. If activity was not attempted, code reason: 7-Patient Refused. 9-Not Applicable-not attempted and the patient did not perform the activity before the current illness, exacerbation or injury. 10-Not Attempted due to Environmental Limitations-(lack of equipment, weather restraints, etc.). 88-Not Attempted due to Medical Conditions or Safety Concerns. 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 PT Evaluation-Current Subjective Pt is agreeable to PT eval and co-tx with OT. Pain Numeric Pain Scale: 0-No Pain Location: No Pain Reported Section J - Health Conditions 1. Rarely or not at all 2. Occasionally 3. Frequently 4. Almost constantly 8. Unable to answer Pain Effect on Sleep: 1 Pain Interference with Therapy: 1 Pain Interference w/Day-to-Day: 1 Pt/Family Goals Safely return home Objective Patient Orientation: Person, Time, Situation ROM/Strength ROM Upper Extremities WFL ROM Lower Extremities WNL Strength Upper Extremities WFL Strength Lower Extremities B LE MMT - 4/5 Integumentary/Posture Integumentary Head incision is clean, dry, and open to air Bowel Incontinence: No Bladder Incontinence: No Posture good Sensory Vision: Functional Hearing: Functional Hand Dominance: Right Sensation Right Upper Extremit: Intact Sensation Left Upper Extremity: Intact Sensation Right Lower Extremit: Intact Sensation Left Lower Extremity: Intact Transfers Roll Left & Right (QC): 4 (SBA ) Sit to Lying (QC): 4 (SBA ) Lying to Sitting/Side of Bed(Q: 4 (SBA ) Sit to Stand (QC): 4 (SBA ) Chair/Agd-mi-Dspsb Xfer(QC): 4 (SBA ) Toilet Transfer (QC): 4 (SBA ) Car Transfer (QC): 4 (CGA ) Gait Does the Patient Walk?: Yes Mode of Locomotion: Walk Anticipated Mode of Locomotion: Walk Walk 10 feet (QC): 4 (CGA with no AD ) Walk 50 ft with 2 Turns(QC): 4 (CGA with no AD ) Walk 150 ft (QC): 4 (CGA with no AD ) Walking 10ft/uneven surface-QC: 4 (CGA with no AD ) Gait Assistive Device: None Wheelchair Training Does the Pt Use a Wheelchair?: No Wheel 50 ft with 2 turns (QC): 9 Wheel 150 ft (QC): 9 Type of Wheelchair: N/A Stairs #of Steps: 12 1 Step (curb) (QC): 4 (CGA ) 4 Steps (QC): 4 (CGA ) 12 Steps (QC): 4 (CGA ) 1 HR Balance Sitting Static: Normal Sitting Dynamic: Normal Standing Static: Good Standing Dynamic: Good Picking up an Object (QC): 4 (SBA ) Special Test Comments TUG - 11 seconds Treatment Co-Tx with OT for 75' to complete dynamic tasks for safety. Pt edu on HEP, with handout provided. Pt completed B LE Ther Ex x 15 reps each with the red Tband. Pt is SBA for bed mobility and transfers. Pt ambulated 150ft with no AD and CGA. Pt negotiated 12 steps with 1 HR and CGA. Assessment/Needs Pt tolerated PT eval and co-tx well. Rehab Potential: Good Post Rehab Potential-Barriers: balance Equipment Needs SC PT Retirement Goals Retirement Goals PT Second Hand Goals Time Frame: September 08, 2022 Roll Left to Right (QC): 6 (Pt will be Mod I with bed mobility, transfers, walking, and stairs, in order to safely return home and progress towards PLOF. ) Sit to Lying (QC): 6 (Pt will be Mod I with bed mobility, transfers, walking, and stairs, in order to safely return home and progress towards PLOF. ) Lying-Sitting on Side/Bed(QC): 6 (Pt will be Mod I with bed mobility, transfers, walking, and stairs, in order to safely return home and progress towards PLOF. ) Sit to Stand (QC): 6 (Pt will be Mod I with bed mobility, transfers, walking, and stairs, in order to safely return home and progress towards PLOF. ) Chair/Buq-jd-Lsfju Xfer(QC): 6 (Pt will be Mod I with bed mobility, transfers, walking, and stairs, in order to safely return home and progress towards PLOF. ) Toilet/Commode Transfer (QC): 6 (Pt will be Mod I with bed mobility, transfers, walking, and stairs, in order to safely return home and progress towards PLOF. ) Car Transfer (QC): 6 (Pt will be Mod I with bed mobility, transfers, walking, and stairs, in order to safely return home and progress towards PLOF. ) Does the Patient Walk: Yes Walk 10 feet (QC): 6 (Pt will be Mod I with bed mobility, transfers, walking, and stairs, in order to safely return home and progress towards PLOF. ) Walk 10ft-Uneven Surface(QC): 6 (Pt will be Mod I with bed mobility, transfers, walking, and stairs, in order to safely return home and progress towards PLOF. ) Walk 50ft with 2 Turns (QC): 6 (Pt will be Mod I with bed mobility, transfers, walking, and stairs, in order to safely return home and progress towards PLOF. ) Walk 150 ft (QC): 6 (Pt will be Mod I with bed mobility, transfers, walking, and stairs, in order to safely return home and progress towards PLOF. ) Does the Pt use WC or Scooter?: No Wheel 50 feet with 2 turns (QC: 9 Type: N/A Wheel 150 feet: 9 Type: N/A 1 Step (curb) (QC): 6 (Pt will be Mod I with bed mobility, transfers, walking, and stairs, in order to safely return home and progress towards PLOF. ) 4 Steps (QC): 6 (Pt will be Mod I with bed mobility, transfers, walking, and stairs, in order to safely return home and progress towards PLOF. ) 12 Steps (QC): 6 (Pt will be Mod I with bed mobility, transfers, walking, and stairs, in order to safely return home and progress towards PLOF. ) Picking up an Object (QC): 6 (Pt will be Mod I with bed mobility, transfers, walking, and stairs, in order to safely return home and progress towards PLOF. ) PT Plan Problem List Problem List: Activity Tolerance, Functional Strength, Safety, Balance, Gait, Transfer, Bed Mobility Treatment/Plan Treatment Plan: Continue Plan of Care Treatment Duration: September 09, 2022 Frequency: At least 5 of 7 days/Wk (IRF) Estimated Hrs Per Day: 1 hour per day Safety Risks/Education Patient Education: Gait Training, Transfer Techniques, Steps, Issued Written HEP Teaching Recipient: Patient Teaching Methods: Demonstration, Discussion Response to Teaching: Verbalize Understanding, Return Demonstration Discharge Recommendations Therapy Discharge Recommendati: Home & Family Equpiment Recommendations-D/C: Shower Chair Target Placement home with family Time Time In: 1345 Time Out: 1515 DATE: August 29, 2022 Total Billed Treatment Time: 90 Total Billed Treatment 90 min (4693 - 1515) PT EVM (5349-7355) Co-Tx with OT (1400 - 1512) 1 vist EX x 1 GT x 2 FA x 2 VINOD BOOKER PT August 29, 2022 14:36
[2022-08-29 20:59] VITALS: BP 100/55
[2022-08-29] MEDS: SENNA W/DOCUSATE (SENOKOT S) TABLET PO SCH ×2 (21:24)
[2022-08-29] MEDS: polyethylene glycoL POWDER 17 GM (MIRALAX) PACK PO SCH (21:24)
[2022-08-29] MEDS: DOCUSATE SODIUM 100 MG (COLACE) CAP PO SCH (21:24)
[2022-08-30 05:48] LABS: BASOPHILS % (AUTO) 0 % (0-10); EOSINOPHILS % (AUTO) 0 % (0-10); HEMATOCRIT 42 % (35-52); HEMOGLOBIN 14.4 g/dL (11.5-16.0); LYMPHOCYTES # (AUTO) 1.3 10^3/uL (1.0-4.0); LYMPHOCYTES % (AUTO) 8 % (12-44); MEAN CORPUSCULAR HEMOGLOBIN 33 pg (25-34); MEAN CORPUSCULAR HGB CONC 34 g/dL (32-36); MEAN CORPUSCULAR VOLUME 96 fL (80-99); MEAN PLATELET VOLUME 8.9 fL (9.0-12.2); MONOCYTES # (AUTO) 0.9 10^3/uL (0.0-1.0); MONOCYTES % (AUTO) 5 % (0-12); NEUTROPHILS # (AUTO) 14.1 10^3/uL (1.8-7.8); NEUTROPHILS % (AUTO) 85 % (42-75); PLATELET COUNT 179 10^3/uL (130-400); WHITE BLOOD COUNT 16.6 10^3/uL (4.3-11.0)
[2022-08-30 06:33] LABS: ALBUMIN 3.9 GM/DL (3.2-4.5)
[2022-08-30 06:34] LABS: POTASSIUM 4.1 MMOL/L (3.6-5.0)
[2022-08-30 06:35] LABS: CALCIUM 9.3 MG/DL (8.5-10.1)
[2022-08-30 06:36] LABS: TOTAL PROTEIN 6.5 GM/DL (6.4-8.2)
[2022-08-30 06:38] LABS: BILIRUBIN,TOTAL 0.7 MG/DL (0.1-1.0)
[2022-08-30 06:40] LABS: CREATININE SERUM 0.67 MG/DL (0.60-1.30)
[2022-08-30 06:58] LABS: LYMPHOCYTES % (MANUAL) 10 %; MONOCYTES % (MANUAL) 10 %; NEUTROPHILS % (MANUAL) 80 %
[2022-08-30 06:59] LABS: PLATELET ESTIMATE ADEQUATE; RBC MORPH NORMAL
[2022-08-30 07:29] VITALS: BP 119/77
--- NOTE | 2022-08-30 07:36 | PM&R Progress Note ---
Subjective HPI/CC On Admission Date Seen by Provider: August 30, 2022 Time Seen by Provider: 11:30 Subjective/Events-last exam 08/30/2022: No major issues Left leg weakness Constipation noted Laxatives given Labs reviewed Review of Systems General: Fatigue, Malaise Neurological: Weakness, Incoordination Objective Exam Vital Signs Vital Signs Date Time Temp Pulse Resp B/P (MAP) Pulse Ox O2 Delivery O2 Flow Rate FiO2 08/30/22 09:11 96 Room Air 08/30/22 07:29 36.7 63 16 119/77 (91) Capillary Refill : General Appearance: No Apparent Distress, WD/WN, Chronically ill, Thin HEENT: PERRL/EOMI, Normal ENT Inspection, Pharynx Normal, Other (right sided skull deficit) Neck: Full Range of Motion, Normal Inspection, Non Tender, Supple, Carotid Bruit Respiratory: Chest Non Tender, Lungs Clear, Normal Breath Sounds, No Accessory Muscle Use, No Respiratory Distress Cardiovascular: Regular Rate, Rhythm, No Edema, No Gallop, No JVD, No Murmur, Normal Peripheral Pulses Gastrointestinal: Normal Bowel Sounds, No Organomegaly, No Pulsatile Mass, Non Tender, Soft Back: Normal Inspection, No CVA Tenderness, No Vertebral Tenderness Extremity: Normal Capillary Refill, Normal Inspection, Normal Range of Motion, Non Tender, No Calf Tenderness, No Pedal Edema Neurologic/Psychiatric: Alert, Oriented x3, Normal Mood/Affect, work study student II-XII Norm as Tested, Abnormal Gait, Depressed Affect, Motor Weakness (left sided weakness) Skin: Normal Color, Warm/Dry Lymphatic: No Adenopathy Results/Procedures Lab Laboratory Tests 08/30/22 05:36 Patient resulted labs reviewed. FIM Transfers Therapy Code Descriptions/Definitions Functional Boundary Measure: 0=Not Assessed/NA 4=Minimal Assistance 1=Total Assistance 5=Supervision or Setup 2=Maximal Assistance 6=Modified Boundary 3=Moderate Assistance 7=Complete IndependenceSCALE: Activities may be completed with or without assistive devices. 9-Sqbetlzmyb-lngtqwv completes the activity by him/herself with no assistance from a helper. 5-Set-up or Clean-up Assistance-helper sets up or cleans up; patient completes activity. [place] assists only prior to or following the activity. 4-Supervision or Touching Assistance-helper provides verbal cues and/or touching/steadying and/or contact guard assistance as patient completes activ ity. Assistance may be provided throughout the activity or intermittently. 3-Partial/Moderate Assistance-helper does LESS THAN HALF the effort. [place] lifts, holds or supports trunk or limbs, but provides less than half the effort. 2-Substantial/Maximal Assistance-helper does MORE THAN HALF the effort. [place] lifts or holds trunk or limbs and provides more than half the effort. 2-Seimjdzxt-baaxgt does ALL the effort. Patient does none of the effort to complete the activity. Or, the assistance of 2 or more helpers is required for the patient to complete the activity. If activity was not attempted, code reason: 7-Patient Refused. 9-Not Applicable-not attempted and the patient did not perform the activity before the current illness, exacerbation or injury. 10-Not Attempted due to Environmental Limitations-(lack of equipment, weather restraints, etc.). 88-Not Attempted due to Medical Conditions or Safety Concerns. Roll Left to Right (QC): 4 (SBA ) Sit to Lying (QC): 4 (SBA ) Sit to Stand (QC): 4 (SBA ) Chair/Gbf-cf-Ufsyh Xfer(QC): 4 (SBA ) Car Transfer (QC): 4 (CGA ) Gait Training Does the Patient Walk?: Yes Walk 10 feet (QC): 4 (CGA with no AD ) Walk 50 ft with 2 Turns(QC): 4 (CGA with no AD ) Walk 150 ft (QC): 4 (CGA with no AD ) Walking 10ft/uneven surface-QC: 4 (CGA with no AD ) Gait Assistive Device: None Wheelchair Training Does the Pt Use a Wheelchair?: No Wheel 50 ft with 2 turns (QC): 9 Wheel 150 ft (QC): 9 Type of Wheelchair: N/A Stair Training #of Steps: 12 1 Step (curb) (QC): 4 (CGA ) 4 Steps (QC): 4 (CGA ) 12 Steps (QC): 4 (CGA ) Balance Picking up an Object (QC): 4 (SBA ) ADL-Treatment Eating (QC): 5 (assist to open some containers.) Oral Hygiene (QC): 4 (CGA in stand) Shower/Bathe Self (QC): 4 (CGA in stand) Upper Body Dressing (QC): 5 Lower Body Dressing (QC): 4 (CGA in stand) On/Off Footwear (QC): 5 Toileting Hygiene (QC): 4 (CGA) Assessment/Plan Assessment and Plan Assess & Plan/Chief Complaint Assessment: Craniotomy due to brain tumor Hyponatremia Frail status Plan: Monitor closely PT OT Fall risk 08/30/2022: BM regimen (1) Brain tumor Status: Acute ISMAEL NGUYEN DO August 30, 2022 07:36
--- NOTE | 2022-08-30 07:37 | Individualized Plan of Care ---
Individualized Plan of Care Rehab Nursing IPOC Order Admission Date August 29, 2022 at 13:30 Current Orders Orders Admission Order(Inpt,Obs,Sdc) (08/29/22 11:59) Vital Signs: Per Unit Policy ( 08,16,00 (08/29/22 11:59) Edy Waite (08/29/22 11:59) Sequential Compression Device (08/29/22 11:59) Internet Consultant-Inpt Rehab Con (08/29/22 11:59) Rehab Nursing Orders-Ipoc (08/29/22 11:59) Physical Therapy Rehab Orders (08/29/22 11:59) Occupational Therapy Rehab Ord (08/29/22 11:59) Speech Therapy Rehab Orders (08/29/22 11:59) Cbc With Automated Diff (08/30/22 06:00) Comprehensive Metabolic Panel (08/30/22 06:00) Precautions (Aru) (08/29/22 11:59) Weekly Weight WEEK (08/29/22 11:59) Rehab-Intensity Of Therapy (08/29/22 11:59) Initiate Admission Nursing Pro .admission (08/29/22 11:59) Alprazolam Tablet (Xanax Tablet) (08/29/22 12:00) Calcium Carbonate Chew Tablet (Antacid C (08/29/22 12:00) Diphenhydramine Tablet (Benadryl Tablet) (08/29/22 12:00) Docusate Sodium Capsule (Colace Capsule) (08/29/22 21:00) Docusate Sodium Capsule (Colace Capsule) (08/29/22 12:00) Bisacodyl Suppository (Dulcolax Supposit (08/29/22 12:00) Lactulose Oral Solution (Enulose Oral So (08/29/22 12:00) Na Phos/Na Biphos Enema (Fleet Enema [place] (08/29/22 12:00) Guaifenesin/Codeine Syrup (Robitussin Ac (08/29/22 12:00) Loperamide Tablet (Imodium Tablet) (08/29/22 12:00) Melatonin Tablet (Melatonin Tablet) (08/29/22 12:00) Polyethylene Glycol Powder Pkt (Miralax (5/19/23 21:00) Ondansetron Oral Dissolve Tab (Zofran (08/29/22 12:00) Senna S Tablet (Senokot S Tablet) (08/29/22 21:00) Acetaminophen Tablet/Caplet (Tylenol T (08/29/22 12:00) Initiate Admission Nursing Pro .admission (08/29/22 11:59) Admission Arrival Bed Request (08/29/22 13:43) Acetaminophen Tablet/Caplet (Tylenol T (08/29/22 14:15) Famotidine Tablet (Pepcid Tablet) (08/29/22 14:15) Levetiracetam Tablet (Keppra Tablet) (08/29/22 21:00) Nicotine Patch (Nicoderm Patch) (08/30/22 09:00) Oxycodone Immediate Rel Tablet (Oxyir Ta (08/29/22 14:15) Phenol Throat [place] (Chloraseptic [place]) (08/29/22 14:15) Senna S Tablet (Senokot S Tablet) (08/29/22 21:00) Heparin Injection (Heparin Injection) (08/29/22 16:00) General/Regular (08/29/22 Lunch) Patch Removal (Patch Removal) (08/31/22 08:59) Dexamethasone Tablet (Decadron Tablet) (08/29/22 14:45) Nursing Communication (Order) (08/29/22 14:29) Code/Resuscitation (08/29/22 16:35) Manual Differential (08/30/22 05:36) Rehab Nursing Orders: Ongoing Assess. of Cognitive Status, Ongoing Assess. of Function Status, Bladder Management, Bladder Scan, Bladder Training, Bowel Management, Bowel Training, Disease Management & Educaiton, DVT Prophylaxis, Fall Prevention, Fluid/Electrolyte/Nutrition Mgmt, Infection Prevention, Medication Management & Education, Management of Risks & Complications, Management of Skin Intergrity, Nutrition Management, Pain Management, Patient/Family Support, Safety Management, Wound Management Intensity of Therapy to be met Patient to be seen: Min.3h per day/5 of 7d PT IPOC Problem List: Activity Tolerance, Functional Strength, Safety, Balance, Gait, Transfer, Bed Mobility Treatment Plan: Continue Plan of Care Treatment Duration: September 09, 2022 Frequency: At least 5 of 7 days/Wk (IRF) Estimated Hrs Per Day: 1 hour per day OT IPOC Problems: Decreased Activ Tolerance, Decreased UE Strength, Impaired Funct Balance, Impaired I ADL's, Impaired Self-Care Skills, Restricted Funct UE ROM OT Treatment, Training and Edu: Yes Plan of Care: ADL Retraining, Functional Mobility, Group Exercise/Act as Ind, UE Funct Exercise/Act, UE Neuromus Re-Ed/Coord Treatment Duration: Sep 19, 2022 Frequency: At least 5 of 7 days/Wk (IRF) Estimated Hrs Per Day: 1.[address] IPOC Speech Therapy Treatment Plan: Discontinue ST Treatment Duration: August 29, 2022 Frequency: Modified Program (IRF) Estimated Hrs Per Day: Other Internet Consultant/Case Mgmt Internet Consultant/Case Managemen: Discharge Planning Dietitian/Technical Translator Dietitian/Technical Translator to monitor nutritional status and make changes and/or recommendations as needed and work with speech pathology on dietary upgrades as the occur. Physician IPOC Medical Issues being managed closely and that require the 24 hour availability of a physician: Recent repeat craniotomy for brain tumor will require close monitoring for hyponatremia and brain swelling issues and will be monitored for steroid induced side effects Medical Issues: Bowel/Bladder Function, DVT Prophylaxis, Falls Precautions, Fluid/Electrolyte/Nutrition Balance, Infection Protection, Pain Management, Wound Care Brief Synthesis of Preadmission Screen, Post-Admission Evaluation, and Therapy Evaluations: PT OT will focus on regaining function of left sided weakness with use of AD in order to regain ambulatory function along with independence in ADL's Medical Prognosis: Fair Anticipated Length of Stay: 7 days ISMAEL NGUYEN DO August 30, 2022 07:37
[2022-08-30] MEDS: SENNA W/DOCUSATE (SENOKOT S) TABLET PO SCH ×4 (07:46→21:07)
[2022-08-30] MEDS: polyethylene glycoL POWDER 17 GM (MIRALAX) PACK PO SCH ×2 (07:47→21:07)
[2022-08-30] MEDS: DOCUSATE SODIUM 100 MG (COLACE) CAP PO SCH ×2 (08:30→21:07)
[2022-08-30] MEDS: NICOTINE 14 MG (NICODERM) PATCH TD SCH (08:31)
[2022-08-30 20:58] VITALS: BP 117/63
[2022-08-31 07:13] VITALS: BP 115/80
--- NOTE | 2022-08-31 07:35 | PM&R Progress Note ---
Subjective HPI/CC On Admission Date Seen by Provider: August 31, 2022 Time Seen by Provider: 15:00 Subjective/Events-last exam 08/31/2022: No BM yet Flatus noted Mother cut her hair last night and it is improved No falls 08/30/2022: No major issues Left leg weakness Constipation noted Laxatives given Labs reviewed Review of Systems General: Fatigue, Malaise Objective Exam Vital Signs Vital Signs Date Time Temp Pulse Resp B/P (MAP) Pulse Ox O2 Delivery O2 Flow Rate FiO2 08/31/22 09:30 96 Room Air 08/31/22 07:13 36.9 63 20 115/80 (92) Capillary Refill : General Appearance: No Apparent Distress, WD/WN, Chronically ill, Thin HEENT: PERRL/EOMI, Normal ENT Inspection, Pharynx Normal, Other (right sided skull deficit) Neck: Full Range of Motion, Normal Inspection, Non Tender, Supple, Carotid Bruit Respiratory: Chest Non Tender, Lungs Clear, Normal Breath Sounds, No Accessory Muscle Use, No Respiratory Distress Cardiovascular: Regular Rate, Rhythm, No Edema, No Gallop, No JVD, No Murmur, Normal Peripheral Pulses Gastrointestinal: Normal Bowel Sounds, No Organomegaly, No Pulsatile Mass, Non Tender, Soft Back: Normal Inspection, No CVA Tenderness, No Vertebral Tenderness Extremity: Normal Capillary Refill, Normal Inspection, Normal Range of Motion, Non Tender, No Calf Tenderness, No Pedal Edema Neurologic/Psychiatric: Alert, Oriented x3, Normal 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 FIM Transfers Therapy Code Descriptions/Definitions Functional [place] Measure: 0=Not Assessed/NA 4=Minimal Assistance 1=Total Assistance 5=Supervision or Setup 2=Maximal Assistance 6=Modified [place] 3=Moderate Assistance 7=Complete IndependenceSCALE: Activities may be completed with or without assistive devices. 1-Qxqtyssifz-idgyntw completes the activity by him/herself with no assistance from a helper. 5-Set-up or Clean-up Assistance-helper sets up or cleans up; patient completes activity. [place] assists only prior to or following the activity. 4-Supervision or Touching Assistance-helper provides verbal cues and/or to uching/steadying and/or contact guard assistance as patient completes activity. Assistance may be provided throughout the activity or intermittently. 3-Partial/Moderate Assistance-helper does LESS THAN HALF the effort. [place] lifts, holds or supports trunk or limbs, but provides less than half the effort. 2-Substantial/Maximal Assistance-helper does MORE THAN HALF the effort. [place] lifts or holds trunk or limbs and provides more than half the effort. 6-Yckricimg-mziimt does ALL the effort. Patient does none of the effort to complete the activity. Or, the assistance of 2 or more helpers is required for the patient to complete the activity. If activity was not attempted, code reason: 7-Patient Refused. 9-Not Applicable-not attempted and the patient did not perform the activity before the current illness, exacerbation or injury. 10-Not Attempted due to Environmental Limitations-(lack of equipment, weather restraints, etc.). 88-Not Attempted due to Medical Conditions or Safety Concerns. Roll Left to Right (QC): 4 (SBA ) Sit to Lying (QC): 4 (SBA ) Sit to Stand (QC): 4 (SBA ) Chair/Xzu-bm-Hrvfz Xfer(QC): 4 (SBA ) Car Transfer (QC): 4 (CGA ) Gait Training Does the Patient Walk?: Yes Walk 10 feet (QC): 4 (CGA with no AD ) Walk 50 ft with 2 Turns(QC): 4 (CGA with no AD ) Walk 150 ft (QC): 4 (CGA with no AD ) Walking 10ft/uneven surface-QC: 4 (CGA with no AD ) Gait Assistive Device: None Wheelchair Training Does the Pt Use a Wheelchair?: No Wheel 50 ft with 2 turns (QC): 9 Wheel 150 ft (QC): 9 Type of Wheelchair: N/A Stair Training #of Steps: 12 1 Step (curb) (QC): 4 (CGA ) 4 Steps (QC): 4 (CGA ) 12 Steps (QC): 4 (CGA ) Balance Picking up an Object (QC): 4 (SBA ) ADL-Treatment Eating (QC): 5 (assist to open some containers.) Oral Hygiene (QC): 4 (CGA in stand) Shower/Bathe Self (QC): 4 (CGA in stand) Upper Body Dressing (QC): 5 Lower Body Dressing (QC): 4 (CGA in stand) On/Off Footwear (QC): 5 Toileting Hygiene (QC): 4 (CGA) Assessment/Plan Assessment and Plan Assess & Plan/Chief Complaint Assessment: 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 (1) Brain tumor Status: Acute ISMAEL NGUYEN DO August 31, 2022 07:35
[2022-08-31] MEDS: DOCUSATE SODIUM 100 MG (COLACE) CAP PO SCH ×2 (09:00→21:00)
[2022-08-31] MEDS: polyethylene glycoL POWDER 17 GM (MIRALAX) PACK PO SCH ×2 (09:00→21:01)
[2022-08-31] MEDS: NICOTINE PATCH REMOVAL TP SCH (09:02)
[2022-08-31] MEDS: SENNA W/DOCUSATE (SENOKOT S) TABLET PO SCH ×4 (09:02→21:01)
[2022-08-31] MEDS: NICOTINE 14 MG (NICODERM) PATCH TD SCH (11:19)
[2022-08-31 20:47] VITALS: BP 105/70
--- NOTE | 2022-09-01 05:19 | PM&R Progress Note ---
Subjective HPI/CC On Admission Date Seen by Provider: September 01, 2022 Time Seen by Provider: 08:30 Subjective/Events-last exam 09/01/2022: No major issues Improved pain Tingling left arm and leg Decadron maintained Labs reviewed 08/31/2022: No BM yet Flatus noted Mother cut her hair last night and it is improved No falls 08/30/2022: No major issues Left leg weakness Constipation noted Laxatives given Labs reviewed Review of Systems General: Fatigue, Malaise Neurological: Weakness Objective Exam Vital Signs Vital Signs Date Time Temp Pulse Resp B/P (MAP) Pulse Ox O2 Delivery O2 Flow Rate FiO2 09/01/22 08:29 Room Air 09/01/22 08:00 36.6 71 18 113/74 (87) 96 Capillary Refill : General Appearance: No Apparent Distress, WD/WN, Chronically ill, Thin HEENT: PERRL/EOMI, Normal ENT Inspection, Pharynx Normal, Other (right sided skull deficit) Neck: Full Range of Motion, Normal Inspection, Non Tender, Supple, Carotid Bruit Respiratory: Chest Non Tender, Lungs Clear, Normal Breath Sounds, No Accessory Muscle Use, No Respiratory Distress Cardiovascular: Regular Rate, Rhythm, No Edema, No Gallop, No JVD, No Murmur, Normal Peripheral Pulses Gastrointestinal: Normal Bowel Sounds, No Organomegaly, No Pulsatile Mass, Non Tender, Soft Back: Normal Inspection, No CVA Tenderness, No Vertebral Tenderness Extremity: Normal Capillary Refill, Normal Inspection, Normal Range of Motion, Non Tender, No Calf Tenderness, No Pedal Edema Neurologic/Psychiatric: Alert, Oriented x3, Normal 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 FIM Transfers Therapy Code Descriptions/Definitions Functional [place] Measure: 0=Not Assessed/NA 4=Minimal Assistance 1=Total Assistance 5=Supervision or Setup 2=Maximal Assistance 6=Modified [place] 3=Moderate Assistance 7=Complete IndependenceSCALE: Activities may be completed with or without assistive devices. 0-Iwdwlnbynq-ideiosn completes the activity by him/herself with no assistance from a helper. 5-Set-up or Clean-up Assistance-helper sets up or cleans up; patient completes activity. [place] assists only prior to or following the activity. 4-Supervision or Touching Assistance-helper provides verbal cues and/or touching/steadying and/or contact guard assistance as patient completes activity. Assistance may be provided throughout the activity or intermittently. 3-Partial/Moderate Assistance-helper does LESS THAN HALF the effort. [place] lifts, holds or supports trunk or limbs, but provides less than half the effort. 2-Substantial/Maximal Assistance-helper does MORE THAN HALF the effort. [place] lifts or holds trunk or limbs and provides more than half the effort. 5-Tymiozplr-taqhfy does ALL the effort. Patient does none of the effort to complete the activity. Or, the assistance of 2 or more helpers is required for the patient to complete the activity. If activity was not attempted, code reason: 7-Patient Refused. 9-Not Applicable-not attempted and the patient did not perform the activity before the current illness, exacerbation or injury. 10-Not Attempted due to Environmental Limitations-(lack of equipment, weather restraints, etc.). 88-Not Attempted due to Medical Conditions or Safety Concerns. Roll Left to Right (QC): 4 (SBA ) Sit to Lying (QC): 4 (SBA ) Sit to Stand (QC): 4 (SBA ) Chair/Xhz-wu-Rnpia Xfer(QC): 4 (SBA ) Car Transfer (QC): 4 (CGA ) Gait Training Does the Patient Walk?: Yes Walk 10 feet (QC): 4 (CGA with no AD ) Walk 50 ft with 2 Turns(QC): 4 (CGA with no AD ) Walk 150 ft (QC): 4 (CGA with no AD ) Walking 10ft/uneven surface-QC: 4 (CGA with no AD ) Gait Assistive Device: None Wheelchair Training Does the Pt Use a Wheelchair?: No Wheel 50 ft with 2 turns (QC): 9 Wheel 150 ft (QC): 9 Type of Wheelchair: N/A Stair Training #of Steps: 12 1 Step (curb) (QC): 4 (CGA ) 4 Steps (QC): 4 (CGA ) 12 Steps (QC): 4 (CGA ) Balance Picking up an Object (QC): 4 (SBA ) ADL-Treatment Eating (QC): 5 (assist to open some containers.) Oral Hygiene (QC): 4 (CGA in stand) Shower/Bathe Self (QC): 4 (CGA in stand) Upper Body Dressing (QC): 5 Lower Body Dressing (QC): 4 (CGA in stand) On/Off Footwear (QC): 5 Toileting Hygiene (QC): 4 (CGA) Assessment/Plan Assessment and Plan Assess & Plan/Chief Complaint Assessment: 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 09/01/2022: Monitor closely (1) Brain tumor Status: Acute ISMAEL NGUYEN DO September 01, 2022 05:19
[2022-09-01 05:56] LABS: BASOPHILS % (AUTO) 0 % (0-10); EOSINOPHILS % (AUTO) 0 % (0-10); HEMATOCRIT 44 % (35-52); HEMOGLOBIN 15.3 g/dL (11.5-16.0); LYMPHOCYTES # (AUTO) 1.1 10^3/uL (1.0-4.0); LYMPHOCYTES % (AUTO) 7 % (12-44); MEAN CORPUSCULAR HEMOGLOBIN 33 pg (25-34); MEAN CORPUSCULAR HGB CONC 35 g/dL (32-36); MEAN CORPUSCULAR VOLUME 96 fL (80-99); MEAN PLATELET VOLUME 9.2 fL (9.0-12.2); MONOCYTES # (AUTO) 0.7 10^3/uL (0.0-1.0); MONOCYTES % (AUTO) 4 % (0-12); NEUTROPHILS # (AUTO) 14.8 10^3/uL (1.8-7.8); NEUTROPHILS % (AUTO) 87 % (42-75); PLATELET COUNT 171 10^3/uL (130-400); WHITE BLOOD COUNT 16.9 10^3/uL (4.3-11.0)
[2022-09-01 06:01] LABS: ALBUMIN 4.2 GM/DL (3.2-4.5); POTASSIUM 4.2 MMOL/L (3.6-5.0)
[2022-09-01 06:02] LABS: CALCIUM 9.5 MG/DL (8.5-10.1)
[2022-09-01 06:04] LABS: TOTAL PROTEIN 6.9 GM/DL (6.4-8.2)
[2022-09-01 06:05] LABS: BILIRUBIN,TOTAL 0.6 MG/DL (0.1-1.0)
[2022-09-01 06:07] LABS: CREATININE SERUM 0.66 MG/DL (0.60-1.30)
[2022-09-01] MEDS: DOCUSATE SODIUM 100 MG (COLACE) CAP PO SCH ×2 (07:51→20:35)
[2022-09-01] MEDS: SENNA W/DOCUSATE (SENOKOT S) TABLET PO SCH ×4 (07:51→20:37)
[2022-09-01] MEDS: NICOTINE 14 MG (NICODERM) PATCH TD SCH (07:52)
[2022-09-01] MEDS: polyethylene glycoL POWDER 17 GM (MIRALAX) PACK PO SCH ×2 (07:56→20:37)
[2022-09-01 08:00] VITALS: BP 113/74
[2022-09-01] MEDS: NICOTINE PATCH REMOVAL TP SCH (09:00)
--- NOTE | 2022-09-01 09:20 | Occupational Ther Daily Note ---
OT Current Status-Daily Note Subjective Pt agreeable to OT Tx. States she feels more balanced today compared to last week after surgery. Mental Status/Objective Patient Orientation: Person, Place, Time, Situation ADL-Treatment Therapy Code Descriptions/Definitions Functional [place] Measure: 0=Not Assessed/NA 4=Minimal Assistance 1=Total Assistance 5=Supervision or Setup 2=Maximal Assistance 6=Modified [place] 3=Moderate Assistance 7=Complete IndependenceSCALE: Activities may be completed with or without assistive devices. 5-Dkgfhwaaar-cjapzbr completes the activity by him/herself with no assistance from a helper. 5-Set-up or Clean-up Assistance-helper sets up or cleans up; patient completes activity. [place] assists only prior to or following the activity. 4-Supervision or Touching Assistance-helper provides verbal cues and/or touching/steadying and/or contact guard assistance as patient completes activity. Assistance may be provided throughout the activity or intermittently. 3-Partial/Moderate Assistance-helper does LESS THAN HALF the effort. [place] lifts, holds or supports trunk or limbs, but provides less than half the effort. 2-Substantial/Maximal Assistance-helper does MORE THAN HALF the effort. [place] lifts or holds trunk or limbs and provides more than half the effort. 1-Ezjeepici-zgpevi does ALL the effort. Patient does none of the effort to complete the activity. Or, the assistance of 2 or more helpers is required for the patient to complete the activity. If activity was not attempted, code reason: 7-Patient Refused. 9-Not Applicable-not attempted and the patient did not perform the activity before the current illness, exacerbation or injury. 10-Not Attempted due to Environmental Limitations-(lack of equipment, weather restraints, etc.). 88-Not Attempted due to Medical Conditions or Safety Concerns. Eating (QC): 6 Oral Hygiene (QC): 6 (standing at sink) Shower/Bathe Self (QC): 6 Upper Body Dressing (QC): 6 Lower Body Dressing (QC): 4 (1 VC with doffing.) On/Off Footwear: 5 Other Treatment Pt in bed, transferred supine to sit EOB independently. Sit to stand from EOB and mobility to closet without AD, supervision. Pt able to gather clothes from closet, no LOB, then carry clothes into bathroom to set on the sink. Pt doffed clothes, 1 VC to doff underwear completely from LLE. Pt completed shower, IND, then donned clothes, no safety concerns or LOB noted. Pt performed functional mobility to therapy gym, Supervision without AD, no LOB. OT tx focused on UE strengthening, LUE coordination, and neuromuscular reeducation. Pt completed arm bike, x20 [place], x15 mins, no rest breaks. Pt removed beads from heavy resistance (green) theraputty, using LUE. Pt educated on UE exercises using 1 lb free weight. Pt completed x10 reps of the following, LUE: shoulder flexion, bicep curls, front punch, wrist flexion/extension. OT provided pt with heavy resistance (green) therapy sponge, pt completed x10 sign language instructor squeezes and x10 thumb to finger opposition between each digit. 1lb weight and sign language instructor sponge left in pt's room for her to use throughout the day. Pt returned to her room, no AD, IND, transferring to bed. Post tx, pt in bed, call light in reach and all needs met. Education OT Patient Education: Correct positioning, Energy conservation, Modified ADL techniques, Progress toward Goal/Update tx plan, Purpose of tx/functional activities, Rehab process Teaching Recipient: Patient Teaching Methods: Discussion Response to Teaching: Verbalize Understanding OT Short Term Goals Short Term Goals Time Frame: September 10, 2022 Shower/bathe self: 5 Lower body dressin OT Apiarist Goals Snf Goals Time Frame: Sep 19, 2022 Acute change in mental status: 0 Inattention: 0 Disorganized thinkin Altered level of consciousness: 0 Eating (QC): 6 Oral Hygiene (QC): 6 Toileting Hygiene (QC): 6 Shower/Bathe Self (QC): 6 Upper Body Dressing (QC): 6 Lower Body Dressing (QC): 6 On/Off Footwear (QC): 6 Additional Goals: 1-Demonstrate ADL Tasks, 2-Verbalize Understanding, 3- ImproveStrength/[place] 1=Demonstrate adherence to instructed precautions during ADL tasks. 2=Patient will verbalize/demonstrate understanding of assistive devices/modifications for ADL. 3=Patient will improve strength/tolerance for activity to enable patient to perform ADL's. OT Education/Plan Problem List/Assessment Assessment: Decreased Activ Tolerance, Decreased UE Strength, Impaired I ADL's, Restricted Funct UE ROM Discharge Recommendations Plan/Recommendations: Continue POC Treatment Plan/Plan of Care Patient would benefit from OT for education, treatment and training to promote independence in ADL's, mobility, safety and/or upper extremity function for ADL's. Plan of Care: ADL Retraining, Functional Mobility, Group Exercise/Act as Ind, UE Funct Exercise/Act, UE Neuromus Re-Ed/Coord Treatment Duration: Sep 19, 2022 Frequency: At least 5 of 7 days/Wk (IRF) Estimated Hrs Per Day: 1.5 hours per day Agreement: Yes Rehab Potential: Good Time Start Time: 09:00 Stop Time: 10:30 DATE: September 01, 2022 Total Time Billed (hr/min): 90 Billed Treatment Time 1, ADL 3 (45'), FA 2 (30'), EX (15') TOMASZ SÁNCHEZ OT September 01, 2022 09:20
--- NOTE | 2022-09-01 12:57 | Physical Therapy Daily Note ---
PT Daily Note-Current Subjective pt in room and willing for therapy upon arrival. pt reports no pain during session. Pain Section J - Health Conditions 1. Rarely or not at all 2. Occasionally 3. Frequently 4. Almost constantly 8. Unable to answer Pain Effect on Sleep: 1 Pain Interference with Therapy: 1 Pain Interference w/Day-to-Day: 1 Transfers SCALE: Activities may be completed with or without assistive devices. 5-Orvvuiqunp-ilrlepq completes the activity by him/herself with no assistance from a helper. 5-Set-up or Clean-up Assistance-helper sets up or cleans up; patient completes activity. [place] assists only prior to or following the activity. 4-Supervision or Touching Assistance-helper provides verbal cues and/or touchi ng/steadying and/or contact guard assistance as patient completes activity. Assistance may be provided throughout the activity or intermittently. 3-Partial/Moderate Assistance-helper does LESS THAN HALF the effort. [place] lifts, holds or supports trunk or limbs, but provides less than half the effort. 2-Substantial/Maximal Assistance-helper does MORE THAN HALF the effort. [place] lifts or holds trunk or limbs and provides more than half the effort. 1-Igahmzwrg-mwvfwr does ALL the effort. Patient does none of the effort to complete the activity. Or, the assistance of 2 or more helpers is required for the patient to complete the activity. If activity was not attempted, code reason: 7-Patient Refused. 9-Not Applicable-not attempted and the patient did not perform the activity before the current illness, exacerbation or injury. 10-Not Attempted due to Environmental Limitations-(lack of equipment, weather restraints, etc.). 88-Not Attempted due to Medical Conditions or Safety Concerns. Weight Bearing Right Lower Extremity: Right Full Weight Bearing Left Lower Extremity: Left Full Weight Bearing Exercises NuStep Minutes: 10 Treatments Pt Preformed ambulation with SBA around hospital in courtyard and in front of hospital. pt was able to exicute uneven surfaces including rubble area parking lot, incline, decline, as well as curbs with no LOB. Pt was able to then preform Nu-Step for 10 mins at levels changing ranging form 1 to 6 periodically for different intensity. PT Grating Machine Operator Goals Grating Machine Operator Goals PT Grating Machine Operator Goals Time Frame: September 08, 2022 Roll Left & Right (QC): 6 (Pt will be Mod I with bed mobility, transfers, walking, and stairs, in order to safely return home and progress towards PLOF. ) Sit to Lying (QC): 6 (Pt will be Mod I with bed mobility, transfers, walking, and stairs, in order to safely return home and progress towards PLOF. ) Lying-Sitting on Side/Bed(QC): 6 (Pt will be Mod I with bed mobility, moses sfers, walking, and stairs, in order to safely return home and progress towards PLOF. ) Sit to Stand (QC): 6 (Pt will be Mod I with bed mobility, transfers, walking, and stairs, in order to safely return home and progress towards PLOF. ) Chair/Zgo-qm-Dbgmt Xfer(QC): 6 (Pt will be Mod I with bed mobility, transfers, walking, and stairs, in order to safely return home and progress towards PLOF. ) Toilet Transfer (QC): 6 (Pt will be Mod I with bed mobility, transfers, walking, and stairs, in order to safely return home and progress towards PLOF. ) Car Transfer (QC): 6 (Pt will be Mod I with bed mobility, transfers, walking, and stairs, in order to safely return home and progress towards PLOF. ) Does the Patient Walk: Yes Walk 10 feet (QC): 6 (Pt will be Mod I with bed mobility, transfers, walking, and stairs, in order to safely return home and progress towards PLOF. ) Walk 50ft with 2 Turns (QC): 6 (Pt will be Mod I with bed mobility, transfers, walking, and stairs, in order to safely return home and progress towards PLOF. ) Walk 150 ft (QC): 6 (Pt will be Mod I with bed mobility, transfers, walking, and stairs, in order to safely return home and progress towards PLOF. ) Walking 10ft on Uneven Surface: 6 (Pt will be Mod I with bed mobility, transfers, walking, and stairs, in order to safely return home and progress towa rds PLOF. ) 1 Step (curb) (QC): 6 (Pt will be Mod I with bed mobility, transfers, walking, and stairs, in order to safely return home and progress towards PLOF. ) 4 Steps (QC): 6 (Pt will be Mod I with bed mobility, transfers, walking, and stairs, in order to safely return home and progress towards PLOF. ) 12 Steps (QC): 6 (Pt will be Mod I with bed mobility, transfers, walking, and stairs, in order to safely return home and progress towards PLOF. ) Picking up an Object (QC): 6 (Pt will be Mod I with bed mobility, transfers, walking, and stairs, in order to safely return home and progress towards PLOF. ) Does the Pt use WC or Scooter?: No Wheel 50 feet with 2 turns (QC: 9 Type: N/A Wheel 150 feet: 9 Type: N/A PT Plan Treatment/Plan Treatment Plan: Continue Plan of Care Treatment Duration: September 09, 2022 Frequency: At least 5 of 7 days/Wk (IRF) Estimated Hrs Per Day: 1 hour per day Time Time In: 1100 Time Out: 1200 DATE: September 01, 2022 Total Billed Treatment Time: 60 Total Billed Treatment 1 GT x 3 EX Ligia Ontiveros SCREEN PRINTING MACHINE OPERATOR September 01, 2022 12:57
--- NOTE | 2022-09-01 13:29 | Speech Therapy Progress Note ---
Therapy Progress Note received "Speech Therapy Rehab Orders Cog Trng" as part of the acute rehabilitation unit order set. At this time, skilled speech pathology evaluation and treatment are not warranted. MYNOR MAGUIRE September 01, 2022 13:29
--- NOTE | 2022-09-01 15:11 | Physical Therapy Daily Note ---
PT Daily Note-Current Pain Section J - Health Conditions 1. Rarely or not at all 2. Occasionally 3. Frequently 4. Almost constantly 8. Unable to answer Pain Effect on Sleep: 1 Pain Interference with Therapy: 1 Pain Interference w/Day-to-Day: 1 Transfers SCALE: Activities may be completed with or without assistive devices. 3-Jhuoecioje-ktsphud completes the activity by him/herself with no assistance from a helper. 5-Set-up or Clean-up Assistance-helper sets up or cleans up; patient completes activity. [place] assists only prior to or following the activity. 4-Supervision or Touching Assistance-helper provides verbal cues and/or touching/steadying and/or contact guard assistance as patient completes activity. Assistance may be provided throughout the activity or intermittently. 3-Partial/Moderate Assistance-helper does LESS THAN HALF the effort. [place] lifts, holds or supports trunk or limbs, but provides less than half the effort. 2-Substantial/Maximal Assistance-helper does MORE THAN HALF the effort. [place] lifts or holds trunk or limbs and provides more than half the effort. 5-Ebndlgcki-wsrrto does ALL the effort. Patient does none of the effort to complete the activity. Or, the assistance of 2 or more helpers is required for the patient to complete the activity. If activity was not attempted, code reason: 7-Patient Refused. 9-Not Applicable-not attempted and the patient did not perform the activity before the current illness, exacerbation or injury. 10-Not Attempted due to Environmental Limitations-(lack of equipment, weather restraints, etc.). 88-Not Attempted due to Medical Conditions or Safety Concerns. Weight Bearing Right Lower Extremity: Right Full Weight Bearing Left Lower Extremity: Left Full Weight Bearing Treatments Pt preformed NM re-ed focusing on the LLE to increase mm control to reduce the risk of falling. pt is able to preform ball roll stability movements with LLE for 3 sets of 10. pt is able to execute BLE ther-ex in all planes of motion available while sitting for 3 sets of 12 with red thera band for increased mm strength. Assessment Current Status: Good Progress PT Usp Goals Bruise Trimmer Goals PT Usp Goals Time Frame: September 08, 2022 Roll Left & Right (QC): 6 (Pt will be Mod I with bed mobility, transfers, walking, and stairs, in order to safely return home and progress towards PLOF. ) Sit to Lying (QC): 6 (Pt will be Mod I with bed mobility, transfers, walking, and stairs, in order to safely return home and progress towards PLOF. ) Lying-Sitting on Side/Bed(QC): 6 (Pt will be Mod I with bed mobility, transfers, walking, and stairs, in order to safely return home and progress towards PLOF. ) Sit to Stand (QC): 6 (Pt will be Mod I with bed mobility, transfers, walking, and stairs, in order to safely return home and progress towards PLOF. ) Chair/Zqx-of-Bbpbk Xfer(QC): 6 (Pt will be Mod I with bed mobility, transfers, walking, and stairs, in order to safely return home and progress towards PLOF. ) Toilet Transfer (QC): 6 (Pt will be Mod I with bed mobility, transfers, walking, and stairs, in order to safely return home and progress towards PLOF. ) Car Transfer (QC): 6 (Pt will be Mod I with bed mobility, transfers, walking, and stairs, in order to safely return home and progress towards PLOF. ) Does the Patient Walk: Yes Walk 10 feet (QC): 6 (Pt will be Mod I with bed mobility, transfers, walking, and stairs, in order to safely return home and progress towards PLOF. ) Walk 50ft with 2 Turns (QC): 6 (Pt will be Mod I with bed mobility, transfers, walking, and stairs, in order to safely return home and progress towards PLOF. ) Walk 150 ft (QC): 6 (Pt will be Mod I with bed mobility, transfers, walking, and stairs, in order to safely return home and progress towards PLOF. ) Walking 10ft on Uneven Surface: 6 (Pt will be Mod I with bed mobility, transfers, walking, and stairs, in order to safely return home and progress towards PLOF. ) 1 Step (curb) (QC): 6 (Pt will be Mod I with bed mobility, transfers, walking, and stairs, in order to safely return home and progress towards PLOF. ) 4 Steps (QC): 6 (Pt will be Mod I with bed mobility, transfers, walking, and stairs, in order to safely return home and progress towards PLOF. ) 12 Steps (QC): 6 (Pt will be Mod I with bed mobility, transfers, walking, and stairs, in order to safely return home and progress towards PLOF. ) Picking up an Object (QC): 6 (Pt will be Mod I with bed mobility, transfers, walking, and stairs, in order to safely return home and progress towards PLOF. ) Does the Pt use WC or Scooter?: No Wheel 50 feet with 2 turns (QC: 9 Type: N/A Wheel 150 feet: 9 Type: N/A PT Plan Treatment/Plan Treatment Plan: Continue Plan of Care Treatment Duration: September 09, 2022 Frequency: At least 5 of 7 days/Wk (IRF) Estimated Hrs Per Day: 1 hour per day Time Time In: 1330 Time Out: 1400 DATE: September 01, 2022 Total Billed Treatment Time: 30 Total Billed Treatment 1 ex Ligia Tristan BIOINFORMATICIST September 01, 2022 15:11
[2022-09-01 20:30] VITALS: BP 101/61
[2022-09-01] MEDS: ACETAMINOPHEN 325 MG TABLET PO PRN (20:35)
--- NOTE | 2022-09-02 05:05 | PM&R Progress Note ---
Subjective HPI/CC On Admission Date Seen by Provider: September 02, 2022 Time Seen by Provider: 09:00 Subjective/Events-last exam 09/02/2022: No major issues Walking well Therapy participation is good 09/01/2022: No major issues Improved pain Tingling left arm and leg Decadron maintained Labs reviewed 08/31/2022: No BM yet Flatus noted Mother cut her hair last night and it is improved No falls 08/30/2022: No major issues Left leg weakness Constipation noted Laxatives given Labs reviewed Review of Systems General: Fatigue, Malaise Objective Exam Vital Signs Vital Signs Date Time Temp Pulse Resp B/P (MAP) Pulse Ox O2 Delivery O2 Flow Rate FiO2 09/02/22 20:34 95 Room Air 09/02/22 20:02 36.8 86 16 98/64 (75) Capillary Refill : General Appearance: No Apparent Distress, WD/WN, Chronically ill, Thin HEENT: PERRL/EOMI, Normal ENT Inspection, Pharynx Normal, Other (right sided skull deficit) Neck: Full Range of Motion, Normal Inspection, Non Tender, Supple, Carotid Bruit Respiratory: Chest Non Tender, Lungs Clear, Normal Breath Sounds, No Accessory Muscle Use, No Respiratory Distress Cardiovascular: Regular Rate, Rhythm, No Edema, No Gallop, No JVD, No Murmur, Normal Peripheral Pulses Gastrointestinal: Normal Bowel Sounds, No Organomegaly, No Pulsatile Mass, Non Tender, Soft Back: Normal Inspection, No CVA Tenderness, No Vertebral Tenderness Extremity: Normal Capillary Refill, Normal Inspection, Normal Range of Motion, Non Tender, No Calf Tenderness, No Pedal Edema Neurologic/Psychiatric: Alert, Oriented x3, Normal Mood/Affect, materials tech II-XII Norm as Tested, Abnormal Gait, Depressed Affect, Motor Weakness (left sided weakness) Skin: Normal Color, Warm/Dry Lymphatic: No Adenopathy Results/Procedures Lab Patient resulted labs reviewed. FIM Transfers Therapy Code Descriptions/Definitions Functional [place] Measure: 0=Not Assessed/NA 4=Minimal Assistance 1=Total Assistance 5=Supervision or Setup 2=Maximal Assistance 6=Modified [place] 3=Moderate Assistance 7=Complete IndependenceSCALE: Activities may be completed with or without assistive devices. 7-Srzqgzabgy-vetskny completes the activity by him/herself with no assistance from a helper. 5-Set-up or Clean-up Assistance-helper sets up or cleans up; patient completes activity. [place] assists only prior to or following the activity. 4-Supervision or Touching Assistance-helper provides verbal cues and/or touching/steadying and/or contact guard assistance as patient completes activity. Assistance may be provided throughout the activity or intermittently. 3-Partial/Moderate Assistance-helper does LESS THAN HALF the effort. [place]lett lifts, holds or supports trunk or limbs, but provides less than half the effort. 2-Substantial/Maximal Assistance-helper does MORE THAN HALF the effort. [place] lifts or holds trunk or limbs and provides more than half the effort. 4-Ljrpqvbqo-lqmnkq does ALL the effort. Patient does none of the effort to complete the activity. Or, the assistance of 2 or more helpers is required for the patient to complete the activity. If activity was not attempted, code reason: 7-Patient Refused. 9-Not Applicable-not attempted and the patient did not perform the activity before the current illness, exacerbation or injury. 10-Not Attempted due to Environmental Limitations-(lack of equipment, weather restraints, etc.). 88-Not Attempted due to Medical Conditions or Safety Concerns. Roll Left to Right (QC): 4 (SBA ) Sit to Lying (QC): 4 (SBA ) Sit to Stand (QC): 4 (SBA ) Chair/Ymp-eq-Jnyxu Xfer(QC): 4 (SBA ) Car Transfer (QC): 4 (CGA ) Gait Training Does the Patient Walk?: Yes Walk 10 feet (QC): 4 (CGA with no AD ) Walk 50 ft with 2 Turns(QC): 4 (CGA with no AD ) Walk 150 ft (QC): 4 (CGA with no AD ) Walking 10ft/uneven surface-QC: 4 (CGA with no AD ) Gait Assistive Device: None Wheelchair Training Does the Pt Use a Wheelchair?: No Wheel 50 ft with 2 turns (QC): 9 Wheel 150 ft (QC): 9 Type of Wheelchair: N/A Stair Training #of Steps: 12 1 Step (curb) (QC): 4 (CGA ) 4 Steps (QC): 4 (CGA ) 12 Steps (QC): 4 (CGA ) Balance Picking up an Object (QC): 4 (SBA ) ADL-Treatment Eating (QC): 6 Oral Hygiene (QC): 6 (standing at sink) Shower/Bathe Self (QC): 6 Upper Body Dressing (QC): 6 Lower Body Dressing (QC): 4 (1 VC with doffing.) On/Off Footwear (QC): 5 Toileting Hygiene (QC): 4 (CGA) Assessment/Plan Assessment and Plan Assess & Plan/Chief Complaint Assessment: 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 09/01/2022: Monitor closely 09/02/2022: Monitor closely (1) Brain tumor Status: Acute ISMAEL NGUYEN DO September 02, 2022 05:05
[2022-09-02] MEDS: DOCUSATE SODIUM 100 MG (COLACE) CAP PO SCH ×2 (07:54→20:28)
[2022-09-02] MEDS: SENNA W/DOCUSATE (SENOKOT S) TABLET PO SCH ×4 (07:54→20:29)
[2022-09-02] MEDS: NICOTINE 14 MG (NICODERM) PATCH TD SCH (07:54)
[2022-09-02] MEDS: polyethylene glycoL POWDER 17 GM (MIRALAX) PACK PO SCH ×2 (08:01→20:28)
[2022-09-02 08:02] VITALS: BP 133/72
[2022-09-02] MEDS: ACETAMINOPHEN 325 MG TABLET PO PRN ×2 (08:05→20:28)
--- NOTE | 2022-09-02 09:41 | Physical Therapy Daily Note ---
PT Daily Note-Current Subjective Ptin room sitting EOB upon arrival and willing for therapy. Pt reports no pain this day only a slight "tingling" in left calf that is more intense in the morning and is better in the after noon after movement. Pain Section J - Health Conditions 1. Rarely or not at all 2. Occasionally 3. Frequently 4. Almost constantly 8. Unable to answer Pain Effect on Sleep: 1 Pain Interference with Therapy: 1 Pain Interference w/Day-to-Day: 1 Mental Status Patient Orientation: Person, Place, Time, Situation Transfers SCALE: Activities may be completed with or without assistive devices. 0-Cgbyjcypea-jsrrkfd completes the activity by him/herself with no assistance from a helper. 5-Set-up or Clean-up Assistance-helper sets up or cleans up; patient completes activity. [place] assists only prior to or following the activity. 4-Supervision or Touching Assistance-helper provides verbal cues and/or touching/steadying and/or contact guard assistance as patient completes activity. Assistance may be provided throughout the activity or intermittently. 3-Partial/Moderate Assistance-helper does LESS THAN HALF the effort. [place] lifts, holds or supports trunk or limbs, but provides less than half the effort. 2-Substantial/Maximal Assistance-helper does MORE THAN HALF the effort. [place] lifts or holds trunk or limbs and provides more than half the effort. 1-Qshlwjmtt-iopdgz does ALL the effort. Patient does none of the effort to complete the activity. Or, the assistance of 2 or more helpers is required for the patient to complete the activity. If activity was not attempted, code reason: 7-Patient Refused. 9-Not Applicable-not attempted and the patient did not perform the activity be fore the current illness, exacerbation or injury. 10-Not Attempted due to Environmental Limitations-(lack of equipment, weather restraints, etc.). 88-Not Attempted due to Medical Conditions or Safety Concerns. Weight Bearing Right Lower Extremity: Right Full Weight Bearing Left Lower Extremity: Left Full Weight Bearing Stair Training 1 Step (curb) (QC): 6 4 Steps (QC): 6 12 Steps (QC): 6 Balance Picking up an Object (QC): 6 Treatments Pt preformed ambulation around the hospital setting as well as outside with SBA for aprox 500ft with 1 slight stumble secondary to loose croc shoe but was able to engage ankle knee hip strategy and self correct when stepping from grass curb down to concrete pt ambualted slopes incline and decline gravel, grass, curb steps as well as obstacle deflection stepping over and weaving in and out of objects. . pt was able to simulate cooking in [place] kitchen showing no LOB with tight pivoting and moving outside COG this day. pt road Nu-Step for 10 mins at various levels of intensity ranging from 1 - 9 moving aprox intensity every 90 secs. Assessment Current Status: Excellent Progress PT Snf Goals Electrician Elevator Maintenance Goals PT Snf Goals Time Frame: September 08, 2022 Roll Left & Right (QC): 6 (Pt will be Mod I with bed mobility, transfers, walking, and stairs, in order to safely return home and progress towards PLOF. ) Sit to Lying (QC): 6 (Pt will be Mod I with bed mobility, transfers, walking, and stairs, in order to safely return home and progress towards PLOF. ) Lying-Sitting on Side/Bed(QC): 6 (Pt will be Mod I with bed mobility, transfers, walking, and stairs, in order to safely return home and progress towards PLOF. ) Sit to Stand (QC): 6 (Pt will be Mod I with bed mobility, transfers, walking, and stairs, in order to safely return home and progress towards PLOF. ) Chair/Rzf-kz-Cohkt Xfer(QC): 6 (Pt will be Mod I with bed mobility, transfers, walking, and stairs, in order to safely return home and progress towards PLOF. ) Toilet Transfer (QC): 6 (Pt will be Mod I with bed mobility, transfers, walking, and stairs, in order to safely return home and progress towards PLOF. ) Car Transfer (QC): 6 (Pt will be Mod I with bed mobility, transfers, walking, and stairs, in order to safely return home and progress towards PLOF. ) Does the Patient Walk: Yes Walk 10 feet (QC): 6 (Pt will be Mod I with bed mobility, transfers, walking, and stairs, in order to safely return home and progress towards PLOF. ) Walk 50ft with 2 Turns (QC): 6 (Pt will be Mod I with bed mobility, transfers, walking, and stairs, in order to safely return home and progress towards PLOF. ) Walk 150 ft (QC): 6 (Pt will be Mod I with bed mobility, transfers, walking, and stairs, in order to safely return home and progress towards PLOF. ) Walking 10ft on Uneven Surface: 6 (Pt will be Mod I with bed mobility, transfers, walking, and stairs, in order to safely return home and progress towards PLOF. ) 1 Step (curb) (QC): 6 (Pt will be Mod I with bed mobility, transfers, walking, and stairs, in order to safely return home and progress towards PLOF. ) 4 Steps (QC): 6 (Pt will be Mod I with bed mobility, transfers, walking, and stairs, in order to safely return home and progress towards PLOF. ) 12 Steps (QC): 6 (Pt will be Mod I with bed mobility, transfers, walking, and stairs, in order to safely return home and progress towards PLOF. ) Picking up an Object (QC): 6 (Pt will be Mod I with bed mobility, transfers, walking, and stairs, in order to safely return home and progress towards PLOF. ) Does the Pt use WC or Scooter?: No Wheel 50 feet with 2 turns (QC: 9 Type: N/A Wheel 150 feet: 9 Type: N/A PT Plan Treatment/Plan Treatment Plan: Continue Plan of Care Treatment Duration: September 09, 2022 Frequency: At least 5 of 7 days/Wk (IRF) Estimated Hrs Per Day: 1 hour per day Time Time In: 0800 Time Out: 0930 DATE: September 02, 2022 Total Billed Treatment Time: 90 Total Billed Treatment 1 GT x 3 EX x 2 FA Ligia Ontiveros MATTRESS WEAVER September 02, 2022 09:41
[2022-09-02] MEDS: NICOTINE PATCH REMOVAL TP SCH (11:15)
--- NOTE | 2022-09-02 11:57 | Occupational Ther Daily Note ---
OT Current Status-Daily Note Subjective Pt in bed, agreeable to OT tx. ADL-Treatment Therapy Code Descriptions/Definitions Functional [place] Measure: 0=Not Assessed/NA 4=Minimal Assistance 1=Total Assistance 5=Supervision or Setup 2=Maximal Assistance 6=Modified [place] 3=Moderate Assistance 7=Complete IndependenceSCALE: Activities may be completed with or without assistive devices. 8-Qdkxxrsslj-xoamjks completes the activity by him/herself with no assistance from a helper. 5-Set-up or Clean-up Assistance-helper sets up or cleans up; patient completes activity. [place] assists only prior to or following the activity. 4-Supervision or Touching Assistance-helper provides verbal cues and/or touching/steadying and/or contact guard assistance as patient completes activity. Assistance may be provided throughout the activity or intermittently. 3-Partial/Moderate Assistance-helper does LESS THAN HALF the effort. [place] lifts, holds or supports trunk or limbs, but provides less than half the effort. 2-Substantial/Maximal Assistance-helper does MORE THAN HALF the effort. [place] lifts or holds trunk or limbs and provides more than half the effort. 8-Igdysruqm-unotlp does ALL the effort. Patient does none of the effort to complete the activity. Or, the assistance of 2 or more helpers is required for the patient to complete the activity. If activity was not attempted, code reason: 7-Patient Refused. 9-Not Applicable-not attempted and the patient did not perform the activity befo re the current illness, exacerbation or injury. 10-Not Attempted due to Environmental Limitations-(lack of equipment, weather re straints, etc.). 88-Not Attempted due to Medical Conditions or Safety Concerns. Eating (QC): 6 Other Treatment Pt finished breakfast, IND. In order to increase LUE strength, coordination, and neuromuscular reeducation, pt completed x20 reps each of the following using LUE: shoulder flexion, bicep curl, front punch, overhead tricep extension, wrist flexion, wrist extension, pronation/supination. Post tx, pt in bed, call light in reach and all needs met. Education OT Patient Education: Correct positioning, Energy conservation, Modified ADL techniques, Progress toward Goal/Update tx plan, Purpose of tx/functional activities, Rehab process Teaching Recipient: Patient Teaching Methods: Discussion Response to Teaching: Verbalize Understanding OT Short Term Goals Short Term Goals Time Frame: September 10, 2022 Shower/bathe self: 5 Lower body dressin OT Stone Banker Goals Group Home Goals Time Frame: Sep 19, 2022 Acute change in mental status: 0 Inattention: 0 Disorganized thinkin Altered level of consciousness: 0 Eating (QC): 6 Oral Hygiene (QC): 6 Toileting Hygiene (QC): 6 Shower/Bathe Self (QC): 6 Upper Body Dressing (QC): 6 Lower Body Dressing (QC): 6 On/Off Footwear (QC): 6 Additional Goals: 1-Demonstrate ADL Tasks, 2-Verbalize Understanding, 3- ImproveStrength/[place] 1=Demonstrate adherence to instructed precautions during ADL tasks. 2=Patient will verbalize/demonstrate understanding of assistive devices/modifications for ADL. 3=Patient will improve strength/tolerance for activity to enable patient to perform ADL's. OT Education/Plan Problem List/Assessment Assessment: Decreased Activ Tolerance, Decreased UE Strength, Impaired I ADL's, Restricted Funct UE ROM Discharge Recommendations Plan/Recommendations: Continue POC Treatment Plan/Plan of Care Patient would benefit from OT for education, treatment and training to promote independence in ADL's, mobility, safety and/or upper extremity function for ADL's. Plan of Care: ADL Retraining, Functional Mobility, Group Exercise/Act as Ind, UE Funct Exercise/Act, UE Neuromus Re-Ed/Coord Treatment Duration: Sep 19, 2022 Frequency: At least 5 of 7 days/Wk (IRF) Estimated Hrs Per Day: 1.5 hours per day Agreement: Yes Rehab Potential: Good Time Start Time: 07:20 Stop Time: 07:50 DATE: September 02, 2022 Total Time Billed (hr/min): 30 Billed Treatment Time 1, ADL (10'), NM (20') TOMASZ SÁNCHEZ OT September 02, 2022 11:57
--- NOTE | 2022-09-02 12:01 | Occupational Ther Daily Note ---
OT Current Status-Daily Note Subjective Pt in bed, agreeable to OT tx. ADL-Treatment Therapy Code Descriptions/Definitions Functional [place] Measure: 0=Not Assessed/NA 4=Minimal Assistance 1=Total Assistance 5=Supervision or Setup 2=Maximal Assistance 6=Modified [place] 3=Moderate Assistance 7=Complete IndependenceSCALE: Activities may be completed with or without assistive devices. 4-Dnhapptkpc-peomvyl completes the activity by him/herself with no assistance from a helper. 5-Set-up or Clean-up Assistance-helper sets up or cleans up; patient completes activity. [place] assists only prior to or following the activity. 4-Supervision or Touching Assistance-helper provides verbal cues and/or touching/steadying and/or contact guard assistance as patient completes activity. Assistance may be provided throughout the activity or intermittently. 3-Partial/Moderate Assistance-helper does LESS THAN HALF the effort. [place] lifts, holds or supports trunk or limbs, but provides less than half the effort. 2-Substantial/Maximal Assistance-helper does MORE THAN HALF the effort. [place] lifts or holds trunk or limbs and provides more than half the effort. 4-Yniqasrrf-jksblj does ALL the effort. Patient does none of the effort to complete the activity. Or, the assistance of 2 or more helpers is required for the patient to complete the activity. If activity was not attempted, code reason: 7-Patient Refused. 9-Not Applicable-not attempted and the patient did not perform the activity befo re the current illness, exacerbation or injury. 10-Not Attempted due to Environmental Limitations-(lack of equipment, weather re straints, etc.). 88-Not Attempted due to Medical Conditions or Safety Concerns. Other Treatment Pt transferred supine to sit EOB, IND, then performed functional mobility to therapy gym, IND. OT tx focused on neuromuscular reeducation LUE, strengthening, activity tolerance, proprioceptive input to LUE, and fine motor coordination. Pt completed arm bike x15 mins, 20 Watt resistance, no rest breaks. Pt then worked on completing 300 piece puzzle, 1lb wrist weights BUEs. This required pt to manipulate puzzle pieces within her hand, bringing from palm to fingertips, and pronation/supination of pieces as needed. Noted some decreased proprioception in LUE, as pt would spill/knock over pieces of the puzzle without realizing it. Pt able to tolerate activity x45 mins with wrist weights, resting LUE as needed with task. Post tx, pt seated at table in ARU common area, rehab spec present, all needs met. OT Short Term Goals Short Term Goals Time Frame: September 10, 2022 Shower/bathe self: 5 Lower body dressin OT Skilled Nursing Goals Firearms Instructor Goals Time Frame: Sep 19, 2022 Acute change in mental status: 0 Inattention: 0 Disorganized thinkin Altered level of consciousness: 0 Eating (QC): 6 Oral Hygiene (QC): 6 Toileting Hygiene (QC): 6 Shower/Bathe Self (QC): 6 Upper Body Dressing (QC): 6 Lower Body Dressing (QC): 6 On/Off Footwear (QC): 6 Additional Goals: 1-Demonstrate ADL Tasks, 2-Verbalize Understanding, 3- ImproveStrength/[place] 1=Demonstrate adherence to instructed precautions during ADL tasks. 2=Patient will verbalize/demonstrate understanding of assistive devices/modifications for ADL. 3=Patient will improve strength/tolerance for activity to enable patient to perform ADL's. OT Education/Plan Problem List/Assessment Assessment: Decreased Activ Tolerance, Decreased UE Strength, Impaired I ADL's, Restricted Funct UE ROM Discharge Recommendations Plan/Recommendations: Continue POC Treatment Plan/Plan of Care Patient would benefit from OT for education, treatment and training to promote independence in ADL's, mobility, safety and/or upper extremity function for ADL's. Plan of Care: ADL Retraining, Functional Mobility, Group Exercise/Act as Ind, UE Funct Exercise/Act, UE Neuromus Re-Ed/Coord Treatment Duration: Sep 19, 2022 Frequency: At least 5 of 7 days/Wk (IRF) Estimated Hrs Per Day: 1.5 hours per day Agreement: Yes Rehab Potential: Good Time Start Time: 10:00 Stop Time: 11:00 DATE: September 02, 2022 Total Time Billed (hr/min): 60 Billed Treatment Time 1, EX (15'), NM 3 (45') TOMASZ SÁNCHEZ OT September 02, 2022 12:01
[2022-09-02 13:13] VITALS: BP 133/72
[2022-09-02 20:02] VITALS: BP 98/64
--- NOTE | 2022-09-03 05:47 | PM&R Progress Note ---
Subjective HPI/CC On Admission Date Seen by Provider: September 03, 2022 Time Seen by Provider: 08:00 Subjective/Events-last exam 09/03/2022: No other issues reported Ready for discharge tomorrow No major concerns 09/02/2022: No major issues Walking well Therapy participation is good 09/01/2022: No major issues Improved pain Tingling left arm and leg Decadron maintained Labs reviewed 08/31/2022: No BM yet Flatus noted Mother cut her hair last night and it is improved No falls 08/30/2022: No major issues Left leg weakness Constipation noted Laxatives given Labs reviewed Review of Systems General: Fatigue, Malaise Objective Exam Vital Signs Vital Signs Date Time Temp Pulse Resp B/P (MAP) Pulse Ox O2 Delivery O2 Flow Rate FiO2 09/03/22 20:09 36.4 90 18 124/87 (99) 96 Room Air Capillary Refill : General Appearance: No Apparent Distress, WD/WN, Chronically ill, Thin HEENT: PERRL/EOMI, Normal ENT Inspection, Pharynx Normal, Other (right sided skull deficit) Neck: Full Range of Motion, Normal Inspection, Non Tender, Supple, Carotid Bruit Respiratory: Chest Non Tender, Lungs Clear, Normal Breath Sounds, No Accessory Muscle Use, No Respiratory Distress Cardiovascular: Regular Rate, Rhythm, No Edema, No Gallop, No JVD, No Murmur, Normal Peripheral Pulses Gastrointestinal: Normal Bowel Sounds, No Organomegaly, No Pulsatile Mass, Non Tender, Soft Back: Normal Inspection, No CVA Tenderness, No Vertebral Tenderness Extremity: Normal Capillary Refill, Normal Inspection, Normal Range of Motion, Non Tender, No Calf Tenderness, No Pedal Edema Neurologic/Psychiatric: Alert, Oriented x3, Normal Mood/Affect, seed mill superintendent II-XII Norm as Tested, Abnormal Gait, Depressed Affect, Motor Weakness (left sided weakness) Skin: Normal Color, Warm/Dry Lymphatic: No Adenopathy Results/Procedures Lab Patient resulted labs reviewed. FIM Transfers Therapy Code Descriptions/Definitions Functional [place] Measure: 0=Not Assessed/NA 4=Minimal Assistance 1=Total Assistance 5=Supervision or Setup 2=Maximal Assistance 6=Modified [place] 3=Moderate Assistance 7=Complete IndependenceSCALE: Activities may be completed with or without assistive devices. 5-Ttaesnkycy-eggqvvj completes the activity by him/herself with no assistance from a helper. 5-Set-up or Clean-up Assistance-helper sets up or cleans up; patient completes activity. [place] assists only prior to or following the activity. 4-Supervision or Touching Assistance-helper provides verbal cues and/or touching/steadying and/or contact guard assistance as patient completes activity. Assistance may be provided throughout the activity or intermittently. 3-Partial/Moderate Assistance-helper does LESS THAN HALF the effort. [place] lifts, holds or supports trunk or limbs, but provides less than half the effort. 2-Substantial/Maximal Assistance-helper does MORE THAN HALF the effort. [place] lifts or holds trunk or limbs and provides more than half the effort. 6-Uzfvqieps-wgwony does ALL the effort. Patient does none of the effort to complete the activity. Or, the assistance of 2 or more helpers is required for the patient to complete the activity. If activity was not attempted, code reason: 7-Patient Refused. 9-Not Applicable-not attempted and the patient did not perform the activity before the current illness, exacerbation or injury. 10-Not Attempted due to Environmental Limitations-(lack of equipment, weather restraints, etc.). 88-Not Attempted due to Medical Conditions or Safety Concerns. Roll Left to Right (QC): 4 (SBA ) Sit to Lying (QC): 4 (SBA ) Sit to Stand (QC): 4 (SBA ) Chair/Ozd-gg-Rsblr Xfer(QC): 4 (SBA ) Car Transfer (QC): 4 (CGA ) Gait Training Does the Patient Walk?: Yes Walk 10 feet (QC): 4 (CGA with no AD ) Walk 50 ft with 2 Turns(QC): 4 (CGA with no AD ) Walk 150 ft (QC): 4 (CGA with no AD ) Walking 10ft/uneven surface-QC: 4 (CGA with no AD ) Gait Assistive Device: None Wheelchair Training Does the Pt Use a Wheelchair?: No Wheel 50 ft with 2 turns (QC): 9 Wheel 150 ft (QC): 9 Type of Wheelchair: N/A Stair Training #of Steps: 12 1 Step (curb) (QC): 6 4 Steps (QC): 6 12 Steps (QC): 6 Balance Picking up an Object (QC): 6 ADL-Treatment Eating (QC): 6 Oral Hygiene (QC): 6 (standing at sink) Shower/Bathe Self (QC): 6 Upper Body Dressing (QC): 6 Lower Body Dressing (QC): 4 (1 VC with doffing.) On/Off Footwear (QC): 5 Toileting Hygiene (QC): 4 (CGA) Assessment/Plan Assessment and Plan Assess & Plan/Chief Complaint Assessment: 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 09/01/2022: Monitor closely 09/02/2022: Monitor closely 09/03/2022: Supportive care Discharge tomorrow (1) Brain tumor Status: Acute ISMAEL NGUYEN DO September 03, 2022 05:47
[2022-09-03 07:26] VITALS: BP 109/73
[2022-09-03] MEDS: SENNA W/DOCUSATE (SENOKOT S) TABLET PO SCH ×4 (08:27→20:13)
[2022-09-03] MEDS: polyethylene glycoL POWDER 17 GM (MIRALAX) PACK PO SCH ×2 (08:27→19:47)
[2022-09-03] MEDS: NICOTINE PATCH REMOVAL TP SCH (08:27)
[2022-09-03] MEDS: NICOTINE 14 MG (NICODERM) PATCH TD SCH (08:27)
[2022-09-03] MEDS: DOCUSATE SODIUM 100 MG (COLACE) CAP PO SCH ×2 (08:27→20:13)
--- NOTE | 2022-09-03 09:55 | Physical Therapy Daily Note ---
PT Daily Note-Current Subjective Pt in room upon arrival and willing for therapy. pt stated there was still "slight" tingly in her left calf as it is there everyday but is does decrease with more movement throughout the day. pt reports no pain. Pain Section J - Health Conditions 1. Rarely or not at all 2. Occasionally 3. Frequently 4. Almost constantly 8. Unable to answer Pain Effect on Sleep: 1 Pain Interference with Therapy: 1 Pain Interference w/Day-to-Day: 1 Mental Status Patient Orientation: Person, Place, Time, Situation Transfers SCALE: Activities may be completed with or without assistive devices. 4-Ypigihynoe-jzumjjo completes the activity by him/herself with no assistance from a helper. 5-Set-up or Clean-up Assistance-helper sets up or cleans up; patient completes activity. [place] assists only prior to or following the activity. 4-Supervision or Touching Assistance-helper provides verbal cues and/or touching/steadying and/or contact guard assistance as patient completes activity. Assistance may be provided throughout the activity or intermittently. 3-Partial/Moderate Assistance-helper does LESS THAN HALF the effort. [place] lifts, holds or supports trunk or limbs, but provides less than half the effort. 2-Substantial/Maximal Assistance-helper does MORE THAN HALF the effort. [place] lifts or holds trunk or limbs and provides more than half the effort. 6-Qfokubiun-lhvcvo does ALL the effort. Patient does none of the effort to complete the activity. Or, the assistance of 2 or more helpers is required for the patient to complete the activity. If activity was not attempted, code reason: 7-Patient Refused. 9-Not Applicable-not attempted and the patient did not perform the activity before the current illness, exacerbation or injury. 10-Not Attempted due to Environmental Limitations-(lack of equipment, weather restraints, etc.). 88-Not Attempted due to Medical Conditions or Safety Concerns. Weight Bearing Right Lower Extremity: Right Full Weight Bearing Left Lower Extremity: Left Full Weight Bearing Exercises NuStep Minutes: 10 Neuromuscular pt working on Neuro Re-ed on the LLE to engage more mm control to decrease falls and increase balance. pt is showing improvement this day with increased mm control. Treatments pt is able to ambulate outside hospitals on varied surfaces, inclines, declines, curbs, stairs, path deviation and obstacle deflection. Pt ambulated aprox 1200 ft with no AD and independence and is able to self correct when ambulating on uneven surfaces to prevent falls. PT Detention Goals Menswear Salesperson Goals PT Menswear Salesperson Goals Time Frame: September 08, 2022 Roll Left & Right (QC): 6 (Pt will be Mod I with bed mobility, transfers, walking, and stairs, in order to safely return home and progress towards PLOF. ) Sit to Lying (QC): 6 (Pt will be Mod I with bed mobility, transfers, walking, and stairs, in order to safely return home and progress towards PLOF. ) Lying-Sitting on Side/Bed(QC): 6 (Pt will be Mod I with bed mobility, transfers, walking, and stairs, in order to safely return home and progress towards PLOF. ) Sit to Stand (QC): 6 (Pt will be Mod I with bed mobility, transfers, walking, and stairs, in order to safely return home and progress towards PLOF. ) Chair/Fya-zq-Fjaff Xfer(QC): 6 (Pt will be Mod I with bed mobility, transfers, walking, and stairs, in order to safely return home and progress towards PLOF. ) Toilet Transfer (QC): 6 (Pt will be Mod I with bed mobility, transfers, walking, and stairs, in order to safely return home and progress towards PLOF. ) Car Transfer (QC): 6 (Pt will be Mod I with bed mobility, transfers, walking, and stairs, in order to safely return home and progress towards PLOF. ) Does the Patient Walk: Yes Walk 10 feet (QC): 6 (Pt will be Mod I with bed mobility, transfers, walking, and stairs, in order to safely return home and progress towards PLOF. ) Walk 50ft with 2 Turns (QC): 6 (Pt will be Mod I with bed mobility, transfers, walking, and stairs, in order to safely return home and progress towards PLOF. ) Walk 150 ft (QC): 6 (Pt will be Mod I with bed mobility, transfers, walking, and stairs, in order to safely return home and progress towards PLOF. ) Walking 10ft on Uneven Surface: 6 (Pt will be Mod I with bed mobility, transfers, walking, and stairs, in order to safely return home and progress towards PLOF. ) 1 Step (curb) (QC): 6 (Pt will be Mod I with bed mobility, transfers, walking, and stairs, in order to safely return home and progress towards PLOF. ) 4 Steps (QC): 6 (Pt will be Mod I with bed mobility, transfers, walking, and stairs, in order to safely return home and progress towards PLOF. ) 12 Steps (QC): 6 (Pt will be Mod I with bed mobility, transfers, walking, and stairs, in order to safely return home and progress towards PLOF. ) Picking up an Object (QC): 6 (Pt will be Mod I with bed mobility, transfers, walking, and stairs, in order to safely return home and progress towards PLOF. ) Does the Pt use WC or Scooter?: No Wheel 50 feet with 2 turns (QC: 9 Type: N/A Wheel 150 feet: 9 Type: N/A PT Plan Treatment/Plan Treatment Plan: Continue Plan of Care Treatment Duration: September 09, 2022 Frequency: At least 5 of 7 days/Wk (IRF) Estimated Hrs Per Day: 1 hour per day Time Time In: 0800 Time Out: 929 DATE: September 03, 2022 Total Billed Treatment Time: 90 Total Billed Treatment 1 ex GT x 3 FA x2 Ligia Ontiveros EYE CLINIC MANAGER September 03, 2022 09:55
--- NOTE | 2022-09-03 10:33 | Occupational Ther Daily Note ---
OT Current Status-Daily Note Subjective Pt agreeable to OT Tx. Pt feels as though she is ready to discharge home and would leave today if we allowed her to. ADL-Treatment Therapy Code Descriptions/Definitions Functional Hubbard Measure: 0=Not Assessed/NA 4=Minimal Assistance 1=Total Assistance 5=Supervision or Setup 2=Maximal Assistance 6=Modified [place] 3=Moderate Assistance 7=Complete IndependenceSCALE: Activities may be completed with or without assistive devices. 9-Megbecgoqc-rjqetok completes the activity by him/herself with no assistance from a helper. 5-Set-up or Clean-up Assistance-helper sets up or cleans up; patient completes activity. [place] assists only prior to or following the activity. 4-Supervision or Touching Assistance-helper provides verbal cues and/or touching/steadying and/or contact guard assistance as patient completes activit y. Assistance may be provided throughout the activity or intermittently. 3-Partial/Moderate Assistance-helper does LESS THAN HALF the effort. [place] lifts, holds or supports trunk or limbs, but provides less than half the effort. 2-Substantial/Maximal Assistance-helper does MORE THAN HALF the effort. [place] lifts or holds trunk or limbs and provides more than half the effort. 2-Cjpuabahj-afmcdn does ALL the effort. Patient does none of the effort to complete the activity. Or, the assistance of 2 or more helpers is required for the patient to complete the activity. If activity was not attempted, code reason: 7-Patient Refused. 9-Not Applicable-not attempted and the patient did not perform the activity before the current illness, exacerbation or injury. 10-Not Attempted due to Environmental Limitations-(lack of equipment, weather restraints, etc.). 88-Not Attempted due to Medical Conditions or Safety Concerns. Eating (QC): 6 Oral Hygiene (QC): 6 Shower/Bathe Self (QC): 6 Upper Body Dressing (QC): 6 Lower Body Dressing (QC): 6 On/Off Footwear: 6 Toileting Hygiene (QC): 6 Toilet Transfer (QC): 6 Other Treatment Pt in chair in room, agreeable to OT Tx. Pt performed functional mobility to [facility], no AD, IND. Pt stood at tall table for fine motor task, with focus on increasing LUE sensation and neuromuscular reeducation. Pt completed fine motor "connect 4" task. This task required pt to reach inside a pillow case in order to locate pieces of the game with L hand, then remove pieces 1 at a time to place in game board. Pt accidentally grasped 2 pieces at 1 time on 2 occasions. Pt also dropped 3 pieces throughout task, able to bend over to pick them up off of the floor unsupported independently. Pt then completed fine motor tip to tip pinch activity, grading pressure between her fingers of L hand in order to pop small bubble wrap. Pt removed beads from mod-heavy resistance theraputty using LUE, able to locate beads without cues, only dropping putty 1 time during task. Pt returned to her room, no AD, IND. Pt gathered clothes, completed toileting, doffed clothes, adjusted water temperature, showered and donned clothes IND. Pt carried laundry basket to therapy gym, completing x8 steps utilizing 1 hand rail (simulating home environment where laundry is located in basement). Pt able to complete stairs IND, then carry laundry basket to [facility] laundry room. Pt placed laundry in washer and started laundry IND. Pt returned to her room, IND carrying laundry basket, transferring to chair. Post tx, pt in chair, call light in reach and all needs met. Education OT Patient Education: Correct positioning, Energy conservation, Modified ADL techniques, Progress toward Goal/Update tx plan, Purpose of tx/functional activities, Rehab process Teaching Recipient: Patient Teaching Methods: Discussion Response to Teaching: Verbalize Understanding BIMS CAM BIMS Expression of Ideas and Wants: Without Difficulty Understanding Verbal Content: Understands Brief Interview/Mental Status: Yes IRF FRAN BIMS: IRF FRAN BIMS Response (Comments) Value Repitition of Three Words Three 3 Recalls Socks Yes, No Cue Required 2 Recalls Blue Yes, No Cue Required 2 Recalls Bed Yes, No Cue Required 2 Year Correct 3 Month Accurate Within 5 Days 2 Day Correct 1 Total 15 [address] Staff Asses[address] Mental [address] No CAM Mental Status Change/Baseline: 0 Inattention: 0 Disorganized thinkin Altered level of consciousness: 0 OT Short Term Goals Short Term Goals Time Frame: September 10, 2022 Shower/bathe self: 5 Lower body dressin OT Security Systems Integrator Goals Chcf Goals Time Frame: Sep 19, 2022 Acute change in mental status: 0 Inattention: 0 Disorganized thinkin Altered level of consciousness: 0 Eating (QC): 6 (met) Oral Hygiene (QC): 6 (met) Toileting Hygiene (QC): 6 (met) Shower/Bathe Self (QC): 6 (met) Upper Body Dressing (QC): 6 (met) Lower Body Dressing (QC): 6 (met) On/Off Footwear (QC): 6 (met) Additional Goals: 1-Demonstrate ADL Tasks, 2-Verbalize Understanding, 3- ImproveStrength/[place] 1=Demonstrate adherence to instructed precautions during ADL tasks. 2=Patient will verbalize/demonstrate understanding of assistive d evices/modifications for ADL. 3=Patient will improve strength/tolerance for activity to enable patient to perform ADL's. OT Education/Plan Problem List/Assessment Assessment: Impaired Coordination Discharge Recommendations Plan/Recommendations: Continue POC Treatment Plan/Plan of Care Patient would benefit from OT for education, treatment and training to promote independence in ADL's, mobility, safety and/or upper extremity function for ADL's. Plan of Care: ADL Retraining, Functional Mobility, Group Exercise/Act as Ind, UE Funct Exercise/Act, UE Neuromus Re-Ed/Coord Treatment Duration: Sep 19, 2022 Frequency: At least 5 of 7 days/Wk (IRF) Estimated Hrs Per Day: 1.5 hours per day Agreement: Yes Rehab Potential: Good Time Start Time: 09:30 Stop Time: 11:00 DATE: September 03, 2022 Total Time Billed (hr/min): 90 Billed Treatment Time 1, ADL 2 (30'), NM 4 (60') TOMASZ SÁNCHEZ OT September 03, 2022 10:33
[2022-09-03 20:09] VITALS: BP 124/87
[2022-09-03] MEDS: ACETAMINOPHEN 325 MG TABLET PO PRN (20:21)
--- NOTE | 2022-09-04 07:41 | Physical Therapy Daily Note ---
PT Daily Note-Current Subjective Pt in room upon arrival and willing for therapy. Pt reports no pain or discomfort this day. pt is still reporting slight numbness and tingling in the left calf but it does dissipate slightly with movement. Pain Section J - Health Conditions 1. Rarely or not at all 2. Occasionally 3. Frequently 4. Almost constantly 8. Unable to answer Pain Effect on Sleep: 1 Pain Interference with Therapy: 1 Pain Interference w/Day-to-Day: 1 Mental Status Patient Orientation: Person, Place, Time, Situation Transfers SCALE: Activities may be completed with or without assistive devices. 4-Hebfsdyxcj-ninlfdg completes the activity by him/herself with no assistance from a helper. 5-Set-up or Clean-up Assistance-helper sets up or cleans up; patient completes activity. [place] assists only prior to or following the activity. 4-Supervision or Touching Assistance-helper provides verbal cues and/or touching/steadying and/or contact guard assistance as patient completes activity. Assistance may be provided throughout the activity or intermittently. 3-Partial/Moderate Assistance-helper does LESS THAN HALF the effort. [place] lifts, holds or supports trunk or limbs, but provides less than half the effort. 2-Substantial/Maximal Assistance-helper does MORE THAN HALF the effort. [place] lifts or holds trunk or limbs and provides more than half the effort. 2-Cuypefrbd-mzdrmp does ALL the effort. Patient does none of the effort to complete the activity. Or, the assistance of 2 or more helpers is required for the patient to complete the activity. If activity was not attempted, code reason: 7-Patient Refused. 9-Not Applicable-not attempted and the patient did not perform the activity before the current illness, exacerbation or injury. 10-Not Attempted due to Environmental Limitations-(lack of equipment, weather restraints, etc.). 88-Not Attempted due to Medical Conditions or Safety Concerns. Roll Left & Right (QC): 6 Sit to Lying (QC): 6 Lying to Sitting/Side of Bed(Q: 6 Sit to Stand (QC): 6 Chair/Jde-dx-Vdnyi Xfer(QC): 6 Toilet Transfer (QC): 6 Car Transfer (QC): 6 Weight Bearing Right Lower Extremity: Right Full Weight Bearing Left Lower Extremity: Left Full Weight Bearing Gait Training Walk 10 feet (QC): 6 Walk 50 ft with 2 Turns(QC): 6 Walk 150 ft (QC): 6 Walking 10ft/uneven surface-QC: 6 Gait Assistive Device: None Wheelchair Training Wheel 50 ft with 2 turns (QC): 9 Wheel 150 ft (QC): 9 Stair Training 1 Step (curb) (QC): 6 4 Steps (QC): 6 12 Steps (QC): 6 Balance Picking up an Object (QC): 6 Treatments Pt is independent with car transfers, ambulation of 150ft with 2 turns, 12 stairs and ambulation uneven surfaces this day with no LOB. pt is able to brain picker objects with no [employer]wind Re[employer] Cutter independently and no lob in sitting and standing. Assessment Current Status: Excellent Progress PT Finance Broker Goals Shelter Goals PT Finance Broker Goals Time Frame: September 08, 2022 Roll Left & Right (QC): 6 (Pt will be Mod I with bed mobility, transfers, walking, and stairs, in order to safely return home and progress towards PLOF. ) Sit to Lying (QC): 6 (Pt will be Mod I with bed mobility, transfers, walking, and stairs, in order to safely return home and progress towards PLOF. ) Lying-Sitting on Side/Bed(QC): 6 (Pt will be Mod I with bed mobility, transfers, walking, and stairs, in order to safely return home and progress towards PLOF. ) Sit to Stand (QC): 6 (Pt will be Mod I with bed mobility, transfers, walking, and stairs, in order to safely return home and progress towards PLOF. ) Chair/Chg-tz-Gmudi Xfer(QC): 6 (Pt will be Mod I with bed mobility, transfers, walking, and stairs, in order to safely return home and progress towards PLOF. ) Toilet Transfer (QC): 6 (Pt will be Mod I with bed mobility, transfers, walking, and stairs, in order to safely return home and progress towards PLOF. ) Car Transfer (QC): 6 (Pt will be Mod I with bed mobility, transfers, walking, and stairs, in order to safely return home and progress towards PLOF. ) Does the Patient Walk: Yes Walk 10 feet (QC): 6 (Pt will be Mod I with bed mobility, transfers, walking, and stairs, in order to safely return home and progress towards PLOF. ) Walk 50ft with 2 Turns (QC): 6 (Pt will be Mod I with bed mobility, transfers, walking, and stairs, in order to safely return home and progress towards PLOF. ) Walk 150 ft (QC): 6 (Pt will be Mod I with bed mobility, transfers, walking, and stairs, in order to safely return home and progress towards PLOF. ) Walking 10ft on Uneven Surface: 6 (Pt will be Mod I with bed mobility, transfers, walking, and stairs, in order to safely return home and progress towards PLOF. ) 1 Step (curb) (QC): 6 (Pt will be Mod I with bed mobility, transfers, walking, and stairs, in order to safely return home and progress towards PLOF. ) 4 Steps (QC): 6 (Pt will be Mod I with bed mobility, transfers, walking, and stairs, in order to safely return home and progress towards PLOF. ) 12 Steps (QC): 6 (Pt will be Mod I with bed mobility, transfers, walking, and stairs, in order to safely return home and progress towards PLOF. ) Picking up an Object (QC): 6 (Pt will be Mod I with bed mobility, transfers, walking, and stairs, in order to safely return home and progress towards PLOF. ) Does the Pt use WC or Scooter?: No Wheel 50 feet with 2 turns (QC: 9 Type: N/A Wheel 150 feet: 9 Type: N/A PT Plan Treatment/Plan Treatment Plan: Discontinue PT, goals met Treatment Duration: September 09, 2022 Frequency: At least 5 of 7 days/Wk (IRF) Estimated Hrs Per Day: 1 hour per day Time Time In: 809 Time Out: 824 DATE: September 04, 2022 Total Billed Treatment Time: 15 Total Billed Treatment 1 FA Ligia Ontiveros DELINQUENCY PREVENTION SOCIAL WORKER September 04, 2022 07:41
[2022-09-04 07:47] VITALS: BP 145/81
[2022-09-04] MEDS: DOCUSATE SODIUM 100 MG (COLACE) CAP PO SCH (07:55)
[2022-09-04] MEDS: SENNA W/DOCUSATE (SENOKOT S) TABLET PO SCH ×2 (07:55→07:56)
[2022-09-04] MEDS: polyethylene glycoL POWDER 17 GM (MIRALAX) PACK PO SCH (07:55)
[2022-09-04] MEDS ORDERED: DEXA4TAB PO (08:10)
[2022-09-04] MEDS ORDERED: LEVE500T6 PO (08:10)
--- NOTE | 2022-09-04 08:11 | Discharge Summary ---
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 09/01/2022: Monitor closely 09/02/2022: Monitor closely 09/03/2022: Supportive care Discharge tomorrow (1) Brain tumor Status: Acute Discharge Summary Discharge Physical Examination Allergies: Coded Allergies: sulfamethoxazole (Verified Allergy, Unknown, 11/27/20) trimethoprim (Verified Allergy, Unknown, 11/27/20) Vitals & I&Os Vital Signs Date Time Temp Pulse Resp B/P (MAP) Pulse Ox O2 Delivery O2 Flow Rate FiO2 09/04/22 07:58 95 Room Air 09/04/22 07:47 36.2 79 18 145/81 (102) General Appearance: Alert, Oriented X3, Cooperative Respiratory: Clear to Auscultation Cardiovascular: Regular Rate Psych/Mental Status: Mental Status NL Hospital Course Was the Problem List Reviewed?: Yes Hospital course: Patient had a short hospital course after she was admitted for recurrent brain tumor requiring right-sided craniotomy and was sent to rehab for recovery. Overall she did well bowel function returned back to normal after laxatives and she was deemed stable and regained ADLs and ambulatory abilities and was sent home with close follow-up along with a dexamethasone taper. Labs (last 24 hrs) Laboratory Tests 08/30/22 05:36: White Blood Count 16.6H, Red Blood Count 4.41, Hemoglobin 14.4, Hematocrit 42, Mean Corpuscular Volume 96, Mean Corpuscular Hemoglobin 33, Mean Corpuscular Hemoglobin Concent 34, Red Cell Distribution Width 13.0, Platelet Count 179, Mean Platelet Volume 8.9L, Immature Granulocyte % (Auto) 2, Neutrophils (%) (Auto) 85H, Lymphocytes (%) (Auto) 8L, Monocytes (%) (Auto) 5, Eosinophils (%) (Auto) 0, Basophils (%) (Auto) 0, Neutrophils # (Auto) 14.1H, Lymphocytes # (Auto) 1.3, Monocytes # (Auto) 0.9, Eosinophils # (Auto) 0.0, Basophils # (Auto) 0.0, Immature Granulocyte # (Auto) 0.3H, Neutrophils % (Manual) 80, Lymphocytes % (Manual) 10, Monocytes % (Manual) 10, Platelet Estimate ADEQUATE, Blood Morphology Comment NORMAL, Sodium Level 136, Potassium Level 4.1, Chloride Level 100, Carbon Dioxide Level 26, Anion Gap 10, Blood Urea Nitrogen 19H, Creatinine 0.67, Estimat Glomerular Filtration Rate 115, BUN/Creatinine Ratio 28, Glucose Level 96, Calcium Level 9.3, Corrected Calcium 9.4, Total Bilirubin 0.7, Aspartate Amino Transf (AST/SGOT) 19, Alanine Aminotransferase (ALT/SGPT) 52, Alkaline Phosphatase 60, Total Protein 6.5, Albumin 3.9 09/01/22 05:14: White Blood Count 16.9H, Red Blood Count 4.60, Hemoglobin 15.3, Hematocrit 44, Mean Corpuscular Volume 96, Mean Corpuscular Hemoglobin 33, Mean Corpuscular Hemoglobin Concent 35, Red Cell Distribution Width 13.1, Platelet Count 171, Mean Platelet Volume 9.2, Immature Granulocyte % (Auto) 2, Neutrophils (%) (Auto) 87H, Lymphocytes (%) (Auto) 7L, Monocytes (%) (Auto) 4, Eosinophils (%) (Auto) 0, Basophils (%) (Auto) 0, Neutrophils # (Auto) 14.8H, Lymphocytes # (Auto) 1.1, Monocytes # (Auto) 0.7, Eosinophils # (Auto) 0.0, Basophils # (Auto) 0.0, Immature Granulocyte # (Auto) 0.3H, Sodium Level 135, Potassium Level 4.2, Chloride Level 102, Carbon Dioxide Level 24, Anion Gap 9, Blood Urea Nitrogen 17, Creatinine 0.66, Estimat Glomerular Filtration Rate 116, BUN/Creatinine Ratio 26, Glucose Level 106H, Calcium Level 9.5, Corrected Calcium 9.3, Total Bilirubin 0.6, Aspartate Amino Transf (AST/SGOT) 18, Alanine Aminotransferase (ALT/SGPT) 46, Alkaline Phosphatase 64, Total Protein 6.9, Albumin 4.2 Pending Labs Laboratory Tests 08/30/22 05:36: White Blood Count 16.6, Red Blood Count 4.41, Hemoglobin 14.4, Hematocrit 42, Mean Corpuscular Volume 96, Mean Corpuscular Hemoglobin 33, Mean Corpuscular Hemoglobin Concent 34, Red Cell Distribution Width 13.0, Platelet Count 179, Mean Platelet Volume 8.9, Immature Granulocyte % (Auto) 2, Neutrophils (%) (Auto) 85, Lymphocytes (%) (Auto) 8, Monocytes (%) (Auto) 5, Eosinophils (%) (A uto) 0, Basophils (%) (Auto) 0, Neutrophils # (Auto) 14.1, Lymphocytes # (Auto) 1.3, Monocytes # (Auto) 0.9, Eosinophils # (Auto) 0.0, Basophils # (Auto) 0.0, Immature Granulocyte # (Auto) 0.3, Neutrophils % (Manual) 80, Lymphocytes % (Manual) 10, Monocytes % (Manual) 10, Platelet Estimate ADEQUATE, Blood Morphology Comment NORMAL, Sodium Level 136, Potassium Level 4.1, Chloride Level 100, Carbon Dioxide Level 26, Anion Gap 10, Blood Urea Nitrogen 19, Creatinine 0.67, Estimat Glomerular Filtration Rate 115, BUN/Creatinine Ratio 28, Glucose Level 96, Calcium Level 9.3, Corrected Calcium 9.4, Total Bilirubin 0.7, Aspartate Amino Transf (AST/SGOT) 19, Alanine Aminotransferase (ALT/SGPT) 52, Alkaline Phosphatase 60, Total Protein 6.5, Albumin 3.9 09/01/22 05:14: White Blood Count 16.9, Red Blood Count 4.60, Hemoglobin 15.3, Hematocrit 44, Mean Corpuscular Volume 96, Mean Corpuscular Hemoglobin 33, Mean Corpuscular Hemoglobin Concent 35, Red Cell Distribution Width 13.1, Platelet Count 171, Me an Platelet Volume 9.2, Immature Granulocyte % (Auto) 2, Neutrophils (%) (Auto) 87, Lymphocytes (%) (Auto) 7, Monocytes (%) (Auto) 4, Eosinophils (%) (Auto) 0, Basophils (%) (Auto) 0, Neutrophils # (Auto) 14.8, Lymphocytes # (Auto) 1.1, Monocytes # (Auto) 0.7, Eosinophils # (Auto) 0.0, Basophils # (Auto) 0.0, Immature Granulocyte # (Auto) 0.3, Sodium Level 135, Potassium Level 4.2, Chloride Level 102, Carbon Dioxide Level 24, Anion Gap 9, Blood Urea Nitrogen 17, Creatinine 0.66, Estimat Glomerular Filtration Rate 116, BUN/Creatinine Ratio 26, Glucose Level 106, Calcium Level 9.5, Corrected Calcium 9.3, Total Bilirubin 0.6, Aspartate Amino Transf (AST/SGOT) 18, Alanine Aminotransferase (ALT/SGPT) 46, Alkaline Phosphatase 64, Total Protein 6.9, Albumin 4.2 Discharge Home Medications: Active Scripts Active Dexamethasone 4 Mg Tablet 2 Mg PO DAILY Levetiracetam 500 Mg Tablet 500 Mg PO BID Instructions to patient/family Please see electronic discharge instructions given to patient. Diagnosis/Problems Diagnosis/Problems (1) Brain tumor Status: Acute ISMAEL NGUYEN DO September 04, 2022 08:11
[2022-09-04] MEDS: NICOTINE PATCH REMOVAL TP SCH (09:04)
[2022-09-04] MEDS: NICOTINE 14 MG (NICODERM) PATCH TD SCH (09:04)
--- NOTE | 2022-09-04 09:34 | Therapy Team Discharge Summary ---
Therapy Discharge Summary Discharge Recommendations Date of Discharge Physical Therapy Roll Left to Right (QC): 6 Sit to Lying (QC): 6 Lying to Sitting/Side of Bed(Q: 6 Sit to Stand (QC): 6 Chair/Dsn-kj-Ruthj Xfer(QC): 6 Toilet Transfer (QC): 6 Car Transfer (QC): 6 Does the Patient Walk: Yes Mode of Locomotion: Walk Anticipated Mode of Locomotion: Walk Walk 10 feet (QC): 6 Walk 50 ft with 2 Turns(QC): 6 Walk 150 ft (QC): 6 Walking 10ft on uneven surface: 6 Gait Assistive Device: None Does the Pt Use a Wheelchair: No Wheel 50 ft with 2 turns (QC): 9 Wheel 150 ft (QC): 9 Type of Wheelchair: N/A #of Steps: 12 1 Step (curb) (QC): 6 4 Steps (QC): 6 12 Steps (QC): 6 Balance Sitting Static: Normal Balance Sitting Dynamic: Normal Balance-Standing Static: Good Picking up an Object (QC): 6 Occupational Therapy Pt admitted to [facility] s/p craniotomy. At [facility], pt was independent with ADLS and functional mobility. Upon initial evaluation, pt required set up with eating, UE dressing and footwear, and CGA with showering, oral care, LE dressing and footwear. OT tx focused on increasing BUE Strength and activity tolerance, neuromuscular reeducation LUE, and increasing safety and independence with ADLs and functional mobility. Pt made good progress towards goals, attaining IND level with all ADLS. Pt discharging home with family, d/c from OT. Impaired Coordination Eating (QC): 6 Oral Hygiene (QC): 6 Shower/Bathe Self (QC): 6 Upper Body Dressing (QC): 6 Lower Body Dressing (QC): 6 On/Off Footwear (QC): 6 Toileting Hygiene (QC): 6 PT Snf Goals Snf Goals PT Snf Goals Time Frame: September 08, 2022 Roll Left to Right (QC): 6 (Pt will be Mod I with bed mobility, transfers, walking, and stairs, in order to safely return home and progress towards PLOF. ) Sit to Lying (QC): 6 (Pt will be Mod I with bed mobility, transfers, walking, and stairs, in order to safely return home and progress towards PLOF. ) Lying-Sitting on Side/Bed(QC): 6 (Pt will be Mod I with bed mobility, transfers, walking, and stairs, in order to safely return home and progress towards PLOF. ) Sit to Stand (QC): 6 (Pt will be Mod I with bed mobility, transfers, walking, and stairs, in order to safely return home and progress towards PLOF. ) Chair/Zdn-bw-Wovkn Xfer(QC): 6 (Pt will be Mod I with bed mobility, transfers, walking, and stairs, in order to safely return home and progress towards PLOF. ) Toilet/Commode Transfer (QC): 6 (Pt will be Mod I with bed mobility, transfers, walking, and stairs, in order to safely return home and progress towards PLOF. ) Car Transfer (QC): 6 (Pt will be Mod I with bed mobility, transfers, walking, and stairs, in order to safely return home and progress towards PLOF. ) Does the Patient Walk: Yes Walk 10 feet (QC): 6 (Pt will be Mod I with bed mobility, transfers, walking, and stairs, in order to safely return home and progress towards PLOF. ) Walk 10ft-Uneven Surface(QC): 6 (Pt will be Mod I with bed mobility, transfers, walking, and stairs, in order to safely return home and progress towards PLOF. ) Walk 50ft with 2 Turns (QC): 6 (Pt will be Mod I with bed mobility, transfers, walking, and stairs, in order to safely return home and progress towards PLOF. ) Walk 150 ft (QC): 6 (Pt will be Mod I with bed mobility, transfers, walking, and stairs, in order to safely return home and progress towards PLOF. ) Does the Pt use WC or Scooter?: No Wheel 50 feet with 2 turns (QC: 9 Type: N/A Wheel 150 feet: 9 Type: N/A 1 Step (curb) (QC): 6 (Pt will be Mod I with bed mobility, transfers, walking, and stairs, in order to safely return home and progress towards PLOF. ) 4 Steps (QC): 6 (Pt will be Mod I with bed mobility, transfers, walking, and stairs, in order to safely return home and progress towards PLOF. ) 12 Steps (QC): 6 (Pt will be Mod I with bed mobility, transfers, walking, and stairs, in order to safely return home and progress towards PLOF. ) Picking up an Object (QC): 6 (Pt will be Mod I with bed mobility, transfers, walking, and stairs, in order to safely return home and progress towards PLOF. ) OT Catalogue And Special Products Manager Goals Snf Goals Time Frame: Sep 19, 2022 Acute change in mental status: 0 Inattention: 0 Disorganized thinkin Altered level of consciousness: 0 Eating (QC): 6 (met) Oral Hygiene (QC): 6 (met) Toileting Hygiene (QC): 6 (met) Shower/Bathe Self (QC): 6 (met) Upper Body Dressing (QC): 6 (met) Lower Body Dressing (QC): 6 (met) On/Off Footwear (QC): 6 (met) Additional Goals: 1-Demonstrate ADL Tasks, 2-Verbalize Understanding, 3- ImproveStrength/[place] 1=Demonstrate adherence to instructed precautions during ADL tasks. 2=Patient will verbalize/demonstrate understanding of assistive devices/modifications for ADL. 3=Patient will improve strength/tolerance for activity to enable patient to perform ADL's. TOMASZ SÁNCHEZ OT September 04, 2022 09:34
--- NOTE | 2022-09-04 10:58 | Therapy Team Discharge Summary ---
Therapy Discharge Summary Discharge Recommendations Date of Discharge 09/04/2022 Therapy D/C Recommendations: Home w/ Family Support Physical Therapy Pt admitted to [facility] s/p craniotomy on 08/29/2022. At [facility], pt was Ind with functional mobility without an AD, driving, and working. Upon initial eval uation, pt required CGA for all aspects of functional mobility without an AD. PT focused on balance, walking, B LE strengthening, stair training, and functional activity tolerance. Pt made good progress with PT, pt is Mod I with all aspects of functional mobility, and pt has met all LTGs. Pt discharging home with family on this date (09/04/2022); d/c from PT. Roll Left to Right (QC): 6 Sit to Lying (QC): 6 Lying to Sitting/Side of Bed(Q: 6 Sit to Stand (QC): 6 Chair/Yct-nr-Yzrlq Xfer(QC): 6 Toilet Transfer (QC): 6 Car Transfer (QC): 6 Does the Patient Walk: Yes Mode of Locomotion: Walk Anticipated Mode of Locomotion: Walk Walk 10 feet (QC): 6 Walk 50 ft with 2 Turns(QC): 6 Walk 150 ft (QC): 6 Walking 10ft on uneven surface: 6 Gait Assistive Device: None Does the Pt Use a Wheelchair: No Wheel 50 ft with 2 turns (QC): 9 Wheel 150 ft (QC): 9 Type of Wheelchair: N/A #of Steps: 12 1 Step (curb) (QC): 6 4 Steps (QC): 6 12 Steps (QC): 6 Balance Sitting Static: Normal Balance Sitting Dynamic: Normal Balance-Standing Static: Normal Picking up an Object (QC): 6 Occupational Therapy Impaired Coordination Eating (QC): 6 Oral Hygiene (QC): 6 Shower/Bathe Self (QC): 6 Upper Body Dressing (QC): 6 Lower Body Dressing (QC): 6 On/Off Footwear (QC): 6 Toileting Hygiene (QC): 6 PT Long-Term Goals Long-Term Goals PT Long-Term Goals Time Frame: September 08, 2022 Roll Left to Right (QC): 6 (Pt will be Mod I with bed mobility, transfers, walking, and stairs, in order to safely return home and progress towards [facility]. ) Sit to Lying (QC): 6 (Pt will be Mod I with bed mobility, transfers, walking, and stairs, in order to safely return home and progress towards PLOF. ) Lying-Sitting on Side/Bed(QC): 6 (Pt will be Mod I with bed mobility, transfers, walking, and stairs, in order to safely return home and progress towards PLOF. ) Sit to Stand (QC): 6 (Pt will be Mod I with bed mobility, transfers, walking, and stairs, in order to safely return home and progress towards PLOF. ) Chair/Ohq-hd-Kljmz Xfer(QC): 6 (Pt will be Mod I with bed mobility, transfers, walking, and stairs, in order to safely return home and progress towards PLOF. ) Toilet/Commode Transfer (QC): 6 (Pt will be Mod I with bed mobility, transfers, walking, and stairs, in order to safely return home and progress towards PLOF. ) Car Transfer (QC): 6 (Pt will be Mod I with bed mobility, transfers, walking, and stairs, in order to safely return home and progress towards PLOF. ) Does the Patient Walk: Yes Walk 10 feet (QC): 6 (Pt will be Mod I with bed mobility, transfers, walking, and stairs, in order to safely return home and progress towards PLOF. ) Walk 10ft-Uneven Surface(QC): 6 (Pt will be Mod I with bed mobility, transfers, walking, and stairs, in order to safely return home and progress towards PLOF. ) Walk 50ft with 2 Turns (QC): 6 (Pt will be Mod I with bed mobility, transfers, walking, and stairs, in order to safely return home and progress towards PLOF. ) Walk 150 ft (QC): 6 (Pt will be Mod I with bed mobility, transfers, walking, and stairs, in order to safely return home and progress towards PLOF. ) Does the Pt use WC or Scooter?: No Wheel 50 feet with 2 turns (QC: 9 Type: N/A Wheel 150 feet: 9 Type: N/A 1 Step (curb) (QC): 6 (Pt will be Mod I with bed mobility, transfers, walking, and stairs, in order to safely return home and progress towards PLOF. ) 4 Steps (QC): 6 (Pt will be Mod I with bed mobility, transfers, walking, and stairs, in order to safely return home and progress towards PLOF. ) 12 Steps (QC): 6 (Pt will be Mod I with bed mobility, transfers, walking, and stairs, in order to safely return home and progress towards PLOF. ) Picking up an Object (QC): 6 (Pt will be Mod I with bed mobility, transfers, walking, and stairs, in order to safely return home and progress towards PLOF. ) OT Long-Term Goals Long-Term Goals Time Frame: Sep 19, 2022 Acute change in mental status: 0 Inattention: 0 Disorganized thinkin Altered level of consciousness: 0 Eating (QC): 6 (met) Oral Hygiene (QC): 6 (met) Toileting Hygiene (QC): 6 (met) Shower/Bathe Self (QC): 6 (met) Upper Body Dressing (QC): 6 (met) Lower Body Dressing (QC): 6 (met) On/Off Footwear (QC): 6 (met) Additional Goals: 1-Demonstrate ADL Tasks, 2-Verbalize Understanding, 3- ImproveStrength/[place] 1=Demonstrate adherence to instructed precautions during ADL tasks. 2=Patient will verbalize/demonstrate understanding of assistive devices/modifications for ADL. 3=Patient will improve strength/tolerance for activity to enable patient to perform ADL's. VINOD BOOKER PT September 04, 2022 10:57
== END 2022-09-04 10:41 | disposition home or self-care (01) | DRG 57 ==
PROVIDERS: ADMIT Internal Medicine; ATTEND Internal Medicine
DX: G81.94 Hemiplegia, unspecified affecting left nondominant side (principal); E87.1 Hypo-osmolality and hyponatremia; K59.00 Constipation, unspecified; R54 Age-related physical debility; Z87.891 Personal history of nicotine dependence; Z48.3 Aftercare following surgery for neoplasm; Z85.841 Personal history of malignant neoplasm of brain; Z79.899 Other long term (current) drug therapy; Z88.2 Allergy status to sulfonamides; Z88.8 Allergy status to other drugs, medicaments and biological substances
CPT/HCPCS: 36415; 80053; 85007; 85025; 85027

== ENCOUNTER 2022-10-05 12:20 | Emergency (ER) | payer OTHER ==
[~2022-10-05] VITALS: Ht 157 cm; Wt 50.0 kg
[~2022-10-05 12:20] MED LIST changes: +ACET325T38 PO; +DEXA2TAB PO; +DEXA4TAB PO; +FAMO20TA5 PO; +HEPA500055 SQ; +LEVE500T6 PO; +NICO-587 TD; +OXYC5TAB PO; +PHEN20SP2 MM; +SENN-259 PO
--- NOTE | 2022-10-05 12:44 | ED Headache ---
General Chief Complaint: Head/Cervical Problems Stated Complaint: HEADACHE AFTER BRAIN SURGERY Nursing Triage Note: PT TO RM 6 PER W/C PT CO OF HEAD ACHE, THROBBING SINCE YESTERDAY, PT STATES L SIDE HAS INCREASED WEAKNESS SINCE YESTERDAY. PT POST OP BRAIN TUMOR REMOVAL 08/26/22. Source: patient Exam Limitations: no limitations History of Present Illness Date Seen by Provider: Oct 05, 2022 Time Seen by Provider: 12:37 Initial Comments 37-year-old female with history of right-sided parietal surgery in August remove a brain tumor (she does not know what kind) for headaches and worsening left arm weakness. Headache for the last 2 days. She has been using Tylenol without much relief. She states she has some residual left arm and leg weakness from her stroke but states is getting worse over the last couple of days as well. Her is now having to help her more than usual to the restroom. She denies any changes in her vision. No dysarthria. Surgery was performed at [facility] All other systems reviewed and negative except documented per HPI. Voice recognition software was used to help create this chart Allergies and Home Medications Allergies Coded Allergies: sulfamethoxazole (Verified Allergy, Unknown, 11/27/20) trimethoprim (Verified Allergy, Unknown, 11/27/20) Patient Home Medication List Home Medication List Reviewed: Yes Dexamethasone (Dexamethasone) 4 Mg Tablet, 2 MG PO DAILY Prescribed by: ISMAEL NGUYEN on 09/04/22 0810 Levetiracetam (Levetiracetam) 500 Mg Tablet, 500 MG PO BID Prescribed by: ISMAEL NGUYEN on 09/04/22 0810 Review of Systems Review of Systems Constitutional: see HPI Past Wxyhrdn-Wiksgu-Lfjipo Hx Patient Social History Tobacco Use?: Yes Tobacco type used: Cigarettes Smoking Status: Current Everyday Smoker Substance use?: No Alcohol Use?: No Pt feels they are or have been: No Immunizations Up To Date Tetanus Booster (TDap): Less than 5yrs PED Vaccines UTD: Yes First/Initial COVID19 Vaccinat: PT REFUSED Second COVID19 Vaccination Armando: PT REFUSED Third COVID19 Vaccination Date: PT REFUSED Seasonal Allergies Seasonal Allergies: Yes Past Medical History Surgery/Hospitalization HX: RIGHT CRANIOTOMY 2015, [facility], CURRENT SMOKER, BRAIN SURG ON 08/26/22 Surgeries: Yes ([facility] FOR A BRAIN TUMOR) Respiratory: No Cardiac: No Neurological: No (2015 BRAIN TUMOR REMOVED) Brain Tumor Reproductive Disorders: No Genitourinary: No Gastrointestinal: No Musculoskeletal: No Endocrine: No HEENT: No Cancer: Yes (2015, TUMOR WAS POSS FOR CANCER) Brain Did You Recieve Any Treatments: Yes What Type of Treatment Did You: Chemotherapy, Radiation, Surgical Intervention Psychosocial: No Integumentary: No Blood Disorders: No Adverse Reaction/Blood Tranf: No Family Medical History Alcoholism 19 FATHER, Onset: Drug abuse G8 BROTHER, Onset: Hypercholesterolemia 19 FATHER, Onset: Hypertension 19 FATHER, Onset: No Family History of: AIDS Abdominal aortic aneurysm [place]'s disease Alzheimer's disease Aphasia Arthritis Asthma Cancer of mouth Cardiovascular disease Cataracts Colon cancer Completed stroke Congenital disease Congenital heart disease Coronary thrombosis Cystic fibrosis Deafness or hearing loss Dementia Diabetes mellitus Dysphasia Fibrocystic disease of breast Gastroenteritis Glaucoma Headache disorder Infertility Kidney disease Myocardial infarction Neoplasm Not obtainable due to adoption Osteoporosis Parkinson's disease Prostate cancer Psychosocial problem Respiratory disorder Seizure disorder Severe allergy Thyroid disease Tuberculosis Visual disorder Physical Exam Vital Signs Vital Signs - First Documented 10/05/22 12:35 Pulse 84 Resp 18 B/P (MAP) 118/76 (90) Pulse Ox 95 O2 Delivery Room Air Capillary Refill : Less Than 3 Seconds Height, Weight, BMI Height: 5'5.00" Weight: 130lbs. oz. [id number]; 20.00 BMI Method: General Appearance: WD/WN, no apparent distress HEENT: normal ENT inspection, pharynx normal, other (She has had on the right. Surgical scar healing well without evidence for infection) Neck: non-tender, full range of motion, supple, normal inspection Cardiovascular: regular rate, rhythm, no murmur Respiratory: chest non-tender, lungs clear, normal breath sounds, no respiratory distress, no accessory muscle use Gastrointestinal: normal bowel sounds, non tender, soft, no organomegaly Back: normal inspection, no vertebral tenderness Extremities: normal range of motion, non-tender, normal inspection, no pedal edema Motor/Sensory: other (Patient has 3/5 strength in the left upper extremity, left lower extremity is 4/5.) Skin: normal color, warm/dry Progress/Results/Core Measures Results/Orders Lab Results Laboratory Tests Test 10/05/22 12:44 Range/Units White Blood Count 9.2 4.3-11.0 10^3/uL Red Blood Count 4.16 3.80-5.11 10^6/uL Hemoglobin 14.0 11.5-16.0 g/dL Hematocrit 41 35-52 % Mean Corpuscular Volume 100 H 80-99 fL Mean Corpuscular Hemoglobin 34 25-34 pg Mean Corpuscular Hemoglobin Concent 34 32-36 g/dL Red Cell Distribution Width 12.7 10.0-14.5 % Platelet Count 160 130-400 10^3/uL Mean Platelet Volume 9.1 9.0-12.2 fL Immature Granulocyte % (Auto) 0 % Neutrophils (%) (Auto) 81 H 42-75 % Lymphocytes (%) (Auto) 13 12-44 % Monocytes (%) (Auto) 5 0-12 % Eosinophils (%) (Auto) 0 0-10 % Basophils (%) (Auto) 0 0-10 % Neutrophils # (Auto) 7.5 1.8-7.8 10^3/uL Lymphocytes # (Auto) 1.2 1.0-4.0 10^3/uL Monocytes # (Auto) 0.5 0.0-1.0 10^3/uL Eosinophils # (Auto) 0.0 0.0-0.3 10^3/uL Basophils # (Auto) 0.0 0.0-0.1 10^3/uL Immature Granulocyte # (Auto) 0.0 0.0-0.1 10^3/uL Sodium Level 141 135-145 MMOL/L Potassium Level 4.0 3.6-5.0 MMOL/L Chloride Level 109 H 98-107 MMOL/L Carbon Dioxide Level 23 21-32 MMOL/L Anion Gap 9 5-14 MMOL/L Blood Urea Nitrogen 16 7-18 MG/DL Creatinine 0.65 0.60-1.30 MG/DL Estimat Glomerular Filtration Rate 116 BUN/Creatinine Ratio 25 Glucose Level 93 70-105 MG/DL Calcium Level 9.2 8.5-10.1 MG/DL Corrected Calcium 9.0 8.5-10.1 MG/DL Total Bilirubin 0.4 0.1-1.0 MG/DL Aspartate Amino Transf (AST/SGOT) 18 5-34 U/L Alanine Aminotransferase (ALT/SGPT) 14 0-55 U/L Alkaline Phosphatase 77 40-136 U/L Total Protein 6.9 6.4-8.2 GM/DL Albumin 4.2 3.2-4.5 GM/DL My Orders Orders - NIMA SMITH DO Ct Head Wo (10/05/22 12:40) Comprehensive Metabolic Panel (10/05/22 12:41) Cbc With Automated Diff (10/05/22 12:41) Fentanyl Inj (Sublimaze Injection) (10/05/22 12:45) Dexamethasone Injection (Decadron Inje (10/05/22 14:00) Medications Given in ED Current Medications Medications Dose Ordered Sig/Yanet Route Start Time Stop Time Status Last Admin Dose Admin Dexamethasone Sodium Phosphate 10 mg ONCE ONCE IM 10/05/22 14:00 10/05/22 14:01 DC 10/05/22 13:59 10 MG Fentanyl Citrate 50 mcg ONCE ONCE IVP 10/05/22 12:45 10/05/22 12:46 DC 10/05/22 12:59 50 MCG Vital Signs/I&O 10/05/22 10/05/22 12:35 15:45 Pulse 84 68 Resp 18 18 B/P (MAP) 118/76 (90) 99/68 Pulse Ox 95 94 O2 Delivery Room Air Room Air Blood Pressure Mean: 90 Comment Sinus tachycardia 149 bpm. Normal intervals. Normal axis. No ST or T wave abnormalities. No ectopy. No STEMI. Departure Communication (Admissions) Patient does have left arm and leg weakness, unfortunately I do not know her baseline postoperatively but subjectively certainly she feels like her weakness is worse on her left side. She also has a headache. I gave her IV fentanyl which did help some with her headache symptoms. CT scan shows a fluid collectio n in the postop site that appears to be a simple fluid collection. There is also a possible residual tumor in the basal ganglia. Labs are otherwise unremarkable. I have independently reviewed, interpreted all imaging and labs. 1355: Spoke to Dr Toledo, Neurosurgery at [facility], requests 10mg IV decadron and transfer to medicine service at . Impression Primary Impression: Brain tumor Additional Impressions: Headache Qualified Codes: R51.9 - Headache, unspecified Left arm weakness Left leg weakness Disposition: XFER SHT-TRM HOSP Condition: Stable Departure-Patient Inst. Referrals: [facility] (PCP/Family) Primary Care Physician NIMA SMITH DO Oct 05, 2022 12:44
[2022-10-05] MEDS ORDERED: fentaNYL INJ 100 MCG/2 ML AMP IVP ONE (12:45)
[2022-10-05 13:02] LABS: BASOPHILS % (AUTO) 0 % (0-10); EOSINOPHILS % (AUTO) 0 % (0-10); HEMATOCRIT 41 % (35-52); LYMPHOCYTES # (AUTO) 1.2 10^3/uL (1.0-4.0); LYMPHOCYTES % (AUTO) 13 % (12-44); MEAN CORPUSCULAR HEMOGLOBIN 34 pg (25-34); MEAN CORPUSCULAR HGB CONC 34 g/dL (32-36); MEAN CORPUSCULAR VOLUME 100 fL (80-99); MEAN PLATELET VOLUME 9.1 fL (9.0-12.2); MONOCYTES # (AUTO) 0.5 10^3/uL (0.0-1.0); MONOCYTES % (AUTO) 5 % (0-12); NEUTROPHILS # (AUTO) 7.5 10^3/uL (1.8-7.8); NEUTROPHILS % (AUTO) 81 % (42-75); PLATELET COUNT 160 10^3/uL (130-400); WHITE BLOOD COUNT 9.2 10^3/uL (4.3-11.0)
[2022-10-05 13:04] LABS: ALBUMIN 4.2 GM/DL (3.2-4.5)
[2022-10-05 13:05] LABS: CALCIUM 9.2 MG/DL (8.5-10.1)
[2022-10-05 13:07] LABS: TOTAL PROTEIN 6.9 GM/DL (6.4-8.2)
--- NOTE | 2022-10-05 13:07 | Diagnostic Imaging Report ---
PROCEDURE: CT head without contrast. TECHNIQUE: Multiple contiguous axial images were obtained through the brain without the use of intravenous contrast. Auto Exposure Controls were utilized during the CT exam to meet ALARA standards for radiation dose reduction. INDICATION: Headache, left arm weakness. COMPARISON: 08/19/2022. 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 No layering blood products. The previous enhancing mass appears to been mostly resected. There is a large fluid-filled cavity within the resection bed of the posterior right frontal lobe. As this extends towards the right basal ganglia, there is some surrounding wall thickening and complexity suggesting some residual tumor in this region. Leftward midline shift of 1.4 cm. There is effacement of the right lateral ventricle. The orbits, sinuses, and mastoid air cells are unremarkable. IMPRESSION: Interval post operative changes within the right frontoparietal region as described. There appears to be some residual tumor near the right basal ganglia. The bulk of the remaining tumor appears to have been resected. There is a small subdural fluid collection which appears mostly simple. No acute intracranial hemorrhage identified. Dictated by: Dictated on workstation # [id number]
[2022-10-05 13:08] LABS: BILIRUBIN,TOTAL 0.4 MG/DL (0.1-1.0)
[2022-10-05 13:10] LABS: CREATININE SERUM 0.65 MG/DL (0.60-1.30)
[2022-10-05 15:45] VITALS: BP 99/68
== END 2022-10-05 15:45 | disposition short-term general hospital (02) ==
LOC: EDUNIT# 12:20 → ER 12:23
DX: D49.6 Neoplasm of unspecified behavior of brain (principal); F17.210 Nicotine dependence, cigarettes, uncomplicated; Z98.890 Other specified postprocedural states; Z92.3 Personal history of irradiation; Z92.21 Personal history of antineoplastic chemotherapy; Z28.310 Unvaccinated for COVID-19
CPT/HCPCS: 36415; 70450; 80053; 85025

== ENCOUNTER → 2022-12-17 | Outpatient (CLI) | payer MEDICAID ==
[~2022-12-17] MED LIST changes: +DICY-11 PO; -DICY10CA12 PO
[2022-12-17 09:43] LABS: BASOPHILS # (AUTO) 0.1 10^3/uL (0.0-0.1); BASOPHILS % (AUTO) 0 % (0-10); EOSINOPHILS % (AUTO) 0 % (0-10); HEMATOCRIT 45 % (35-52); HEMOGLOBIN 15.4 g/dL (11.5-16.0); LYMPHOCYTES # (AUTO) 1.7 10^3/uL (1.0-4.0); LYMPHOCYTES % (AUTO) 12 % (12-44); MEAN CORPUSCULAR HEMOGLOBIN 35 pg (25-34); MEAN CORPUSCULAR HGB CONC 35 g/dL (32-36); MEAN CORPUSCULAR VOLUME 101 fL (80-99); MEAN PLATELET VOLUME 8.5 fL (9.0-12.2); MONOCYTES # (AUTO) 0.8 10^3/uL (0.0-1.0); MONOCYTES % (AUTO) 6 % (0-12); NEUTROPHILS # (AUTO) 10.9 10^3/uL (1.8-7.8); NEUTROPHILS % (AUTO) 77 % (42-75); PLATELET COUNT 181 10^3/uL (130-400); WHITE BLOOD COUNT 14.2 10^3/uL (4.3-11.0)
[2022-12-17 09:57] LABS: ALBUMIN 4.4 GM/DL (3.2-4.5); BILIRUBIN,TOTAL 0.5 MG/DL (0.1-1.0); CALCIUM 9.4 MG/DL (8.5-10.1); CREATININE SERUM 0.77 MG/DL (0.60-1.30); POTASSIUM 3.9 MMOL/L (3.6-5.0)
[2022-12-17 10:07] LABS: BAND NEUTROPHILS 0 %; EOSINOPHILS % (MANUAL) 0 %; LYMPHOCYTES % (MANUAL) 18 %; MONOCYTES % (MANUAL) 5 %; NEUTROPHILS % (MANUAL) 76 %
[2022-12-17 10:08] LABS: BASOPHILS % (MANUAL) 1 %; RBC MORPH NORMAL
== END ==
LOC: LAB 09:27
PROVIDERS: ATTEND Nurse Practitioner Family
DX: Z01.89 Encounter for other specified special examinations (principal)
CPT/HCPCS: 36415; 80053; 85007; 85027

== ENCOUNTER → 2023-02-16 | Outpatient (CLI) | payer MEDICAID ==
[2023-02-16 10:21] LABS: HEMOGLOBIN 14.4 g/dL (11.5-16.0); MEAN CORPUSCULAR VOLUME 105 fL (80-99); MEAN PLATELET VOLUME 8.7 fL (9.0-12.2); MONOCYTES # (AUTO) 0.3 10^3/uL (0.0-1.0); MONOCYTES % (AUTO) 3 % (0-12)
[2023-02-16 10:23] LABS: BASOPHILS % (AUTO) 0 % (0-10); EOSINOPHILS % (AUTO) 0 % (0-10); HEMATOCRIT 42 % (35-52); LYMPHOCYTES % (AUTO) 9 % (12-44); MEAN CORPUSCULAR HEMOGLOBIN 36 pg (25-34); MEAN CORPUSCULAR HGB CONC 34 g/dL (32-36); NEUTROPHILS # (AUTO) 10.1 10^3/uL (1.8-7.8); NEUTROPHILS % (AUTO) 88 % (42-75); PLATELET COUNT 95 10^3/uL (130-400); WHITE BLOOD COUNT 11.5 10^3/uL (4.3-11.0)
[2023-02-16 11:01] LABS: BAND NEUTROPHILS 3 %; BASOPHILS % (MANUAL) 0 %; EOSINOPHILS % (MANUAL) 0 %; LYMPHOCYTES % (MANUAL) 7 %; MONOCYTES % (MANUAL) 6 %; NEUTROPHILS % (MANUAL) 84 %; RBC MORPH NORMAL
== END ==
LOC: LAB 10:09
PROVIDERS: ATTEND Psychiatry & Neurology Neurology
DX: C71.9 Malignant neoplasm of brain, unspecified (principal)
CPT/HCPCS: 36415; 85007; 85025; 85027

== ENCOUNTER → 2023-02-18 | Outpatient (CLI) | payer MEDICAID ==
[2023-02-18 09:26] LABS: BASOPHILS % (AUTO) 0 % (0-10); EOSINOPHILS % (AUTO) 0 % (0-10); HEMATOCRIT 43 % (35-52); HEMOGLOBIN 14.7 g/dL (11.5-16.0); LYMPHOCYTES % (AUTO) 13 % (12-44); MEAN CORPUSCULAR HEMOGLOBIN 36 pg (25-34); MEAN CORPUSCULAR HGB CONC 34 g/dL (32-36); MEAN CORPUSCULAR VOLUME 106 fL (80-99); MEAN PLATELET VOLUME 8.8 fL (9.0-12.2); MONOCYTES # (AUTO) 0.3 10^3/uL (0.0-1.0); MONOCYTES % (AUTO) 4 % (0-12); NEUTROPHILS # (AUTO) 6.3 10^3/uL (1.8-7.8); NEUTROPHILS % (AUTO) 82 % (42-75); PLATELET COUNT 105 10^3/uL (130-400); WHITE BLOOD COUNT 7.7 10^3/uL (4.3-11.0)
== END ==
LOC: LAB 09:18
PROVIDERS: ATTEND Psychiatry & Neurology Neurology
DX: Z01.89 Encounter for other specified special examinations (principal)
CPT/HCPCS: 36415; 85025

== ENCOUNTER 2023-03-17 16:15 | Observation (INO) | payer MEDICAID ==
[~2023-03-17] VITALS: Ht 157.4 cm; Wt 89.0 kg
[2023-03-17 16:31] VITALS: BP 129/90
[2023-03-17 16:41] LABS: BASOPHILS % (AUTO) 0 % (0-10); EOSINOPHILS # (AUTO) 0.1 10^3/uL (0.0-0.3); EOSINOPHILS % (AUTO) 2 % (0-10); HEMATOCRIT 42 % (35-52); HEMOGLOBIN 13.9 g/dL (11.5-16.0); LYMPHOCYTES # (AUTO) 1.2 10^3/uL (1.0-4.0); LYMPHOCYTES % (AUTO) 15 % (12-44); MEAN CORPUSCULAR HEMOGLOBIN 37 pg (25-34); MEAN CORPUSCULAR HGB CONC 33 g/dL (32-36); MEAN CORPUSCULAR VOLUME 110 fL (80-99); MEAN PLATELET VOLUME 8.2 fL (9.0-12.2); MONOCYTES # (AUTO) 0.8 10^3/uL (0.0-1.0); MONOCYTES % (AUTO) 9 % (0-12); NEUTROPHILS # (AUTO) 6.3 10^3/uL (1.8-7.8); NEUTROPHILS % (AUTO) 74 % (42-75); WHITE BLOOD COUNT 8.5 10^3/uL (4.3-11.0)
[2023-03-17] MEDS ORDERED: LevETIRAcetam INJECTION 500 MG in NS (IVPB) 100 ML 100 ML IV STA (16:43)
[2023-03-17 16:45] LABS: PLATELET COUNT 73 10^3/uL (130-400)
[2023-03-17 16:55] LABS: ALBUMIN 4.1 GM/DL (3.2-4.5); CHLORIDE 109 MMOL/L (98-107); SODIUM 141 MMOL/L (135-145)
[2023-03-17 16:56] LABS: CALCIUM 9.5 MG/DL (8.5-10.1)
--- NOTE | 2023-03-17 16:57 | ED Neurological Problem ---
General Chief Complaint: Neuro-Stroke Like Symptoms Stated Complaint: CONVULSIONS/POSSIBLE SEIZURE Nursing Triage Note: PT ARRIVED BY POV WITH CC OF SHAKING, POSSIBLE SEIZURE, AND TEMORS. PT STATES THAT SHE STARTED SHAKING AND FELL OVER AT 1430 TODAY. PTS STATES THAT PT HAD CONVULSIONS BUT WAS ALERT WHEN HE ARRIVED AT HOME. PT IS LEANING TO RIGHT SIDE BUT HAS LEFT ARM AND LEG WEAKNESS. PT IS NOW UNABLE TO AMBULATE AND HAD TO HAVE EMS HELP TRANSPORT PT TO CAR. HX OF BRAIN TUMOR SURGERY IN AUGUST 2022. Source: patient Exam Limitations: no limitations (HERMES VAZQUEZ MD) History of Present Illness Date Seen by Provider: Mar 17, 2023 Time Seen by Provider: 16:34 Initial Comments Here with report of possible seizures and worsening left-sided weakness. Patient has history of 2 brain tumors on the right mid and lateral portion that have subsequently been removed. With that she has had some left-sided weakness and also some history of seizures. She is on Keppra twice daily. She has taken that. Family states that she is normally able to walk around some but she is unable to now. Family states that about 1430 is when they noticed that she was shaking. She was able to talk through this but has significant left-sided greater than right-sided shaking. She is currently being weaned off of her steroid and is down to 1 mg daily on the wean for the last few days. Patient was unable to ambulate and needed assistance to the car and here. She is leaning to the right. She is answering all questions well and is oriented but is weak on the left side. Patient denies pain or breathing problems. States she does not necessarily remember when she had the shaking episode and is unsure if she has a seizure or not. Timing/Duration: 1-3 hours Severity: moderate Associated Symptoms: No confusion, No nausea/vomiting; seizures, weakness (HERMES VAZQUEZ MD) Allergies and Home Medications Allergies Coded Allergies: sulfamethoxazole (Verified Allergy, Unknown, 11/27/20) trimethoprim (Verified Allergy, Unknown, 11/27/20) Patient Home Medication List Home Medication List Reviewed: Yes (HERMES VAZQUEZ MD) Dexamethasone (Dexamethasone) 4 Mg Tablet, 2 MG PO DAILY Prescribed by: ISMAEL NGUYEN on 09/04/22 0810 Levetiracetam (Levetiracetam) 500 Mg Tablet, 500 MG PO BID Prescribed by: ISMAEL NGUYEN on 09/04/22 0810 Review of Systems Review of Systems Constitutional: see HPI; No chills, No fever Eyes: Denies Blurred Vision, Denies Pain Ears, Nose, Mouth, Throat: no symptoms reported Respiratory: No cough, No short of breath Cardiovascular: No chest pain, No edema Gastrointestinal: No nausea, No vomiting Genitourinary: no symptoms reported Musculoskeletal: No muscle pain; muscle weakness Psychiatric/Neurological: Denies Headache; Tonic Clonic Seizures, Unable to Move Lower Ext, Unable to Move Upper Ext, Weakness (HERMES VAZQUEZ MD) Past Yivneof-Rdaifq-Ibjboi Hx Patient Social History Tobacco Use?: Yes Tobacco type used: Cigarettes Substance use?: No Alcohol Use?: No (HERMES VAZQUEZ MD) Immunizations Up To Date Tetanus Booster (TDap): Less than 5yrs PED Vaccines UTD: Yes First/Initial COVID19 Vaccinat: PT REFUSED Second COVID19 Vaccination Armando: PT REFUSED Third COVID19 Vaccination Date: PT REFUSED (HERMES VAZQUEZ MD) Seasonal Allergies Seasonal Allergies: Yes (HERMES VAZQUEZ MD) Past Medical History Surgery/Hospitalization HX: RIGHT CRANIOTOMY 2014, [facility], CURRENT SMOKER, BRAIN SURG ON 08/26/22 Surgeries: Yes ([facility] FOR A BRAIN TUMOR) Respiratory: No Cardiac: No Neurological: No (2014 BRAIN TUMOR REMOVED) Brain Tumor Reproductive Disorders: No Genitourinary: No Gastrointestinal: No Musculoskeletal: No Endocrine: No HEENT: No Cancer: Yes (2014, TUMOR WAS POSS FOR CANCER) Brain Did You Recieve Any Treatments: Yes What Type of Treatment Did You: Chemotherapy, Radiation, Surgical Intervention Psychosocial: No Integumentary: No Blood Disorders: No Adverse Reaction/Blood Tranf: No (HERMES VAZQUEZ MD) Family Medical History Reviewed Nursing Family Hx (HERMES VAZQUEZ MD) Alcoholism 19 FATHER, Onset:20's - Drug abuse G8 BROTHER, Onset:20's - Hypercholesterolemia 19 FATHER, Onset:40's - 50 Hypertension 19 FATHER, Onset:40's - 50 No Family History of: AIDS Abdominal aortic aneurysm [place]'s disease Alzheimer's disease Aphasia Arthritis Asthma Cancer of mouth Cardiovascular disease Cataracts Colon cancer Completed stroke Congenital disease Congenital heart disease Coronary thrombosis Cystic fibrosis Deafness or hearing loss Dementia Diabetes mellitus Dysphasia Fibrocystic disease of breast Gastroenteritis Glaucoma Headache disorder Infertility Kidney disease Myocardial infarction Neoplasm Not obtainable due to adoption Osteoporosis Parkinson's disease Prostate cancer Psychosocial problem Respiratory disorder Seizure disorder Severe allergy Thyroid disease Tuberculosis Visual disorder Physical Exam Vital Signs Vital Signs - First Documented 03/17/23 16:31 Pulse 81 B/P (MAP) 129/90 (103) Pulse Ox 94 O2 Delivery Room Air (ALLA WERNER DO) Vital Signs Capillary Refill : (HERMES VAZQUEZ MD) Height, Weight, BMI Height: 5'5.00" Weight: 130lbs. oz. 58.898067sr; 31.00 BMI Method: General Appearance: WD/WN, no apparent distress HEENT: PERRL/EOMI, pharynx normal Neck: non-tender, full range of motion, supple Respiratory: lungs clear, normal breath sounds Cardiovascular: regular rate, rhythm, no murmur Gastrointestinal: non tender, soft Back: no CVA tenderness, no vertebral tenderness Extremities: no pedal edema, other (Weakness of the left upper and lower extremity) Neurologic/Psychiatric: alert, oriented x 3, motor weakness (Left upper and lower) Crainal Nerves: normal hearing, normal speech, PERRL Motor/Sensory: weak motor strength LUE, weak motor strength LLE, other (Tremors noted with notable weakness in both the left upper and lower extremity. Patient is leaning to the right and is unable to write herself to center due to left- sided weakness.) Skin: normal color, warm/dry (HERMES VAZQUEZ MD) Focused Exam Lactate Level 03/17/23 19:04: Lactic Acid Level 1.54 (ALLA WERNER DO) Lactic Acid Level Laboratory Tests Test 03/17/23 19:04 Lactic Acid Level 1.54 MMOL/L (0.50-2.00) (ALLA WERNER DO) Progress/Results/Core Measures Results/Orders Lab Results Laboratory Tests Test 03/17/23 16:31 03/17/23 16:34 03/17/23 17:18 03/17/23 19:04 Range/Units Glucometer 120 H 70-110 MG/DL White Blood Count 8.5 4.3-11.0 10^3/uL Red Blood Count 3.78 L 3.80-5.11 10^6/uL Hemoglobin 13.9 11.5-16.0 g/dL Hematocrit 42 35-52 % Mean Corpuscular Volume 110 H 80-99 fL Mean Corpuscular Hemoglobin 37 H 25-34 pg Mean Corpuscular Hemoglobin Concent 33 32-36 g/dL Red Cell Distribution Width 15.1 H 10.0-14.5 % Platelet Count 73 L 130-400 10^3/uL Mean Platelet Volume 8.2 L 9.0-12.2 fL Immature Granulocyte % (Auto) 0 % Neutrophils (%) (Auto) 74 42-75 % Lymphocytes (%) (Auto) 15 12-44 % Monocytes (%) (Auto) 9 0-12 % Eosinophils (%) (Auto) 2 0-10 % Basophils (%) (Auto) 0 0-10 % Neutrophils # (Auto) 6.3 1.8-7.8 10^3/uL Lymphocytes # (Auto) 1.2 1.0-4.0 10^3/uL Monocytes # (Auto) 0.8 0.0-1.0 10^3/uL Eosinophils # (Auto) 0.1 0.0-0.3 10^3/uL Basophils # (Auto) 0.0 0.0-0.1 10^3/uL Immature Granulocyte # (Auto) 0.0 0.0-0.1 10^3/uL Prothrombin Time 11.8 L 12.2-14.7 SEC INR Comment 0.8 0.8-1.4 Activated Partial Thromboplast Time 27 24-35 SEC D-Dimer 0.41 0.00-0.49 UG/ML Sodium Level 141 135-145 MMOL/L Potassium Level 4.0 3.6-5.0 MMOL/L Chloride Level 109 H 98-107 MMOL/L Carbon Dioxide Level 25 21-32 MMOL/L Anion Gap 7 5-14 MMOL/L Blood Urea Nitrogen 17 7-18 MG/DL Creatinine 0.69 0.60-1.30 MG/DL Estimat Glomerular Filtration Rate 115 BUN/Creatinine Ratio 25 Glucose Level 117 H 70-105 MG/DL Calcium Level 9.5 8.5-10.1 MG/DL Corrected Calcium 9.4 8.5-10.1 MG/DL Total Bilirubin 0.4 0.1-1.0 MG/DL Aspartate Amino Transf (AST/SGOT) 40 H 5-34 U/L Alanine Aminotransferase (ALT/SGPT) 87 H 0-55 U/L Alkaline Phosphatase 71 40-136 U/L Troponin I < 0.028 <0.028 NG/ML Total Protein 7.0 6.4-8.2 GM/DL Albumin 4.1 3.2-4.5 GM/DL Urine Color YELLOW Urine Clarity CLEAR Urine pH 5.0 5-9 Urine Specific Sims 1.010 L 1.016-1.022 Urine Protein NEGATIVE NEGATIVE Urine Glucose (UA) NEGATIVE NEGATIVE Urine Ketones NEGATIVE NEGATIVE Urine Nitrite POSITIVE H NEGATIVE Urine Bilirubin NEGATIVE NEGATIVE Urine Urobilinogen 0.2 < = 1.0 MG/DL Urine Leukocyte Esterase NEGATIVE NEGATIVE Urine RBC (Auto) NEGATIVE NEGATIVE Urine RBC NONE /HPF Urine WBC 2-5 /HPF Urine Squamous Epithelial Cells RARE /HPF Urine Crystals NONE /LPF Urine Bacteria MODERATE H /HPF Urine Casts NONE /LPF Urine Mucus NEGATIVE /LPF Urine Culture Indicated YES Lactic Acid Level 1.54 0.50-2.00 MMOL/L (ALLA WERNER DO) Medications Given in ED Current Medications Medications Dose Ordered Sig/Yanet Route Start Time Stop Time Status Last Admin Dose Admin Dexamethasone Sodium Phosphate 10 mg ONCE ONCE IV 03/17/23 17:00 03/17/23 17:01 DC 03/17/23 17:04 10 MG Iohexol 75 ml ONCE ONCE IV 03/17/23 17:15 03/17/23 17:16 DC 03/17/23 17:08 75 ML Sodium Chloride 100 ml ONCE ONCE IV 03/17/23 17:15 03/17/23 17:16 DC 03/17/23 17:08 80 ML (CAROLEE WERNERA Dg RESENDIZ) Vital Signs/I&O 03/17/23 03/17/23 16:31 20:48 Pulse 81 81 B/P (MAP) 129/90 (103) 115/69 Pulse Ox 94 O2 Delivery Room Air 03/17/23 23:59 Intake Total 155 ml Balance 155 ml (ARTHURCAROLEEA K ) Blood Pressure Mean: 103 FSBG Bedside Testing Finger Stick Blood Glucose: 120 (HERMES VAZQUEZ MD) Progress Progress Note : Progress Note Seen and evaluated. Stroke activation initiated with last known well time at 1430. Patient does have history of of brain cancer with at least 2 lesions and surgery within the last 6 months. Patient is not a tPA candidate due to history of brain cancer. We will get CT of the head and possibly CT angiogram of the head neck as well as get IV and labs including CBC, CMP and check EKG and chest x-ray. Due to concern for seizures, we will go ahead and give additional dose o f Keppra 500 mg IV now. I will go with the patient to CT. Differential diagnosis includes brain tumor, hemorrhagic or ischemic stroke, seizure disorder, brain swelling, electrolyte abnormality, dehydration 165: I did personally go with patient to CT scan for CT of the head. On review of the scan, she does have 2 areas of previous lesion with fluid and what appears to be some edema in the site of the second lesion with mild mass effect interpretation. There appears to be potentially a blush area that may be blood and so we will go ahead and get CT angiogram. I will go ahead and give Decadron 10 mg IV due to swelling and symptoms. Monitor patient. 1819: I am attempting to make contact with [facility] regarding the patient and CT scan results as noted below. CBC reviewed and shows normal white count with normal hemoglobin and decreased platelets. CMP is grossly unremarkable with normal troponin. Coags are negative and D-dimer is negative. UA does show nitrite positive on straight cath UA. Patient has responded quite well with Decadron and Keppra and is now able to move left arm and left leg without difficulty and she is no longer leaning to the right. Chest x-ray reviewed by me shows no obvious infiltrate. I have clouded the films to and we will see what recommendations they have. Monitor patient. 1834: Case reviewed with [facility]. They are going to talk with their team. They have limited capability due to capacity for transfer although patient may do well with just increasing steroids outpatient. They will call back with recommendation. Monitor patient. 1857: Still pending callback from . Care transferred to Dr. Werner pending recommendations from . I did discuss with the family regarding the concerns for UTI and we will treat that either inpatient or outpatient depending on recommendations. Repeat stroke scale shows 0-1 for some mild limb ataxia on youjul-fq-vcdy but she operates liux-fq-rbag well and has no sensation concerns. Patient and family both are in agreement that she is at or near baseline currently. Monitor patient. (HERMES VAZQUEZ MD) Progress Note : Progress Note 1899--ASSUMED CARE FROM DR. VAZQUEZ. WAITING FOR CALL BACK FROM . PT IS NOT VOICING ANY COMPLAINTS, AND VITALS ARE STABLE AT THIS TIME 1939--[facility] CALLED BACK, DR. AN IS ONCOLOGIST FIELD MANAGER AND HAS REVIEWED CASE, INCLUDING CT SCANS. THERE ARE NO BEDS AVAILABLE AT AT THIS TIME. DR. AN RECOMMENDS ADMITTING HER OVERNIGHT FOR OBSERVATION, AND IF PT'S SYMPTOMS PERSIST OR WORSEN, WILL PURSUE TRANSFER AGAIN AT THAT TIME. RECOMMENDS INCREASING DECADRON TO 8 MG Q 12 HOURS, ADD PPI. 1944--SPOKE WITH DR. LYNCH, FIELD MANAGER FOR [facility]. ACCEPTS PT FOR ADMIT. 1949--SPOKE WITH AND INFORMED THEM OF PLAN TO KEEP PT HERE OVERNIGHT 1954--REPORT TO E-ICU PHYSICIAN, DR. GONZALEZ. 2314--RECEIVED A CALL FROM E-ICU PHYSICIAN, DR. GONZALEZ, REGARDING SOME CONFLICTING CT REPORTS. SHE WOULD LIKE CONTACTED TO REVIEW THE IMAGES, THERE IS NO ONE AVAILABLE WITH [facility] AT THIS HOUR. 2318--CALLED [facility], WILL CALL BACK 2332--[facility] CALLED BACK AND ADDITIONAL INFORMATION GIVEN. 4--[facility] CALLED BACK, I SPOKE WITH DR. SERRANO, NEUROSURGEON. SHE ADVISES THAT CHANGES NOTED ON CT SCAN APPEAR TO BE SUB-ACUTE, AND THERE IS NO EVIDENCE OF ACTIVE BLEEDING AT AT THIS TIME. SHE REPORTS THAT COMPARISON TO AN MRI DONE THERE ON 02/11/23 HAS SAME/SIMILAR FLUID COLLECTION, AND IS NOT CONCERNED FOR AN ACUTE BLEED AT THIS TIME. 0008--CALLED E-ICU. DR GONZALEZ CURRENTLY ON ANOTHER CALL 33--CALLED E-ICU, AND DISCUSSED THE ABOVE WITH DR. GONZALEZ. (ALLA WERNER DO) Initial ECG Impression Date: Mar 17, 2023 Initial ECG Impression Time: 16:38 Initial ECG Rate: 83 Initial ECG Rhythm: Normal Sinus Comment Sinus rhythm with normal axis. Artifact noted. No evidence of ST elevation AL. Interpreted by me. (HERMES VAZQUEZ MD) Diagnostic Imaging Diagonstic Imaging: CT Plain Films/CT/US/NM/MRI: head Comments [facility] [place], [place] NAME: ZORA DE LA VEGA [facility] REC#: [id number] PT STATUS: REG ER : 1985 PHYSICIAN: HERMES VAZQUEZ MD ADMIT DATE: 03/17/23/ER Signed Date of Exam:03/17/23 CT HEAD WO-R/O STROKE PROCEDURE: CT head wo r/o stroke. TECHNIQUE: Multiple contiguous axial images were obtained through the brain without the use of intravenous contrast. Auto Exposure Controls were utilized during the CT exam to meet ALARA standards for radiation dose reduction. INDICATION: Weakness, difficulty walking, left leg weakness. Prior history of a brain tumor resection. EXAMINATION: CT brain without contrast 03/17/2023 COMPARISON: 10/05/2022 FINDINGS: Again seen is a large area of encephalomalacia within the right parietal lobe with a superimposed rounded cystic-appearing abnormality which may have increased in size.. Vague peripheral calcifications noted. There is an overlying chronic appearing subdural hematoma which has decreased in size. There is improved mass effect and midline shift. Previously noted compression of the right lateral ventricle improved as well. No hydrocephalus. There is new or acute hemorrhage layering within the cystic collection .No definite acute infarct in the setting of the abnormalities described. Craniotomy changes noted in the right parietal region. Paranasal sinuses and mastoid air cells clear. IMPRESSION: 1. Postoperative changes as above. Cystic collection persists possibly increased in size but difficult to measure given the change in configuration since previous. There does appear to be acute hemorrhage layering within the dependent portion of the cystic collection. 2. No definite acute infarct although the diffuse abnormalities in the right hemisphere limit evaluation. Residual tumor not excluded without contrast. Findings discussed with Dr. Vazquez by Dr. Ryan 5:20 PM 03/17/2023 Dictated by: Dictated on workstation # [id number] Dict: 03/17/23 1706 Trans: 03/17/23 172 [facility] [id number] Interpreted by: JHONY RYAN MD Electronically signed by: JHONY RYAN MD 03/17/23 172 Diagonstic Imaging: CT Plain Films/CT/US/NM/MRI: head, other Comments [facility] [place] [place] NAME: ZORA DE LA VEGA [facility] REC#: [id number] PT STATUS: REG ER : 1985 PHYSICIAN: HERMES VAZQUEZ MD ADMIT DATE: 03/17/23/ER Signed Date of Exam:03/17/23 CT ANGIO HEAD/NECK PROCEDURE: CT angiography of the head and CT angiography of the neck with and without contrast. TECHNIQUE: Contiguous noncontrast images were obtained from the skull base through the vertex. After intravenous contrast administration, helical CT angiography of the neck was performed. Source data was reformatted into 3D MIP projections. Delayed post contrast acquisition was also obtained. Auto Exposure Controls were utilized during the CT exam to meet ALARA standards for radiation dose reduction. INDICATION: Large vessel occlusion, stroke, weakness, unable to walk, prior history of brain tumors. COMPARISON: Imaging from the same date as well as from 10/05/2022. FINDINGS: 6.0 x 3.5 cm hypodense cystic structure is again noted within the right cerebral hemisphere. This demonstrates thin peripheral enhancement without definite enhancing solid component. Curvilinear extra-axial fluid collection is noted overlying this region and underlying a craniotomy. This fluid collection has slightly decreased in size since the prior examination. Very minimal susgy-qn-cwgd midline shift, improved from the prior examination. No obstructive hydrocephalus. No ventricular trapping. No uncal herniation. No new enhancing intracranial mass lesion. The orbits are unremarkable. Besides postsurgical changes, the calvarium is intact. The paranasal sinuses are clear. The parapharyngeal fat is symmetric and well maintained. The muscles of mastication are unremarkable. The salivary glands are unremarkable. The thyroid gland is unremarkable. The airway is patent. No significant adenopathy within the neck. No focal fluid collection. No apical pneumothorax. A two-vessel aortic arch is noted. origin of the right [employer]. The large arterial structures within the head and neck are otherwise unremarkable. The large dural venous sinuses are patent. No acute osseous abnormality. IMPRESSION: Besides congenital anatomic variants, the large arterial structures within the head and neck are unremarkable. Postsurgical changes within the right cerebral hemisphere are again identified with improved edema, improved mass effect, improved midline shift, and improved overlying extra-axial fluid collection. Dictated by: Dictated on workstation # [id number] Dict: 03/17/23 1707 Trans: 03/17/23 1726 AS6 [id number] Interpreted by: ANGELA SAWYER MD Electronically signed by: ANGELA SAWYER MD 03/17/23 1726 Diagonstic Imaging: Xray Plain Films/CT/US/NM/MRI: chest Comments [facility] [place] [place] NAME: ZORA DE LA VEGA [facility] REC#: [id number] PT STATUS: REG ER : 1985 PHYSICIAN: HERMES VAZQUEZ MD ADMIT DATE: 03/17/23/ER Signed Date of Exam:03/17/23 CHEST 1 VIEW, AP/PA ONLY EXAMINATION: Chest 1 view HISTORY: stroke COMPARISON: None available. FINDINGS: The lungs are clear without edema or pneumonia. No pleural effusion or pneumothorax. Heart size is normal. IMPRESSION: 1. Clear lungs. Dictated by: Dictated on workstation # [id number] Dict: 03/17/231706 Trans: 03/17/231706 [facility] [id number] Interpreted by: ARSEN BENNETT MD Electronically signed by: ARSEN BENNETT MD 03/17/23 170 (HERMES VAZQUEZ MD) Departure Impression Primary Impression: Seizure Additional Impressions: Cerebral edema Left-sided weakness Urinary tract infection Qualified Codes: N30.00 - Acute cystitis without hematuria Brain tumor Disposition: ADMITTED INPATIENT Condition: Improved Admissions Decision to Admit Reason: Admit from ER (General) Decision to Admit/Date: Mar 17, 2023 Time/Decision to Admit Time: 19:45 (ALLA WERNER DO) Departure-Patient Inst. Referrals: [facility] (PCP/Family) Primary Care Physician HERMES VAZQUEZ MD Mar 17, 2023 16:57 ALLA WERNER DO Mar 18, 2023 01:51
[2023-03-17 16:58] LABS: GLUCOSE 117 MG/DL (70-105)
[2023-03-17 16:59] LABS: CARBON DIOXIDE 25 MMOL/L (21-32); INR 0.8 (0.8-1.4); PROTHROMBIN TIME PATIENT 11.8 SEC (12.2-14.7)
[2023-03-17 17:00] LABS: BILIRUBIN,TOTAL 0.4 MG/DL (0.1-1.0)
[2023-03-17] MEDS ORDERED: dexAMETHasone INJ 10 MG/ML 1 ML VIAL IV ONE (17:00)
[2023-03-17 17:01] LABS: ALKALINE PHOSPHATASE 71 U/L (40-136); CREATININE SERUM 0.69 MG/DL (0.60-1.30); GFR ESTIMATED 115
[2023-03-17 17:02] LABS: BUN/CREATININE RATIO 25; FIBRIN DEGRADATION PRODUCTS 0.41 UG/ML (0.00-0.49)
[2023-03-17 17:04] LABS: ALANINE AMINOTRANSFERASE 87 U/L (0-55)
--- NOTE | 2023-03-17 17:08 | Diagnostic Imaging Report ---
EXAMINATION: Chest 1 view HISTORY: stroke COMPARISON: None available. FINDINGS: The lungs are clear without edema or pneumonia. No pleural effusion or pneumothorax. Heart size is normal. IMPRESSION: 1. Clear lungs. Dictated by: Dictated on workstation # [id number]
[2023-03-17] MEDS ORDERED: HOLD METFORMIN - RECEIVED CONTRAST 20 ML VIAL IV SCH (17:15)
[2023-03-17] MEDS ORDERED: NS 100 ML (IVPB) BAG IV ONE (17:15)
[2023-03-17] MEDS ORDERED: IOHEXOL 350 MG/ML 100 ML (OMNIPAQUE 350) VIAL IV ONE (17:15)
--- NOTE | 2023-03-17 17:18 | Diagnostic Imaging Report ---
PROCEDURE: CT head wo r/o stroke. TECHNIQUE: Multiple contiguous axial images were obtained through the brain without the use of intravenous contrast. Auto Exposure Controls were utilized during the CT exam to meet ALARA standards for radiation dose reduction. INDICATION: Weakness, difficulty walking, left leg weakness. Prior history of a brain tumor resection. EXAMINATION: CT brain without contrast 03/17/2023 COMPARISON: 10/05/2022 FINDINGS: Again seen is a large area of encephalomalacia within the right parietal lobe with a superimposed rounded cystic-appearing abnormality which may have increased in size.. Vague peripheral calcifications noted. There is an overlying chronic appearing subdural hematoma which has decreased in size. There is improved mass effect and midline shift. Previously noted compression of the right lateral ventricle improved as well. No hydrocephalus. There is new or acute hemorrhage layering within the cystic collection .No definite acute infarct in the setting of the abnormalities described. Craniotomy changes noted in the right parietal region. Paranasal sinuses and mastoid air cells clear. IMPRESSION: 1. Postoperative changes as above. Cystic collection persists possibly increased in size but difficult to measure given the change in configuration since previous. There does appear to be acute hemorrhage layering within the dependent portion of the cystic collection. 2. No definite acute infarct although the diffuse abnormalities in the right hemisphere limit evaluation. Residual tumor not excluded without contrast. Findings discussed with Dr. Colvin by Dr. Ryan 5:20 PM 03/17/2023 Dictated by: Dictated on workstation # [id number]
--- NOTE | 2023-03-17 17:21 | Diagnostic Imaging Report ---
PROCEDURE: CT angiography of the head and CT angiography of the neck with and without contrast. TECHNIQUE: Contiguous noncontrast images were obtained from the skull base through the vertex. After intravenous contrast administration, helical CT angiography of the neck was performed. Source data was reformatted into 3D MIP projections. Delayed post contrast acquisition was also obtained. Auto Exposure Controls were utilized during the CT exam to meet ALARA standards for radiation dose reduction. INDICATION: Large vessel occlusion, stroke, weakness, unable to walk, prior history of brain tumors. COMPARISON: Imaging from the same date as well as from 10/05/2022. FINDINGS: 6.0 x 3.5 cm hypodense cystic structure is again noted within the right cerebral hemisphere. This demonstrates thin peripheral enhancement without definite enhancing solid component. Curvilinear extra-axial fluid collection is noted overlying this region and underlying a craniotomy. This fluid collection has slightly decreased in size since the prior examination. Very minimal [id number] midline shift, improved from the prior examination. No obstructive hydrocephalus. No ventricular trapping. No uncal herniation. No new enhancing intracranial mass lesion. The orbits are unremarkable. Besides postsurgical changes, the calvarium is intact. The paranasal sinuses are clear. The parapharyngeal fat is symmetric and well maintained. The muscles of mastication are unremarkable. The salivary glands are unremarkable. The thyroid gland is unremarkable. The airway is patent. No significant adenopathy within the neck. No focal fluid collection. No apical pneumothorax. A two-vessel aortic arch is noted. origin of the right REPAIR MILLER. The large arterial structures within the head and neck are otherwise unremarkable. The large dural venous sinuses are patent. No acute osseous abnormality. IMPRESSION: Besides congenital anatomic variants, the large arterial structures within the head and neck are unremarkable. Postsurgical changes within the right cerebral hemisphere are again identified with improved edema, improved mass effect, improved midline shift, and improved overlying extra-axial fluid collection. Dictated by: Dictated on workstation # [id number]
[2023-03-17 17:56] LABS: BACTERIA,URINE MODERATE /HPF; BILIRUBIN,URINE NEGATIVE (NEGATIVE); CLARITY,URINE CLEAR; COLOR,URINE YELLOW; GLUCOSE, URINE (UA) NEGATIVE (NEGATIVE); KETONES,URINE NEGATIVE (NEGATIVE); LEUKOCYTE ESTERASE ,URINE NEGATIVE (NEGATIVE); NITRITE,URINE POSITIVE (NEGATIVE); PROTEIN,URINE NEGATIVE (NEGATIVE); SQUAMOUS EPITHELIAL CELL,UR RARE /HPF
[2023-03-17] MEDS ORDERED: cefTRIAXone IV/IM 1,000 MG in NS (IVPB) 50 ML 50 ML IV STA (18:36)
[2023-03-17] MEDS ORDERED: ACETAMINOPHEN 500 MG TABLET PO PRN (21:45)
[2023-03-17] MEDS ORDERED: fentaNYL INJECTION 100 MCG/2 ML VIAL IV PRN (21:45)
[2023-03-17] MEDS ORDERED: ONDANSETRON INJECTION 4 MG/2 ML (SDV) IV PRN (21:45)
--- NOTE | 2023-03-17 23:27 | Tele-ICU Progress Note ---
Progress Note 37F with h/o brain tumor s/p resection, left sided weakness, seizures on keppra BID presented with seizure. Had been weaning off decadron, down to 1 mg daily for the past couple of days. In ED given an extra dose of keppra, decadron. She is nearing her neurologic baseline with weakness improving but not quite normal yet. She states that this does happen whenever they attempt to reduce the decadron. Attempt made to transfer to but no beds available. - seizure: seizure precautions in place. Continue keppra and decadron 8 mg q12h. Continue keppra. Neuro monitoring. - ICH: chronic but with possible acute changes. CT head with some several post- op changes including decreasing SDH, however there is a notation of new or acute hemorrhage within a cystic structure. Images were sent to for review, however I was told there was edema without acute hemorrhage. I have discussed this with Dr Werner in the ED who will contact [facility] to make sure they are aware of these changes and whether there are any new recomondations. CTA also done without acute bleeding. If no additonal recs by [facility], will repeat CT in AM to ensure stability. Maintain normal BP (current 93/46). Patient assessed via real time audiovisual communication device. CCT18 min Focused Exam Lactate Level 03/17/23 19:04: Lactic Acid Level 1.54 Height, Weight, BMI Height: 5'5.00" Weight: 130lbs. oz. 58.915025sy; 35.92 BMI Method: VIJAY GONZALEZ MD Mar 17, 2023 23:27
[2023-03-17] MEDS: PANTOPRAZOLE INJECTION 40 MG VIAL IV SCH (23:36)
[2023-03-17] MEDS: CATHETER FLUSH 10 ML SYR IVP SCH (23:37)
[2023-03-18 04:26] LABS: MEAN CORPUSCULAR HEMOGLOBIN 36 pg (25-34); MONOCYTES # (AUTO) 0.2 10^3/uL (0.0-1.0); MONOCYTES % (AUTO) 1 % (0-12)
[2023-03-18 04:28] LABS: BASOPHILS % (AUTO) 0 % (0-10); EOSINOPHILS % (AUTO) 0 % (0-10); HEMATOCRIT 41 % (35-52); HEMOGLOBIN 13.9 g/dL (11.5-16.0); LYMPHOCYTES # (AUTO) 0.6 10^3/uL (1.0-4.0); LYMPHOCYTES % (AUTO) 5 % (12-44); MEAN CORPUSCULAR HGB CONC 34 g/dL (32-36); MEAN CORPUSCULAR VOLUME 106 fL (80-99); MEAN PLATELET VOLUME 8.5 fL (9.0-12.2); NEUTROPHILS # (AUTO) 11.6 10^3/uL (1.8-7.8); NEUTROPHILS % (AUTO) 93 % (42-75); PLATELET COUNT 87 10^3/uL (130-400); WHITE BLOOD COUNT 12.5 10^3/uL (4.3-11.0)
[2023-03-18 04:45] LABS: POTASSIUM 4.2 MMOL/L (3.6-5.0)
[2023-03-18 04:46] LABS: ALBUMIN 3.9 GM/DL (3.2-4.5); CALCIUM 9.3 MG/DL (8.5-10.1)
[2023-03-18 04:48] LABS: TOTAL PROTEIN 6.9 GM/DL (6.4-8.2)
[2023-03-18 04:50] LABS: BILIRUBIN,TOTAL 0.4 MG/DL (0.1-1.0)
[2023-03-18 04:51] LABS: BAND NEUTROPHILS 11 %; NEUTROPHILS % (MANUAL) 78 %; PHOSPHORUS 2.7 MG/DL (2.3-4.7)
[2023-03-18 04:52] LABS: CREATININE SERUM 0.63 MG/DL (0.60-1.30); LYMPHOCYTES % (MANUAL) 5 %; MONOCYTES % (MANUAL) 3 %; REACTIVE LYMPHOCYTES 3 %
[2023-03-18 04:54] LABS: MAGNESIUM 1.8 MG/DL (1.6-2.4)
[2023-03-18] MEDS ORDERED: dexAMETHasone INJ 4 MG/ML SDV IV SCH (06:00)
[2023-03-18] MEDS: CATHETER FLUSH 10 ML SYR IVP SCH ×2 (06:33→14:12)
[2023-03-18] MEDS ORDERED: NS IV 500 ML 500 ML IV PRN (06:45)
[2023-03-18] MEDS ORDERED: MAGNESIUM 1 GM/100 ML IVPB 200 ML IV ONE (06:52)
[2023-03-18] MEDS: MAGNESIUM 1 GM/100 ML IVPB 100 ML IV SCH ×2 (06:56→08:35)
[2023-03-18] MEDS ORDERED: FLU QUADRIvalent (6 months+) 60 mcg/0.5 ml 2023-2024 (FLUARIX) IM ONE (07:00)
--- NOTE | 2023-03-18 07:45 | Tele-ICU Progress Note ---
Subjective Date Seen by a Provider: Mar 18, 2023 Time Seen by a Provider: 09:45 Subjective/Events-last exam (Tele-ICU Physician , Progress Note ) Service provided via interactive audio and video telecommunications [facility] s sharath to a patient admitted to ICU bed in [facility]. Patient is seen today due to persistent need of ICU care Available chart/ vitals / labs / Images reviewed Video assessment done using teleICU camera, rest of exam as per RN She is a 37-year-old female with past medical history of right side of the brain a brain tumor which was operated upon with resultant left-sided weakness however apparently she was able to walk around with some weakness. She has been having seizures on and off and she was treated at in the past. She is on a Keppra at home and also Decadron at 1 mg which is being weaned down from a higher dose. According to the ER physician as well as soon as her Decadron is being weaned she is having more seizures. Yesterday she was admitted because of seizure-like activity with worsening weakness on the left side. She is given an additional dose of Keppra and admitted to the ICU. This a.m. she had a focal seizure with left-sided weakness which is worse than her baseline. This is being observed while she is receiving morning dose of IV Keppra which is not fully given yet but the seizures improved and she is more alert and talking. Earlier this a.m. she ate breakfast with the right hand without any difficulty. Impression. 1. Right-sided brain tumor status postresection causing residual left hemiparesis as well as focal seizures due to the edema and possibly some scarring. 2. Patient was try to be transferred to but they do not have any beds available. 3. Suggested neurology consultation. Recommendations 1. While we are awaiting back to the transfer we will increase her Keppra to 750 mg IV piggyback every 12 hours. 2. Add lacosamide 100 mg p.o. twice daily with a stat dose now 3. We will wait 1 more day before weaning Decadron. 4. DVT prophylaxis. Reviewed with MECHANICAL STRIPER and in MDR. Coordination of care with primary care physician and bedside consultants. I am remotely monitoring this patient from Tele icu station in [place]. I am unable to do the bedside exam, and history/physical and pertinent information is taken from other notes in the computer and bedside staff. Certain portions of this document may have been dictated utilizing voice recognition technology such as [employer]. Inherent to this technology, typographical and grammatical errors may exist. As much as I am diligent to identify and correct to these mistakes, some errors may remain in the document. Critical care time devoted to this patient today is approximately is-30 minutes.- Sepsis Event Evaluation Height, Weight, BMI Height: 5'5.00" Weight: 130lbs. oz. 58.699791bc; 35.92 BMI Method: Focused Exam Lactate Level 03/17/23 19:04: Lactic Acid Level 1.54 Exam Exam Patient acknowledged, consented, and participated in this virtual visit which was conducted using real time audio/video Vital Signs Date Time Temp Pulse Resp B/P (MAP) Pulse Ox O2 Delivery O2 Flow Rate FiO2 03/18/23 06:00 105 25 136/77 (96) 90 Room Air 03/18/23 05:00 89 19 133/88 (103) 91 Room Air 03/18/23 04:20 36.1 03/18/23 04:00 Room Air 03/18/23 04:00 81 21 118/69 (85) 100 Room Air 03/18/23 03:00 71 17 98/48 (65) 100 Room Air 03/18/23 02:00 87 35 108/72 (84) 90 Room Air 03/18/23 01:00 69 34 92/48 (63) 99 Room Air 03/18/23 00:27 36.3 03/18/23 00:15 70 03/18/23 00:00 81 16 104/68 (80) 100 Room Air 03/17/23 23:59 Room Air 03/17/23 23:45 78 18 111/72 (85) 100 Room Air 03/17/23 23:30 92 35 92/46 (61) 97 Room Air 03/17/23 23:15 77 36 93/46 (62) 100 Room Air 03/17/23 22:45 73 28 99/56 (70) 100 Room Air 03/17/23 22:30 76 16 93/43 (60) 99 Room Air 03/17/23 22:15 75 18 97/45 (62) 100 Room Air 03/17/23 22:00 71 17 92/58 (69) 100 Room Air 03/17/23 21:45 83 20 113/76 (88) 99 Room Air 03/17/23 21:30 84 18 124/97 (106) 91 Room Air 03/17/23 21:15 80 17 97 Room Air 03/17/23 21:15 Room Air 03/17/23 21:10 81 03/17/23 21:00 75 17 128/86 (100) 97 Room Air 03/17/23 21:00 36.6 75 18 128/86 (100) 98 Room Air 03/17/23 20:48 81 115/69 03/17/23 16:31 81 129/90 (103) 94 Room Air I & O 03/18/23 06:59 Intake Total 805 ml Output Total 1025 ml Balance -220 ml Height & Weight Height: 5'5.00" Weight: 130lbs. oz. 58.338909ka; 35.92 BMI Method: General Appearance: Chronically ill, Mild Distress Capillary Refill: Less Than 3 Seconds Gastrointestinal: non tender, soft Results Lab Laboratory Tests 03/17/23 16:34 03/18/23 03:51 Assessment/Plan Assessment/Plan as above Critical Care: Critically Ill Patient Time spent with patient (mins): 30 DALE AGUERO MD Mar 18, 2023 07:45
[2023-03-18] MEDS: PANTOPRAZOLE INJECTION 40 MG VIAL IV SCH (08:58)
[2023-03-18] MEDS ORDERED: LEVETIRACETAM IV SCH (09:00)
[2023-03-18] MEDS ORDERED: NS IV SCH (09:00)
[2023-03-18] MEDS ORDERED: LACOSAMIDE 100 MG TABLET PO SCH (09:15)
--- NOTE | 2023-03-18 09:37 | History & Physical ---
HPI History of Present Illness: Yesterday around 2:30 her went to worm picker kids from school, she went to go to the bathroom and she stood up and then her left side just got weak and she collapsed and her left side started shaking. When her family got home they brought her to the hospital. This morning while watching tv her whole left side clenched and started shaking again, but much shorter this time. She denies pain with it and remains alert throughout. Was on decadron 2 mg once per day and was supposed to be having surgery to remove metal plate Apr 14, was to cut down her Decadron, was to decrease to 1 mg daily for 10 days, did that until the fourth, and assumed that she then shouldn't take anymore, no dose on Mar 17. She states every time she tries to wean off of Decadron something like this happens. Last time, she had complete weakness of left side including face and difficulty speaking, she got a big dose of steroids and was better by the evening. In 2014 she had a big seizure and was found to have a brain tumor, suspected to be cancerous, she was sent to [place], had a biopsy and had chemo and radiation then and was on steroids for a month or two and came off pretty easily. Was stable for last few years, in July or August of this year started having weakness and numbness in left side and ultimately her mom made her come in, and they found recurrence of tumor just below prior tumor, she had surgery and then radiation through October. She was started on Decadron after her surgery in August 2022. Started chemo in December, is supposed to have next round of chemotherapy Mar 23. She gets her chemo in [place], was supposed to have labwork done for them today. She has also been on Keppra 500 twice daily since around August as well. Source: patient Date seen by provider: Mar 18, 2023 Time Seen by Provider: 09:37 Attending Physician [facility] PCP Admitting Physician: René Clemente MD Attending Physician: René Clemente MD Consult Date of Admission Mar 17, 2023 at 20:50 Home Medications Home Medications Reviewed patient Home Medication Reconciliation performed by pharmacy medication reconciliations light rail signal technician and/or nursing. Patients Allergies have been reviewed. Allergies Coded Allergies: sulfamethoxazole (Verified Allergy, Unknown, 11/27/20) trimethoprim (Verified Allergy, Unknown, 11/27/20) [id number]-[id number] Hx Patient Social History Smoking Status: Current Everyday Smoker 2nd Hand Smoke Exposure: Yes Recent Hopitalizations: No Alcohol Use?: No Tobacco type used: Cigarettes Immunizations Up To Date Tetanus Booster (TDap): Less than 5yrs Influenza Vaccine Up-to-Date: No; Not Current First/Initial COVID19 Vaccinat: PT REFUSED Second COVID19 Vaccination Armando: PT REFUSED Third COVID19 Vaccination Date: PT REFUSED Past Medical History PMHx: Brain tumor SurgHx: Brain tumor resection x 2, October 2014, August 2022 Cholecystectomy Family Medical History Family History: Alcoholism 19 FATHER, Onset: - Drug abuse G8 BROTHER, Onset: - Hypercholesterolemia 19 FATHER, Onset: - Hypertension 19 FATHER, Onset:40s - 50 No Family History of: AIDS Abdominal aortic aneurysm Long's disease Alzheimer's disease Aphasia Arthritis Asthma Cancer of mouth Cardiovascular disease Cataracts Colon cancer Completed stroke Congenital disease Congenital heart disease Coronary thrombosis Cystic fibrosis Deafness or hearing loss Dementia Diabetes mellitus Dysphasia Fibrocystic disease of breast Gastroenteritis Glaucoma Headache disorder Infertility Kidney disease Myocardial infarction Neoplasm Not obtainable due to adoption Osteoporosis Parkinson's disease Prostate cancer Psychosocial problem Respiratory disorder Seizure disorder Severe allergy Thyroid disease Tuberculosis Visual disorder Review of Systems ([facility]) Constitutional: No fever EENTM: nose congestion (relates to seasonal allergies); No throat pain Respiratory: cough; No short of breath Cardiovascular: No chest pain Gastrointestinal: No abdominal pain; constipation (a little, has that trouble with chemo); No diarrhea Genitourinary: frequency (for a week) Musculoskeletal: joint pain (generalized) Skin: rash (new stretch headley that are itching, relates to gaining weight) Psychiatric/Neurological: Numbness; Denies Weakness Reviewed Test Results Reviewed Test Results Lab Laboratory Tests Test 03/17/23 16:31 03/17/23 16:34 03/17/23 17:18 03/17/23 19:04 Range/Units Glucometer 120 H 70-110 MG/DL White Blood Count 8.5 4.3-11.0 10^3/uL Red Blood Count 3.78 L 3.80-5.11 10^6/uL Hemoglobin 13.9 11.5-16.0 g/dL Hematocrit 42 35-52 % Mean Corpuscular Volume 110 H 80-99 fL Mean Corpuscular Hemoglobin 37 H 25-34 pg Mean Corpuscular Hemoglobin Concent 33 32-36 g/dL Red Cell Distribution Width 15.1 H 10.0-14.5 % Platelet Count 73 L 130-400 10^3/uL Mean Platelet Volume 8.2 L 9.0-12.2 fL Immature Granulocyte % (Auto) 0 % Neutrophils (%) (Auto) 74 42-75 % Lymphocytes (%) (Auto) 15 12-44 % Monocytes (%) (Auto) 9 0-12 % Eosinophils (%) (Auto) 2 0-10 % Basophils (%) (Auto) 0 0-10 % Neutrophils # (Auto) 6.3 1.8-7.8 10^3/uL Lymphocytes # (Auto) 1.2 1.0-4.0 10^3/uL Monocytes # (Auto) 0.8 0.0-1.0 10^3/uL Eosinophils # (Auto) 0.1 0.0-0.3 10^3/uL Basophils # (Auto) 0.0 0.0-0.1 10^3/uL Immature Granulocyte # (Auto) 0.0 0.0-0.1 10^3/uL Prothrombin Time 11.8 L 12.2-14.7 SEC INR Comment 0.8 0.8-1.4 Activated Partial Thromboplast Time 27 24-35 SEC D-Dimer 0.41 0.00-0.49 UG/ML Sodium Level 141 135-145 MMOL/L Potassium Level 4.0 3.6-5.0 MMOL/L Chloride Level 109 H 98-107 MMOL/L Carbon Dioxide Level 25 21-32 MMOL/L Anion Gap 7 5-14 MMOL/L Blood Urea Nitrogen 17 7-18 MG/DL Creatinine 0.69 0.60-1.30 MG/DL Estimat Glomerular Filtration Rate 115 BUN/Creatinine Ratio 25 Glucose Level 117 H 70-105 MG/DL Calcium Level 9.5 8.5-10.1 MG/DL Corrected Calcium 9.4 8.5-10.1 MG/DL Total Bilirubin 0.4 0.1-1.0 MG/DL Aspartate Amino Transf (AST/SGOT) 40 H 5-34 U/L Alanine Aminotransferase (ALT/SGPT) 87 H 0-55 U/L Alkaline Phosphatase 71 40-136 U/L Troponin I < 0.028 <0.028 NG/ML Total Protein 7.0 6.4-8.2 GM/DL Albumin 4.1 3.2-4.5 GM/DL Urine Color YELLOW Urine Clarity CLEAR Urine pH 5.0 5-9 Urine Specific [place] 1.010 L 1.016-1.022 Urine Protein NEGATIVE NEGATIVE Urine Glucose (UA) NEGATIVE NEGATIVE Urine Ketones NEGATIVE NEGATIVE Urine Nitrite POSITIVE H NEGATIVE Urine Bilirubin NEGATIVE NEGATIVE Urine Urobilinogen 0.2 < = 1.0 MG/DL Urine Leukocyte Esterase NEGATIVE NEGATIVE Urine RBC (Auto) NEGATIVE NEGATIVE Urine RBC NONE /HPF Urine WBC 2-5 /HPF Urine Squamous Epithelial Cells RARE /HPF Urine Crystals NONE /LPF Urine Bacteria MODERATE H /HPF Urine Casts NONE /LPF Urine Mucus NEGATIVE /LPF Urine Culture Indicated YES Lactic Acid Level 1.54 0.50-2.00 MMOL/L Test 03/18/23 03:51 Range/Units White Blood Count 12.5 H 4.3-11.0 10^3/uL Red Blood Count 3.84 3.80-5.11 10^6/uL Hemoglobin 13.9 11.5-16.0 g/dL Hematocrit 41 35-52 % Mean Corpuscular Volume 106 H 80-99 fL Mean Corpuscular Hemoglobin 36 H 25-34 pg Mean Corpuscular Hemoglobin Concent 34 32-36 g/dL Red Cell Distribution Width 14.5 10.0-14.5 % Platelet Count 87 L 130-400 10^3/uL Mean Platelet Volume 8.5 L 9.0-12.2 fL Immature Granulocyte % (Auto) 1 % Neutrophils (%) (Auto) 93 H 42-75 % Lymphocytes (%) (Auto) 5 L 12-44 % Monocytes (%) (Auto) 1 0-12 % Eosinophils (%) (Auto) 0 0-10 % Basophils (%) (Auto) 0 0-10 % Neutrophils # (Auto) 11.6 H 1.8-7.8 10^3/uL Lymphocytes # (Auto) 0.6 L 1.0-4.0 10^3/uL Monocytes # (Auto) 0.2 0.0-1.0 10^3/uL Eosinophils # (Auto) 0.0 0.0-0.3 10^3/uL Basophils # (Auto) 0.0 0.0-0.1 10^3/uL Immature Granulocyte # (Auto) 0.1 0.0-0.1 10^3/uL Neutrophils % (Manual) 78 % Lymphocytes % (Manual) 5 % Monocytes % (Manual) 3 % Band Neutrophils 11 % Reactive Lymphocytes 3 % Percent Immature Platelet Fraction 0.8 0.0-7.6 % Sodium Level 138 135-145 MMOL/L Potassium Level 4.2 3.6-5.0 MMOL/L Chloride Level 108 H 98-107 MMOL/L Carbon Dioxide Level 20 L 21-32 MMOL/L Anion Gap 10 5-14 MMOL/L Blood Urea Nitrogen 16 7-18 MG/DL Creatinine 0.63 0.60-1.30 MG/DL Estimat Glomerular Filtration Rate 117 BUN/Creatinine Ratio 25 Glucose Level 157 H 70-105 MG/DL Calcium Level 9.3 8.5-10.1 MG/DL Corrected Calcium 9.4 8.5-10.1 MG/DL Phosphorus Level 2.7 2.3-4.7 MG/DL Magnesium Level 1.8 1.6-2.4 MG/DL Total Bilirubin 0.4 0.1-1.0 MG/DL Aspartate Amino Transf (AST/SGOT) 54 H 5-34 U/L Alanine Aminotransferase (ALT/SGPT) 108 H 0-55 U/L Alkaline Phosphatase 77 40-136 U/L Total Protein 6.9 6.4-8.2 GM/DL Albumin 3.9 3.2-4.5 GM/DL Triglycerides Level 119 <150 MG/DL Cholesterol Level 246 H < 200 MG/DL LDL Cholesterol Direct 164 H 1-129 MG/DL VLDL Cholesterol 24 5-40 MG/DL HDL Cholesterol 67 H 40-60 MG/DL Radiology CT head: IMPRESSION: 1. Postoperative changes as above. Cystic collection persists possibly increased in size but difficult to measure given the change in configuration since previous. There does appear to be acute hemorrhage layering within the dependent portion of the cystic collection. 2. No definite acute infarct although the diffuse abnormalities in the right hemisphere limit evaluation. Residual tumor not excluded without contrast. CTA head: IMPRESSION: Besides congenital anatomic variants, the large arterial structures within the head and neck are unremarkable. Postsurgical changes within the right cerebral hemisphere are again identified with improved edema, improved mass effect, improved midline shift, and improved overlying extra-axial fluid collection. Physical Exam-([facility]) Physical Exam Vital Signs VS - Last 72 Hours, by Label 03/17/23 03/17/23 03/17/23 03/17/23 16:31 20:48 21:00 21:00 Temp 36.6 Pulse 81 81 75 75 Resp 18 17 B/P (MAP) 129/90 (103) 115/69 128/86 (100) 128/86 (100) Pulse Ox 94 98 97 O2 Delivery Room Air Room Air Room Air 03/17/23 03/17/23 03/17/23 03/17/23 21:10 21:15 21:15 21:30 Pulse 81 80 84 Resp 17 18 B/P (MAP) 124/97 (106) Pulse Ox 97 91 O2 Delivery Room Air Room Air Room Air 03/17/23 03/17/23 03/17/23 03/17/23 21:45 22:00 22:15 22:30 Pulse 83 71 75 76 Resp 20 17 18 16 B/P (MAP) 113/76 (88) 92/58 (69) 97/45 (62) 93/43 (60) Pulse Ox 99 100 100 99 O2 Delivery Room Air Room Air Room Air Room Air 03/17/23 03/17/23 03/17/23 03/17/23 22:45 23:15 23:30 23:45 Pulse 73 77 92 78 Resp 28 36 35 18 B/P (MAP) 99/56 (70) 93/46 (62) 92/46 (61) 111/72 (85) Pulse Ox 100 100 97 100 O2 Delivery Room Air Room Air Room Air Room Air 03/17/23 03/18/23 03/18/23 03/18/23 23:59 00:00 00:15 00:27 Temp 36.3 Pulse 81 70 Resp 16 B/P (MAP) 104/68 (80) Pulse Ox 100 O2 Delivery Room Air Room Air 03/18/23 03/18/23 03/18/23 03/18/23 01:00 02:00 03:00 04:00 Pulse 69 87 71 81 Resp 34 35 17 21 B/P (MAP) 92/48 (63) 108/72 (84) 98/48 (65) 118/69 (85) Pulse Ox 99 90 100 100 O2 Delivery Room Air Room Air Room Air Room Air 03/18/23 03/18/23 03/18/23 03/18/23 04:00 04:20 05:00 06:00 Temp 36.1 Pulse 89 105 Resp 19 25 B/P (MAP) 133/88 (103) 136/77 (96) Pulse Ox 91 90 O2 Delivery Room Air Room Air Room Air 03/18/23 03/18/23 03/18/23 03/18/23 07:00 07:00 08:00 08:00 Pulse 93 89 96 Resp 33 18 B/P (MAP) 141/80 (100) 146/108 (121) Pulse Ox 94 93 O2 Delivery Room Air Room Air Room Air 03/18/23 03/18/23 03/18/23 03/18/23 08:10 09:00 10:00 11:00 Temp 35.8 Pulse 83 93 92 Resp 13 20 17 B/P (MAP) 159/101 (120) 135/75 (95) 129/82 (98) Pulse Ox 100 100 90 O2 Delivery Room Air Room Air Room Air 03/18/23 03/18/23 12:00 12:00 Temp 35.9 Pulse 87 Resp 20 B/P (MAP) 136/84 (101) Pulse Ox 100 O2 Delivery Room Air Capillary Refill : Less Than 3 Seconds General Appearance: no apparent distress Eyes: Bilateral Eye PERRL, Bilateral Eye EOMI Respiratory: lungs clear, normal breath sounds Cardiovascular: regular rate, rhythm, no murmur Peripheral Pulses: 2+ Dorsalis Pedis (R), 2+ Left Dors-Pedis (L) Gastrointestinal: normal bowel sounds, non tender, soft Extremities: pedal edema (trace) Neurologic/Psychiatric: 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 (2) Seizure Status: Acute Assessment & Plan: Suspect due to decreasing Decadron dose outpatient, resumed high dose IV and increased Keppra to 750 mg BID, but still had recurrent seizure this morning, [facility] ICU physician ordered lacosamide to start this am as well. Discussed with transfer center and they will accept her, are waiting on a bed, may be several hours. (3) Left-sided weakness Status: Acute Assessment & Plan: Improved this morning, continuing steroids as above. (4) DVT prophylaxis Status: Acute Assessment & Plan: Enoxaparin RENÉ CLEMENTE MD Mar 18, 2023 09:37
[2023-03-18] MEDS ORDERED: [UNRECOGNIZED DRUG - CODE] PO (11:24)
[2023-03-18] MEDS ORDERED: CETI10TA17 PO (11:24)
[2023-03-18] MEDS ORDERED: LEVE500T6 PO (11:24)
[2023-03-18] MEDS ORDERED: [UNRECOGNIZED DRUG - CODE] PO (11:24)
[2023-03-18] MEDS ORDERED: ENOXAPARIN 40 MG/0.4 ML SYRINGE SQ SCH (13:00)
--- NOTE | 2023-03-18 16:36 | Discharge Summary ---
Discharge Summary Hospital Course Problems/Diagnosis: (1) Brain tumor Status: Chronic Assessment & Plan: Post second resection in August 2022, CT on admit concerning fo r possible hemorrhage in bed, reviewed by Neuro and felt subacute not acute. (2) Seizure Status: Acute Assessment & Plan: Suspect due to decreasing Decadron dose outpatient, resumed high dose IV and increased Keppra to 750 mg BID, but still had recurrent seizure this morning, [facility] ICU physician ordered lacosamide to start this am as well. Discussed with transfer center and they were ultimately able to accept her in transfer later in the day. (3) Left-sided weakness Status: Acute Assessment & Plan: Improved this morning, continuing steroids as above. Hospital Course Date of Admission: Mar 17, 2023 at 20:50 Admission Diagnosis : Family Physician/Provider: [facility] Date of Discharge: 03/18/23 Discharge Diagnosis: See problem list Hospital Course: See problem list, transferred to . Labs and Pending Lab Test: Laboratory Tests 03/17/23 17:18: Urine Color YELLOW, Urine Clarity CLEAR, Urine pH 5.0, Urine Specific [place] 1.010L, Urine Protein NEGATIVE, Urine Glucose (UA) NEGATIVE, Urine Ketones NEGATIVE, Urine Nitrite POSITIVEH, Urine Bilirubin NEGATIVE, Urine Urobilinogen 0.2, Urine Leukocyte Esterase NEGATIVE, Urine RBC (Auto) NEGATIVE, Urine RBC NONE, Urine WBC 2-5, Urine Squamous Epithelial Cells RARE, Urine Crystals NONE, Urine Bacteria MODERATEH, Urine Casts NONE, Urine Mucus NEGATIVE, Urine Culture Indicated YES 03/17/23 19:04: Lactic Acid Level 1.54 03/18/23 03:51: White Blood Count 12.5H, Red Blood Count 3.84, Hemoglobin 13.9, Hematocrit 41, Mean Corpuscular Volume 106H, Mean Corpuscular Hemoglobin 36H, Mean Corpuscular Hemoglobin Concent 34, Red Cell Distribution Width 14.5, Platelet Count 87L, Mean Platelet Volume 8.5L, Immature Granulocyte % (Auto) 1, Neutrophils (%) (Auto) 93H, Lymphocytes (%) (Auto) 5L, Monocytes (%) (Auto) 1, Eosinophils (%) (Auto) 0, Basophils (%) (Auto) 0, Neutrophils # (Auto) 11.6H, Lymphocytes # (Auto) 0.6L, Monocytes # (Auto) 0.2, Eosinophils # (Auto) 0.0, Basophils # (Auto) 0.0, Immature Granulocyte # (Auto) 0.1, Neutrophils % (Manual) 78, Lymphocytes % (Manual) 5, Monocytes % (Manual) 3, Band Neutrophils 11, Reactive Lymphocytes 3, Percent Immature Platelet Fraction 0.8, Sodium Level 138, Potassium Level 4.2, Chloride Level 108H, Carbon Dioxide Level 20L, Anion Gap 10, Blood Urea Nitrogen 16, Creatinine 0.63, Estimat Glomerular Filtration Rate 117, BUN/Creatinine Ratio 25, Glucose Level 157H, Calcium Level 9.3, Corrected Calcium 9.4, Phosphorus Level 2.7, Magnesium Level 1.8, Total Bilirubin 0.4, Aspartate Amino Transf (AST/SGOT) 54H, Alanine Aminotransferase (ALT/SGPT) 108H, Alkaline Phosphatase 77, Total Protein 6.9, Albumin 3.9, Triglycerides Level 119, Cholesterol Level 246H, LDL Cholesterol Direct 164H, VLDL Cholesterol 24, HDL Cholesterol 67H Microbiology 03/17/23 Blood Culture - Preliminary, Resulted 03/17/23 Urine Culture - Preliminary, Resulted Gram Negative Jose Home Meds Active Reported Temozolomide 180 Mg Capsule 180 Mg PO DAILY X 5 DAYS TAKES 140MG +180MG TOGETHER- AND ONLY TAKES FOR 5 DAYS Temozolomide 140 Mg Capsule 140 Mg PO DAILY X 5 DAYS TAKES 140MG +180MG TOGETHER- AND ONLY TAKES FOR 5 DAYS Cetirizine HCl 10 Mg Tablet 10 Mg PO HS Levetiracetam 500 Mg Tablet 500 Mg PO BID Assessment/Pt DC Instructions Transferred to [facility] Discharge Physical Examination Allergies: Coded Allergies: sulfamethoxazole (Verified Allergy, Unknown, 11/27/20) trimethoprim (Verified Allergy, Unknown, 11/27/20) RENÉ LYNCH MD Mar 18, 2023 16:36
[2023-03-18] MEDS ORDERED: cefTRIAXone 1 GM/NS 50 ML IVPB IV SCH ×2 (21:00)
[2023-03-18] MEDS ORDERED: NON-FORMULARY MEDICATION 1 EA EA (Cetirizine HCl 10 MG) PO SCH (21:00)
[2023-03-18] MEDS ORDERED: LORATADINE 10 MG TABLET PO SCH (21:00)
[2023-03-19] MEDS ORDERED: POTASSIUM CHLORIDE 20 MEQ TABLET PO SCH (06:00)
[2023-03-19] MEDS ORDERED: POTASSIUM CL 10MEQ/50ML IVPB 50 ML IV SCH (06:00)
[2023-03-19] MEDS ORDERED: MAGNESIUM 1 GM/100 ML IVPB 100 ML IV SCH (06:00)
== END 2023-03-18 16:40 | disposition short-term general hospital (02) ==
LOC: EDUNIT# 16:15 → ER 16:18 → UNDOADMOB 20:50 → ICU 20:50 → UNDODISOB 03-18 16:40
PROVIDERS: ADMIT Family Medicine; ATTEND Family Medicine
DX: D49.6 Neoplasm of unspecified behavior of brain (principal); R56.9 Unspecified convulsions; R53.1 Weakness; G93.6 Cerebral edema; N30.00 Acute cystitis without hematuria; F17.210 Nicotine dependence, cigarettes, uncomplicated; Z79.899 Other long term (current) drug therapy
CPT/HCPCS: 51702; 70450; 70496; 70498; 71045; 80053 ×2; 80061; 81000; 82947; 83605; 83735; 84100; 84484; 85007; 85025; 85027; 85379; 85610; 85730; 87040; 87077; 87081; 87088; 87186; 93005; 93041; 96365; 96366; 96367; 96372; 96375 ×3; 96376; 99284; G0378; 36415